=== PATIENT | female | born 1935 | race Two or more races ===

== ENCOUNTER 2017-04-08 13:14 | Inpatient (IN) | payer MEDICARE, OTHER ==
[~2017-04-08] VITALS: Ht 162.6 cm; Wt 52.6 kg
[2017-04-08] VITALS (15 sets, daily range): BP systolic 104–160; BP diastolic 41–100
[~2017-04-08 13:14] MED LIST: ALLOPURINOL100 M1 ORAL; ASPIR 8181 MG ORAL; ASPIRIN EC81 MG ORAL; BACTRIM DS TAB1 EAC1 ORAL; CEPHALEXIN500 MG ORAL; DIGOXIN250 MCG ORAL; DITROPAN10 MG ORAL; DIURIL25 MG ORAL; GELNIQUE92 GM PO; LEVAQUIN250 M1 ORAL; LISINOPRIL-HCT1 EACH ORAL; LISINOPRIL20 MG ORAL; LISINOPRIL5 MG ORAL; MAG-OXIDE400 M1 PO; MAGNESIUM OXID400 M1 ORAL; METFORMIN HCL1000 M1 ORAL; METOPROLOL SUC100 MG ORAL; METOPROLOL SUC200 MG ORAL; METOPROLOL TAR100 M1 ORAL; METRONIDAZOLE500 MG ORAL; PEPCID40 MG PO; PHENAZOPYRIDIN200 MG ORAL; TEMAZEPAM15 MG ORAL; TEMAZEPAM7.5 MG ORAL; TOPROL XL50 MG ORAL; VITAMIN D-40400 UNIT ORAL; VITAMIN D1000 UNI1 ORAL; WARFARIN SODIU2.5 MG ORAL; ZOFRAN ODT4 MG ORAL; ZOLPIDEM TARTRA10 MG ORAL
[2017-04-08] MEDS ORDERED: XARELTO10 MG ORAL (13:28)
[2017-04-08] MEDS ORDERED: Diltiazem 25mg/5ml IV ONE (13:30)
--- NOTE | 2017-04-08 13:48 | Emergency Room Report ---
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 and tachycardia Patient herself is nonverbal This does limit the history of present illness There was no reports of vomiting however the patient did have questionable diarrhea No obvious rash Patient appear to be worsening with her respirations In with the increased heart rate was brought in for further eval Patient has had previous CVA, and does not speak from that There was no reports of any obvious fall Patient symptoms ongoing for the past 3 days Allergies: Coded Allergies: No Known Allergies (Unverified , 02/14/15) Patient History Past Medical History: see triage record Pertinent Family History: none Now: No Reviewed Nursing Documentation: PMH: Agreed, PSxH: Agreed Nursing Documentation-PMH Past Medical History: No History, Except For Hx Hypertension: Yes Hx Diabetes: Yes Hx Cancer: No Hx Gastrointestinal Problems: No Hx Dialysis: No Hx Neurological Problems: Yes - stroke - right side weakness 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 Review of Systems All Other Systems: negative except mentioned in HPI Physical Exam Vital Signs Date Time Temp Pulse Resp B/P Pulse Ox O2 Delivery O2 Flow Rate FiO2 04/08/17 13:19 98.2 151 22 127/83 92 Room Air Sp02 EP Interpretation: reviewed, normal General Appearance: mild distress - Appears tachypneic and short of breath Head: normocephalic, atraumatic Eyes: bilateral eye PERRL ENT: normal pharynx, no angioedema Neck: supple, thyroid normal Respiratory: decreased breath sounds, other - Appears mildly tachypneic with shallow respirations Cardiovascular #1: tachycardia, irregularly irregular Gastrointestinal: non tender, soft, no mass Genitourinary: no CVA tenderness Musculoskeletal: other - Patient does not move extremities to command Neurologic: responsive - to physical stimuli Skin: no rash, warm/dry Lymphatic: no adenopathy Procedures Critical Care Time Critical Care Time 40 minutes for multiple re\re evaluations initial critical status Presentation concerning for cardiopulmonary arrest not including any procedural time Medical Decision Making Diagnostic Impression: Primary Impression: Rapid atrial fibrillation Additional Impression: CHF (congestive heart failure) ER Course Patient is a fairly complex patient with multiple differential to consideration including but not limited to cardiac cardiopulmonary and vascular emergencies Patient's chest x-ray imaging is concerning patient has obvious congestion Patient's heart rate did initially respond to the Cardizem At this time requiring drip Patient was also placed on BiPAP given the appearance And has been upgraded to ICU Labs Test 04/08/17 13:32 White Blood Count 6.1 K/UL (4.8-10.8) Red Blood Count 4.21 M/UL (4.20-5.40) Hemoglobin 11.0 G/DL (12.0-16.0) Hematocrit 36.1 % (37.0-47.0) Mean Corpuscular Volume 86 FL (80-99) Mean Corpuscular Hemoglobin 26.2 PG (27.0-31.0) Mean Corpuscular Hemoglobin Concent 30.5 G/DL (32.0-36.0) Red Cell Distribution Width 14.7 % (11.6-14.8) Platelet Count 266 K/UL (150-450) Mean Platelet Volume 7.9 FL (6.5-10.1) Neutrophils (%) (Auto) 79.1 % (45.0-75.0) Lymphocytes (%) (Auto) 13.9 % (20.0-45.0) Monocytes (%) (Auto) 6.1 % (1.0-10.0) Eosinophils (%) (Auto) 0.1 % (0.0-3.0) Basophils (%) (Auto) 0.8 % (0.0-2.0) Prothrombin Time 12.9 SEC (9.30-11.50) Prothromb Time International Ratio 1.3 (0.9-1.1) Activated Partial Thromboplast Time 26 SEC (23-33) Sodium Level 137 mEQ/L (135-145) Potassium Level 3.9 mEQ/L (3.4-4.9) Chloride Level 95 mEQ/L (98-107) Carbon Dioxide Level 22 mEQ/L (20-30) Anion Gap 20 (5-15) Blood Urea Nitrogen 17 mg/dL (7-23) Creatinine 0.8 mg/dL (0.5-0.9) Estimat Glomerular Filtration Rate mL/min (>60) Glucose Level 163 mg/dL (74-106) Calcium Level 9.4 mg/dL (8.6-10.2) Total Bilirubin 0.7 mg/dL (0.0-1.2) Aspartate Amino Transf (AST/SGOT) 29 U/L (5-40) Alanine Aminotransferase (ALT/SGPT) 19 U/L (3-33) Alkaline Phosphatase 65 U/L (35-104) Total Creatine Kinase 183 U/L (26-140) Troponin I < 0.30 ng/mL (<=0.30) Total Protein 7.1 g/dL (6.6-8.7) Albumin 4.2 g/dL (3.5-5.2) Globulin 2.9 g/dL Albumin/Globulin Ratio 1.4 (1.0-2.7) Lipase 57 U/L (< 60) EKG Diagnostic Results Rate: tachycardiac Rhythm: other ST Segments: other - Atrial fibrillation, irregularly irregular, straining pattern Rhythm Strip Diag. Results EP Interpretation: yes Rate: 135 Rhythm: no PVC's, no ectopy, other - a fib Chest X-Ray Diagnostic Results EP Interpretation: Yes Findings: no pneumothorax, other - Cardiomegaly pulmonary congestion bilateral effusions, Number of Views: 1 Last Vital Signs Date Time Temp Pulse Resp B/P Pulse Ox O2 Delivery O2 Flow Rate FiO2 04/08/17 13:37 157 127/83 04/08/17 13:19 98.2 22 92 Room Air Status: improved Disposition: ADMITTED INPATIENT Condition: Critical HEATHER HEATH D.O. April 08, 2017 13:48
[2017-04-08 13:52] LABS: BASOPHILS % (AUTO) 0.8 % (0.0-2.0); EOSINOPHILS % (AUTO) 0.1 % (0.0-3.0); LYMPHOCYTES % (AUTO) 13.9 % (20.0-45.0); MEAN CORPUSCULAR HEMOGLOBIN 26.2 PG (27.0-31.0); MEAN CORPUSCULAR HGB CONC 30.5 G/DL (32.0-36.0); MEAN CORPUSCULAR VOLUME 86 FL (80-99); MEAN PLATELET VOLUME 7.9 FL (6.5-10.1); MONOCYTES % (AUTO) 6.1 % (1.0-10.0); NEUTROPHILS % (AUTO) 79.1 % (45.0-75.0); PLATELET COUNT 266 K/UL (150-450); RED BLOOD COUNT 4.21 M/UL (4.20-5.40); RED CELL DISTRIBUTION WIDTH 14.7 % (11.6-14.8); WHITE BLOOD COUNT 6.1 K/UL (4.8-10.8)
[2017-04-08] MEDS ORDERED: Diltiazem CD 120mg cap ORAL ONE (14:00)
[2017-04-08 14:01] LABS: INR 1.3 (0.9-1.1); PROTHROMBIN TIME 12.9 SEC (9.30-11.50)
[2017-04-08 14:05] LABS: ALANINE AMINOTRANSFERASE 19 U/L (3-33); ALBUMIN/GLOBULIN RATIO 1.4 (1.0-2.7); ANION GAP 20 (5-15); ASPARTATE AMINO TRANSFERASE 29 U/L (5-40); CALCIUM 9.4 mg/dL (8.6-10.2); CARBON DIOXIDE 22 mEQ/L (20-30); CHLORIDE 95 mEQ/L (98-107); CREATININE 0.8 mg/dL (0.5-0.9); HEMOLYSIS 2; LIPASE 57 U/L (< 60); POTASSIUM 3.9 mEQ/L (3.4-4.9); SODIUM 137 mEQ/L (135-145); TOTAL PROTEIN 7.1 g/dL (6.6-8.7); TROPONIN I < 0.30 ng/mL (<=0.30)
[2017-04-08 14:15] LABS: CKMB 5.7 ng/mL (< 3.8)
[2017-04-08] MEDS ORDERED: Digoxin 0.5mg/2ml Inj IVP ONE (14:15)
[2017-04-08] MEDS ORDERED: Diltiazem 125mg/25ml Inj IV ONE (14:20)
[2017-04-08 14:44] LABS: APPEARANCE,URINE CLEAR; KETONES,URINE NEGATIVE (NEGATIVE); LEUKOCYTE ESTERASE ,URINE 1+ (NEGATIVE); NITRITE,URINE NEGATIVE (NEGATIVE); PH,URINE 5 (4.5-8.0); PROTEIN,URINE 1+ (NEGATIVE); UROBILINOGEN,URINE NORMAL MG/DL (0.0-1.0)
[2017-04-08 15:05] LABS: BACTERIA,URINE FEW /HPF; RBC,URINE 0-2 /HPF (0 - 2); SQUAMOUS EPITHELIAL CELL,UR FEW /LPF (NONE/OCC)
[2017-04-08] MEDS ORDERED: Miralax 17gm pkt ORAL PRN (16:15)
[2017-04-08] MEDS ORDERED: Morphine Sulfate 4mg/ml Inj IVP PRN (16:15)
[2017-04-08] MEDS ORDERED: DuoNeb 0.5-3(2.5)mg/3ml neb HHN PRN (16:15)
[2017-04-08] MEDS ORDERED: Metoprolol 5mg/5ml Inj IVP PRN (16:15)
[2017-04-08] MEDS: NovoLOG Insulin Flexpen SUBQ SCH ×2 (16:30→21:00)
[2017-04-08 16:33] LABS: ABG BASE EXCESS -5.1; ABG PCO2 29.1 mmHg (35.0-45.0)
[2017-04-08 16:34] LABS: ABG ALLEN TEST POSITIVE
[2017-04-08] MEDS ORDERED: Heparin 25,000u/D5W 500ml 500 ML IV SCH (17:30)
[2017-04-08] MEDS ORDERED: Heparin 5000 units/ml inj IV ONE (17:30)
[2017-04-08] MEDS ORDERED: Heparin 5000 units/ml inj SUBQ SCH (21:00)
--- NOTE | 2017-04-08 23:21 | Pulmonolgy Critical Care Note ---
Critical Care - Asmt/Plan Problems: (1) Atrial fibrillation with rapid ventricular response (2) CHF (congestive heart failure) (3) Hemiparesis, right (4) HTN (hypertension) (5) Diabetes mellitus Respiratory: monitor respiratory rate, adjust FIO2, CXR Cardiac: continue to monitor HR/BP, other - on heparin and cardizem drip Renal: F/U I&O Gastrointestinal: hold feedings Endocrine: monitor blood sugar, continue sliding scale insulin Hematologic: transfuse if hgb<8.5 Neurologic: PRN Ativan, keep patient comfortable Affect: PRN ativan Prophylaxis: Protonix, Heparin Time Spent (Minutes): 40 Discussed with: nurses, consultants, case briefer, family member Critical Care - Objective Last 24 Hour Vital Signs Date Time Temp Pulse Resp B/P Pulse Ox O2 Delivery O2 Flow Rate FiO2 04/08/17 19:00 70 20 132/64 99 Nasal Cannula 2.0 04/08/17 18:12 78 04/08/17 18:00 78 20 116/41 99 Nasal Cannula 2.0 04/08/17 17:31 99 Nasal Cannula 4.0 04/08/17 17:30 110 20 160/96 97 Venturi Mask 45 04/08/17 17:30 Nasal Cannula 4.0 04/08/17 17:00 110 20 156/100 97 Venturi Mask 45 04/08/17 16:53 97 179/78 04/08/17 16:30 114 22 160/72 98 Venturi Mask 45 04/08/17 16:00 138 04/08/17 15:50 98.7 132 20 158/72 98 Venturi Mask 45 04/08/17 15:30 107 20 141/89 100 Bi-pap 40 04/08/17 15:26 96 22 156/69 100 Bi-pap 40 04/08/17 15:01 104 20 133/97 100 Bi-pap 40 04/08/17 14:37 115 04/08/17 14:30 40 04/08/17 14:30 111 23 100 Facial 40 04/08/17 14:29 121 24 124/88 100 Bi-pap 40 04/08/17 14:05 107 129/88 04/08/17 13:50 117 24 Nasal Cannula 2.0 98 04/08/17 13:47 108 22 104/87 100 Nasal Cannula 04/08/17 13:37 157 127/83 5/12/17 13:19 98.2 151 22 127/83 92 Room Air Status: awake Condition: critical HEENT: atraumatic Neck: full ROM Lungs: chest wall tender Heart: HR/BP unstable, regular Abdomen: soft, non-tender Extremities: no C/C/E Accucheck: 95 Critical Care - Subjective ICU Day: 1 Interval Events: 81 year old female with hx of afib, CVA, BIBA with general weakness and tachycardia. she was diagnosed to have rapid afib and pulmonary edema and admitted to ICU. Sputum Amount: None Drips: Cardizem drip CXR: pulmonary edema Labs: Laboratory Tests Test 04/08/17 13:32 04/08/17 14:14 04/08/17 16:20 White Blood Count 6.1 K/UL (4.8-10.8) Red Blood Count 4.21 M/UL (4.20-5.40) Hemoglobin 11.0 G/DL (12.0-16.0) L Hematocrit 36.1 % (37.0-47.0) L Mean Corpuscular Volume 86 FL (80-99) Mean Corpuscular Hemoglobin 26.2 PG (27.0-31.0) L Mean Corpuscular Hemoglobin Concent 30.5 G/DL (32.0-36.0) L Red Cell Distribution Width 14.7 % (11.6-14.8) Platelet Count 266 K/UL (150-450) Mean Platelet Volume 7.9 FL (6.5-10.1) Neutrophils (%) (Auto) 79.1 % (45.0-75.0) H Lymphocytes (%) (Auto) 13.9 % (20.0-45.0) L Monocytes (%) (Auto) 6.1 % (1.0-10.0) Eosinophils (%) (Auto) 0.1 % (0.0-3.0) Basophils (%) (Auto) 0.8 % (0.0-2.0) Prothrombin Time 12.9 SEC (9.30-11.50) H Prothromb Time International Ratio 1.3 (0.9-1.1) H Activated Partial Thromboplast Time 26 SEC (23-33) Sodium Level 137 mEQ/L (135-145) Potassium Level 3.9 mEQ/L (3.4-4.9) Chloride Level 95 mEQ/L (98-107) L Carbon Dioxide Level 22 mEQ/L (20-30) Anion Gap 20 (5-15) H Blood Urea Nitrogen 17 mg/dL (7-23) Creatinine 0.8 mg/dL (0.5-0.9) Estimat Glomerular Filtration Rate mL/min (>60) Glucose Level 163 mg/dL (74-106) H Calcium Level 9.4 mg/dL (8.6-10.2) Total Bilirubin 0.7 mg/dL (0.0-1.2) Aspartate Amino Transf (AST/SGOT) 29 U/L (5-40) Alanine Aminotransferase (ALT/SGPT) 19 U/L (3-33) Alkaline Phosphatase 65 U/L (35-104) Total Creatine Kinase 183 U/L (26-140) H Creatine Kinase MB 5.7 ng/mL (< 3.8) H Creatine Kinase MB Relative Index 3.1 Troponin I < 0.30 ng/mL (<=0.30) Pro-B-Type Natriuretic Peptide 4342 pg/mL (0-450) H Total Protein 7.1 g/dL (6.6-8.7) Albumin 4.2 g/dL (3.5-5.2) Globulin 2.9 g/dL Albumin/Globulin Ratio 1.4 (1.0-2.7) Lipase 57 U/L (< 60) Digoxin Level < 0.3 ng/mL (0.5-2.0) L Urine Color Yellow Urine Appearance Clear Urine pH 5 (4.5-8.0) Urine Specific [place] 1.020 (1.005-1.035) Urine Protein 1+ (NEGATIVE) H Urine Glucose (UA) Negative (NEGATIVE) Urine Ketones Negative (NEGATIVE) Urine Occult Blood 1+ (NEGATIVE) H Urine Nitrite Negative (NEGATIVE) Urine Bilirubin Negative (NEGATIVE) Urine Urobilinogen Normal MG/DL (0.0-1.0) Urine Leukocyte Esterase 1+ (NEGATIVE) H Urine RBC 0-2 /HPF (0 - 2) Urine WBC 2-4 /HPF (0 - 2) Urine Squamous Epithelial Cells Few /LPF (NONE/OCC) Urine Bacteria Few /HPF (NONE) Arterial Blood pH 7.418 (7.350-7.450) Arterial Blood Partial Pressure CO2 29.1 mmHg (35.0-45.0) L Arterial Blood Partial Pressure O2 113.6 mmHg (75.0-100.0) H Arterial Blood HCO3 18.4 mmol/L (22.0-26.0) L Arterial Blood Oxygen Saturation 98.0 % (92.0-98.0) Arterial Blood Base Excess -5.1 Ozzie Test Positive JEANNE WHITE April 08, 2017 23:21
[2017-04-09] VITALS (19 sets, daily range): BP systolic 107–155; BP diastolic 46–92
[2017-04-09] MEDS: Heparin 25,000u/D5W 500ml 500 ML IV SCH ×3 (04:26→19:09)
[2017-04-09] MEDS: NovoLOG Insulin Flexpen SUBQ SCH ×4 (06:24→21:44)
[2017-04-09 06:41] LABS: TROPONIN I < 0.30 ng/mL (<=0.30)
[2017-04-09 07:10] LABS: ANION GAP 21 (5-15); CALCIUM 8.9 mg/dL (8.6-10.2); CARBON DIOXIDE 26 mEQ/L (20-30); CHLORIDE 96 mEQ/L (98-107); CREATININE 0.7 mg/dL (0.5-0.9); HEMOLYSIS 10; PHOSPHORUS 4.7 mg/dL (2.5-4.8); POTASSIUM 3.3 mEQ/L (3.4-4.9); SODIUM 143 mEQ/L (135-145)
[2017-04-09] MEDS ORDERED: Allopurinol 100mg Tab ORAL SCH (09:00)
[2017-04-09] MEDS ORDERED: Pantoprazole Inj IV SCH (09:00)
[2017-04-09 10:22] LABS: BASOPHILS % (AUTO) 1.2 % (0.0-2.0); EOSINOPHILS % (AUTO) 0.7 % (0.0-3.0); LYMPHOCYTES % (AUTO) 18.8 % (20.0-45.0); MEAN CORPUSCULAR HEMOGLOBIN 26.4 PG (27.0-31.0); MEAN CORPUSCULAR HGB CONC 31.4 G/DL (32.0-36.0); MEAN CORPUSCULAR VOLUME 84 FL (80-99); MEAN PLATELET VOLUME 8.2 FL (6.5-10.1); NEUTROPHILS % (AUTO) 67.3 % (45.0-75.0); PLATELET COUNT 243 K/UL (150-450); RED BLOOD COUNT 4.37 M/UL (4.20-5.40); RED CELL DISTRIBUTION WIDTH 14.9 % (11.6-14.8); WHITE BLOOD COUNT 4.6 K/UL (4.8-10.8)
--- NOTE | 2017-04-09 10:47 | Diagnostic Imaging Report ---
Indication: Dyspnea Technique: XRAY CHEST 1 V Comparison: 04/08/17 Findings: Cardiomediastinal silhouette is stable. Interstitial edema and small bilateral pleural effusions are again present. The osseous structures are stable. Impression: Stable congestive heart failure.
[2017-04-09 10:56] LABS: ALANINE AMINOTRANSFERASE 21 U/L (3-33); ALBUMIN/GLOBULIN RATIO 1.3 (1.0-2.7); ANION GAP 18 (5-15); ASPARTATE AMINO TRANSFERASE 29 U/L (5-40); CALCIUM 9.1 mg/dL (8.6-10.2); CARBON DIOXIDE 30 mEQ/L (20-30); CHLORIDE 93 mEQ/L (98-107); CREATININE 0.8 mg/dL (0.5-0.9); HEMOLYSIS 4; PHOSPHORUS 4.7 mg/dL (2.5-4.8); POTASSIUM 3.2 mEQ/L (3.4-4.9); SODIUM 141 mEQ/L (135-145)
[2017-04-09 11:17] LABS: BILIRUBIN,DIRECT 0.3 mg/dL (0.1-0.3)
[2017-04-09 11:24] LABS: DIGOXIN 3.8 ng/mL (0.5-2.0)
[2017-04-09] MEDS ORDERED: Heparin 5000 units/ml inj IV ONE (11:45)
--- NOTE | 2017-04-09 12:08 | Pulmonolgy Critical Care Note ---
Critical Care - Asmt/Plan Problems: (1) Atrial fibrillation with rapid ventricular response (2) CHF (congestive heart failure) (3) Hemiparesis, right (4) HTN (hypertension) (5) Diabetes mellitus Respiratory: monitor respiratory rate, adjust FIO2, CXR Cardiac: continue pressors Renal: F/U I&O, keep IV fluid Infectious Disease: check cultures, continue antibiotics Gastrointestinal: continue feedings/current rate, hold feedings Endocrine: check HgA1C Hematologic: monitor H/H Neurologic: PRN Ativan Affect: PRN ativan Prophylaxis: Protonix, Heparin Notes Reviewed: cardio, renal Discussed with: nurses, consultants, dependency case managermanager therapy - Objective Last 24 Hour Vital Signs Date Time Temp Pulse Resp B/P Pulse Ox O2 Delivery O2 Flow Rate FiO2 04/09/17 11:00 86 22 121/71 100 Nasal Cannula 2.0 04/09/17 10:00 87 21 116/76 100 Nasal Cannula 2.0 04/09/17 09:00 89 22 133/59 100 Nasal Cannula 2.0 04/09/17 08:58 90 04/09/17 08:00 86 04/09/17 08:00 98.5 85 27 155/73 99 Nasal Cannula 2.0 04/09/17 07:56 99 Nasal Cannula 4.0 04/09/17 07:55 Nasal Cannula 4.0 04/09/17 07:00 85 18 146/59 99 Nasal Cannula 2.0 04/09/17 06:00 63 18 115/74 100 Nasal Cannula 2.0 04/09/17 05:00 63 18 122/59 100 Nasal Cannula 2.0 04/09/17 04:00 57 04/09/17 04:00 98.6 57 18 107/46 98 Nasal Cannula 2.0 04/09/17 03:00 80 21 130/54 100 Nasal Cannula 2.0 04/09/17 02:00 75 20 135/49 100 Nasal Cannula 2.0 04/09/17 01:00 68 22 133/58 100 Nasal Cannula 2.0 04/09/17 00:00 98.7 73 20 128/49 100 Nasal Cannula 2.0 04/09/17 00:00 73 04/08/17 23:00 71 21 107/52 100 Nasal Cannula 2.0 04/08/17 22:00 65 26 133/44 100 Nasal Cannula 2.0 04/08/17 21:00 78 21 131/56 100 Nasal Cannula 2.0 04/08/17 20:00 98.4 75 21 124/72 100 Nasal Cannula 2.0 04/08/17 20:00 75 04/08/17 19:00 70 20 132/64 99 Nasal Cannula 2.0 04/08/17 18:12 78 04/08/17 18:00 78 20 116/41 99 Nasal Cannula 2.0 04/08/17 17:31 99 Nasal Cannula 4.0 04/08/17 17:30 110 20 160/96 97 Venturi Mask 45 04/08/17 17:30 Nasal Cannula 4.0 04/08/17 17:00 110 20 156/100 97 Venturi Mask 45 04/08/17 16:53 97 179/78 04/08/17 16:30 114 22 160/72 98 Venturi Mask 45 04/08/17 16:00 138 04/08/17 15:50 98.7 132 20 158/72 98 Venturi Mask 45 04/08/17 15:30 107 20 141/89 100 Bi-pap 40 04/08/17 15:26 96 22 156/69 100 Bi-pap 40 04/08/17 15:01 104 20 133/97 100 Bi-pap 40 04/08/17 14:37 115 04/08/17 14:30 40 04/08/17 14:30 111 23 100 Facial 40 04/08/17 14:29 121 24 124/88 100 Bi-pap 40 04/08/17 14:05 107 129/88 04/08/17 13:50 117 24 Nasal Cannula 2.0 98 04/08/17 13:47 108 22 104/87 100 Nasal Cannula 04/08/17 13:37 157 127/83 04/08/17 13:19 98.2 151 22 127/83 92 Room Air Status: awake Condition: critical HEENT: atraumatic Neck: full ROM Lungs: chest wall tender Heart: HR/BP unstable, regular Abdomen: non-tender Extremities: no C/C/E Accucheck: 111 Critical Care - Subjective ROS Limited/Unobtainable: No ICU Day: 2 Interval Events: off cardizem drip heart rate controlled diuresing well Sputum Amount: None Drips: heparin drip I&O: Intake and Output 04/08/17 04/09/17 19:00 07:00 Intake Total 5 ml 262.83 ml Output Total 2950 ml Balance 5 ml -2687.17 ml Intake Oral 0 ml IV Total 5 ml 262.83 ml Output Urine Total 2950 ml # Voids 4 CXR: less pulmonary edema Labs: Laboratory Tests Test 04/08/17 13:32 04/08/17 14:14 04/08/17 16:20 04/09/17 00:16 White Blood Count 6.1 K/UL (4.8-10.8) Red Blood Count 4.21 M/UL (4.20-5.40) Hemoglobin 11.0 G/DL (12.0-16.0) L Hematocrit 36.1 % (37.0-47.0) L Mean Corpuscular Volume 86 FL (80-99) Mean Corpuscular Hemoglobin 26.2 PG (27.0-31.0) L Mean Corpuscular Hemoglobin Concent 30.5 G/DL (32.0-36.0) L Red Cell Distribution Width 14.7 % (11.6-14.8) Platelet Count 266 K/UL (150-450) Mean Platelet Volume 7.9 FL (6.5-10.1) Neutrophils (%) (Auto) 79.1 % (45.0-75.0) H Lymphocytes (%) (Auto) 13.9 % (20.0-45.0) L Monocytes (%) (Auto) 6.1 % (1.0-10.0) Eosinophils (%) (Auto) 0.1 % (0.0-3.0) Basophils (%) (Auto) 0.8 % (0.0-2.0) Prothrombin Time 12.9 SEC (9.30-11.50) H Prothromb Time International Ratio 1.3 (0.9-1.1) H Activated Partial Thromboplast Time 26 SEC (23-33) 107 SEC (23-33) H Sodium Level 137 mEQ/L (135-145) Potassium Level 3.9 mEQ/L (3.4-4.9) Chloride Level 95 mEQ/L (98-107) L Carbon Dioxide Level 22 mEQ/L (20-30) Anion Gap 20 (5-15) H Blood Urea Nitrogen 17 mg/dL (7-23) Creatinine 0.8 mg/dL (0.5-0.9) Estimat Glomerular Filtration Rate mL/min (>60) Glucose Level 163 mg/dL (74-106) H Calcium Level 9.4 mg/dL (8.6-10.2) Total Bilirubin 0.7 mg/dL (0.0-1.2) Aspartate Amino Transf (AST/SGOT) 29 U/L (5-40) Alanine Aminotransferase (ALT/SGPT) 19 U/L (3-33) Alkaline Phosphatase 65 U/L (35-104) Total Creatine Kinase 183 U/L (26-140) H Creatine Kinase MB 5.7 ng/mL (< 3.8) H Creatine Kinase MB Relative Index 3.1 Troponin I < 0.30 ng/mL (<=0.30) Pro-B-Type Natriuretic Peptide 4342 pg/mL (0-450) H Total Protein 7.1 g/dL (6.6-8.7) Albumin 4.2 g/dL (3.5-5.2) Globulin 2.9 g/dL Albumin/Globulin Ratio 1.4 (1.0-2.7) Lipase 57 U/L (< 60) Digoxin Level < 0.3 ng/mL (0.5-2.0) L Urine Color Yellow Urine Appearance Clear Urine pH 5 (4.5-8.0) Urine Specific [place] 1.020 (1.005-1.035) Urine Protein 1+ (NEGATIVE) H Urine Glucose (UA) Negative (NEGATIVE) Urine Ketones Negative (NEGATIVE) Urine Occult Blood 1+ (NEGATIVE) H Urine Nitrite Negative (NEGATIVE) Urine Bilirubin Negative (NEGATIVE) Urine Urobilinogen Normal MG/DL (0.0-1.0) Urine Leukocyte Esterase 1+ (NEGATIVE) H Urine RBC 0-2 /HPF (0 - 2) Urine WBC 2-4 /HPF (0 - 2) Urine Squamous Epithelial Cells Few /LPF (NONE/OCC) Urine Bacteria Few /HPF (NONE) Arterial Blood pH 7.418 (7.350-7.450) Arterial Blood Partial Pressure CO2 29.1 mmHg (35.0-45.0) L Arterial Blood Partial Pressure O2 113.6 mmHg (75.0-100.0) H Arterial Blood HCO3 18.4 mmol/L (22.0-26.0) L Arterial Blood Oxygen Saturation 98.0 % (92.0-98.0) Arterial Blood Base Excess -5.1 Ozzie Test Positive Test 04/09/17 04:20 04/09/17 09:55 Sodium Level 143 mEQ/L (135-145) 141 mEQ/L (135-145) Potassium Level 3.3 mEQ/L (3.4-4.9) L 3.2 mEQ/L (3.4-4.9) L Chloride Level 96 mEQ/L (98-107) L 93 mEQ/L (98-107) L Carbon Dioxide Level 26 mEQ/L (20-30) 30 mEQ/L (20-30) Anion Gap 21 (5-15) H 18 (5-15) H Blood Urea Nitrogen 14 mg/dL (7-23) 12 mg/dL (7-23) Creatinine 0.7 mg/dL (0.5-0.9) 0.8 mg/dL (0.5-0.9) Estimat Glomerular Filtration Rate mL/min (>60) mL/min (>60) Glucose Level 86 mg/dL (74-106) 126 mg/dL (74-106) H Calcium Level 8.9 mg/dL (8.6-10.2) 9.1 mg/dL (8.6-10.2) Phosphorus Level 4.7 mg/dL (2.5-4.8) 4.7 mg/dL (2.5-4.8) Troponin I < 0.30 ng/mL (<=0.30) Albumin 3.6 g/dL (3.5-5.2) 4.0 g/dL (3.5-5.2) White Blood Count 4.6 K/UL (4.8-10.8) L Red Blood Count 4.37 M/UL (4.20-5.40) Hemoglobin 11.5 G/DL (12.0-16.0) L Hematocrit 36.8 % (37.0-47.0) L Mean Corpuscular Volume 84 FL (80-99) Mean Corpuscular Hemoglobin 26.4 PG (27.0-31.0) L Mean Corpuscular Hemoglobin Concent 31.4 G/DL (32.0-36.0) L Red Cell Distribution Width 14.9 % (11.6-14.8) H Platelet Count 243 K/UL (150-450) Mean Platelet Volume 8.2 FL (6.5-10.1) Neutrophils (%) (Auto) 67.3 % (45.0-75.0) Lymphocytes (%) (Auto) 18.8 % (20.0-45.0) L Monocytes (%) (Auto) 12.0 % (1.0-10.0) H Eosinophils (%) (Auto) 0.7 % (0.0-3.0) Basophils (%) (Auto) 1.2 % (0.0-2.0) Activated Partial Thromboplast Time 60 SEC (23-33) H Magnesium Level 1.1 mg/dL (1.7-2.5) L Total Bilirubin 1.1 mg/dL (0.0-1.2) Direct Bilirubin 0.3 mg/dL (0.1-0.3) Aspartate Amino Transf (AST/SGOT) 29 U/L (5-40) Alanine Aminotransferase (ALT/SGPT) 21 U/L (3-33) Alkaline Phosphatase 62 U/L (35-104) Total Protein 7.0 g/dL (6.6-8.7) Globulin 3.0 g/dL Albumin/Globulin Ratio 1.3 (1.0-2.7) Digoxin Level 3.8 ng/mL (0.5-2.0) *JEANNE MOHAN April 09, 2017 12:08
--- NOTE | 2017-04-09 17:28 | History & Physical ---
History and Physical History & Physicial Dictated for Int Med - Dr Garrido no. [id number]. CHIKI CARLTON April 09, 2017 17:28
[2017-04-09] MEDS ORDERED: Morphine Sulfate 4mg/ml Inj IVP PRN (18:00)
[2017-04-09] MEDS ORDERED: DuoNeb 0.5-3(2.5)mg/3ml neb HHN PRN (18:00)
[2017-04-09] MEDS ORDERED: Metoprolol 5mg/5ml Inj IVP PRN (18:00)
[2017-04-09] MEDS ORDERED: Miralax 17gm pkt ORAL PRN (18:00)
[2017-04-10] VITALS (7 sets, daily range): BP systolic 110–154; BP diastolic 62–90
--- NOTE | 2017-04-10 02:08 | History and Physical Report ---
DATE OF ADMISSION: 04/08/2017 CHIEF COMPLAINT: The patient is an 81-year-old female, presents with complaint of generalized weakness and tachycardia. HISTORY OF PRESENT ILLNESS: The patient presented to [facility] emergency room with her caregiver. According to the caregiver, the patient began to experience shortness of breath. The patient was found to be in atrial fibrillation with a rapid ventricular rate. The patient was admitted for atrial fibrillation with a rapid ventricular rate and generalized weakness. REVIEW OF SYSTEMS: Constitutional: The patient denies weight loss or weight gain. The patient denies fevers or chills. HEENT: The patient denies ear or throat pain. The patient denies headache. Cardiovascular: The patient complains of palpitations. The patient denies chest pain. Chest: The patient complains of shortness of breath. The patient denies wheezes. Abdomen: The patient denies nausea, vomiting, or constipation. Genitourinary: The patient denies dysuria or increased frequency of urination. Neuromuscular: The patient denies seizures. The patient does complain of generalized weakness as above. PAST MEDICAL HISTORY: Significant for: 1. Type 2 diabetes. 2. Hypertension. 3. History of gout. 4. Paroxysmal atrial fibrillation. 5. Cerebrovascular accident. 6. Right hemiparesis. PAST SURGICAL HISTORY: The patient denies. CURRENT MEDICATIONS: 1. Allopurinol 100 mg one tablet p.o. daily. 2. Aspirin 81 mg one tablet p.o. daily. 3. Vitamin D3 400 units tablet p.o. daily. 4. Digoxin 0.25 mg one tablet p.o. daily. 5. Pepcid 40 mg one tablet p.o. daily. 6. Lisinopril 20 mg one tablet p.o. daily. 7. Magnesium oxide 400 mg one tablet p.o. daily. 8. Metformin 1000 mg one tablet p.o. twice daily. 9. Metoprolol-XL 50 mg one tablet p.o. twice daily. 10. Oxybutynin 5 mg one tablet p.o. twice daily. 11. Xarelto 2 mg one tablet p.o. daily. 12. Temazepam 15 mg one tablet p.o. at bedtime. 13. Coumadin 2.5 mg one tablet p.o. daily. ALLERGIES: No known drug allergies. SOCIAL HISTORY: The patient is . The patient is . The patient lives with a caregiver. The patient denies tobacco use or alcohol use. PHYSICAL EXAMINATION: GENERAL: The patient is well-nourished, female, in no apparent distress. VITAL SIGNS: Temperature 98.4 degrees, respirations 14, pulse 89, and blood pressure 122/72. HEENT: Eyes, pupils are equal and responsive to light and accommodation. Extraocular movements are intact. NECK: Supple. No lymphadenopathy. CHEST: Lungs are clear to auscultation bilaterally without wheezes or rales. CARDIOVASCULAR: Regular rhythm and rate. S1, S2 normal without murmurs, rubs, or gallops. ABDOMEN: Soft, nontender, and nondistended. Positive bowel sounds. No evidence of hepatosplenomegaly. Currently, no rebound or guarding. EXTREMITIES: Negative for clubbing, cyanosis, or edema. RECTAL/GENITAL: Refused. NEUROLOGIC: Cranial nerves II through XII are grossly intact without focal deficits. Motor strength is bilaterally. Deep tendon reflexes are 2+ plantar. LABORATORY STUDIES: WBC 6.1, hemoglobin 11.2, hematocrit 36.1, and platelets 266,000. Sodium 143, potassium 3.3, chloride 96, CO2 26, BUN 14, creatinine 0.7, and glucose 86. ProTime 12.9, INR 1.3, and PTT 26. ASSESSMENT: This is an 81-year-old female: 1. Atrial fibrillation with rapid ventricular rate. 2. Congestive heart failure. 3. Generalized weakness. 4. Tachycardia. 5. Diabetes type 2. 6. Hypertension. 7. Cerebrovascular disease. 8. Right hemiparesis. TREATMENT: 1. Atrial fibrillation with rapid ventricular rate. A Cardiology consultation with Dr. Hitesh Gates. We will follow recommendations of Cardiology. 2. Congestive heart failure. The patient has been started empirically on intravenous Lasix. Await Cardiology consult as above. 3. Generalized weakness. 4. Diabetes type 2. The patient has been placed on a NovoLog sliding scale. 5. Hypertension. The patient is currently on metoprolol intravenously. 6. Cerebrovascular disease. 7. Right hemiparesis. Rocky Garibay M.D. DR: Nany JOB#: [id number] CC:
[2017-04-10] MEDS: NovoLOG Insulin Flexpen SUBQ SCH ×4 (05:51→20:21)
[2017-04-10 06:09] LABS: ALANINE AMINOTRANSFERASE 19 U/L (3-33); ALBUMIN/GLOBULIN RATIO 1.3 (1.0-2.7); ANION GAP 20 (5-15); ASPARTATE AMINO TRANSFERASE 26 U/L (5-40); CALCIUM 8.9 mg/dL (8.6-10.2); CARBON DIOXIDE 30 mEQ/L (20-30); CHLORIDE 90 mEQ/L (98-107); CREATININE 0.9 mg/dL (0.5-0.9); HEMOLYSIS 4; POTASSIUM 3.3 mEQ/L (3.4-4.9); SODIUM 140 mEQ/L (135-145)
[2017-04-10 06:12] LABS: BASOPHILS % (AUTO) 0.9 % (0.0-2.0); EOSINOPHILS % (AUTO) 1.3 % (0.0-3.0); MEAN CORPUSCULAR HEMOGLOBIN 26.3 PG (27.0-31.0); MEAN CORPUSCULAR HGB CONC 31.4 G/DL (32.0-36.0); MEAN CORPUSCULAR VOLUME 84 FL (80-99); MEAN PLATELET VOLUME 7.7 FL (6.5-10.1); MONOCYTES % (AUTO) 10.5 % (1.0-10.0); NEUTROPHILS % (AUTO) 67.3 % (45.0-75.0); PLATELET COUNT 259 K/UL (150-450); RED BLOOD COUNT 4.75 M/UL (4.20-5.40); RED CELL DISTRIBUTION WIDTH 15.2 % (11.6-14.8); WHITE BLOOD COUNT 5.7 K/UL (4.8-10.8)
[2017-04-10 06:34] LABS: BILIRUBIN,DIRECT 0.2 mg/dL (0.1-0.3)
[2017-04-10] MEDS: Allopurinol 100mg Tab ORAL SCH (08:57)
[2017-04-10] MEDS: Pantoprazole Inj IV SCH (08:57)
[2017-04-10] MEDS ORDERED: NS 275ml ONE (09:23)
[2017-04-10] MEDS ORDERED: Tubing IV Secondary IV ONE (09:23)
--- NOTE | 2017-04-10 13:23 | Internal Med Progress Note ---
Subjective Date of Service: April 10, 2017 Physician Name GaribayRocky august Attending Physician Glenn Garrido MD Current Medications Medications (Trade) Dose Ordered Sig/Yovana Route PRN Reason Start Time Stop Time Status Last Admin Dose Admin Acetaminophen (Tylenol) 650 mg Q4H PRN ORAL Fever 04/09/17 20:00 05/09/17 19:59 Albuterol/ Ipratropium (DuoNeb 0.5-3(2.5)mg/3ml) 3 ml EVERY 4 HOURS PRN HHN Shortness of Breath 04/09/17 18:00 04/14/17 17:59 Allopurinol (Zyloprim) 100 mg DAILY ORAL 04/10/17 09:00 05/10/17 08:59 04/10/17 08:57 Dextrose (Dextrose 50%) STAT PRN IV Hypoglycemia 04/09/17 18:00 05/09/17 17:59 Furosemide (Lasix) 40 mg EVERY 8 HOURS IV 04/09/17 22:00 05/09/17 21:59 04/10/17 13:01 Heparin Sodium/ Dextrose (Heparin) 500 ml @ 20.049 mls/ hr adjust per protocol IV 04/09/17 17:45 05/09/17 17:44 04/09/17 19:09 Insulin Aspart (NovoLOG) BEFORE MEALS AND HS SUBQ 04/09/17 21:00 05/09/17 20:59 04/10/17 12:50 Metoprolol Tartrate (Lopressor) 5 mg EVERY HOUR PRN IVP spb more than 120 04/09/17 18:00 05/09/17 17:59 04/10/17 09:26 Morphine Sulfate (Morphine Sulfate) 4 mg Q4H PRN IVP For Pain 04/09/17 18:00 04/16/17 17:59 Ondansetron HCl (Zofran) 4 mg Q6H PRN IVP Nausea & Vomiting 04/09/17 18:00 05/09/17 17:59 Pantoprazole (Protonix) 40 mg DAILY IV 04/10/17 09:00 05/10/17 08:59 04/10/17 08:57 Polyethylene Glycol (Miralax) 17 gm DAILYPRN PRN ORAL Constipation 04/09/17 18:00 05/09/17 17:59 Potassium Chloride (K-Dur) 40 meq Q4HR ORAL 5/14/17 13:00 04/10/17 17:01 04/10/17 12:55 Temazepam (Restoril) 15 mg HSPRN PRN ORAL Insomnia 04/09/17 21:00 04/16/17 20:59 04/09/17 22:03 Allergies: Coded Allergies: No Known Allergies (Unverified , 02/14/15) ROS Limited/Unobtainable: No Subjective 81 YO F admitted with gen weakness, now afib with rapid rate. Cover for Int Med -Dr Garrido. Objective Last Vital Signs Date Time Temp Pulse Resp B/P Pulse Ox O2 Delivery O2 Flow Rate FiO2 04/10/17 12:00 96.0 94 18 119/62 Nasal Cannula 2.0 96 04/10/17 04:00 100 Laboratory Tests Test 04/09/17 17:45 04/10/17 04:07 Activated Partial Thromboplast Time 85 SEC (23-33) H 78 SEC (23-33) H White Blood Count 5.7 K/UL (4.8-10.8) Red Blood Count 4.75 M/UL (4.20-5.40) Hemoglobin 12.5 G/DL (12.0-16.0) Hematocrit 39.8 % (37.0-47.0) Mean Corpuscular Volume 84 FL (80-99) Mean Corpuscular Hemoglobin 26.3 PG (27.0-31.0) L Mean Corpuscular Hemoglobin Concent 31.4 G/DL (32.0-36.0) L Red Cell Distribution Width 15.2 % (11.6-14.8) H Platelet Count 259 K/UL (150-450) Mean Platelet Volume 7.7 FL (6.5-10.1) Neutrophils (%) (Auto) 67.3 % (45.0-75.0) Lymphocytes (%) (Auto) 20.0 % (20.0-45.0) Monocytes (%) (Auto) 10.5 % (1.0-10.0) H Eosinophils (%) (Auto) 1.3 % (0.0-3.0) Basophils (%) (Auto) 0.9 % (0.0-2.0) Sodium Level 140 mEQ/L (135-145) Potassium Level 3.3 mEQ/L (3.4-4.9) L Chloride Level 90 mEQ/L (98-107) L Carbon Dioxide Level 30 mEQ/L (20-30) Anion Gap 20 (5-15) H Blood Urea Nitrogen 13 mg/dL (7-23) Creatinine 0.9 mg/dL (0.5-0.9) Estimat Glomerular Filtration Rate mL/min (>60) Glucose Level 114 mg/dL (74-106) H Calcium Level 8.9 mg/dL (8.6-10.2) Magnesium Level 1.7 mg/dL (1.7-2.5) Total Bilirubin 1.1 mg/dL (0.0-1.2) Direct Bilirubin 0.2 mg/dL (0.1-0.3) Aspartate Amino Transf (AST/SGOT) 26 U/L (5-40) Alanine Aminotransferase (ALT/SGPT) 19 U/L (3-33) Alkaline Phosphatase 64 U/L (35-104) Pro-B-Type Natriuretic Peptide 1354 pg/mL (0-450) H Total Protein 7.0 g/dL (6.6-8.7) Albumin 4.0 g/dL (3.5-5.2) Globulin 3.0 g/dL Albumin/Globulin Ratio 1.3 (1.0-2.7) Microbiology Date/Time Source Procedure Growth Status 04/08/17 14:00 Blood Blood Culture - Preliminary NO GROWTH AFTER 24 HOURS Resulted 04/08/17 13:37 Blood Blood Culture - Preliminary NO GROWTH AFTER 24 HOURS Resulted Intake and Output 04/09/17 04/10/17 19:00 07:00 Intake Total 292.23 ml 437.581 ml Output Total 2175 ml 1400 ml Balance -1882.77 ml -962.419 ml Intake Oral 120 ml IV Total 142.23 ml 437.581 ml Other 30 ml Output Urine Total 2175 ml 1400 ml Objective General: alert, cooperative, no distress, appears stated age Head: normocephalic, without obvious abnormality, atraumatic Eyes: conjunctivae/corneas clear. PERRL, EOM's intact Throat: lips, mucosa, and tongue normal. MMM Neck: supple, symmetrical, trachea midline, and no JVD Lungs: clear to auscultation bilaterally Heart: tachycardia; irregular rate and rhythm, S1, S2 normal, no murmur, click, rub or gallop Abdomen: soft, non-tender, non-distended, bowel sounds normal; no masses or organomegaly Extremities: extremities normal, atraumatic, no cyanosis or edema Pulses: 2+ and symmetric Skin: skin color, texture, turgor normal; no rashes or lesions Neurologic: right hemiparesis; 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, no focal deficits Assessment/Plan Problem List: (1) Generalized weakness (2) Tachycardia (3) Atrial fibrillation with rapid ventricular response Assessment & Plan: Paroxysmal. Follow Cardiology recs. (4) CHF (congestive heart failure) Assessment & Plan: Improving. Cont IV lasix. Follow cardiology recs. (5) HTN (hypertension) (6) Right hemiparesis (7) Cerebral vascular disease (8) Diabetes type 2, controlled Assessment & Plan: Continue novolog sliding scale. Status: progressing ROCKY GARIBAY April 10, 2017 13:23
[2017-04-10] MEDS ORDERED: Metoprolol 5mg/5ml Inj IVP PRN (13:45)
--- NOTE | 2017-04-10 15:34 | Pulmonology Progress Note ---
Assessment/Plan Problems: (1) Atrial fibrillation with rapid ventricular response (2) Right hemiparesis (3) Cerebral vascular disease (4) Diabetes mellitus Assessment/Plan heart rate better controlled bp more stable on heparin drip K supplement echo noted: EF of 55% awaiting cardio keep in teli Subjective ROS Limited/Unobtainable: No Interval Events: awake, heart rate better controlled Allergies: Coded Allergies: No Known Allergies (Unverified , 02/14/15) Objective Last 24 Hour Vital Signs Date Time Temp Pulse Resp B/P Pulse Ox O2 Delivery O2 Flow Rate FiO2 04/10/17 12:00 96.0 94 18 119/62 Nasal Cannula 2.0 96 04/10/17 11:55 91 04/10/17 09:30 137 04/10/17 09:26 121 147/69 04/10/17 09:25 121 147/69 04/10/17 09:08 158 04/10/17 08:00 98.2 53 18 154/90 Nasal Cannula 2.0 98 04/10/17 07:57 120 04/10/17 07:35 99 Nasal Cannula 2.0 28 04/10/17 07:30 Nasal Cannula 2.0 28 04/10/17 04:00 97.5 94 18 133/81 100 Nasal Cannula 2.0 04/10/17 04:00 109 04/10/17 00:00 96.3 100 16 134/67 99 Nasal Cannula 2.0 04/10/17 00:00 86 04/09/17 20:00 92 04/09/17 20:00 96.6 82 20 120/60 99 Nasal Cannula 2.0 04/09/17 19:39 Nasal Cannula 2.0 28 04/09/17 19:38 98 Nasal Cannula 2.0 28 04/09/17 17:00 87 20 142/73 99 Nasal Cannula 2.0 04/09/17 16:00 97.7 96 22 141/92 99 Nasal Cannula 2.0 04/09/17 16:00 95 Intake and Output 04/09/17 04/10/17 19:00 07:00 Intake Total 292.23 ml 437.581 ml Output Total 2175 ml 1400 ml Balance -1882.77 ml -962.419 ml Intake Oral 120 ml IV Total 142.23 ml 437.581 ml Other 30 ml Output Urine Total 2175 ml 1400 ml General Appearance: cachetic HEENT: normocephalic, atraumatic Respiratory/Chest: chest wall non-tender, crackles/rales Breasts: no masses Cardiovascular: normal peripheral pulses, irregularly irregular Abdomen: normal bowel sounds, soft, non tender Genitourinary: normal external genitalia Extremities: no cyanosis Microbiology Date/Time Source Procedure Growth Status 04/08/17 14:00 Blood Blood Culture - Preliminary NO GROWTH AFTER 24 HOURS Resulted 04/08/17 13:37 Blood Blood Culture - Preliminary NO GROWTH AFTER 24 HOURS Resulted Laboratory Tests 04/09/17 17:45: Activated Partial Thromboplast Time 85H 04/10/17 04:07: Activated Partial Thromboplast Time 78H, White Blood Count 5.7, Red Blood Count 4.75, Hemoglobin 12.5, Hematocrit 39.8, Mean Corpuscular Volume 84, Mean Corpuscular Hemoglobin 26.3L, Mean Corpuscular Hemoglobin Concent 31.4L, Red Cell Distribution Width 15.2H, Platelet Count 259, Mean Platelet Volume 7.7, Neutrophils (%) (Auto) 67.3, Lymphocytes (%) (Auto) 20.0, Monocytes (%) (Auto) 10.5H, Eosinophils (%) (Auto) 1.3, Basophils (%) (Auto) 0.9, Sodium Level 140, Potassium Level 3.3L, Chloride Level 90L, Carbon Dioxide Level 30, Anion Gap 20H , Blood Urea Nitrogen 13, Creatinine 0.9, Estimat Glomerular Filtration Rate , Glucose Level 114H, Calcium Level 8.9, Magnesium Level 1.7, Total Bilirubin 1.1 , Direct Bilirubin 0.2, Aspartate Amino Transf (AST/SGOT) 26, Alanine Aminotransferase (ALT/SGPT) 19, Alkaline Phosphatase 64, Pro-B-Type Natriuretic Peptide 1354H, Total Protein 7.0, Albumin 4.0, Globulin 3.0, Albumin/Globulin Ratio 1.3 Current Medications Medications (Trade) Dose Ordered Sig/Yovana Route PRN Reason Start Time Stop Time Status Last Admin Dose Admin Acetaminophen (Tylenol) 650 mg Q4H PRN ORAL Fever 04/09/17 20:00 05/09/17 19:59 Albuterol/ Ipratropium (DuoNeb 0.5-3(2.5)mg/3ml) 3 ml EVERY 4 HOURS PRN HHN Shortness of Breath 04/09/17 18:00 04/14/17 17:59 Allopurinol (Zyloprim) 100 mg DAILY ORAL 04/10/17 09:00 05/10/17 08:59 04/10/17 08:57 Dextrose (Dextrose 50%) STAT PRN IV Hypoglycemia 04/09/17 18:00 05/09/17 17:59 Furosemide (Lasix) 40 mg EVERY 8 HOURS IV 04/09/17 22:00 05/09/17 21:59 04/10/17 13:01 Heparin Sodium/ Dextrose (Heparin) 500 ml @ 20.049 mls/ hr adjust per protocol IV 04/09/17 17:45 05/09/17 17:44 04/09/17 19:09 Insulin Aspart (NovoLOG) BEFORE MEALS AND HS SUBQ 04/09/17 21:00 05/09/17 20:59 04/10/17 12:50 Metoprolol Tartrate (Lopressor) 5 mg Q1H PRN IVP HR MORE THAN 120 04/10/17 13:45 05/10/17 13:44 Morphine Sulfate (Morphine Sulfate) 4 mg Q4H PRN IVP For Pain 04/09/17 18:00 04/16/17 17:59 Ondansetron HCl (Zofran) 4 mg Q6H PRN IVP Nausea & Vomiting 04/09/17 18:00 05/09/17 17:59 Pantoprazole (Protonix) 40 mg DAILY IV 04/10/17 09:00 05/10/17 08:59 04/10/17 08:57 Polyethylene Glycol (Miralax) 17 gm DAILYPRN PRN ORAL Constipation 04/09/17 18:00 05/09/17 17:59 Potassium Chloride (K-Dur) 40 meq Q4HR ORAL 04/10/17 13:00 04/10/17 17:01 04/10/17 12:55 Temazepam (Restoril) 15 mg HSPRN PRN ORAL Insomnia 04/09/17 21:00 04/16/17 20:59 04/09/17 22:03 JEANNE WHITE April 10, 2017 15:34
--- NOTE | 2017-04-10 15:37 | Cardiology Progress Note ---
Subjective Subjective [id number] Objective Last 24 Hour Vital Signs Date Time Temp Pulse Resp B/P Pulse Ox O2 Delivery O2 Flow Rate FiO2 04/10/17 12:00 96.0 94 18 119/62 Nasal Cannula 2.0 96 04/10/17 11:55 91 04/10/17 09:30 137 04/10/17 09:26 121 147/69 04/10/17 09:25 121 147/69 04/10/17 09:08 158 04/10/17 08:00 98.2 53 18 154/90 Nasal Cannula 2.0 98 04/10/17 07:57 120 04/10/17 04:00 97.5 94 18 133/81 100 Nasal Cannula 2.0 04/10/17 04:00 109 04/10/17 00:00 96.3 100 16 134/67 99 Nasal Cannula 2.0 04/10/17 00:00 86 04/09/17 20:00 92 04/09/17 20:00 96.6 82 20 120/60 99 Nasal Cannula 2.0 04/09/17 19:39 Nasal Cannula 2.0 28 04/09/17 19:38 98 Nasal Cannula 2.0 28 04/09/17 17:00 87 20 142/73 99 Nasal Cannula 2.0 04/09/17 16:00 97.7 96 22 141/92 99 Nasal Cannula 2.0 04/09/17 16:00 95 Intake and Output 04/09/17 04/10/17 19:00 07:00 Intake Total 292.23 ml 437.581 ml Output Total 2175 ml 1400 ml Balance -1882.77 ml -962.419 ml Intake Oral 120 ml IV Total 142.23 ml 437.581 ml Other 30 ml Output Urine Total 2175 ml 1400 ml Laboratory Tests Test 04/09/17 17:45 04/10/17 04:07 Activated Partial Thromboplast Time 85 SEC (23-33) H 78 SEC (23-33) H White Blood Count 5.7 K/UL (4.8-10.8) Red Blood Count 4.75 M/UL (4.20-5.40) Hemoglobin 12.5 G/DL (12.0-16.0) Hematocrit 39.8 % (37.0-47.0) Mean Corpuscular Volume 84 FL (80-99) Mean Corpuscular Hemoglobin 26.3 PG (27.0-31.0) L Mean Corpuscular Hemoglobin Concent 31.4 G/DL (32.0-36.0) L Red Cell Distribution Width 15.2 % (11.6-14.8) H Platelet Count 259 K/UL (150-450) Mean Platelet Volume 7.7 FL (6.5-10.1) Neutrophils (%) (Auto) 67.3 % (45.0-75.0) Lymphocytes (%) (Auto) 20.0 % (20.0-45.0) Monocytes (%) (Auto) 10.5 % (1.0-10.0) H Eosinophils (%) (Auto) 1.3 % (0.0-3.0) Basophils (%) (Auto) 0.9 % (0.0-2.0) Sodium Level 140 mEQ/L (135-145) Potassium Level 3.3 mEQ/L (3.4-4.9) L Chloride Level 90 mEQ/L (98-107) L Carbon Dioxide Level 30 mEQ/L (20-30) Anion Gap 20 (5-15) H Blood Urea Nitrogen 13 mg/dL (7-23) Creatinine 0.9 mg/dL (0.5-0.9) Estimat Glomerular Filtration Rate mL/min (>60) Glucose Level 114 mg/dL (74-106) H Calcium Level 8.9 mg/dL (8.6-10.2) Magnesium Level 1.7 mg/dL (1.7-2.5) Total Bilirubin 1.1 mg/dL (0.0-1.2) Direct Bilirubin 0.2 mg/dL (0.1-0.3) Aspartate Amino Transf (AST/SGOT) 26 U/L (5-40) Alanine Aminotransferase (ALT/SGPT) 19 U/L (3-33) Alkaline Phosphatase 64 U/L (35-104) Pro-B-Type Natriuretic Peptide 1354 pg/mL (0-450) H Total Protein 7.0 g/dL (6.6-8.7) Albumin 4.0 g/dL (3.5-5.2) Globulin 3.0 g/dL Albumin/Globulin Ratio 1.3 (1.0-2.7) Microbiology Date/Time Source Procedure Growth Status 04/08/17 14:00 Blood Blood Culture - Preliminary NO GROWTH AFTER 24 HOURS Resulted 04/08/17 13:37 Blood Blood Culture - Preliminary NO GROWTH AFTER 24 HOURS Resulted RODRIGUEZ TONG April 10, 2017 15:37
[2017-04-10 17:02] LABS: TROPONIN I < 0.30 ng/mL (<=0.30)
--- NOTE | 2017-04-10 19:32 | Cardiology Report ---
APPROVED REPORT EXAM: Two-dimensional and M-mode echocardiogram with Doppler and color Doppler. INDICATION Left ventricular function M-Mode DIMENSIONS IVSd0.6 (0.7-1.1cm)Left Atrium (MM)4.0 (1.6-4.0cm) LVDd5.5 (3.5-5.6cm)Aortic Root2.7 (2.0-3.7cm) PWd0.9 (0.7-1.1cm)Aortic Cusp Exc.1.7 (1.5-2.0cm) LVDs3.8 (2.5-4.0cm) PWs1.0 cm Normal left ventricular chamber size, systolic function and wall motion. Left ventricular ejection fraction estimated to be 55-60%. No evidence of left ventricular hypertrophy. Large posterior pleural effusion. Mild-moderate pericardial effusion, without evidence of tamponade. Right cardiac chamber sizes are within normal limits. Mild left atrial enlargement by 2D. Focal aortic valve sclerosis with adequate cusp excursion Thickened mitral valve leaflets with normal excursion. Mild mitral annulus and aortic root calcification. Pulmonic valve is well visualized. Normal tricuspid valve structure. IVC is normal in size with physiologic collapse. A color flow and spectral Doppler study was performed and revealed: Moderate aortic regurgitation. Severe mitral regurgitation. Normal left ventricular diastolic function. Moderate tricuspid regurgitation. Tricuspid systolic velocities suggests peak right ventricular systolic pressure of 30 mmHg Pulmonic regurgitation present.
[2017-04-10] MEDS: Heparin 25,000u/D5W 500ml 500 ML IV SCH (21:19)
--- NOTE | 2017-04-10 21:29 | Consultation ---
DATE OF CONSULTATION: 04/10/2017 CARDIOLOGY CONSULTATION REASON FOR EVALUATION: Congestive heart failure and atrial fibrillation. HISTORY OF PRESENT ILLNESS: History is taken from the patient partially because the patient has aphasia due to stroke and from her daughter. The patient had severe shortness of breath and was brought to the emergency department because of that and diagnosed with congestive heart failure. This is not new for her. She was admitted here previously and she has multiple episodes of heart failure. She has atrial fibrillation for 20 years. She was treated as outpatient and inpatient. She has history of stroke with right-sided hemiplegia 20 years ago and since that time, she is minimally ambulatory only to the restroom and aphasic. PAST MEDICAL HISTORY: The other medical problems include diabetes and hypertension. REVIEW OF SYSTEMS: Positive for orthopnea. No chest pain. Positive palpitations. Negative for chest pain. Negative for syncope. Negative for cough. No fever. No hemoptysis. No sputum production. She has insomnia. Otherwise, review of system was as in history of present illness. she is aphasic and hemiplegic on the right side. PHYSICAL EXAMINATION: GENERAL: Revealed an elderly female and pleasant. She is cooperative. VITAL SIGNS: Blood pressure 120/70 and heart rate 120. Afebrile. Saturating 94% on 2 liters of oxygen. HEENT: She has facial droop on the left side. NECK: Supple. Jugular venous pressure is elevated up to 10 to 12 cm. She has brisk carotid upstroke, irregular, no bruit. LUNGS: She has scattered crackles bilaterally. BREAST: No lumps. No axillary lymphadenopathy. HEART: PMI is palpable in the anterior axial line. There is holosystolic murmur 2/6 on the apex radiating to axilla. Slight accented A2. ABDOMEN: Soft and nontender. There is good bowels present. No masses. No bruit. EXTREMITIES: There is no edema. She has weakness. The right arm has a contracture and right leg has minimal contracture at the knee level. Distal pulses palpable. NEUROLOGIC: Hemiplegia on the right side, it looks chronic. LABORATORY DATA: EKG showed atrial fibrillation with rapid ventricular rate and her heart rate was 140. She has right bundle-branch block pattern. She has laboratories reviewed. Potassium was 3.3 today, magnesium 1.7, and BNP was 1654. Troponin was normal. Her CBC was noted. Chest x-ray was noted. Echo was reviewed. IMPRESSION: 1. Acute heart failure, acute on chronic, diastolic. 2. Severe mitral regurgitation due to diastolic dysfunction. 3. Atrial fibrillation, permanent with history of embolic phenomenon. 4. Poor controlled rate. 5. Hypertensive heart disease. 6. Diabetes. PLAN: Rate control. Diuresis. Monitor her laboratories. Anticoagulation, started on intravenous heparin. I do not know if the family was confused about what she has taken at home and so, she probably is going to be transferred either to Coumadin or warfarin. Dr. Gates is going to follow her tomorrow. I have put her on metoprolol p.o. long-term treatment. She is off digoxin because of elevated level yesterday and she is on intravenous Lasix. Thank you for your consultation. Jessica Corrigan M.D. DR: MARY JANE JOB#: [id number] CC:
[2017-04-11] VITALS: BP 101/62
[2017-04-11 04:00] VITALS: BP 111/59
[2017-04-11 04:10] LABS: EOSINOPHILS % (AUTO) 1.9 % (0.0-3.0); LYMPHOCYTES % (AUTO) 31.6 % (20.0-45.0); MEAN CORPUSCULAR HEMOGLOBIN 26.6 PG (27.0-31.0); MEAN CORPUSCULAR VOLUME 83 FL (80-99); MEAN PLATELET VOLUME 8.1 FL (6.5-10.1); MONOCYTES % (AUTO) 10.3 % (1.0-10.0); NEUTROPHILS % (AUTO) 55.2 % (45.0-75.0); PLATELET COUNT 280 K/UL (150-450); RED BLOOD COUNT 4.67 M/UL (4.20-5.40); RED CELL DISTRIBUTION WIDTH 14.9 % (11.6-14.8)
[2017-04-11 04:24] LABS: ALANINE AMINOTRANSFERASE 12 U/L (3-33); ANION GAP 16 (5-15); ASPARTATE AMINO TRANSFERASE 19 U/L (5-40); CARBON DIOXIDE 28 mEQ/L (20-30); CHLORIDE 92 mEQ/L (98-107); CREATININE 0.9 mg/dL (0.5-0.9); POTASSIUM 3.1 mEQ/L (3.4-4.9); SODIUM 136 mEQ/L (135-145); TOTAL PROTEIN 6.7 g/dL (6.6-8.7)
[2017-04-11 04:25] LABS: ALBUMIN/GLOBULIN RATIO 1.1 (1.0-2.7); HEMOLYSIS 1
[2017-04-11] MEDS: NovoLOG Insulin Flexpen SUBQ SCH ×4 (06:12→21:00)
[2017-04-11 08:00] VITALS: BP 132/73
--- NOTE | 2017-04-11 08:47 | Diagnostic Imaging Report ---
Indication: Dyspnea Technique: XRAY CHEST 1 V Comparison: 04/09/17 Findings: Cardiomediastinal silhouette is stable. There is improving but persistent interstitial edema. Small bilateral pleural effusions are seen. Osseous structures are stable. Impression: Improving but persistent interstitial edema. Small bilateral pleural effusions.
--- NOTE | 2017-04-11 08:48 | Diagnostic Imaging Report ---
Indications: Chest pain and dyspnea Technique: Portable AP chest Findings: Comparison: 11/26/2016 Size of cardiac silhouette has apparently increased. Pulmonary vascular redistribution, bilateral interstitial infiltrates, right and probably left pleural effusions have developed. Linear and patchy opacities have developed in the right lung base. Aortic arch calcification, diffuse osteopenia again noted. IMPRESSION: Findings compatible with development of congestive heart failure with right and probably left pleural effusions Underlying atelectasis or focal pneumonia not excludable Increase in size of cardiac silhouette likely reflects heart failure. Superimposed pericardial effusion not excludable
[2017-04-11] MEDS: Pantoprazole Inj IV SCH (09:06)
[2017-04-11] MEDS: Allopurinol 100mg Tab ORAL SCH (09:13)
[2017-04-11] MEDS ORDERED: KCl 10% 40mEq/30ml liquid ORAL SCH (09:30)
[2017-04-11] MEDS: KCl 10% 40mEq/30ml liquid ORAL SCH ×2 (09:37→17:19)
--- NOTE | 2017-04-11 09:54 | Internal Med Progress Note ---
Subjective Date of Service: April 11, 2017 Physician Name Carlton,Chiki Attending Physician Glenn Garrido MD Current Medications Medications (Trade) Dose Ordered Sig/Yovana Route PRN Reason Start Time Stop Time Status Last Admin Dose Admin Acetaminophen (Tylenol) 650 mg Q4H PRN ORAL Fever 04/09/17 20:00 05/09/17 19:59 Allopurinol (Zyloprim) 100 mg DAILY ORAL 04/10/17 09:00 05/10/17 08:59 04/11/17 09:13 Dextrose (Dextrose 50%) STAT PRN IV Hypoglycemia 04/09/17 18:00 05/09/17 17:59 Furosemide (Lasix) 40 mg BID IV 04/11/17 21:00 05/11/17 20:59 Heparin Sodium/ Dextrose (Heparin) 500 ml @ 20.049 mls/ hr adjust per protocol IV 04/09/17 17:45 05/09/17 17:44 04/10/17 21:19 Insulin Aspart (NovoLOG) BEFORE MEALS AND HS SUBQ 04/09/17 21:00 05/09/17 20:59 04/10/17 12:50 Metoprolol Tartrate (Lopressor) 100 mg EVERY 12 HOURS ORAL 04/10/17 16:00 05/10/17 15:59 04/11/17 09:14 Morphine Sulfate (Morphine Sulfate) 4 mg Q4H PRN IVP For Pain 04/09/17 18:00 04/16/17 17:59 Ondansetron HCl (Zofran) 4 mg Q6H PRN IVP Nausea & Vomiting 04/09/17 18:00 05/09/17 17:59 Pantoprazole (Protonix) 40 mg DAILY IV 04/10/17 09:00 05/10/17 08:59 04/11/17 09:06 Polyethylene Glycol (Miralax) 17 gm DAILYPRN PRN ORAL Constipation 04/09/17 18:00 05/09/17 17:59 Potassium Chloride (KCl 10% 40mEq Oral solution) 40 meq Q8H ORAL 04/11/17 10:00 04/11/17 18:01 04/11/17 09:37 Temazepam (Restoril) 15 mg HSPRN PRN ORAL Insomnia 04/09/17 21:00 04/16/17 20:59 5/14/17 22:02 Allergies: Coded Allergies: No Known Allergies (Unverified , 02/14/15) ROS Limited/Unobtainable: No Constitutional: Reports: no symptoms HEENT: Reports: no symptoms Cardiovascular: Reports: no symptoms Respiratory: Reports: shortness of breath Gastrointestinal/Abdominal: Reports: no symptoms Genitourinary: Reports: no symptoms Neurologic/Psychiatric: Reports: no symptoms Subjective 81 YO F admitted with gen weakness, now afib with rapid rate. Cover for Int Scott -Dr Garrido. C/O shortness of breath. Objective Last Vital Signs Date Time Temp Pulse Resp B/P Pulse Ox O2 Delivery O2 Flow Rate FiO2 04/11/17 09:14 116 132/93 04/11/17 04:00 97.3 18 99 Nasal Cannula 2.0 28 Laboratory Tests Test 04/10/17 16:15 04/11/17 04:00 Troponin I < 0.30 ng/mL (<=0.30) White Blood Count 6.0 K/UL (4.8-10.8) Red Blood Count 4.67 M/UL (4.20-5.40) Hemoglobin 12.4 G/DL (12.0-16.0) Hematocrit 38.7 % (37.0-47.0) Mean Corpuscular Volume 83 FL (80-99) Mean Corpuscular Hemoglobin 26.6 PG (27.0-31.0) L Mean Corpuscular Hemoglobin Concent 32.0 G/DL (32.0-36.0) Red Cell Distribution Width 14.9 % (11.6-14.8) H Platelet Count 280 K/UL (150-450) Mean Platelet Volume 8.1 FL (6.5-10.1) Neutrophils (%) (Auto) 55.2 % (45.0-75.0) Lymphocytes (%) (Auto) 31.6 % (20.0-45.0) Monocytes (%) (Auto) 10.3 % (1.0-10.0) H Eosinophils (%) (Auto) 1.9 % (0.0-3.0) Basophils (%) (Auto) 1.0 % (0.0-2.0) Activated Partial Thromboplast Time 95 SEC (23-33) H Sodium Level 136 mEQ/L (135-145) Potassium Level 3.1 mEQ/L (3.4-4.9) L Chloride Level 92 mEQ/L (98-107) L Carbon Dioxide Level 28 mEQ/L (20-30) Anion Gap 16 (5-15) H Blood Urea Nitrogen 15 mg/dL (7-23) Creatinine 0.9 mg/dL (0.5-0.9) Estimat Glomerular Filtration Rate mL/min (>60) Glucose Level 129 mg/dL (74-106) H Calcium Level 9.0 mg/dL (8.6-10.2) Total Bilirubin 0.9 mg/dL (0.0-1.2) Aspartate Amino Transf (AST/SGOT) 19 U/L (5-40) Alanine Aminotransferase (ALT/SGPT) 12 U/L (3-33) Alkaline Phosphatase 62 U/L (35-104) Pro-B-Type Natriuretic Peptide 1501 pg/mL (0-450) H Total Protein 6.7 g/dL (6.6-8.7) Albumin 3.6 g/dL (3.5-5.2) Globulin 3.1 g/dL Albumin/Globulin Ratio 1.1 (1.0-2.7) Microbiology Date/Time Source Procedure Growth Status 04/08/17 14:00 Blood Blood Culture - Preliminary NO GROWTH AFTER 48 HOURS Resulted 04/08/17 13:37 Blood Blood Culture - Preliminary NO GROWTH AFTER 48 HOURS Resulted 04/08/17 14:20 Nasal Nares MRSA Culture - Final NO METHICILLIN RESISTANT STAPH AUREUS... Complete 04/08/17 14:20 Rectum VRE Culture - Final NO VANCOMYCIN RESISTANT ENTEROCOCCUS ... Complete Intake and Output 04/10/17 04/11/17 19:00 07:00 Intake Total 220.539 ml Output Total 500 ml 700 ml Balance -279.461 ml -700 ml IV Total 220.539 ml Output Urine Total 500 ml 700 ml Objective General: alert, cooperative, no distress, appears stated age Head: normocephalic, without obvious abnormality, atraumatic Eyes: conjunctivae/corneas clear. PERRL, EOM's intact Throat: lips, mucosa, and tongue normal. MMM Neck: supple, symmetrical, trachea midline, and no JVD Lungs: clear to auscultation bilaterally Heart: tachycardia; irregular rate and rhythm, S1, S2 normal, no murmur, click, rub or gallop Abdomen: soft, non-tender, non-distended, bowel sounds normal; no masses or organomegaly Extremities: extremities normal, atraumatic, no cyanosis or edema Pulses: 2+ and symmetric Skin: skin color, texture, turgor normal; no rashes or lesions Neurologic: right hemiparesis; 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, no focal deficits Assessment/Plan Problem List: (1) Generalized weakness (2) Tachycardia (3) Atrial fibrillation with rapid ventricular response Assessment & Plan: Paroxysmal. Follow Cardiology recs. (4) CHF (congestive heart failure) Assessment & Plan: Worsening BNP. Cont IV lasix. Follow cardiology recs. (5) HTN (hypertension) Assessment & Plan: Cont lopressor. (6) Right hemiparesis (7) Cerebral vascular disease (8) Diabetes type 2, controlled Assessment & Plan: Continue novolog sliding scale. Status: not improved CHIKI CARLTON April 11, 2017 09:54
--- NOTE | 2017-04-11 11:07 | Diagnostic Imaging Report ---
Indication: Dyspnea Comparison: 04/10/17 A single view chest radiograph was obtained. Findings: Basilar densities likely pleural effusions noted. Mild interstitial edema suspected. Heart is enlarged. Impression: No significant change
[2017-04-11 12:30] VITALS: BP 95/45
--- NOTE | 2017-04-11 15:20 | Pulmonology Progress Note ---
Assessment/Plan Problems: (1) Atrial fibrillation with rapid ventricular response (2) Right hemiparesis (3) Cerebral vascular disease (4) Diabetes mellitus Assessment/Plan heart rate better controlled bp more stable on heparin drip K supplement echo noted: EF of 55% f/u cardio recommendations d/w at the bed site keep in teli Subjective ROS Limited/Unobtainable: No Constitutional: Reports: no symptoms Respiratory: Reports: no symptoms Cardiovascular: Reports: no symptoms Gastrointestinal/Abdominal: Reports: no symptoms Genitourinary: Reports: no symptoms Allergies: Coded Allergies: No Known Allergies (Unverified , 02/14/15) Objective Last 24 Hour Vital Signs Date Time Temp Pulse Resp B/P Pulse Ox O2 Delivery O2 Flow Rate FiO2 04/11/17 12:30 98.0 65 18 95/45 99 Nasal Cannula 2.0 04/11/17 11:55 81 04/11/17 09:45 98 Nasal Cannula 2.0 28 04/11/17 09:45 Nasal Cannula 2.0 28 04/11/17 09:14 116 132/93 04/11/17 08:00 97.7 116 18 132/73 99 Nasal Cannula 2.0 04/11/17 08:00 119 04/11/17 04:12 100 04/11/17 04:00 97.3 89 18 111/59 99 Nasal Cannula 2.0 28 04/11/17 00:15 83 04/11/17 00:00 98.0 95 18 101/62 97 Nasal Cannula 2.0 28 04/10/17 20:00 98.0 79 18 110/68 97 Nasal Cannula 2.0 28 04/10/17 19:11 Nasal Cannula 2.0 28 04/10/17 19:11 97 Nasal Cannula 2.0 28 04/10/17 16:17 78 129/62 04/10/17 16:00 98.0 78 18 129/62 Nasal Cannula 2.0 96 04/10/17 15:34 123 Intake and Output 04/10/17 04/11/17 19:00 07:00 Intake Total 220.539 ml Output Total 500 ml 700 ml Balance -279.461 ml -700 ml IV Total 220.539 ml Output Urine Total 500 ml 700 ml General Appearance: WD/WN HEENT: normocephalic, atraumatic Respiratory/Chest: chest wall non-tender, lungs clear Cardiovascular: normal peripheral pulses, normal rate Skin: no rash Neurologic/Psychiatric: paper cleaner II-XII 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 Lymphatic: no neck adenopathy Laboratory Tests 04/10/17 16:15: Troponin I < 0.30 04/11/17 04:00: White Blood Count 6.0, Red Blood Count 4.67, Hemoglobin 12.4, Hematocrit 38.7, Mean Corpuscular Volume 83, Mean Corpuscular Hemoglobin 26.6L, Mean Corpuscular Hemoglobin Concent 32.0, Red Cell Distribution Width 14.9H, Platelet Count 280, Mean Platelet Volume 8.1, Neutrophils (%) (Auto) 55.2, Lymphocytes (%) (Auto) 31.6, Monocytes (%) (Auto) 10.3H, Eosinophils (%) (Auto) 1.9, Basophils (%) ( Auto) 1.0, Activated Partial Thromboplast Time 95H, Sodium Level 136, Potassium Level 3.1L, Chloride Level 92L, Carbon Dioxide Level 28, Anion Gap 16H, Blood Urea Nitrogen 15, Creatinine 0.9, Estimat Glomerular Filtration Rate , Glucose Level 129H, Calcium Level 9.0, Total Bilirubin 0.9, Aspartate Amino Transf (AST/ SGOT) 19, Alanine Aminotransferase (ALT/SGPT) 12, Alkaline Phosphatase 62, Pro-B -Type Natriuretic Peptide 1501H, Total Protein 6.7, Albumin 3.6, Globulin 3.1, Albumin/Globulin Ratio 1.1 Current Medications Medications (Trade) Dose Ordered Sig/Yovana Route PRN Reason Start Time Stop Time Status Last Admin Dose Admin Acetaminophen (Tylenol) 650 mg Q4H PRN ORAL Fever 04/09/17 20:00 05/09/17 19:59 Allopurinol (Zyloprim) 100 mg DAILY ORAL 04/10/17 09:00 05/10/17 08:59 04/11/17 09:13 Dextrose (Dextrose 50%) STAT PRN IV Hypoglycemia 04/09/17 18:00 05/09/17 17:59 Furosemide (Lasix) 40 mg BID IV 04/11/17 21:00 05/11/17 20:59 Heparin Sodium/ Dextrose (Heparin) 500 ml @ 20.049 mls/ hr adjust per protocol IV 04/09/17 17:45 05/09/17 17:44 04/10/17 21:19 Insulin Aspart (NovoLOG) BEFORE MEALS AND HS SUBQ 04/09/17 21:00 05/09/17 20:59 04/10/17 12:50 Metoprolol Tartrate (Lopressor) 100 mg EVERY 12 HOURS ORAL 04/10/17 16:00 05/10/17 15:59 04/11/17 09:14 Morphine Sulfate (Morphine Sulfate) 4 mg Q4H PRN IVP For Pain 04/09/17 18:00 04/16/17 17:59 Ondansetron HCl (Zofran) 4 mg Q6H PRN IVP Nausea & Vomiting 04/09/17 18:00 05/09/17 17:59 Pantoprazole (Protonix) 40 mg DAILY IV 04/10/17 09:00 05/10/17 08:59 04/11/17 09:06 Polyethylene Glycol (Miralax) 17 gm DAILYPRN PRN ORAL Constipation 04/09/17 18:00 05/09/17 17:59 Potassium Chloride (KCl 10% 40mEq Oral solution) 40 meq Q8H ORAL 04/11/17 10:00 04/11/17 18:01 04/11/17 09:37 Temazepam (Restoril) 15 mg HSPRN PRN ORAL Insomnia 04/09/17 21:00 04/16/17 20:59 04/10/17 22:02 JEANNE WHITE April 11, 2017 15:20
[2017-04-11 16:51] VITALS: BP 124/69
--- NOTE | 2017-04-11 18:20 | Cardiology Progress Note ---
Assessment/Plan Assessment/Plan 1. Acute heart failure, acute on chronic, diastolic. 2. Severe mitral regurgitation 3. Atrial fibrillation, permanent with history of embolic phenomenon. 4. Tricupid regurgitation / aortic regurgitation moderate 5. Hypertensive heart disease. 6. Diabetes. dirutic bid bb for hr control seem ok for bridget momentg still in chf echo noted has sig valvular dysfunction as a cause of sx hr seem controlled on large dose of bb dig intermittently Subjective ROS Limited/Unobtainable: Yes Subjective post cva poor histoaim dtr t bedside seems better for the moment Objective Last 24 Hour Vital Signs Date Time Temp Pulse Resp B/P Pulse Ox O2 Delivery O2 Flow Rate FiO2 04/11/17 16:51 97.2 92 18 124/69 99 Nasal Cannula 2.0 04/11/17 15:49 90 04/11/17 12:30 98.0 65 18 95/45 99 Nasal Cannula 2.0 04/11/17 11:55 81 04/11/17 09:45 98 Nasal Cannula 2.0 28 04/11/17 09:45 Nasal Cannula 2.0 28 04/11/17 09:14 116 132/93 04/11/17 08:00 97.7 116 18 132/73 99 Nasal Cannula 2.0 04/11/17 08:00 119 04/11/17 04:12 100 04/11/17 04:00 97.3 89 18 111/59 99 Nasal Cannula 2.0 28 04/11/17 00:15 83 04/11/17 00:00 98.0 95 18 101/62 97 Nasal Cannula 2.0 28 04/10/17 20:00 98.0 79 18 110/68 97 Nasal Cannula 2.0 28 04/10/17 19:11 Nasal Cannula 2.0 28 04/10/17 19:11 97 Nasal Cannula 2.0 28 General Appearance: no apparent distress, alert Neck: supple Cardiovascular: irregularly irregular Respiratory/Chest: decreased breath sounds Abdomen: normal bowel sounds, non tender, soft Extremities: no swelling Intake and Output 04/10/17 04/11/17 19:00 07:00 Intake Total 220.539 ml Output Total 500 ml 700 ml Balance -279.461 ml -700 ml IV Total 220.539 ml Output Urine Total 500 ml 700 ml Laboratory Tests Test 04/11/17 04:00 White Blood Count 6.0 K/UL (4.8-10.8) Red Blood Count 4.67 M/UL (4.20-5.40) Hemoglobin 12.4 G/DL (12.0-16.0) Hematocrit 38.7 % (37.0-47.0) Mean Corpuscular Volume 83 FL (80-99) Mean Corpuscular Hemoglobin 26.6 PG (27.0-31.0) L Mean Corpuscular Hemoglobin Concent 32.0 G/DL (32.0-36.0) Red Cell Distribution Width 14.9 % (11.6-14.8) H Platelet Count 280 K/UL (150-450) Mean Platelet Volume 8.1 FL (6.5-10.1) Neutrophils (%) (Auto) 55.2 % (45.0-75.0) Lymphocytes (%) (Auto) 31.6 % (20.0-45.0) Monocytes (%) (Auto) 10.3 % (1.0-10.0) H Eosinophils (%) (Auto) 1.9 % (0.0-3.0) Basophils (%) (Auto) 1.0 % (0.0-2.0) Activated Partial Thromboplast Time 95 SEC (23-33) H Sodium Level 136 mEQ/L (135-145) Potassium Level 3.1 mEQ/L (3.4-4.9) L Chloride Level 92 mEQ/L (98-107) L Carbon Dioxide Level 28 mEQ/L (20-30) Anion Gap 16 (5-15) H Blood Urea Nitrogen 15 mg/dL (7-23) Creatinine 0.9 mg/dL (0.5-0.9) Estimat Glomerular Filtration Rate mL/min (>60) Glucose Level 129 mg/dL (74-106) H Calcium Level 9.0 mg/dL (8.6-10.2) Total Bilirubin 0.9 mg/dL (0.0-1.2) Aspartate Amino Transf (AST/SGOT) 19 U/L (5-40) Alanine Aminotransferase (ALT/SGPT) 12 U/L (3-33) Alkaline Phosphatase 62 U/L (35-104) Pro-B-Type Natriuretic Peptide 1501 pg/mL (0-450) H Total Protein 6.7 g/dL (6.6-8.7) Albumin 3.6 g/dL (3.5-5.2) Globulin 3.1 g/dL Albumin/Globulin Ratio 1.1 (1.0-2.7) CORI SOLIS April 11, 2017 18:20
[2017-04-11 20:37] VITALS: BP 110/54
[2017-04-11] MEDS: Xarelto 15mg tab ORAL SCH (21:21)
--- NOTE | 2017-04-11 21:22 | Diagnostic Imaging Report ---
APPROVED REPORT CPT Code: 51429 Present Symptoms Shortness of breath Past History DVT : BILATERAL: Imaging reveals a patent deep venous system bilaterally. There is no evidence of thrombus within the femoral, popliteal or tibial segments. The greater saphenous veins are also within normal limits. Doppler indicates normal spontaneous flow within these segments.
[2017-04-11] MEDS: Heparin 25,000u/D5W 500ml 500 ML IV SCH (21:37)
[2017-04-12 00:20] VITALS: BP 112/67
[2017-04-12 04:07] VITALS: BP 136/68
[2017-04-12 04:38] LABS: BASOPHILS % (AUTO) 1.5 % (0.0-2.0); EOSINOPHILS % (AUTO) 1.6 % (0.0-3.0); LYMPHOCYTES % (AUTO) 27.2 % (20.0-45.0); MEAN CORPUSCULAR HEMOGLOBIN 26.4 PG (27.0-31.0); MEAN CORPUSCULAR HGB CONC 31.5 G/DL (32.0-36.0); MEAN CORPUSCULAR VOLUME 84 FL (80-99); MEAN PLATELET VOLUME 7.8 FL (6.5-10.1); MONOCYTES % (AUTO) 8.8 % (1.0-10.0); NEUTROPHILS % (AUTO) 60.8 % (45.0-75.0); PLATELET COUNT 242 K/UL (150-450); RED BLOOD COUNT 5.03 M/UL (4.20-5.40); RED CELL DISTRIBUTION WIDTH 15.1 % (11.6-14.8); WHITE BLOOD COUNT 5.6 K/UL (4.8-10.8)
[2017-04-12 05:03] LABS: ANION GAP 18 (5-15); CALCIUM 9.2 mg/dL (8.6-10.2); CARBON DIOXIDE 26 mEQ/L (20-30); CHLORIDE 95 mEQ/L (98-107); CREATININE 0.9 mg/dL (0.5-0.9); HEMOLYSIS 13; MAGNESIUM 1.3 mg/dL (1.7-2.5); POTASSIUM 4.5 mEQ/L (3.4-4.9); SODIUM 139 mEQ/L (135-145); TROPONIN I < 0.30 ng/mL (<=0.30)
[2017-04-12] MEDS: NovoLOG Insulin Flexpen SUBQ SCH ×4 (06:30→20:50)
[2017-04-12 08:00] VITALS: BP 118/69
[2017-04-12] MEDS: Pantoprazole Inj IV SCH (08:13)
[2017-04-12] MEDS: Allopurinol 100mg Tab ORAL SCH (08:14)
[2017-04-12 11:50] VITALS: BP_SYST 118; BP_SYST 126; BP_DIAS 57; BP_DIAS 69
--- NOTE | 2017-04-12 13:06 | Pulmonology Progress Note ---
Assessment/Plan Problems: (1) Atrial fibrillation with rapid ventricular response (2) Right hemiparesis (3) Cerebral vascular disease (4) Diabetes mellitus Assessment/Plan heart rate better controlled bp more stable K supplement echo noted: EF of 55% f/u cardio recommendations d/w at the bed site keep in teli all notes, labs, meds reviewed Subjective ROS Limited/Unobtainable: No Constitutional: Reports: no symptoms HEENT: Repors: no symptoms Respiratory: Reports: no symptoms Allergies: Coded Allergies: No Known Allergies (Unverified , 02/14/15) Objective Last 24 Hour Vital Signs Date Time Temp Pulse Resp B/P Pulse Ox O2 Delivery O2 Flow Rate FiO2 04/12/17 11:50 97.3 85 22 118/57 98 Room Air 04/12/17 08:14 104 118/69 04/12/17 08:00 97.5 104 21 118/69 97 Nasal Cannula 2.0 04/12/17 08:00 138 04/12/17 07:55 98 Nasal Cannula 2.0 28 04/12/17 07:55 Nasal Cannula 2.0 28 04/12/17 04:07 98.2 105 17 136/68 94 Nasal Cannula 2.0 04/12/17 00:20 98.6 99 19 112/67 99 Nasal Cannula 2.0 04/12/17 00:00 96 04/11/17 21:00 81 110/54 04/11/17 20:37 98.3 81 18 110/54 100 Nasal Cannula 2.0 04/11/17 20:00 91 04/11/17 19:30 Nasal Cannula 2.0 28 04/11/17 19:30 98 Nasal Cannula 2.0 28 04/11/17 16:51 97.2 92 18 124/69 99 Nasal Cannula 2.0 04/11/17 15:49 90 Intake and Output 04/11/17 04/12/17 19:00 07:00 Intake Total 1080.24 ml 280.338 ml Output Total 500 ml 900 ml Balance 580.24 ml -619.662 ml Intake Oral 840 ml IV Total 240.24 ml 280.338 ml Output Urine Total 500 ml 900 ml # Bowel Movements 1 General Appearance: cachetic HEENT: normocephalic, atraumatic Respiratory/Chest: chest wall non-tender, lungs clear Cardiovascular: normal peripheral pulses, normal rate Abdomen: normal bowel sounds, soft, non tender Genitourinary: normal external genitalia Extremities: no cyanosis Skin: no rash Laboratory Tests 04/12/17 04:00: White Blood Count 5.6, Red Blood Count 5.03, Hemoglobin 13.3, Hematocrit 42.2, Mean Corpuscular Volume 84, Mean Corpuscular Hemoglobin 26.4L, Mean Corpuscular Hemoglobin Concent 31.5L, Red Cell Distribution Width 15.1H, Platelet Count 242 , Mean Platelet Volume 7.8, Neutrophils (%) (Auto) 60.8, Lymphocytes (%) (Auto) 27.2, Monocytes (%) (Auto) 8.8, Eosinophils (%) (Auto) 1.6, Basophils (%) (Auto ) 1.5, Activated Partial Thromboplast Time 29, Sodium Level 139, Potassium Level 4.5, Chloride Level 95L, Carbon Dioxide Level 26, Anion Gap 18H, Blood Urea Nitrogen 19, Creatinine 0.9, Estimat Glomerular Filtration Rate , Glucose Level 114H, Calcium Level 9.2, Magnesium Level 1.3L, Troponin I < 0.30, Pro-B- Type Natriuretic Peptide 2608H Current Medications Medications (Trade) Dose Ordered Sig/Yovana Route PRN Reason Start Time Stop Time Status Last Admin Dose Admin Acetaminophen (Tylenol) 650 mg Q4H PRN ORAL Fever 04/09/17 20:00 05/09/17 19:59 Allopurinol (Zyloprim) 100 mg DAILY ORAL 04/10/17 09:00 05/10/17 08:59 04/12/17 08:14 Dextrose (Dextrose 50%) STAT PRN IV Hypoglycemia 04/09/17 18:00 05/09/17 17:59 Furosemide (Lasix) 40 mg BID IV 04/11/17 21:00 05/11/17 20:59 04/12/17 08:14 Insulin Aspart (NovoLOG) BEFORE MEALS AND HS SUBQ 04/09/17 21:00 05/09/17 20:59 04/12/17 10:58 Metoprolol Tartrate (Lopressor) 100 mg EVERY 12 HOURS ORAL 04/10/17 16:00 05/10/17 15:59 04/12/17 08:14 Morphine Sulfate (Morphine Sulfate) 4 mg Q4H PRN IVP For Pain 04/09/17 18:00 5/20/17 17:59 Ondansetron HCl (Zofran) 4 mg Q6H PRN IVP Nausea & Vomiting 04/09/17 18:00 05/09/17 17:59 Pantoprazole (Protonix) 40 mg DAILY IV 04/10/17 09:00 05/10/17 08:59 04/12/17 08:13 Polyethylene Glycol (Miralax) 17 gm DAILYPRN PRN ORAL Constipation 04/09/17 18:00 05/09/17 17:59 Rivaroxaban (Xarelto) 15 mg QPM ORAL 04/11/17 21:00 05/11/17 20:59 04/11/17 21:21 Temazepam (Restoril) 15 mg HSPRN PRN ORAL Insomnia 04/09/17 21:00 04/16/17 20:59 04/11/17 21:32 JEANNE WHITE April 12, 2017 13:06
[2017-04-12 15:52] VITALS: BP 110/60
--- NOTE | 2017-04-12 16:45 | Internal Med Progress Note ---
Subjective Date of Service: April 12, 2017 Physician Name Chiki Carlton Attending Physician Glenn Garrido MD Current Medications Medications (Trade) Dose Ordered Sig/Yovana Route PRN Reason Start Time Stop Time Status Last Admin Dose Admin Acetaminophen (Tylenol) 650 mg Q4H PRN ORAL Fever 04/09/17 20:00 05/09/17 19:59 Allopurinol (Zyloprim) 100 mg DAILY ORAL 04/10/17 09:00 05/10/17 08:59 04/12/17 08:14 Dextrose (Dextrose 50%) STAT PRN IV Hypoglycemia 04/09/17 18:00 05/09/17 17:59 Furosemide (Lasix) 40 mg BID IV 04/11/17 21:00 05/11/17 20:59 04/12/17 08:14 Insulin Aspart (NovoLOG) BEFORE MEALS AND HS SUBQ 04/09/17 21:00 05/09/17 20:59 04/12/17 10:58 Metoprolol Tartrate (Lopressor) 100 mg EVERY 12 HOURS ORAL 04/10/17 16:00 05/10/17 15:59 04/12/17 08:14 Morphine Sulfate (Morphine Sulfate) 4 mg Q4H PRN IVP For Pain 04/09/17 18:00 04/16/17 17:59 Ondansetron HCl (Zofran) 4 mg Q6H PRN IVP Nausea & Vomiting 04/09/17 18:00 05/09/17 17:59 Pantoprazole (Protonix) 40 mg DAILY IV 04/10/17 09:00 05/10/17 08:59 04/12/17 08:13 Polyethylene Glycol (Miralax) 17 gm DAILYPRN PRN ORAL Constipation 04/09/17 18:00 05/09/17 17:59 Rivaroxaban (Xarelto) 15 mg QPM ORAL 04/11/17 21:00 05/11/17 20:59 04/11/17 21:21 Temazepam (Restoril) 15 mg HSPRN PRN ORAL Insomnia 04/09/17 21:00 04/16/17 20:59 04/11/17 21:32 Allergies: Coded Allergies: No Known Allergies (Unverified , 02/14/15) ROS Limited/Unobtainable: No Constitutional: Reports: no symptoms HEENT: Reports: no symptoms Cardiovascular: Reports: no symptoms Respiratory: Reports: shortness of breath Gastrointestinal/Abdominal: Reports: no symptoms Genitourinary: Reports: no symptoms Neurologic/Psychiatric: Reports: no symptoms Subjective 81 YO F admitted with gen weakness, now afib with rapid rate. Cover for Int Scott -Dr Garrido. C/O shortness of breath. Objective Last Vital Signs Date Time Temp Pulse Resp B/P Pulse Ox O2 Delivery O2 Flow Rate FiO2 04/12/17 16:00 77 04/12/17 15:52 96.6 22 110/60 100 Room Air 04/12/17 08:00 2.0 04/12/17 07:55 28 Laboratory Tests Test 04/12/17 04:00 White Blood Count 5.6 K/UL (4.8-10.8) Red Blood Count 5.03 M/UL (4.20-5.40) Hemoglobin 13.3 G/DL (12.0-16.0) Hematocrit 42.2 % (37.0-47.0) Mean Corpuscular Volume 84 FL (80-99) Mean Corpuscular Hemoglobin 26.4 PG (27.0-31.0) L Mean Corpuscular Hemoglobin Concent 31.5 G/DL (32.0-36.0) L Red Cell Distribution Width 15.1 % (11.6-14.8) H Platelet Count 242 K/UL (150-450) Mean Platelet Volume 7.8 FL (6.5-10.1) Neutrophils (%) (Auto) 60.8 % (45.0-75.0) Lymphocytes (%) (Auto) 27.2 % (20.0-45.0) Monocytes (%) (Auto) 8.8 % (1.0-10.0) Eosinophils (%) (Auto) 1.6 % (0.0-3.0) Basophils (%) (Auto) 1.5 % (0.0-2.0) Activated Partial Thromboplast Time 29 SEC (23-33) Sodium Level 139 mEQ/L (135-145) Potassium Level 4.5 mEQ/L (3.4-4.9) Chloride Level 95 mEQ/L (98-107) L Carbon Dioxide Level 26 mEQ/L (20-30) Anion Gap 18 (5-15) H Blood Urea Nitrogen 19 mg/dL (7-23) Creatinine 0.9 mg/dL (0.5-0.9) Estimat Glomerular Filtration Rate mL/min (>60) Glucose Level 114 mg/dL (74-106) H Calcium Level 9.2 mg/dL (8.6-10.2) Magnesium Level 1.3 mg/dL (1.7-2.5) L Troponin I < 0.30 ng/mL (<=0.30) Pro-B-Type Natriuretic Peptide 2608 pg/mL (0-450) H Intake and Output 04/11/17 04/12/17 19:00 07:00 Intake Total 1080.24 ml 280.338 ml Output Total 500 ml 900 ml Balance 580.24 ml -619.662 ml Intake Oral 840 ml IV Total 240.24 ml 280.338 ml Output Urine Total 500 ml 900 ml # Bowel Movements 1 Objective General: alert, cooperative, no distress, appears stated age Head: normocephalic, without obvious abnormality, atraumatic Eyes: conjunctivae/corneas clear. PERRL, EOM's intact Throat: lips, mucosa, and tongue normal. MMM Neck: supple, symmetrical, trachea midline, and no JVD Lungs: clear to auscultation bilaterally Heart: tachycardia; irregular rate and rhythm, S1, S2 normal, no murmur, click, rub or gallop Abdomen: soft, non-tender, non-distended, bowel sounds normal; no masses or organomegaly Extremities: extremities normal, atraumatic, no cyanosis or edema Pulses: 2+ and symmetric Skin: skin color, texture, turgor normal; no rashes or lesions Neurologic: right hemiparesis; 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, no focal deficits Assessment/Plan Problem List: (1) Generalized weakness (2) Tachycardia (3) Atrial fibrillation with rapid ventricular response Assessment & Plan: Paroxysmal. Follow Cardiology recs. (4) CHF (congestive heart failure) Assessment & Plan: Worsening BNP. Cont IV lasix. Follow cardiology recs. (5) HTN (hypertension) Assessment & Plan: Cont lopressor. (6) Right hemiparesis (7) Cerebral vascular disease (8) Diabetes type 2, controlled Assessment & Plan: Continue novolog sliding scale. Status: progressing Assessment/Plan Discharge planning-Home health CHIKI CARLTON April 12, 2017 16:45
--- NOTE | 2017-04-12 16:52 | Cardiology Progress Note ---
Assessment/Plan Assessment/Plan 1. Acute heart failure, acute on chronic, diastolic. 2. Severe mitral regurgitation 3. Atrial fibrillation, permanent with history of embolic phenomenon. 4. Tricupid regurgitation / aortic regurgitation moderate 5. Hypertensive heart disease. 6. Diabetes. dirutic bid po bb for hr control at [facility] rapid chf is better swtich to [place] diuretic s echo noted has sig valvular dysfunction as a cause of sx dig intermittently vs addditon of dilt depednign on bp as outpt Subjective ROS Limited/Unobtainable: Yes Subjective post cva poor histoaim dtr t bedside seems better for the moment Objective Last 24 Hour Vital Signs Date Time Temp Pulse Resp B/P Pulse Ox O2 Delivery O2 Flow Rate FiO2 04/12/17 16:00 77 04/12/17 15:52 96.6 106 22 110/60 100 Room Air 04/12/17 12:00 84 04/12/17 11:50 97.3 85 22 118/57 98 Room Air 04/12/17 08:14 104 118/69 04/12/17 08:00 97.5 104 21 118/69 97 Nasal Cannula 2.0 04/12/17 08:00 138 04/12/17 07:55 98 Nasal Cannula 2.0 28 04/12/17 07:55 Nasal Cannula 2.0 28 04/12/17 04:07 98.2 105 17 136/68 94 Nasal Cannula 2.0 04/12/17 00:20 98.6 99 19 112/67 99 Nasal Cannula 2.0 04/12/17 00:00 96 04/11/17 21:00 81 110/54 04/11/17 20:37 98.3 81 18 110/54 100 Nasal Cannula 2.0 04/11/17 20:00 91 04/11/17 19:30 Nasal Cannula 2.0 28 04/11/17 19:30 98 Nasal Cannula 2.0 28 04/11/17 16:51 97.2 92 18 124/69 99 Nasal Cannula 2.0 General Appearance: alert Neck: supple Cardiovascular: irregularly irregular Respiratory/Chest: lungs clear, normal breath sounds Abdomen: normal bowel sounds, non tender, soft Extremities: no swelling Intake and Output 04/11/17 04/12/17 19:00 07:00 Intake Total 1080.24 ml 280.338 ml Output Total 500 ml 900 ml Balance 580.24 ml -619.662 ml Intake Oral 840 ml IV Total 240.24 ml 280.338 ml Output Urine Total 500 ml 900 ml # Bowel Movements 1 Laboratory Tests Test 04/12/17 04:00 White Blood Count 5.6 K/UL (4.8-10.8) Red Blood Count 5.03 M/UL (4.20-5.40) Hemoglobin 13.3 G/DL (12.0-16.0) Hematocrit 42.2 % (37.0-47.0) Mean Corpuscular Volume 84 FL (80-99) Mean Corpuscular Hemoglobin 26.4 PG (27.0-31.0) L Mean Corpuscular Hemoglobin Concent 31.5 G/DL (32.0-36.0) L Red Cell Distribution Width 15.1 % (11.6-14.8) H Platelet Count 242 K/UL (150-450) Mean Platelet Volume 7.8 FL (6.5-10.1) Neutrophils (%) (Auto) 60.8 % (45.0-75.0) Lymphocytes (%) (Auto) 27.2 % (20.0-45.0) Monocytes (%) (Auto) 8.8 % (1.0-10.0) Eosinophils (%) (Auto) 1.6 % (0.0-3.0) Basophils (%) (Auto) 1.5 % (0.0-2.0) Activated Partial Thromboplast Time 29 SEC (23-33) Sodium Level 139 mEQ/L (135-145) Potassium Level 4.5 mEQ/L (3.4-4.9) Chloride Level 95 mEQ/L (98-107) L Carbon Dioxide Level 26 mEQ/L (20-30) Anion Gap 18 (5-15) H Blood Urea Nitrogen 19 mg/dL (7-23) Creatinine 0.9 mg/dL (0.5-0.9) Estimat Glomerular Filtration Rate mL/min (>60) Glucose Level 114 mg/dL (74-106) H Calcium Level 9.2 mg/dL (8.6-10.2) Magnesium Level 1.3 mg/dL (1.7-2.5) L Troponin I < 0.30 ng/mL (<=0.30) Pro-B-Type Natriuretic Peptide 2608 pg/mL (0-450) H CORI SOLIS April 12, 2017 16:52
[2017-04-12] MEDS: Furosemide 40mg tab ORAL SCH (17:35)
[2017-04-12] MEDS: Xarelto 15mg tab ORAL SCH (17:35)
[2017-04-12 20:00] VITALS: BP 125/70
[2017-04-13] VITALS (7 sets, daily range): BP systolic 83–122; BP diastolic 48–70
[2017-04-13] MEDS: NovoLOG Insulin Flexpen SUBQ SCH ×4 (06:12→21:49)
[2017-04-13 06:28] LABS: BASOPHILS % (AUTO) 1.1 % (0.0-2.0); EOSINOPHILS % (AUTO) 2.1 % (0.0-3.0); LYMPHOCYTES % (AUTO) 24.7 % (20.0-45.0); MEAN CORPUSCULAR HEMOGLOBIN 26.2 PG (27.0-31.0); MEAN CORPUSCULAR HGB CONC 30.4 G/DL (32.0-36.0); MEAN CORPUSCULAR VOLUME 86 FL (80-99); MEAN PLATELET VOLUME 7.8 FL (6.5-10.1); MONOCYTES % (AUTO) 9.6 % (1.0-10.0); NEUTROPHILS % (AUTO) 62.5 % (45.0-75.0); PLATELET COUNT 253 K/UL (150-450); RED BLOOD COUNT 4.54 M/UL (4.20-5.40); WHITE BLOOD COUNT 6.9 K/UL (4.8-10.8)
[2017-04-13 06:45] LABS: ANION GAP 16 (5-15); CALCIUM 9.3 mg/dL (8.6-10.2); CARBON DIOXIDE 28 mEQ/L (20-30); CHLORIDE 96 mEQ/L (98-107); HEMOLYSIS 1; SODIUM 140 mEQ/L (135-145)
[2017-04-13] MEDS: Allopurinol 100mg Tab ORAL SCH (09:15)
[2017-04-13] MEDS: Pantoprazole Inj IV SCH (09:15)
[2017-04-13] MEDS: Furosemide 40mg tab ORAL SCH ×2 (09:16→17:12)
--- NOTE | 2017-04-13 12:37 | Internal Med Progress Note ---
Subjective Date of Service: April 13, 2017 Physician Name Chiki Carlton Attending Physician Glenn Garrido MD Current Medications Medications (Trade) Dose Ordered Sig/Yovana Route PRN Reason Start Time Stop Time Status Last Admin Dose Admin Acetaminophen (Tylenol) 650 mg Q4H PRN ORAL Fever 04/09/17 20:00 05/09/17 19:59 Allopurinol (Zyloprim) 100 mg DAILY ORAL 04/10/17 09:00 05/10/17 08:59 04/13/17 09:15 Dextrose (Dextrose 50%) STAT PRN IV Hypoglycemia 04/09/17 18:00 05/09/17 17:59 Furosemide (Lasix) 40 mg BID ORAL 04/12/17 18:00 05/12/17 17:59 04/13/17 09:16 Insulin Aspart (NovoLOG) BEFORE MEALS AND HS SUBQ 04/09/17 21:00 05/09/17 20:59 04/13/17 12:02 Metoprolol Tartrate (Lopressor) 100 mg EVERY 12 HOURS ORAL 04/10/17 16:00 05/10/17 15:59 04/13/17 09:16 Morphine Sulfate (Morphine Sulfate) 4 mg Q4H PRN IVP For Pain 04/09/17 18:00 04/16/17 17:59 Ondansetron HCl (Zofran) 4 mg Q6H PRN IVP Nausea & Vomiting 04/09/17 18:00 05/09/17 17:59 Pantoprazole (Protonix) 40 mg DAILY IV 04/10/17 09:00 05/10/17 08:59 04/13/17 09:15 Polyethylene Glycol (Miralax) 17 gm DAILYPRN PRN ORAL Constipation 04/09/17 18:00 05/09/17 17:59 Rivaroxaban (Xarelto) 15 mg QPM ORAL 04/11/17 21:00 05/11/17 20:59 04/12/17 17:35 Temazepam (Restoril) 15 mg HSPRN PRN ORAL Insomnia 04/09/17 21:00 04/16/17 20:59 04/12/17 22:15 Allergies: Coded Allergies: No Known Allergies (Unverified , 02/14/15) ROS Limited/Unobtainable: No Constitutional: Reports: no symptoms HEENT: Reports: no symptoms Cardiovascular: Reports: no symptoms Respiratory: Reports: cough, shortness of breath Gastrointestinal/Abdominal: Reports: no symptoms Genitourinary: Reports: no symptoms Neurologic/Psychiatric: Reports: no symptoms Subjective 81 YO F admitted with gen weakness, now afib with rapid rate. Cover for Int Scott -Dr Garrido. C/O shortness of breath. Objective Last Vital Signs Date Time Temp Pulse Resp B/P Pulse Ox O2 Delivery O2 Flow Rate FiO2 04/13/17 11:44 98.0 75 20 119/58 99 Nasal Cannula 1.0 04/13/17 07:35 28 Laboratory Tests Test 04/13/17 05:50 White Blood Count 6.9 K/UL (4.8-10.8) Red Blood Count 4.54 M/UL (4.20-5.40) Hemoglobin 11.9 G/DL (12.0-16.0) L Hematocrit 39.1 % (37.0-47.0) Mean Corpuscular Volume 86 FL (80-99) Mean Corpuscular Hemoglobin 26.2 PG (27.0-31.0) L Mean Corpuscular Hemoglobin Concent 30.4 G/DL (32.0-36.0) L Red Cell Distribution Width 15.0 % (11.6-14.8) H Platelet Count 253 K/UL (150-450) Mean Platelet Volume 7.8 FL (6.5-10.1) Neutrophils (%) (Auto) 62.5 % (45.0-75.0) Lymphocytes (%) (Auto) 24.7 % (20.0-45.0) Monocytes (%) (Auto) 9.6 % (1.0-10.0) Eosinophils (%) (Auto) 2.1 % (0.0-3.0) Basophils (%) (Auto) 1.1 % (0.0-2.0) Sodium Level 140 mEQ/L (135-145) Potassium Level 4.0 mEQ/L (3.4-4.9) Chloride Level 96 mEQ/L (98-107) L Carbon Dioxide Level 28 mEQ/L (20-30) Anion Gap 16 (5-15) H Blood Urea Nitrogen 24 mg/dL (7-23) H Creatinine 1.0 mg/dL (0.5-0.9) H Estimat Glomerular Filtration Rate mL/min (>60) Glucose Level 122 mg/dL (74-106) H Calcium Level 9.3 mg/dL (8.6-10.2) Intake and Output 04/12/17 04/13/17 19:00 07:00 Intake Total 340 ml Output Total 750 ml 600 ml Balance -410 ml -600 ml Intake Oral 340 ml Output Urine Total 750 ml 600 ml Objective General: alert, cooperative, no distress, appears stated age Head: normocephalic, without obvious abnormality, atraumatic Eyes: conjunctivae/corneas clear. PERRL, EOM's intact Throat: lips, mucosa, and tongue normal. MMM Neck: supple, symmetrical, trachea midline, and no JVD Lungs: clear to auscultation bilaterally Heart: tachycardia; irregular rate and rhythm, S1, S2 normal, no murmur, click, rub or gallop Abdomen: soft, non-tender, non-distended, bowel sounds normal; no masses or organomegaly Extremities: extremities normal, atraumatic, no cyanosis or edema Pulses: 2+ and symmetric Skin: skin color, texture, turgor normal; no rashes or lesions Neurologic: right hemiparesis; 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, no focal deficits Assessment/Plan Problem List: (1) Generalized weakness (2) Tachycardia (3) Atrial fibrillation with rapid ventricular response Assessment & Plan: Paroxysmal. Follow Cardiology recs. (4) CHF (congestive heart failure) Assessment & Plan: Worsening BNP. D/C IV lasix; change to PO. Follow cardiology recs. (5) HTN (hypertension) Assessment & Plan: Cont lopressor. (6) Right hemiparesis (7) Cerebral vascular disease (8) Diabetes type 2, controlled Assessment & Plan: Continue novolog sliding scale. Status: progressing Assessment/Plan Discharge planning possible 04/14/17: [facility] CARLTONCHIKI April 13, 2017 12:37
--- NOTE | 2017-04-13 13:16 | Pulmonology Progress Note ---
Assessment/Plan Problems: (1) Rapid atrial fibrillation (2) CHF (congestive heart failure) (3) Atrial fibrillation with rapid ventricular response (4) Right hemiparesis (5) Cerebral vascular disease (6) Diabetes mellitus (7) HTN (hypertension) Assessment/Plan heart rate better controlled bp more stable K supplement echo noted: EF of 55% f/u cardio recommendations d/w at the bed site all notes, labs, meds reviewed med/surg when ok with Cardio Subjective ROS Limited/Unobtainable: No Constitutional: Reports: no symptoms HEENT: Repors: no symptoms Respiratory: Reports: no symptoms Allergies: Coded Allergies: No Known Allergies (Unverified , 02/14/15) Objective Last 24 Hour Vital Signs Date Time Temp Pulse Resp B/P Pulse Ox O2 Delivery O2 Flow Rate FiO2 04/13/17 11:44 98.0 75 20 119/58 99 Nasal Cannula 1.0 04/13/17 09:16 94 109/63 04/13/17 07:56 98.1 94 20 109/63 98 Nasal Cannula 1.0 04/13/17 07:35 Nasal Cannula 2.0 28 04/13/17 07:35 98 Nasal Cannula 2.0 28 04/13/17 04:00 84 04/13/17 04:00 97.7 91 19 117/48 96 Nasal Cannula 2.0 04/13/17 00:20 96/52 04/13/17 00:00 98.0 93 21 83/57 96 Nasal Cannula 2.0 04/13/17 00:00 71 04/12/17 21:00 91 04/12/17 20:46 98 125/70 04/12/17 20:00 97.7 98 20 125/70 98 Room Air 04/12/17 19:30 Nasal Cannula 2.0 28 04/12/17 19:30 98 Nasal Cannula 2.0 28 04/12/17 16:00 77 04/12/17 15:52 96.6 106 22 110/60 100 Room Air Intake and Output 04/12/17 04/13/17 19:00 07:00 Intake Total 340 ml Output Total 750 ml 600 ml Balance -410 ml -600 ml Intake Oral 340 ml Output Urine Total 750 ml 600 ml General Appearance: WD/WN HEENT: normocephalic, atraumatic Respiratory/Chest: chest wall non-tender, lungs clear Breasts: no masses Cardiovascular: normal peripheral pulses, normal rate Abdomen: normal bowel sounds, soft, non tender, no organomegaly Genitourinary: normal external genitalia Extremities: no cyanosis, no clubbing Neurologic/Psychiatric: armature balancer II-XII 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 Laboratory Tests 04/13/17 05:50: White Blood Count 6.9, Red Blood Count 4.54, Hemoglobin 11.9L, Hematocrit 39.1, Mean Corpuscular Volume 86, Mean Corpuscular Hemoglobin 26.2L, Mean Corpuscular Hemoglobin Concent 30.4L, Red Cell Distribution Width 15.0H, Platelet Count 253 , Mean Platelet Volume 7.8, Neutrophils (%) (Auto) 62.5, Lymphocytes (%) (Auto) 24.7, Monocytes (%) (Auto) 9.6, Eosinophils (%) (Auto) 2.1, Basophils (%) (Auto ) 1.1, Sodium Level 140, Potassium Level 4.0, Chloride Level 96L, Carbon Dioxide Level 28, Anion Gap 16H, Blood Urea Nitrogen 24H, Creatinine 1.0H, Estimat Glomerular Filtration Rate , Glucose Level 122H, Calcium Level 9.3 Current Medications Medications (Trade) Dose Ordered Sig/Yovana Route PRN Reason Start Time Stop Time Status Last Admin Dose Admin Acetaminophen (Tylenol) 650 mg Q4H PRN ORAL Fever 04/09/17 20:00 05/09/17 19:59 Allopurinol (Zyloprim) 100 mg DAILY ORAL 04/10/17 09:00 05/10/17 08:59 04/13/17 09:15 Dextrose (Dextrose 50%) STAT PRN IV Hypoglycemia 04/09/17 18:00 05/09/17 17:59 Furosemide (Lasix) 40 mg BID ORAL 04/12/17 18:00 05/12/17 17:59 04/13/17 09:16 Insulin Aspart (NovoLOG) BEFORE MEALS AND HS SUBQ 04/09/17 21:00 05/09/17 20:59 04/13/17 12:02 Metoprolol Tartrate (Lopressor) 100 mg EVERY 12 HOURS ORAL 04/10/17 16:00 05/10/17 15:59 04/13/17 09:16 Morphine Sulfate (Morphine Sulfate) 4 mg Q4H PRN IVP For Pain 04/09/17 18:00 04/16/17 17:59 Ondansetron HCl (Zofran) 4 mg Q6H PRN IVP Nausea & Vomiting 04/09/17 18:00 05/09/17 17:59 Pantoprazole (Protonix) 40 mg DAILY IV 04/10/17 09:00 05/10/17 08:59 04/13/17 09:15 Polyethylene Glycol (Miralax) 17 gm DAILYPRN PRN ORAL Constipation 04/09/17 18:00 05/09/17 17:59 Rivaroxaban (Xarelto) 15 mg QPM ORAL 04/11/17 21:00 05/11/17 20:59 04/12/17 17:35 Temazepam (Restoril) 15 mg HSPRN PRN ORAL Insomnia 04/09/17 21:00 04/16/17 20:59 04/12/17 22:15 JEANNE WHITE April 13, 2017 13:16
--- NOTE | 2017-04-13 13:38 | Diagnostic Imaging Report ---
Indication: Cough Comparison: 04/11/17 A single view chest radiograph was obtained. Findings: Cardiomegaly is present. There maybe small bilateral effusions. Interstitial edema if present is very mild. Bones are osteopenic. Impression: No significant change. Possible mild interstitial edema. Please correlate clinically
[2017-04-13] MEDS: Xarelto 15mg tab ORAL SCH (17:12)
--- NOTE | 2017-04-13 17:42 | Cardiology Progress Note ---
Assessment/Plan Assessment/Plan 1. Acute heart failure, acute on chronic, diastolic. 2. Severe mitral regurgitation 3. Atrial fibrillation, permanent with history of embolic phenomenon. 4. Tricupid regurgitation / aortic regurgitation moderate 5. Hypertensive heart disease. 6. Diabetes. dirutic bid po bb for hr control at tiem rapid chf is better swtich to alissa diuretic s echo noted has sig valvular dysfunction as a cause of sx keep off dig tele reviewed hr is controleld for the most part no barady noted d/w dtr not sig ambulatory at home understadn need for fuw alvin few day after dc to adjust diuretic dose Subjective ROS Limited/Unobtainable: Yes Subjective post cva poor histoaim dtr t bedside seems better for the moment Objective Last 24 Hour Vital Signs Date Time Temp Pulse Resp B/P Pulse Ox O2 Delivery O2 Flow Rate FiO2 04/13/17 15:58 97.9 83 20 114/70 100 Nasal Cannula 1.0 04/13/17 12:00 83 04/13/17 11:44 98.0 75 20 119/58 99 Nasal Cannula 1.0 04/13/17 09:16 94 109/63 04/13/17 08:00 89 04/13/17 07:56 98.1 94 20 109/63 98 Nasal Cannula 1.0 04/13/17 07:35 Nasal Cannula 2.0 28 04/13/17 07:35 98 Nasal Cannula 2.0 28 04/13/17 04:00 84 04/13/17 04:00 97.7 91 19 117/48 96 Nasal Cannula 2.0 04/13/17 00:20 96/52 04/13/17 00:00 98.0 93 21 83/57 96 Nasal Cannula 2.0 04/13/17 00:00 71 04/12/17 21:00 91 04/12/17 20:46 98 125/70 04/12/17 20:00 97.7 98 20 125/70 98 Room Air 04/12/17 19:30 Nasal Cannula 2.0 28 04/12/17 19:30 98 Nasal Cannula 2.0 28 General Appearance: no apparent distress, alert Neck: supple Cardiovascular: irregularly irregular Respiratory/Chest: crackles/rales - left base Abdomen: normal bowel sounds, non tender, soft Extremities: no swelling Intake and Output 04/12/17 04/13/17 19:00 07:00 Intake Total 340 ml Output Total 750 ml 600 ml Balance -410 ml -600 ml Intake Oral 340 ml Output Urine Total 750 ml 600 ml Laboratory Tests Test 04/13/17 05:50 White Blood Count 6.9 K/UL (4.8-10.8) Red Blood Count 4.54 M/UL (4.20-5.40) Hemoglobin 11.9 G/DL (12.0-16.0) L Hematocrit 39.1 % (37.0-47.0) Mean Corpuscular Volume 86 FL (80-99) Mean Corpuscular Hemoglobin 26.2 PG (27.0-31.0) L Mean Corpuscular Hemoglobin Concent 30.4 G/DL (32.0-36.0) L Red Cell Distribution Width 15.0 % (11.6-14.8) H Platelet Count 253 K/UL (150-450) Mean Platelet Volume 7.8 FL (6.5-10.1) Neutrophils (%) (Auto) 62.5 % (45.0-75.0) Lymphocytes (%) (Auto) 24.7 % (20.0-45.0) Monocytes (%) (Auto) 9.6 % (1.0-10.0) Eosinophils (%) (Auto) 2.1 % (0.0-3.0) Basophils (%) (Auto) 1.1 % (0.0-2.0) Sodium Level 140 mEQ/L (135-145) Potassium Level 4.0 mEQ/L (3.4-4.9) Chloride Level 96 mEQ/L (98-107) L Carbon Dioxide Level 28 mEQ/L (20-30) Anion Gap 16 (5-15) H Blood Urea Nitrogen 24 mg/dL (7-23) H Creatinine 1.0 mg/dL (0.5-0.9) H Estimat Glomerular Filtration Rate mL/min (>60) Glucose Level 122 mg/dL (74-106) H Calcium Level 9.3 mg/dL (8.6-10.2) CORI SOLIS April 13, 2017 17:42
[2017-04-14 00:16] VITALS: BP 104/56
[2017-04-14 04:00] VITALS: BP 98/47
[2017-04-14 05:03] VITALS: BP 98/47
[2017-04-14] MEDS: NovoLOG Insulin Flexpen SUBQ SCH ×2 (06:31→11:58)
[2017-04-14 08:00] VITALS: BP 121/60
[2017-04-14 08:17] LABS: BASOPHILS % (AUTO) 1.2 % (0.0-2.0); EOSINOPHILS % (AUTO) 2.1 % (0.0-3.0); LYMPHOCYTES % (AUTO) 25.6 % (20.0-45.0); MEAN CORPUSCULAR HEMOGLOBIN 26.2 PG (27.0-31.0); MEAN CORPUSCULAR HGB CONC 30.6 G/DL (32.0-36.0); MEAN CORPUSCULAR VOLUME 85 FL (80-99); MEAN PLATELET VOLUME 7.6 FL (6.5-10.1); MONOCYTES % (AUTO) 9.2 % (1.0-10.0); NEUTROPHILS % (AUTO) 61.9 % (45.0-75.0); PLATELET COUNT 248 K/UL (150-450); RED BLOOD COUNT 4.48 M/UL (4.20-5.40); RED CELL DISTRIBUTION WIDTH 15.1 % (11.6-14.8); WHITE BLOOD COUNT 5.6 K/UL (4.8-10.8)
[2017-04-14 08:23] LABS: ANION GAP 17 (5-15); CALCIUM 9.6 mg/dL (8.6-10.2); CARBON DIOXIDE 28 mEQ/L (20-30); CHLORIDE 96 mEQ/L (98-107); CREATININE 0.9 mg/dL (0.5-0.9); HEMOLYSIS 5; POTASSIUM 3.7 mEQ/L (3.4-4.9); SODIUM 141 mEQ/L (135-145)
[2017-04-14] MEDS: Pantoprazole Inj IV SCH (09:52)
[2017-04-14] MEDS: Allopurinol 100mg Tab ORAL SCH (09:53)
[2017-04-14] MEDS: Furosemide 40mg tab ORAL SCH (09:53)
[2017-04-14 12:00] VITALS: BP 148/81
[2017-04-14] MEDS ORDERED: FUROSEMIDE40 MG ORAL (13:22)
--- NOTE | 2017-04-14 16:24 | Internal Med Progress Note ---
Subjective Date of Service: April 14, 2017 Physician Name Chiki Carlton Attending Physician Glenn Garrido MD Current Medications Medications (Trade) Dose Ordered Sig/Yovana Route PRN Reason Start Time Stop Time Status Last Admin Dose Admin Acetaminophen (Tylenol) 650 mg Q4H PRN ORAL Fever 04/09/17 20:00 05/09/17 19:59 Allopurinol (Zyloprim) 100 mg DAILY ORAL 04/10/17 09:00 05/10/17 08:59 04/14/17 09:53 Dextrose (Dextrose 50%) STAT PRN IV Hypoglycemia 04/09/17 18:00 05/09/17 17:59 Furosemide (Lasix) 40 mg BID ORAL 04/12/17 18:00 05/12/17 17:59 04/14/17 09:53 Insulin Aspart (NovoLOG) BEFORE MEALS AND HS SUBQ 04/09/17 21:00 05/09/17 20:59 04/14/17 11:58 Metoprolol Tartrate (Lopressor) 100 mg EVERY 12 HOURS ORAL 04/10/17 16:00 05/10/17 15:59 04/14/17 09:53 Morphine Sulfate (Morphine Sulfate) 4 mg Q4H PRN IVP For Pain 04/09/17 18:00 04/16/17 17:59 Ondansetron HCl (Zofran) 4 mg Q6H PRN IVP Nausea & Vomiting 04/09/17 18:00 05/09/17 17:59 Pantoprazole (Protonix) 40 mg DAILY IV 04/10/17 09:00 05/10/17 08:59 04/14/17 09:52 Polyethylene Glycol (Miralax) 17 gm DAILYPRN PRN ORAL Constipation 04/09/17 18:00 05/09/17 17:59 Rivaroxaban (Xarelto) 15 mg QPM ORAL 04/11/17 21:00 05/11/17 20:59 04/13/17 17:12 Temazepam (Restoril) 15 mg HSPRN PRN ORAL Insomnia 04/09/17 21:00 04/16/17 20:59 04/13/17 22:32 Allergies: Coded Allergies: No Known Allergies (Unverified , 02/14/15) ROS Limited/Unobtainable: No Constitutional: Reports: no symptoms HEENT: Reports: no symptoms Cardiovascular: Reports: no symptoms Respiratory: Reports: no symptoms Gastrointestinal/Abdominal: Reports: no symptoms Genitourinary: Reports: no symptoms Neurologic/Psychiatric: Reports: no symptoms Subjective 81 YO F admitted with gen weakness, now afib with rapid rate. Cover for Int Scott -Dr Garrido. Await discharge home with home health today. Objective Last Vital Signs Date Time Temp Pulse Resp B/P Pulse Ox O2 Delivery O2 Flow Rate FiO2 04/14/17 12:00 96.3 83 19 148/81 100 Room Air 04/14/17 05:03 2.0 04/13/17 19:59 28 Laboratory Tests Test 04/14/17 07:05 White Blood Count 5.6 K/UL (4.8-10.8) Red Blood Count 4.48 M/UL (4.20-5.40) Hemoglobin 11.7 G/DL (12.0-16.0) L Hematocrit 38.3 % (37.0-47.0) Mean Corpuscular Volume 85 FL (80-99) Mean Corpuscular Hemoglobin 26.2 PG (27.0-31.0) L Mean Corpuscular Hemoglobin Concent 30.6 G/DL (32.0-36.0) L Red Cell Distribution Width 15.1 % (11.6-14.8) H Platelet Count 248 K/UL (150-450) Mean Platelet Volume 7.6 FL (6.5-10.1) Neutrophils (%) (Auto) 61.9 % (45.0-75.0) Lymphocytes (%) (Auto) 25.6 % (20.0-45.0) Monocytes (%) (Auto) 9.2 % (1.0-10.0) Eosinophils (%) (Auto) 2.1 % (0.0-3.0) Basophils (%) (Auto) 1.2 % (0.0-2.0) Sodium Level 141 mEQ/L (135-145) Potassium Level 3.7 mEQ/L (3.4-4.9) Chloride Level 96 mEQ/L (98-107) L Carbon Dioxide Level 28 mEQ/L (20-30) Anion Gap 17 (5-15) H Blood Urea Nitrogen 24 mg/dL (7-23) H Creatinine 0.9 mg/dL (0.5-0.9) Estimat Glomerular Filtration Rate mL/min (>60) Glucose Level 114 mg/dL (74-106) H Calcium Level 9.6 mg/dL (8.6-10.2) Pro-B-Type Natriuretic Peptide 1746 pg/mL (0-450) H Intake and Output 04/13/17 04/14/17 19:00 07:00 Intake Total 360 ml Output Total 900 ml 1000 ml Balance -540 ml -1000 ml Intake Oral 360 ml Output Urine Total 900 ml 1000 ml Objective General: alert, cooperative, no distress, appears stated age Head: normocephalic, without obvious abnormality, atraumatic Eyes: conjunctivae/corneas clear. PERRL, EOM's intact Throat: lips, mucosa, and tongue normal. MMM Neck: supple, symmetrical, trachea midline, and no JVD Lungs: clear to auscultation bilaterally Heart: tachycardia; irregular rate and rhythm, S1, S2 normal, no murmur, click, rub or gallop Abdomen: soft, non-tender, non-distended, bowel sounds normal; no masses or organomegaly Extremities: extremities normal, atraumatic, no cyanosis or edema Pulses: 2+ and symmetric Skin: skin color, texture, turgor normal; no rashes or lesions Neurologic: right hemiparesis; 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, no focal deficits Assessment/Plan Problem List: (1) Generalized weakness (2) Tachycardia (3) Atrial fibrillation with rapid ventricular response Assessment & Plan: Paroxysmal. Follow Cardiology recs. (4) CHF (congestive heart failure) Assessment & Plan: Worsening BNP. D/C IV lasix; change to PO. Follow cardiology recs. (5) HTN (hypertension) Assessment & Plan: Cont lopressor. (6) Right hemiparesis (7) Cerebral vascular disease (8) Diabetes type 2, controlled Assessment & Plan: Continue novolog sliding scale. Assessment/Plan Discharge today 04/14/17 home [facility] CHIKI CARLTON April 14, 2017 16:24
--- NOTE | 2017-04-15 12:11 | Discharge Summary ---
Discharge Summary Hospital Course Date of Admission April 08, 2017 at 13:56 Date of Discharge April 14, 2017 at 16:30 Admitting Diagnosis afib rvr/CHF exacerbation HPI Ernestina Stevens is a 81 year old female who was admitted on April 08, 2017 at 13: 56 for Atrial Fibrilation,Congestive Heart Failure Hospital Course [id number] Discharge Discharge Disposition Patient was discharged to Home with Discharge Diagnoses: Lisset Quiles NP April 15, 2017 12:11
--- NOTE | 2017-04-16 05:31 | Discharge Summary 2 SIG ---
DATE OF ADMISSION: 04/08/2017 DATE OF DISCHARGE: 04/14/2017 CONSULTANTS: 1. Hitesh Gates M.D. 2. Bryan Bertrand M.D. BRIEF HOSPITAL COURSE: The patient is an 81-year-old female, who presented to [facility] with her caregiver. The patient had shortness of breath, generalized weakness, and tachycardia. On evaluation at ED, the patient was in rapid atrial fibrillation and chest x-ray showed cardiomegaly with pulmonary congestion and bilateral effusions. She was placed on BiPAP and was started on Cardizem drip and was admitted to ICU. Cardiology consult was done. The EKG showed atrial fibrillation with rapid ventricular rate of 140 and has a right bundle-branch block pattern. Magnesium was 1.7. Echocardiogram showed ejection fraction of 55% to 60%. Dr. Bertrand was consulted for pulmonary management. Venous duplex of lower extremity was negative for DVT. She was eventually taken off BiPAP and was tolerating nasal cannula. The patient's diuretic was changed to p.o. b.i.d., advised to keep off digoxin secondary to elevated blood levels upon admission. Blood sugars were monitored and was given insulin sliding scale. Heparin drip was eventually discontinued and the patient was switched to Seroquel mg daily. The patient was eventually discharged home with home health. FINAL DIAGNOSES: 1. Atrial fibrillation with rapid ventricular response. 2. Acute on chronic diastolic heart failure. 3. Severe mitral regurgitation. 4. Tricuspid regurgitation. 5. Aortic regurgitation. 6. Hypertensive heart disease. 7. Diabetes mellitus. 8. 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 Rocky Garibay M.D. I have been assigned to dictate discharge summary on this account and I was not involved in the patient's management. Lisset Quiles N.P. DR: Yury JOB#: [id number] CC:
== END 2017-04-14 16:30 | disposition home health service (06) | DRG 308 ==
LOC: ENRESERVDT → ENRESERVTM → EDBEDREQ 13:29 → EMR 13:33 → ICU 13:56 → EDBEDREQSVC 14:02 → EDBEDREQ 14:04 → EDBEDREQSVC 14:04 → EDBEDREQ 14:54 → 2E 04-09 17:18
DX: I48.0 Paroxysmal atrial fibrillation (principal); I50.33 Acute on chronic diastolic (congestive) heart failure; I69.951 Hemiplegia and hemiparesis following unspecified cerebrovascular disease affecting right dominant side; E11.9 Type 2 diabetes mellitus without complications; I08.3 Combined rheumatic disorders of mitral, aortic and tricuspid valves; I11.0 Hypertensive heart disease with heart failure; I69.920 Aphasia following unspecified cerebrovascular disease; R00.0 Tachycardia, unspecified; Z86.718 Personal history of other venous thrombosis and embolism
CPT/HCPCS: 36415; 36600; 71010; 76775; 80048; 80053; 80069; 80162; 81003; 82248; 82550; 82553; 82803; 82962; 83690; 83735; 83880; 84100; 84484; 85025; 85610; 85730; 87040; 87081; 93005; 93306; 93970; 94660; 94760; J1815; J8499

== ENCOUNTER 2017-04-29 17:19 | Inpatient (IN) | payer MEDICARE, OTHER ==
[~2017-04-29] VITALS: Ht 160 cm; Wt 61.2 kg
[~2017-04-29 17:19] MED LIST changes: +FUROSEMIDE40 MG ORAL; +XARELTO10 MG ORAL
[2017-04-29 18:01] VITALS: BP 120/72
[2017-04-29 18:11] LABS: EOSINOPHILS % (AUTO) 0.6 % (0.0-3.0); LYMPHOCYTES % (AUTO) 22.2 % (20.0-45.0); MEAN CORPUSCULAR HEMOGLOBIN 29.2 PG (27.0-31.0); MEAN CORPUSCULAR HGB CONC 34.9 G/DL (32.0-36.0); MEAN CORPUSCULAR VOLUME 84 FL (80-99); MEAN PLATELET VOLUME 8.2 FL (6.5-10.1); MONOCYTES % (AUTO) 7.2 % (1.0-10.0); PLATELET COUNT 198 K/UL (150-450); RED CELL DISTRIBUTION WIDTH 15.3 % (11.6-14.8); WHITE BLOOD COUNT 5.9 K/UL (4.8-10.8)
[2017-04-29 18:24] LABS: ALANINE AMINOTRANSFERASE 9 U/L (3-33); ALBUMIN/GLOBULIN RATIO 1.2 (1.0-2.7); ANION GAP 19 (5-15); ASPARTATE AMINO TRANSFERASE 14 U/L (5-40); CALCIUM 9.4 mg/dL (8.6-10.2); CARBON DIOXIDE 21 mEQ/L (20-30); CHLORIDE 98 mEQ/L (98-107); CREATININE 1.1 mg/dL (0.5-0.9); HEMOLYSIS 4; LIPASE 93 U/L (< 60); SODIUM 138 mEQ/L (135-145); TOTAL PROTEIN 7.4 g/dL (6.6-8.7); TROPONIN I < 0.30 ng/mL (<=0.30)
[2017-04-29 18:33] LABS: INR 1.1 (0.9-1.1); PROTHROMBIN TIME 11.2 SEC (9.30-11.50)
[2017-04-29 18:48] LABS: APPEARANCE,URINE CLEAR; KETONES,URINE NEGATIVE (NEGATIVE); LEUKOCYTE ESTERASE ,URINE 1+ (NEGATIVE); NITRITE,URINE NEGATIVE (NEGATIVE); PH,URINE 5 (4.5-8.0); PROTEIN,URINE NEGATIVE (NEGATIVE); UROBILINOGEN,URINE NORMAL MG/DL (0.0-1.0)
[2017-04-29 18:50] LABS: CKMB 1.7 ng/mL (< 3.8); DIGOXIN < 0.3 ng/mL (0.5-2.0)
[2017-04-29] MEDS ORDERED: Diltiazem 25mg/5ml IV PRN (19:15)
[2017-04-29] MEDS ORDERED: Miralax 17gm pkt ORAL PRN (19:15)
[2017-04-29] MEDS ORDERED: Metoprolol 5mg/5ml Inj IVP PRN (19:15)
[2017-04-29] MEDS ORDERED: Nitroglycerin Subl 0.4mg tab (Bottle Of 25) SL PRN (19:15)
[2017-04-29] MEDS ORDERED: Morphine Sulfate 2mg/ml Inj IVP PRN (19:15)
[2017-04-29] MEDS ORDERED: Enalaprilat 2.5mg/2ml Inj IV PRN (19:15)
[2017-04-29] MEDS ORDERED: DuoNeb 0.5-3(2.5)mg/3ml neb HHN PRN (19:15)
[2017-04-29 19:20] VITALS: BP 115/87
[2017-04-29 19:25] LABS: BACTERIA,URINE OCCASIONAL /HPF; RBC,URINE 0-2 /HPF (0 - 2); SQUAMOUS EPITHELIAL CELL,UR FEW /LPF (NONE/OCC)
[2017-04-29] MEDS ORDERED: Digoxin 0.5mg/2ml Inj IVP ONE (19:30)
[2017-04-29] MEDS ORDERED: NEPHROVITE1 TAB ORAL (20:10)
[2017-04-29 21:15] VITALS: BP 122/71
[2017-04-29 22:00] VITALS: BP 129/66
[2017-04-29] MEDS ORDERED: D5 1/2NS 1,000 ML IV SCH (22:00)
[2017-04-29] MEDS ORDERED: XARELTO20 MG ORAL (22:02)
[2017-04-29] MEDS: NovoLOG Insulin Flexpen SUBQ SCH (22:37)
--- NOTE | 2017-04-29 23:00 | Emergency Room Report ---
History of Present Illness General Chief Complaint: Abdominal Pain Source: Family Member Present Illness HPI 81-year-old female presents ED for evaluation. daughter at bedside states that patient has abdominal pain since this morning. Pain is sharp, 7/10, radiating to the back. Denies fevers or chills. Denies nausea or vomiting. She is tachycardic in triage. Daughter states that patient has history of A. fib. Was recently admitted for treatment of A. fib. PMD is Dr. Garrido. No other aggravating or leading factors. Denies any other associated symptom Allergies: Coded Allergies: No Known Allergies (Unverified , 02/14/15) Patient History Past Medical History: DM, HTN, CVA/TIA Past Surgical History: none Pertinent Family History: none Social History: Denies: alcohol use, drug use, smoking Now: No Immunizations: UTD Reviewed Nursing Documentation: PMH: Agreed, PSxH: Agreed Nursing Documentation-PMH Past Medical History: No History, Except For Hx Cardiac Problems: Yes - arrythmia, gout Hx Hypertension: Yes Hx Diabetes: Yes Hx Cancer: No Hx Gastrointestinal Problems: No Hx Dialysis: No Hx Neurological Problems: Yes - stroke - right side weakness Hx Cerebrovascular Accident: Yes - right sided weakness 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 Review of Systems All Other Systems: negative except mentioned in HPI Physical Exam Vital Signs Date Time Temp Pulse Resp B/P Pulse Ox O2 Delivery O2 Flow Rate FiO2 04/29/17 17:38 98.8 123 24 136/101 100 Room Air Sp02 EP Interpretation: reviewed, normal General Appearance: no apparent distress, alert, GCS 15, non-toxic Head: normocephalic, atraumatic Eyes: bilateral eye PERRL, bilateral eye normal inspection ENT: hearing 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, normal pharynx, no angioedema, normal voice Neck: full range of motion, supple/symm/no masses Respiratory: chest non-tender, lungs clear, normal breath sounds, speaking full sentences Cardiovascular #1: no edema, tachycardia Cardiovascular #2: 2+ carotid (R), 2+ carotid (L), 2+ radial (R), 2+ radial (L) , 2+ dorsalis pedis (R), 2+ dorsalis pedis (L) Gastrointestinal: normal bowel sounds, soft, non-distended, no guarding, no rebound, tenderness Rectal: deferred Genitourinary: normal inspection, no CVA tenderness Musculoskeletal: back normal, gait/station normal, normal range of motion, non- tender Neurologic: alert, oriented x3, responsive, motor strength/tone normal, sensory intact, speech normal Psychiatric: judgement/insight normal, memory normal, mood/affect normal, no suicidal/homicidal ideation Reflexes: 3+ bicep (R), 3+ bicep (L), 3+ tricep (R), 3+ tricep (L), 3+ knee (R) , 3+ knee (L) Skin: normal color, no rash, warm/dry, well hydrated Lymphatic: no adenopathy Medical Decision Making Diagnostic Impression: Primary Impression: Atrial fibrillation with rapid ventricular response Additional Impressions: Abdominal pain Qualified Codes: R10.84 - Generalized abdominal pain Cholelithiasis Qualified Codes: K80.80 - Other cholelithiasis without obstruction ER Course Hospital Course 81-year-old F presents ED complaining of tachycardia. Abd pain. h/o afib Differential diagnoses include: [place]/unstable angina, contusion, muscle strain, PTX, rib fracture, pneumonia, Clinical course Patient placed on stretcher. on coke burner which shows A. fib with RVR. After initial history and physical I ordered labs, EKG, chest x-ray. CT A/P labs reviewed- no leukocytosis, hemoglobin/hematocrit ok, electrolytes okay, troponins negative, digoxin level subtherapeutic EKG - afib with RVR Chest x-ray- no acute process CT A/P - cholelithasis, no acute process Given digoxin IV here. On reassessment heart rate improved with digoxin and IV fluids. Case discussed with Dr. Garrido and he agreed to accept the patient to his service for further care and support I. I feel this is a highly complex case requiring extensive working including EKG/Rhythm strip, Xray/CT/US, Blood/urine lab work, repeat exams while in ED, and administration of strong opiates/narcotics for pain control, admission to hospital or close patient follow up. Diagnosis - afib with RVR, abd pain, cholelithiasis admitted to telemetry in serious condition Labs Test 04/29/17 17:55 04/29/17 18:20 White Blood Count 5.9 K/UL (4.8-10.8) Red Blood Count 4.10 M/UL (4.20-5.40) Hemoglobin 12.0 G/DL (12.0-16.0) Hematocrit 34.3 % (37.0-47.0) Mean Corpuscular Volume 84 FL (80-99) Mean Corpuscular Hemoglobin 29.2 PG (27.0-31.0) Mean Corpuscular Hemoglobin Concent 34.9 G/DL (32.0-36.0) Red Cell Distribution Width 15.3 % (11.6-14.8) Platelet Count 198 K/UL (150-450) Mean Platelet Volume 8.2 FL (6.5-10.1) Neutrophils (%) (Auto) 69.0 % (45.0-75.0) Lymphocytes (%) (Auto) 22.2 % (20.0-45.0) Monocytes (%) (Auto) 7.2 % (1.0-10.0) Eosinophils (%) (Auto) 0.6 % (0.0-3.0) Basophils (%) (Auto) 1.0 % (0.0-2.0) Prothrombin Time 11.2 SEC (9.30-11.50) Prothromb Time International Ratio 1.1 (0.9-1.1) Activated Partial Thromboplast Time 26 SEC (23-33) Sodium Level 138 mEQ/L (135-145) Potassium Level 4.0 mEQ/L (3.4-4.9) Chloride Level 98 mEQ/L (98-107) Carbon Dioxide Level 21 mEQ/L (20-30) Anion Gap 19 (5-15) Blood Urea Nitrogen 22 mg/dL (7-23) Creatinine 1.1 mg/dL (0.5-0.9) Estimat Glomerular Filtration Rate mL/min (>60) Glucose Level 148 mg/dL (74-106) Calcium Level 9.4 mg/dL (8.6-10.2) Total Bilirubin 0.4 mg/dL (0.0-1.2) Aspartate Amino Transf (AST/SGOT) 14 U/L (5-40) Alanine Aminotransferase (ALT/SGPT) 9 U/L (3-33) Alkaline Phosphatase 59 U/L (35-104) Total Creatine Kinase 48 U/L (26-140) Creatine Kinase MB 1.7 ng/mL (< 3.8) Creatine Kinase MB Relative Index 3.5 Troponin I < 0.30 ng/mL (<=0.30) Pro-B-Type Natriuretic Peptide 2410 pg/mL (0-450) Total Protein 7.4 g/dL (6.6-8.7) Albumin 4.1 g/dL (3.5-5.2) Globulin 3.3 g/dL Albumin/Globulin Ratio 1.2 (1.0-2.7) Lipase 93 U/L (< 60) Digoxin Level < 0.3 ng/mL (0.5-2.0) Urine Color Pale yellow Urine Appearance Clear Urine pH 5 (4.5-8.0) Urine Specific [place] 1.005 (1.005-1.035) Urine Protein Negative (NEGATIVE) Urine Glucose (UA) Negative (NEGATIVE) Urine Ketones Negative (NEGATIVE) Urine Occult Blood Negative (NEGATIVE) Urine Nitrite Negative (NEGATIVE) Urine Bilirubin Negative (NEGATIVE) Urine Urobilinogen Normal MG/DL (0.0-1.0) Urine Leukocyte Esterase 1+ (NEGATIVE) Urine RBC 0-2 /HPF (0 - 2) Urine WBC 2-4 /HPF (0 - 2) Urine Squamous Epithelial Cells Few /LPF (NONE/OCC) Urine Bacteria Occasional /HPF (NONE) EKG Diagnostic Results Rate: tachycardiac Rhythm: other - afib with RVR ST Segments: no acute changes ASA given to the pt in ED: No Rhythm Strip Diag. Results EP Interpretation: yes Rhythm: NSR, no PVC's, no ectopy Chest X-Ray Diagnostic Results EP Interpretation: Yes Findings: no consolidation, no effusion, no pneumothorax, no acute cardiopulmonary disease Number of Views: 1 CT/MRI/US Diagnostic Results CT/MRI/US Diagnostic Results : Imaging Test Ordered: CT A/P Impression no acute process. cholelithiasis. no cholecystitis Last Vital Signs Date Time Temp Pulse Resp B/P Pulse Ox O2 Delivery O2 Flow Rate FiO2 04/29/17 22:34 89 129/66 04/29/17 22:00 98.1 19 99 Room Air Status: improved Disposition: ADMITTED INPATIENT Condition: Serious Referrals: Glenn Garrido MD (PCP) LIBRADO VELEZ M.D. Apr 29, 2017 23:00
[2017-04-30 04:33] VITALS: BP 96/54
[2017-04-30] MEDS: NovoLOG Insulin Flexpen SUBQ SCH ×4 (05:44→21:00)
[2017-04-30 07:26] LABS: BASOPHILS % (AUTO) 1.4 % (0.0-2.0); EOSINOPHILS % (AUTO) 0.9 % (0.0-3.0); LYMPHOCYTES % (AUTO) 34.4 % (20.0-45.0); MEAN CORPUSCULAR HEMOGLOBIN 26.6 PG (27.0-31.0); MEAN CORPUSCULAR HGB CONC 31.8 G/DL (32.0-36.0); MEAN CORPUSCULAR VOLUME 84 FL (80-99); MEAN PLATELET VOLUME 7.8 FL (6.5-10.1); MONOCYTES % (AUTO) 8.2 % (1.0-10.0); PLATELET COUNT 188 K/UL (150-450); RED CELL DISTRIBUTION WIDTH 15.5 % (11.6-14.8); WHITE BLOOD COUNT 4.7 K/UL (4.8-10.8)
[2017-04-30 07:43] VITALS: BP 126/88
[2017-04-30 07:48] LABS: TROPONIN I < 0.30 ng/mL (<=0.30)
[2017-04-30 07:53] LABS: CHOLESTEROL 94 mg/dL (< 200); CRP QUANT < 0.3 mg/dL (< 0.5); HEMOLYSIS 4; LDL CHOLESTEROL (CALC.) 34 mg/dL (60-99)
[2017-04-30 07:57] LABS: PROTHROMBIN TIME 10.7 SEC (9.30-11.50)
--- NOTE | 2017-04-30 08:54 | Diagnostic Imaging Report ---
Indication: Abdominal pain Technique: Continuous helical transaxial imaging of the abdomen and pelvis was obtained from the lung bases to the pubic symphysis during intravenous contrast administration. Coronal 2-D reformats were also obtained. Study obtained in a Siemens sensation [address] Total Dose length Product (DLP): [address] Dose Index Volume (CTDIvol): 17 mGy Comparison: 05/21/15 Findings: There is a small pericardial effusion present. The lung bases are essentially clear. There is a small hiatal hernia. Cardiomegaly is present. Multiple gallstones are noted. There is breathing motion artifact limiting evaluation. Arterial vascular calcifications are fairly extensive. There is a small right inguinal hernia containing fat. There is narrowing of intervertebral discs and accompanying endplate osteophyte formation. Hypertrophied facet joints also demonstrated.. Bones are osteopenic. The phase of enhancement is arterial and mass such solid organ evaluation evaluation is limited especially with regard to the kidneys. The appendix is normal. Impression: Small pericardial effusion Gallstones Cardiomegaly Atherosclerotic vascular disease Tiny right inguinal hernia containing fat Osteoporosis and spondylosis. Normal appendix Breathing motion artifact [facility] has communicated the preliminary results to the Emergency Department. Their findings are largely concordant with this report. The CT scanner at [facility] is accredited by the [employer] and the scans are performed using dose optimization techniques as appropriate to a performed exam including Automatic Exposure control.
[2017-04-30] MEDS: Vitamin D 1000 IU Tab ORAL SCH (08:58)
[2017-04-30] MEDS: Allopurinol 100mg Tab ORAL SCH (09:32)
[2017-04-30] MEDS: Lisinopril 20mg tab ORAL SCH (09:32)
--- NOTE | 2017-04-30 11:11 | Diagnostic Imaging Report ---
Indication: Dyspnea Comparison: 04/13/17 A single view chest radiograph was obtained. Findings: Cardiac silhouette enlargement noted. The lungs are clear. Aorta is calcified. Bones are osteopenic. Impression: Cardiomegaly. No acute disease
[2017-04-30 11:22] VITALS: BP 125/61
--- NOTE | 2017-04-30 12:42 | Consultation ---
History of Present Illness General Date patient seen: Apr 30, 2017 Time patient seen: 11:30 Chief Complaint: Abdominal Pain Referring physician: dr Garrido Reason for Consultation: inpatient manageemtn Present Illness HPI 81-year-old female presented to ED for evaluation. daughter at bedside reported that patient had abdominal pain since that morning. Pain described as sharp, 7/10, radiating to the back. admitted to nausea or vomiting, no blood in vomitus. Denied fevers or chills. She was tachycardic in triage. Daughter stated that patient had history of A. fib and was recently admitted for treatment of A. fib. cardiac tech showed A. fib with RVR. no leukocytosis, hemoglobin/hematocrit ok, electrolytes okay, troponin negative , digoxin level subtherapeutic EKG - afib with RVE Chest x-ray- no acute process CT A/P - cholelithiasis, no acute process in ED given digoxin IV, started on gentle IVF on reassessment heart rate improved with digoxin and IV fluids. patient was transferred to [facility] for further management Allergies: Coded Allergies: No Known Allergies (Unverified , 02/14/15) Medication History Scheduled Allopurinol* (Allopurinol*), 100 MG ORAL DAILY, (Reported) Aspirin* (Aspir 81*), 81 MG ORAL DAILY, (Reported) Cholecalciferol (Vitamin D3) (Vitamin D-400*), 1,000 UNITS ORAL DAILY, (Reported ) Cholecalciferol (Vitamin D3)* (Vitamin D*), 2,000 INTLU ORAL DAILY Digoxin* (Digoxin*), 0.25 MG ORAL DAILY, (Reported) Famotidine (Pepcid), 40 MG PO DAILY Furosemide* (Lasix*), 40 MG ORAL DAILY Lisinopril (Lisinopril*), 20 MG ORAL DAILY, (Reported) Magnesium Oxide (Magnesium Oxide), 400 MG ORAL DAILY, (Reported) Metformin Hcl* (Metformin Hcl*), 1,000 MG ORAL BID, (Reported) Metoprolol Succinate* (Toprol Xl*), 50 MG ORAL BID Oxybutynin (Gelnique), 5 MG PO BID, (Reported) Rivaroxaban (Xarelto), 20 MG ORAL DAILY, (Reported) Vitamin B Cmplx/Vit C/Folic AC (Nephro-Barbara Tablet), 1 TAB ORAL DAILY, (Reported ) Scheduled PRN Ondansetron Odt* (Zofran Odt*), 4 MG ORAL Q6H PRN for Nausea & Vomiting Zolpidem Tartrate* (Zolpidem Tartrate*), 10 MG ORAL BEDTIME PRN for Insomnia, ( Reported) Miscellaneous Medications Metoprolol Tartrate* (Metoprolol Tartrate*), 100 MG ORAL, (Reported) Temazepam (Temazepam*), 15 MG ORAL, (Reported) Discontinued Medications Rivaroxaban (Xarelto*), 10 MG ORAL DAILY, (Reported) Discontinued Reason: Prescription changed Warfarin Sod* (Warfarin Sod*), 2.5 MG ORAL DAILY, (Reported) Discontinued Reason: Therapy completed Patient History Healthcare decision maker Resuscitation status Full Code Advanced Directive on File Past Medical/Surgical History Past Medical/Surgical History: (1) HTN (hypertension) (2) Dehydration (3) Diabetes type 2, controlled (4) Rapid atrial fibrillation (5) Cerebral vascular disease (6) Right hemiparesis (7) Gastroenteritis (8) Gout Review of Systems Constitutional: Reports: weakness Eye: Reports: no symptoms ENT: Reports: no symptoms Respiratory: Reports: no symptoms Cardiovascular: Reports: see HPI Gastrointestinal: Reports: no symptoms Genitourinary: Reports: no symptoms Musculoskeletal: Reports: no symptoms Skin: Reports: no symptoms Psychiatric: Reports: no symptoms Neurological: Reports: other - hx of CVA Endocrine: Reports: other - hx of DM Physical Exam General Appearance: WD/WN, no apparent distress, alert - A/A/O Dutch speaking elderly female in NAD Lines, tubes and drains: peripheral HEENT: normocephalic, atraumatic, anicteric, mucous membranes moist Neck: non-tender, supple Respiratory/Chest: lungs clear, no respiratory distress, no accessory muscle use Cardiovascular/Chest: irregularly irregular - jillian controlled, A fib on tele Abdomen: normal bowel sounds, non tender, soft Extremities: non-tender, no calf tenderness, normal capillary refill Skin Exam: normal pigmentation, warm/dry Neurologic: alert, oriented x 3, responsive Last 24 Hour Vital Signs Date Time Temp Pulse Resp B/P Pulse Ox O2 Delivery O2 Flow Rate FiO2 04/30/17 11:22 96.8 93 18 125/61 98 Room Air 04/30/17 09:32 126/88 04/30/17 08:58 98 126/88 04/30/17 08:55 98 04/30/17 07:43 96.8 98 18 126/88 97 Room Air 04/30/17 06:40 88 18 Room Air 21 04/30/17 04:33 96.3 76 20 96/54 98 Room Air 04/30/17 04:26 66 04/30/17 00:00 71 04/29/17 22:34 89 129/66 04/29/17 22:00 98.1 89 19 129/66 99 Room Air 04/29/17 21:15 96 17 122/71 96 Room Air 04/29/17 19:37 105 04/29/17 19:20 98 20 115/87 99 Room Air 04/29/17 18:01 102 22 120/72 98 Room Air 04/29/17 17:38 98.8 123 24 136/101 100 Room Air Intake and Output 04/29/17 04/30/17 19:00 07:00 Intake Total 100 ml 400 ml Balance 100 ml 400 ml Intake IV Total 100 ml 400 ml # Voids 1 1 Laboratory Tests Test 04/29/17 17:55 04/29/17 18:20 04/30/17 06:18 White Blood Count 5.9 K/UL (4.8-10.8) 4.7 K/UL (4.8-10.8) L Red Blood Count 4.10 M/UL (4.20-5.40) L 4.20 M/UL (4.20-5.40) Hemoglobin 12.0 G/DL (12.0-16.0) 11.2 G/DL (12.0-16.0) L Hematocrit 34.3 % (37.0-47.0) L 35.1 % (37.0-47.0) L Mean Corpuscular Volume 84 FL (80-99) 84 FL (80-99) Mean Corpuscular Hemoglobin 29.2 PG (27.0-31.0) 26.6 PG (27.0-31.0) L Mean Corpuscular Hemoglobin Concent 34.9 G/DL (32.0-36.0) 31.8 G/DL (32.0-36.0) L Red Cell Distribution Width 15.3 % (11.6-14.8) H 15.5 % (11.6-14.8) H Platelet Count 198 K/UL (150-450) 188 K/UL (150-450) Mean Platelet Volume 8.2 FL (6.5-10.1) 7.8 FL (6.5-10.1) Neutrophils (%) (Auto) 69.0 % (45.0-75.0) 55.0 % (45.0-75.0) Lymphocytes (%) (Auto) 22.2 % (20.0-45.0) 34.4 % (20.0-45.0) Monocytes (%) (Auto) 7.2 % (1.0-10.0) 8.2 % (1.0-10.0) Eosinophils (%) (Auto) 0.6 % (0.0-3.0) 0.9 % (0.0-3.0) Basophils (%) (Auto) 1.0 % (0.0-2.0) 1.4 % (0.0-2.0) Prothrombin Time 11.2 SEC (9.30-11.50) 10.7 SEC (9.30-11.50) Prothromb Time International Ratio 1.1 (0.9-1.1) 1.0 (0.9-1.1) Activated Partial Thromboplast Time 26 SEC (23-33) 24 SEC (23-33) Sodium Level 138 mEQ/L (135-145) Potassium Level 4.0 mEQ/L (3.4-4.9) Chloride Level 98 mEQ/L (98-107) Carbon Dioxide Level 21 mEQ/L (20-30) Anion Gap 19 (5-15) H Blood Urea Nitrogen 22 mg/dL (7-23) Creatinine 1.1 mg/dL (0.5-0.9) H Estimat Glomerular Filtration Rate mL/min (>60) Glucose Level 148 mg/dL (74-106) H Calcium Level 9.4 mg/dL (8.6-10.2) Total Bilirubin 0.4 mg/dL (0.0-1.2) Aspartate Amino Transf (AST/SGOT) 14 U/L (5-40) Alanine Aminotransferase (ALT/SGPT) 9 U/L (3-33) Alkaline Phosphatase 59 U/L (35-104) Total Creatine Kinase 48 U/L (26-140) Creatine Kinase MB 1.7 ng/mL (< 3.8) Creatine Kinase MB Relative Index 3.5 Troponin I < 0.30 ng/mL (<=0.30) < 0.30 ng/mL (<=0.30) Pro-B-Type Natriuretic Peptide 2410 pg/mL (0-450) H Total Protein 7.4 g/dL (6.6-8.7) Albumin 4.1 g/dL (3.5-5.2) Globulin 3.3 g/dL Albumin/Globulin Ratio 1.2 (1.0-2.7) Lipase 93 U/L (< 60) H Digoxin Level < 0.3 ng/mL (0.5-2.0) L Urine Color Pale yellow Urine Appearance Clear Urine pH 5 (4.5-8.0) Urine Specific [place] 1.005 (1.005-1.035) Urine Protein Negative (NEGATIVE) Urine Glucose (UA) Negative (NEGATIVE) Urine Ketones Negative (NEGATIVE) Urine Occult Blood Negative (NEGATIVE) Urine Nitrite Negative (NEGATIVE) Urine Bilirubin Negative (NEGATIVE) Urine Urobilinogen Normal MG/DL (0.0-1.0) Urine Leukocyte Esterase 1+ (NEGATIVE) H Urine RBC 0-2 /HPF (0 - 2) Urine WBC 2-4 /HPF (0 - 2) Urine Squamous Epithelial Cells Few /LPF (NONE/OCC) Urine Bacteria Occasional /HPF (NONE) C-Reactive Protein, Quantitative < 0.3 mg/dL (< 0.5) Triglycerides Level 65 mg/dL (< 150) Cholesterol Level 94 mg/dL (< 200) LDL Cholesterol 34 mg/dL (60-99) L HDL Cholesterol 47 mg/dL (> 60) Cholesterol/HDL Ratio 2.0 (3.3-4.4) L Thyroid Stimulating Hormone (TSH) 2.940 uIU/mL (0.300-4.500) Height (Feet): 5 Height (Inches): 3.00 Weight (Pounds): 135 Medications Current Medications Medications (Trade) Dose Ordered Sig/Yovana Route PRN Reason Start Time Stop Time Status Last Admin Dose Admin Acetaminophen (Tylenol) 650 mg Q4H PRN ORAL FEVER 04/29/17 19:15 05/29/17 19:14 Albuterol/ Ipratropium (DuoNeb 0.5-3(2.5)mg/3ml) 3 ml EVERY 4 HOURS PRN HHN Shortness of Breath 04/29/17 19:15 05/04/17 19:14 Allopurinol (Zyloprim) 100 mg DAILY ORAL 04/30/17 09:00 05/30/17 08:59 04/30/17 09:32 Dextrose STAT PRN IV Hypoglycemia 04/29/17 19:15 05/29/17 19:14 Dextrose/Sodium Chloride (D5 0.45% NS) 1,000 ml @ 50 mls/hr Q20H IV 04/29/17 22:00 05/29/17 21:59 04/29/17 22:46 Digoxin (Lanoxin) 0.25 mg DAILY ORAL 04/30/17 09:00 05/30/17 08:59 04/30/17 08:55 Diltiazem HCl (Cardizem) 10 mg EVERY HOUR PRN IV heart rate more than 120, 04/29/17 19:15 05/29/17 19:14 Enalaprilat (Vasotec) 2.5 mg EVERY 6 HOURS PRN IV sbp more than 160 04/29/17 19:15 05/29/17 19:14 Insulin Aspart (NovoLOG) BEFORE MEALS AND HS SUBQ 04/29/17 23:00 05/29/17 22:59 Lisinopril (Prinivil) 20 mg DAILY ORAL 04/30/17 09:00 05/30/17 08:59 04/30/17 09:32 Metoprolol Succinate (Toprol XL) 50 mg Q12HR ORAL 04/29/17 22:00 05/29/17 21:59 04/30/17 08:58 Metoprolol Tartrate (Lopressor) 5 mg EVERY HOUR PRN IVP heart rate more than 140 04/29/17 19:15 05/29/17 19:14 Morphine Sulfate (Morphine Sulfate) 2 mg EVERY 4 HOURS PRN IVP severe Pain (Pain Scale 7-10) 04/29/17 19:15 05/06/17 19:14 Nitroglycerin (Ntg) 0.4 mg Q5M PRN SL Prn Chest Pain 04/29/17 19:15 05/29/17 19:14 Ondansetron HCl (Zofran) 4 mg Q6H PRN IVP Nausea & Vomiting 04/29/17 19:15 05/29/17 19:14 Pantoprazole (Protonix) 40 mg DAILY ORAL 04/30/17 09:00 05/30/17 08:59 04/30/17 08:58 Polyethylene Glycol (Miralax) 17 gm DAILYPRN PRN ORAL Constipation 04/29/17 19:15 05/29/17 19:14 Rivaroxaban (Xarelto) 15 mg QPM ORAL 04/30/17 16:30 05/30/17 16:29 Temazepam (Restoril) 15 mg HSPRN PRN ORAL Insomnia 04/29/17 19:15 05/06/17 19:14 04/29/17 22:35 Vitamin D (Vitamin D) 2,000 intlu DAILY ORAL 04/30/17 09:00 05/30/17 08:59 04/30/17 08:58 Assessment/Plan Assessment/Plan ASSESSMENT AF with RVR abdominal pain cholelithiasis possible gastroenteritis HTN DM hx of CVA severe MR moderate AR anemia PLAN OF CARE tele remains in A fib, rate controlled with Digoxin, check level on Tuesday a/coagulation with Xarelto ECHO done on 04/09 with preserved EF 55-60% and evidence of severe MR and moderate AR BS management with SS of insulin BP management with OH and optimize as needed cardio eval CXR with CM, but no acute process O2 HHN prn check lipid panel GI eval GI prophylaxis anemia workup case discussed and evaluated by supervising physician Kayli Giron NP ([place]te[place]) Apr 30, 2017 12:42
--- NOTE | 2017-04-30 13:25 | History & Physical ---
History and Physical History & Physicial Dictated for Int Med-Dr Garrido no. [id number]. CHIKI CARLTON Apr 30, 2017 13:25
[2017-04-30 15:16] VITALS: BP 104/58
[2017-04-30] MEDS ORDERED: D5 1/2NS 1000ml IV ONE (16:01)
[2017-04-30] MEDS: Xarelto 15mg tab ORAL SCH (16:20)
--- NOTE | 2017-04-30 16:48 | Cardiology Progress Note ---
Subjective Subjective [id number] dictated Objective Last 24 Hour Vital Signs Date Time Temp Pulse Resp B/P Pulse Ox O2 Delivery O2 Flow Rate FiO2 04/30/17 15:16 97.5 100 18 104/58 100 Room Air 04/30/17 11:22 96.8 93 18 125/61 98 Room Air 04/30/17 09:32 126/88 04/30/17 08:58 98 126/88 04/30/17 08:55 98 04/30/17 07:43 96.8 98 18 126/88 97 Room Air 04/30/17 06:40 88 18 Room Air 21 04/30/17 04:33 96.3 76 20 96/54 98 Room Air 04/30/17 04:26 66 04/30/17 00:00 71 04/29/17 22:34 89 129/66 04/29/17 22:00 98.1 89 19 129/66 99 Room Air 04/29/17 21:15 96 17 122/71 96 Room Air 04/29/17 19:37 105 04/29/17 19:20 98 20 115/87 99 Room Air 04/29/17 18:01 102 22 120/72 98 Room Air 04/29/17 17:38 98.8 123 24 136/101 100 Room Air Intake and Output 04/29/17 04/30/17 19:00 07:00 Intake Total 100 ml 400 ml Balance 100 ml 400 ml IV Total 100 ml 400 ml # Voids 1 1 Laboratory Tests Test 04/29/17 17:55 04/29/17 18:20 04/30/17 06:18 White Blood Count 5.9 K/UL (4.8-10.8) 4.7 K/UL (4.8-10.8) L Red Blood Count 4.10 M/UL (4.20-5.40) L 4.20 M/UL (4.20-5.40) Hemoglobin 12.0 G/DL (12.0-16.0) 11.2 G/DL (12.0-16.0) L Hematocrit 34.3 % (37.0-47.0) L 35.1 % (37.0-47.0) L Mean Corpuscular Volume 84 FL (80-99) 84 FL (80-99) Mean Corpuscular Hemoglobin 29.2 PG (27.0-31.0) 26.6 PG (27.0-31.0) L Mean Corpuscular Hemoglobin Concent 34.9 G/DL (32.0-36.0) 31.8 G/DL (32.0-36.0) L Red Cell Distribution Width 15.3 % (11.6-14.8) H 15.5 % (11.6-14.8) H Platelet Count 198 K/UL (150-450) 188 K/UL (150-450) Mean Platelet Volume 8.2 FL (6.5-10.1) 7.8 FL (6.5-10.1) Neutrophils (%) (Auto) 69.0 % (45.0-75.0) 55.0 % (45.0-75.0) Lymphocytes (%) (Auto) 22.2 % (20.0-45.0) 34.4 % (20.0-45.0) Monocytes (%) (Auto) 7.2 % (1.0-10.0) 8.2 % (1.0-10.0) Eosinophils (%) (Auto) 0.6 % (0.0-3.0) 0.9 % (0.0-3.0) Basophils (%) (Auto) 1.0 % (0.0-2.0) 1.4 % (0.0-2.0) Prothrombin Time 11.2 SEC (9.30-11.50) 10.7 SEC (9.30-11.50) Prothromb Time International Ratio 1.1 (0.9-1.1) 1.0 (0.9-1.1) Activated Partial Thromboplast Time 26 SEC (23-33) 24 SEC (23-33) Sodium Level 138 mEQ/L (135-145) Potassium Level 4.0 mEQ/L (3.4-4.9) Chloride Level 98 mEQ/L (98-107) Carbon Dioxide Level 21 mEQ/L (20-30) Anion Gap 19 (5-15) H Blood Urea Nitrogen 22 mg/dL (7-23) Creatinine 1.1 mg/dL (0.5-0.9) H Estimat Glomerular Filtration Rate mL/min (>60) Glucose Level 148 mg/dL (74-106) H Calcium Level 9.4 mg/dL (8.6-10.2) Total Bilirubin 0.4 mg/dL (0.0-1.2) Aspartate Amino Transf (AST/SGOT) 14 U/L (5-40) Alanine Aminotransferase (ALT/SGPT) 9 U/L (3-33) Alkaline Phosphatase 59 U/L (35-104) Total Creatine Kinase 48 U/L (26-140) Creatine Kinase MB 1.7 ng/mL (< 3.8) Creatine Kinase MB Relative Index 3.5 Troponin I < 0.30 ng/mL (<=0.30) < 0.30 ng/mL (<=0.30) Pro-B-Type Natriuretic Peptide 2410 pg/mL (0-450) H Total Protein 7.4 g/dL (6.6-8.7) Albumin 4.1 g/dL (3.5-5.2) Globulin 3.3 g/dL Albumin/Globulin Ratio 1.2 (1.0-2.7) Lipase 93 U/L (< 60) H Digoxin Level < 0.3 ng/mL (0.5-2.0) L Urine Color Pale yellow Urine Appearance Clear Urine pH 5 (4.5-8.0) Urine Specific [place] 1.005 (1.005-1.035) Urine Protein Negative (NEGATIVE) Urine Glucose (UA) Negative (NEGATIVE) Urine Ketones Negative (NEGATIVE) Urine Occult Blood Negative (NEGATIVE) Urine Nitrite Negative (NEGATIVE) Urine Bilirubin Negative (NEGATIVE) Urine Urobilinogen Normal MG/DL (0.0-1.0) Urine Leukocyte Esterase 1+ (NEGATIVE) H Urine RBC 0-2 /HPF (0 - 2) Urine WBC 2-4 /HPF (0 - 2) Urine Squamous Epithelial Cells Few /LPF (NONE/OCC) Urine Bacteria Occasional /HPF (NONE) C-Reactive Protein, Quantitative < 0.3 mg/dL (< 0.5) Triglycerides Level 65 mg/dL (< 150) Cholesterol Level 94 mg/dL (< 200) LDL Cholesterol 34 mg/dL (60-99) L HDL Cholesterol 47 mg/dL (> 60) Cholesterol/HDL Ratio 2.0 (3.3-4.4) L Thyroid Stimulating Hormone (TSH) 2.940 uIU/mL (0.300-4.500) RODRIGUEZ TONG Apr 30, 2017 16:48
[2017-04-30 20:00] VITALS: BP 126/58
--- NOTE | 2017-04-30 22:15 | History and Physical Report ---
DATE OF ADMISSION: 04/29/2017 CHIEF COMPLAINT: The patient is an 81-year-old female, presents with a chief complaint of abdominal pain. HISTORY OF PRESENT ILLNESS: The patient was admitted to [facility] from 04/08/2017 through 04/14/2017. The patient was found to have atrial fibrillation with rapid ventricular rate at that time. The patient was seen by Dr. Hitesh Gates at that time. Please see history and physical and discharge summary dictated during that hospitalization. According to the patient, she began to experience abdominal pain yesterday, 04/29/2017. The patient states she began to have pain in the right knee. The pain radiated all the way up to her head. The patient states the pain was 7/10 in intensity. The patient presented to [place] emergency room. The patient was found to have atrial fibrillation with ventricular rate in the 120s. The patient was admitted for atrial fibrillation with rapid ventricular rate. REVIEW OF SYSTEMS: Constitutional: The patient denies weight loss or weight gain. The patient denies fevers or chills. HEENT: The patient denies ear or throat pain. The patient denies headache. Cardiovascular: The patient denies palpitations or chest pain. Chest: The patient denies wheezes or shortness of breath. Abdominal: The patient complains of generalized abdominal pain as above. The patient denies nausea, vomiting, diarrhea, or constipation. Genitourinary: The patient denies dysuria or increased frequency of urination. Neuromuscular: The patient denies seizures or generalized weakness. PAST MEDICAL HISTORY: Significant for: 1. Type 2 diabetes. 2. Hypertension. 3. Gout. 4. Paroxysmal atrial fibrillation. 5. History of cerebrovascular accident. 6. Right hemiparesis. PAST SURGICAL HISTORY: Significant for section x1. CURRENT MEDICATIONS: 1. Allopurinol 100 mg one tablet p.o. daily. 2. Aspirin 81 mg one tablet p.o. daily. 3. Vitamin D 1000 international units p.o. daily. 4. Digoxin 0.5 mg one tablet p.o. daily. 5. Pepcid 40 mg one tablet p.o. daily. 6. Lasix 40 mg one tablet p.o. daily. 7. Lisinopril 20 mg one tablet p.o. daily. 8. Magnesium oxide 400 mg one tablet p.o. daily. 9. Metformin 1000 mg one tablet p.o. twice daily. 10. Metoprolol 50 mg one tablet p.o. twice daily. 11. Oxybutynin 5 mg one tablet p.o. twice daily. 12. Xarelto 20 mg one tablet p.o. daily. 13. Temazepam 15 mg one tablet p.o. at bedtime p.r.n. 14. Vitamin B complex one tablet p.o. daily. 15. Ambien 10 mg one tablet p.o. at bedtime. ALLERGIES: No known drug allergies. SOCIAL HISTORY: The patient is . The patient's is present at the bedside. The patient denies tobacco or alcohol use. PHYSICAL EXAMINATION: VITAL SIGNS: Temperature 96.8, respirations 18, pulse 98 to 123, and blood pressure 126/88. GENERAL: The patient is a well-developed and well-nourished female, in no apparent distress. HEENT: Eyes, pupils are equal and responsive to light and accommodation. Extraocular movements are intact. NECK: Supple without lymphadenopathy. CHEST: Lungs are clear to auscultation bilaterally without wheezes or rales. CARDIOVASCULAR: Irregular rhythm and irregular rate. S1 and S2 are normal without murmurs, rubs, or gallops. ABDOMEN: Soft, nontender, and nondistended. Positive bowel sounds. No hepatosplenomegaly. Currently, no rebound or guarding noted. EXTREMITIES: Negative for clubbing, cyanosis, or edema. RECTAL/GENITAL: Refused. NEUROLOGIC: Cranial nerves II through XII are grossly intact without focal deficits. The patient does have a right hemiparesis. Motor strength is 0/5 on the right and 3/5 on the left. LABORATORY AND DIAGNOSTIC DATA: Laboratory studies: WBC 5.9, hemoglobin 12.0, hematocrit 34.3, and platelets 198,000. Sodium 138, potassium 4.0, chloride 98, CO2 21, BUN 22, creatinine 1.1, and glucose 148. BNP elevated at 2410. Troponin less than 0.3. A CT scan of the abdomen and pelvis revealed cholelithiasis, otherwise essentially normal. A chest x-ray revealed no acute disease. ASSESSMENT: This is an 81-year-old female with: 1. Abdominal pain. 2. Atrial fibrillation with rapid ventricular rate. 3. Cholelithiasis. 4. Diabetes, type 2. 5. Hypertension. 6. Cerebrovascular disease. 7. Right hemiplegia. TREATMENT: 1. Abdominal pain, this is probably secondary to atrial fibrillation with rapid ventricular rate as above. 2. Atrial fibrillation with rapid ventricular rate. Cardiology consultation has been obtained with Dr. Hitesh Gates. Continue digoxin and Xarelto as above. An echocardiogram is pending. 3. Congestive heart failure, as above. A Cardiology consultation has been obtained with Dr. Hitesh Gates. An echocardiogram is pending. The patient will remain on Lasix as above. 4. Cholelithiasis, this is probably chronic. The patient states the abdominal pain has now resolved. A Gastroenterology consultation has been obtained with Dr. Miller Munoz. 5. Diabetes, type 2. The patient has been placed on NovoLog sliding scale. 6. Hypertension. Continue metoprolol and lisinopril as above. 7. Cerebrovascular disease/right hemiplegia. Rocky Garibay M.D. DR: DANNY JOB#: [id number] CC:
--- NOTE | 2017-04-30 22:30 | Consultation ---
DATE OF CONSULTATION: 04/30/2017 GASTROENTEROLOGY CONSULTATION CHIEF COMPLAINT: Abdominal pain. HISTORY OF PRESENT ILLNESS: This is a very pleasant female admitted to the hospital because of nausea, vomiting, and abdominal pain. The patient also has history of atrial fibrillation and other cardiac problems, which I will dictate in a second. In the ER, the patient had a CT of the abdomen and pelvis. We did not find any acute findings except for gallstone, but no acute pancreatitis, although the patient has mild elevated lipase in the ER. The patient at this time denies any abdominal pain. Denies any nausea or vomiting and wants to eat. PAST MEDICAL HISTORY: 1. History of atrial fibrillation. 2. Hypertension. 3. History of diabetes. MEDICATIONS: Please see medication reconciliation list. ALLERGIES: No known allergies. SOCIAL HISTORY: The patient is an ex-smoker. Denies any alcohol or IV drug abuse. REVIEW OF SYSTEMS: A 10-point review of system was performed and pertinent positives in the history of present illness. PHYSICAL EXAMINATION: GENERAL: This is a well-developed female, in no acute distress. VITAL SIGNS: Temperature 96.8 degrees, pulse 98, respirations 18, and blood pressure is 122/88. HEENT: Normocephalic and atraumatic. Sclerae anicteric. NECK: Supple. No lymphadenopathy. CARDIOVASCULAR: Regular rhythm. Plus S1 and S2. No murmurs. LUNGS: Decreased breath sounds bilaterally based on the supine exam. ABDOMEN: Soft and nontender. No rebound. No guarding. No peritoneal signs. EXTREMITIES: No cyanosis. No clubbing. No edema. LABORATORY DATA: White count is 4.7, hemoglobin 11.3, hematocrit 35, and platelet count is 188,000. Chem-7, sodium 138, potassium 4.0, BUN is 22, and creatinine is 1.1. Lipase was 93. ASSESSMENT: This is an 81-year-old female with nausea, vomiting, and abdominal pain, which has resolved. PLAN: Plan will be to repeat amylase and lipase for tomorrow. Repeat liver function test for tomorrow. We will do anemia workup. Consider gastrointestinal procedures if needed. Miller Munoz M.D. DR: MEI JOB#: [id number] CC:
[2017-05-01] VITALS: BP 133/71
--- NOTE | 2017-05-01 03:15 | Consultation ---
DATE OF CONSULTATION: 04/30/2017 CARDIOLOGY CONSULTATION IDENTIFYING DATA: This is an 81-year-old female. REASON FOR EVALUATION: Atrial fibrillation. HISTORY OF PRESENT ILLNESS: History of present illness taken mostly from her daughter who said that the patient after she suffered stroke 20 years ago is essentially aphasic and she said yes and no, but not understanding. She had both sensory aphasia and expressive aphasia and she is unable to give the history. Yesterday, she had right-sided abdominal pain and brought they her to the emergency room. They were worrying also because of her heart rate was fast. The patient has atrial fibrillation for over 20 years and hypertensive heart disease in the past and history of congestive heart failure. Last time she was admitted here on 04/13/2017, she had echo done, ejection fraction was 55%. At that time, the patient was treated for heart failure and now she came with abdominal pain. At the time I see her, she appears to be comfortable. Her daughter report that the abdominal pain resolved. The daughter also said that she denies any chest pain, shortness of breath and asked her how she knows what her mother feels that she said she just can't determine by her movement because the patient has expressive aphasia and she cannot say anything what she feels. MEDICATIONS: Reviewed and reconciled. REVIEW OF SYSTEMS: Her review of systems was done and there is no PND or orthopnea. No recent syncope. She walks with a cane at home a little bit, the daughter was not sure about whether she takes blood thinners. There was no recent syncopal episode. PHYSICAL EXAMINATION: GENERAL: This is an elderly female, resting in bed without significant distress. VITAL SIGNS: Blood pressure 130/70, heart rate is 90, oxygen saturation is normal, and temperature 96.8 degrees. HEENT: There is mild facial droop on the left side. NECK: Supple. Neck veins are not distended. There is brisk carotid upstrokes bilaterally without bruit. LUNGS: She has scattered crackles posteriorly. HEART: Her heart is irregular. PMI is palpable in the sixth intercostal space in anterior axial line. BREAST: No significant masses. ABDOMEN: Soft and nontender. Bowel sounds are present. There is no bruit. EXTREMITIES: Lower extremity, trace edema and mild varicose veins. NEUROLOGICAL: She has weakness on the right side, but very mild. LABORATORY AND DIAGNOSTIC DATA: EKG is pending. CT of the chest noted. Chest x-ray noted. Labs noted with a normal troponin, normal white count, hemoglobin 11.2, and there is cholesterol panel done today as well and it was noted. IMPRESSION AND RECOMMENDATION: This patient has terminal atrial fibrillation, history of stroke, may be thromboembolic. There is no evidence of new neurologic or cardiac event at the present time. The rate is reasonably good control. I am concerned that digoxin dose is slightly high considering her creatinine clearance, which is probably about between 30 and 50 mL/minute, so I am going to cut it down the dose. Continue metoprolol and she is on Xarelto, I do not know what she is taking at home and that was started by the admitting physician. Thank you very much for your referral. Jessica Corrigan M.D. DR: GRIFFIN JOB#: [id number] CC:
[2017-05-01 04:00] VITALS: BP 130/72
[2017-05-01] MEDS: NovoLOG Insulin Flexpen SUBQ SCH ×4 (06:30→21:00)
[2017-05-01 07:19] LABS: BASOPHILS % (AUTO) 1.2 % (0.0-2.0); EOSINOPHILS % (AUTO) 1.2 % (0.0-3.0); MEAN CORPUSCULAR HEMOGLOBIN 26.5 PG (27.0-31.0); MEAN CORPUSCULAR HGB CONC 31.7 G/DL (32.0-36.0); MEAN CORPUSCULAR VOLUME 84 FL (80-99); MEAN PLATELET VOLUME 8.4 FL (6.5-10.1); MONOCYTES % (AUTO) 8.5 % (1.0-10.0); NEUTROPHILS % (AUTO) 59.1 % (45.0-75.0); PLATELET COUNT 194 K/UL (150-450); RED BLOOD COUNT 4.17 M/UL (4.20-5.40); RED CELL DISTRIBUTION WIDTH 16.1 % (11.6-14.8); WHITE BLOOD COUNT 4.5 K/UL (4.8-10.8)
[2017-05-01 07:34] VITALS: BP 98/60
[2017-05-01 07:36] LABS: ALANINE AMINOTRANSFERASE 6 U/L (3-33); ALBUMIN/GLOBULIN RATIO 1.2 (1.0-2.7); AMYLASE 86 U/L (10-110); ANION GAP 12 (5-15); ASPARTATE AMINO TRANSFERASE 12 U/L (5-40); CALCIUM 8.7 mg/dL (8.6-10.2); CARBON DIOXIDE 28 mEQ/L (20-30); CHLORIDE 103 mEQ/L (98-107); LIPASE 62 U/L (< 60); POTASSIUM 3.9 mEQ/L (3.4-4.9); SODIUM 143 mEQ/L (135-145); TOTAL PROTEIN 6.2 g/dL (6.6-8.7)
[2017-05-01 07:54] LABS: HEMOLYSIS 7; IRON 40 ug/dL (37-145); TOTAL IRON BINDING CAPACITY 332 ug/dL (250-400)
[2017-05-01 07:56] LABS: TROPONIN I < 0.30 ng/mL (<=0.30)
--- NOTE | 2017-05-01 08:44 | General Progress Note ---
Assessment/Plan Problem List: (1) Iron deficiency anemia ICD Codes: D50.9 - Iron deficiency anemia, unspecified SNOMED: 83080882 (2) Diabetes type 2, controlled ICD Codes: E11.9 - Diabetes type 2, controlled SNOMED: 18059534 (3) HTN (hypertension) ICD Codes: I10 - Essential (primary) hypertension SNOMED: 93907719 (4) Cholelithiasis ICD Codes: K80.20 - Calculus of gallbladder without cholecystitis without obstruction SNOMED: 691875821 Qualifiers: Qualified Codes: K80.80 - Other cholelithiasis without obstruction Assessment/Plan iv iron monitor labs stool ob esophagogastroduodenoscopy and colonoscopy if stool ob positive otherwise as out patient Subjective ROS Limited/Unobtainable: Yes Allergies: Coded Allergies: No Known Allergies (Unverified , 02/14/15) Subjective no event Objective Last 24 Hour Vital Signs Date Time Temp Pulse Resp B/P Pulse Ox O2 Delivery O2 Flow Rate FiO2 05/01/17 07:34 98.8 91 18 98/60 100 Room Air 05/01/17 04:00 68 05/01/17 04:00 97.6 86 20 130/72 96 Room Air 21 05/01/17 03:27 117 05/01/17 00:00 97.6 94 18 133/71 96 Room Air 04/30/17 21:37 108 126/58 04/30/17 20:00 97.5 108 18 126/58 100 Room Air 21 04/30/17 19:06 81 18 Room Air 21 04/30/17 16:00 87 04/30/17 15:16 97.5 100 18 104/58 100 Room Air 04/30/17 12:00 81 04/30/17 11:22 96.8 93 18 125/61 98 Room Air 04/30/17 09:32 126/88 04/30/17 08:58 98 126/88 04/30/17 08:55 98 Intake and Output 04/30/17 05/01/17 19:00 07:00 Intake Total 480 ml Balance 480 ml Intake Oral 480 ml # Voids 6 2 # Bowel Movements 3 2 Laboratory Tests 05/01/17 06:15: White Blood Count 4.5L, Red Blood Count 4.17L, Hemoglobin 11.0L, Hematocrit 34.8L, Mean Corpuscular Volume 84, Mean Corpuscular Hemoglobin 26.5L, Mean Corpuscular Hemoglobin Concent 31.7L, Red Cell Distribution Width 16.1H, Platelet Count 194, Mean Platelet Volume 8.4, Neutrophils (%) (Auto) 59.1, Lymphocytes (%) (Auto) 30.0, Monocytes (%) (Auto) 8.5, Eosinophils (%) (Auto) 1.2, Basophils (%) (Auto) 1.2, Sodium Level 143, Potassium Level 3.9, Chloride Level 103, Carbon Dioxide Level 28, Anion Gap 12, Blood Urea Nitrogen 11, Creatinine 1.0H, Estimat Glomerular Filtration Rate , Glucose Level 86, Calcium Level 8.7, Iron Level 40, Total Iron Binding Capacity 332, Percent Iron Saturation 12L, Unsaturated Iron Binding 292, Total Bilirubin 0.4, Aspartate Amino Transf (AST/SGOT) 12, Alanine Aminotransferase (ALT/SGPT) 6, Alkaline Phosphatase 52, Troponin I < 0.30, Total Protein 6.2L, Albumin 3.4L, Globulin 2.8, Albumin/Globulin Ratio 1.2, Amylase Level 86, Lipase 62H, Carcinoembryonic Antigen 5.6H Height (Feet): 5 Height (Inches): 3.00 Weight (Pounds): 135 General Appearance: alert EENT: normal ENT inspection Neck: supple Cardiovascular: normal rate Respiratory/Chest: lungs clear Abdomen: normal bowel sounds, non tender, soft Extremities: non-tender ANG DENTON May 01, 2017 08:44
[2017-05-01] MEDS: Lisinopril 20mg tab ORAL SCH (09:00)
[2017-05-01] MEDS: Docusate 100mg cap ORAL SCH ×2 (11:14→17:24)
[2017-05-01] MEDS: Vitamin D 1000 IU Tab ORAL SCH (11:14)
[2017-05-01] MEDS: Allopurinol 100mg Tab ORAL SCH (11:15)
[2017-05-01 11:16] VITALS: BP 113/76
--- NOTE | 2017-05-01 11:23 | Pulmonology Progress Note ---
Assessment/Plan Assessment/Plan ASSESSMENT AF with RVR abdominal pain cholelithiasis gastroenteritis HTN DM hx of CVA severe MR moderate AR iron deficiency anemia PLAN OF CARE tele remains in A fib, rate controlled with Digoxin and BB , a/coagulation with Xarelto ECHO done on 04/09 with preserved EF 55-60% and evidence of severe MR and moderate AR serial troponin negative ECG with Afib, no ischemic changes, ruled out for acute PA BS management with SS of insulin BP management with OH and optimize as needed cardio eval noted and appreciated CXR with CM, but no acute process O2 HHN prn check lipid panel GI eval noted and appreciated IV iron, HH stable, at baseline stool OB not collected elevated CEA EGD and colon as outpatient and stop Xarelto 48 hrs prior to procedure lipase trending down GI prophylaxis case discussed and evaluated by supervising physician Subjective Allergies: Coded Allergies: No Known Allergies (Unverified , 02/14/15) Subjective remains in A fib rate controlled on RA pulse oximetry stable denies chest pain SOb stool OB + ; elevated CEA, GI follows Objective Last 24 Hour Vital Signs Date Time Temp Pulse Resp B/P Pulse Ox O2 Delivery O2 Flow Rate FiO2 05/01/17 11:16 97.3 103 18 113/76 97 Room Air 05/01/17 09:00 61 98/60 05/01/17 09:00 98/60 05/01/17 07:34 98.8 91 18 98/60 100 Room Air 05/01/17 04:00 68 05/01/17 04:00 97.6 86 20 130/72 96 Room Air 05/01/17 03:27 117 05/01/17 00:00 97.6 94 18 133/71 96 Room Air 04/30/17 21:37 108 126/58 04/30/17 20:00 97.5 108 18 126/58 100 Room Air 21 04/30/17 19:06 81 18 Room Air 21 04/30/17 16:00 87 04/30/17 15:16 97.5 100 18 104/58 100 Room Air 04/30/17 12:00 81 04/30/17 11:22 96.8 93 18 125/61 98 Room Air Intake and Output 04/30/17 05/01/17 19:00 07:00 Intake Total 480 ml Balance 480 ml Intake Oral 480 ml # Voids 6 2 # Bowel Movements 3 2 Objective General Appearance: WD/WN, no apparent distress, A/A/O Macedonian speaking elderly female in NAD Lines, tubes and drains: peripheral HEENT: normocephalic, atraumatic, anicteric, mucous membranes moist Neck: non-tender, supple Respiratory/Chest: lungs clear, no respiratory distress, no accessory muscle use Cardiovascular/Chest: irregularly irregular - rate controlled, A fib on tele Abdomen: normal bowel sounds, non tender, soft Extremities: non-tender, no calf tenderness, normal capillary refill Skin Exam: normal pigmentation, warm/dry Neurologic: alert, oriented x 3, responsive Microbiology Date/Time Source Procedure Growth Status 04/29/17 18:21 Nasal Nares MRSA Culture - Final NO METHICILLIN RESISTANT STAPH AUREUS... Complete 04/29/17 18:21 Rectum VRE Culture - Final NO VANCOMYCIN RESISTANT ENTEROCOCCUS ... Complete Laboratory Tests 05/01/17 06:15: White Blood Count 4.5L, Red Blood Count 4.17L, Hemoglobin 11.0L, Hematocrit 34.8L, Mean Corpuscular Volume 84, Mean Corpuscular Hemoglobin 26.5L, Mean Corpuscular Hemoglobin Concent 31.7L, Red Cell Distribution Width 16.1H, Platelet Count 194, Mean Platelet Volume 8.4, Neutrophils (%) (Auto) 59.1, Lymphocytes (%) (Auto) 30.0, Monocytes (%) (Auto) 8.5, Eosinophils (%) (Auto) 1.2, Basophils (%) (Auto) 1.2, Sodium Level 143, Potassium Level 3.9, Chloride Level 103, Carbon Dioxide Level 28, Anion Gap 12, Blood Urea Nitrogen 11, Creatinine 1.0H, Estimat Glomerular Filtration Rate , Glucose Level 86, Calcium Level 8.7, Iron Level 40, Total Iron Binding Capacity 332, Percent Iron Saturation 12L, Unsaturated Iron Binding 292, Total Bilirubin 0.4, Aspartate Amino Transf (AST/SGOT) 12, Alanine Aminotransferase (ALT/SGPT) 6, Alkaline Phosphatase 52, Troponin I < 0.30, Total Protein 6.2L, Albumin 3.4L, Globulin 2.8, Albumin/Globulin Ratio 1.2, Amylase Level 86, Lipase 62H, Carcinoembryonic Antigen 5.6H Current Medications Medications (Trade) Dose Ordered Sig/Yovana Route PRN Reason Start Time Stop Time Status Last Admin Dose Admin Acetaminophen (Tylenol) 650 mg Q4H PRN ORAL FEVER 04/29/17 19:15 05/29/17 19:14 Albuterol/ Ipratropium (DuoNeb 0.5-3(2.5)mg/3ml) 3 ml EVERY 4 HOURS PRN HHN Shortness of Breath 04/29/17 19:15 05/04/17 19:14 Allopurinol (Zyloprim) 100 mg DAILY ORAL 04/30/17 09:00 05/30/17 08:59 05/01/17 11:15 Dextrose STAT PRN IV Hypoglycemia 04/29/17 19:15 05/29/17 19:14 Diltiazem HCl (Cardizem) 10 mg EVERY HOUR PRN IV heart rate more than 120, 04/29/17 19:15 05/29/17 19:14 Docusate Sodium (Colace) 100 mg TWICE A DAY ORAL 05/01/17 09:30 05/31/17 09:29 05/01/17 11:14 Enalaprilat (Vasotec) 2.5 mg EVERY 6 HOURS PRN IV sbp more than 160 04/29/17 19:15 05/29/17 19:14 Insulin Aspart (NovoLOG) BEFORE MEALS AND HS SUBQ 04/29/17 23:00 05/29/17 22:59 04/30/17 11:30 Iron Sucrose/ Sodium Chloride (Venofer/Sodium Chloride) 60 ml @ 240 mls/hr BEDTIME IVPB 05/01/17 21:00 05/05/17 21:14 Lisinopril (Prinivil) 20 mg DAILY ORAL 04/30/17 09:00 05/30/17 08:59 04/30/17 09:32 Metoprolol Succinate (Toprol XL) 50 mg Q12HR ORAL 04/29/17 22:00 05/29/17 21:59 04/30/17 21:37 Morphine Sulfate (Morphine Sulfate) 2 mg EVERY 4 HOURS PRN IVP severe Pain (Pain Scale 7-10) 04/29/17 19:15 05/06/17 19:14 Nitroglycerin (Ntg) 0.4 mg Q5M PRN SL Prn Chest Pain 04/29/17 19:15 05/29/17 19:14 Ondansetron HCl (Zofran) 4 mg Q6H PRN IVP Nausea & Vomiting 04/29/17 19:15 05/29/17 19:14 Pantoprazole (Protonix) 40 mg DAILY ORAL 04/30/17 09:00 05/30/17 08:59 04/30/17 08:58 Polyethylene Glycol (Miralax) 17 gm BEDTIME ORAL 05/01/17 21:00 05/31/17 20:59 Polyethylene Glycol (Miralax) 17 gm DAILYPRN PRN ORAL Constipation 04/29/17 19:15 05/29/17 19:14 Rivaroxaban (Xarelto) 15 mg QPM ORAL 04/30/17 16:30 05/30/17 16:29 04/30/17 16:20 Temazepam (Restoril) 15 mg HSPRN PRN ORAL Insomnia 04/29/17 19:15 05/06/17 19:14 04/30/17 23:02 Vitamin D (Vitamin D) 2,000 intlu DAILY ORAL 04/30/17 09:00 05/30/17 08:59 05/01/17 11:14 Mack DeanKayli lopez NP May 01, 2017 11:23
--- NOTE | 2017-05-01 13:40 | Internal Med Progress Note ---
Subjective Date of Service: May 01, 2017 Physician Name Chiki Carlton Attending Physician Glenn Garrido MD Current Medications Medications (Trade) Dose Ordered Sig/Yovana Route PRN Reason Start Time Stop Time Status Last Admin Dose Admin Acetaminophen (Tylenol) 650 mg Q4H PRN ORAL FEVER 04/29/17 19:15 05/29/17 19:14 Albuterol/ Ipratropium (DuoNeb 0.5-3(2.5)mg/3ml) 3 ml EVERY 4 HOURS PRN HHN Shortness of Breath 04/29/17 19:15 05/04/17 19:14 Allopurinol (Zyloprim) 100 mg DAILY ORAL 04/30/17 09:00 05/30/17 08:59 05/01/17 11:15 Dextrose STAT PRN IV Hypoglycemia 04/29/17 19:15 05/29/17 19:14 Diltiazem HCl (Cardizem) 10 mg EVERY HOUR PRN IV heart rate more than 120, 04/29/17 19:15 05/29/17 19:14 Docusate Sodium (Colace) 100 mg TWICE A DAY ORAL 05/01/17 09:30 05/31/17 09:29 05/01/17 11:14 Enalaprilat (Vasotec) 2.5 mg EVERY 6 HOURS PRN IV sbp more than 160 04/29/17 19:15 05/29/17 19:14 Insulin Aspart (NovoLOG) BEFORE MEALS AND HS SUBQ 04/29/17 23:00 05/29/17 22:59 04/30/17 11:30 Iron Sucrose/ Sodium Chloride (Venofer/Sodium Chloride) 60 ml @ 240 mls/hr BEDTIME IVPB 05/01/17 21:00 05/05/17 21:14 Lisinopril (Prinivil) 20 mg DAILY ORAL 04/30/17 09:00 05/30/17 08:59 04/30/17 09:32 Metoprolol Succinate (Toprol XL) 50 mg Q12HR ORAL 04/29/17 22:00 05/29/17 21:59 04/30/17 21:37 Morphine Sulfate (Morphine Sulfate) 2 mg EVERY 4 HOURS PRN IVP severe Pain (Pain Scale 7-10) 04/29/17 19:15 05/06/17 19:14 Nitroglycerin (Ntg) 0.4 mg Q5M PRN SL Prn Chest Pain 04/29/17 19:15 05/29/17 19:14 Ondansetron HCl (Zofran) 4 mg Q6H PRN IVP Nausea & Vomiting 04/29/17 19:15 05/29/17 19:14 Pantoprazole (Protonix) 40 mg DAILY ORAL 04/30/17 09:00 05/30/17 08:59 04/30/17 08:58 Polyethylene Glycol (Miralax) 17 gm BEDTIME ORAL 05/01/17 21:00 05/31/17 20:59 Polyethylene Glycol (Miralax) 17 gm DAILYPRN PRN ORAL Constipation 04/29/17 19:15 05/29/17 19:14 Rivaroxaban (Xarelto) 15 mg QPM ORAL 04/30/17 16:30 05/30/17 16:29 04/30/17 16:20 Temazepam (Restoril) 15 mg HSPRN PRN ORAL Insomnia 04/29/17 19:15 05/06/17 19:14 04/30/17 23:02 Vitamin D (Vitamin D) 2,000 intlu DAILY ORAL 04/30/17 09:00 05/30/17 08:59 05/01/17 11:14 Allergies: Coded Allergies: No Known Allergies (Unverified , 02/14/15) ROS Limited/Unobtainable: No Constitutional: Reports: no symptoms HEENT: Reports: no symptoms Cardiovascular: Reports: no symptoms Respiratory: Reports: no symptoms Gastrointestinal/Abdominal: Reports: abdominal pain Genitourinary: Reports: no symptoms Neurologic/Psychiatric: Reports: no symptoms Subjective 81 YO F admitted with abdominal pain. Cover for Int Scott-Dr Garrido. Objective Last Vital Signs Date Time Temp Pulse Resp B/P Pulse Ox O2 Delivery O2 Flow Rate FiO2 05/01/17 11:16 97.3 103 18 113/76 97 Room Air 05/01/17 04:00 21 General Appearance: WD/WN, no apparent distress, alert EENT: PERRL/EOMI, normal ENT inspection Neck: non-tender, normal alignment, supple Cardiovascular: normal peripheral pulses, normal rate, no gallop/murmur, no JVD , irregularly irregular Respiratory/Chest: chest wall non-tender, lungs clear, normal breath sounds, no respiratory distress, no accessory muscle use Abdomen: no organomegaly, no mass, decreased bowel sounds, guarding, tender Extremities: other - right hemiparesis 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, other - right hemiparesis Skin: normal pigmentation, warm/dry Laboratory Tests Test 05/01/17 06:15 White Blood Count 4.5 K/UL (4.8-10.8) L Red Blood Count 4.17 M/UL (4.20-5.40) L Hemoglobin 11.0 G/DL (12.0-16.0) L Hematocrit 34.8 % (37.0-47.0) L Mean Corpuscular Volume 84 FL (80-99) Mean Corpuscular Hemoglobin 26.5 PG (27.0-31.0) L Mean Corpuscular Hemoglobin Concent 31.7 G/DL (32.0-36.0) L Red Cell Distribution Width 16.1 % (11.6-14.8) H Platelet Count 194 K/UL (150-450) Mean Platelet Volume 8.4 FL (6.5-10.1) Neutrophils (%) (Auto) 59.1 % (45.0-75.0) Lymphocytes (%) (Auto) 30.0 % (20.0-45.0) Monocytes (%) (Auto) 8.5 % (1.0-10.0) Eosinophils (%) (Auto) 1.2 % (0.0-3.0) Basophils (%) (Auto) 1.2 % (0.0-2.0) Sodium Level 143 mEQ/L (135-145) Potassium Level 3.9 mEQ/L (3.4-4.9) Chloride Level 103 mEQ/L (98-107) Carbon Dioxide Level 28 mEQ/L (20-30) Anion Gap 12 (5-15) Blood Urea Nitrogen 11 mg/dL (7-23) Creatinine 1.0 mg/dL (0.5-0.9) H Estimat Glomerular Filtration Rate mL/min (>60) Glucose Level 86 mg/dL (74-106) Calcium Level 8.7 mg/dL (8.6-10.2) Iron Level 40 ug/dL (37-145) Total Iron Binding Capacity 332 ug/dL (250-400) Percent Iron Saturation 12 % (15-50) L Unsaturated Iron Binding 292 ug/dL (112-346) Total Bilirubin 0.4 mg/dL (0.0-1.2) Aspartate Amino Transf (AST/SGOT) 12 U/L (5-40) Alanine Aminotransferase (ALT/SGPT) 6 U/L (3-33) Alkaline Phosphatase 52 U/L (35-104) Troponin I < 0.30 ng/mL (<=0.30) Total Protein 6.2 g/dL (6.6-8.7) L Albumin 3.4 g/dL (3.5-5.2) L Globulin 2.8 g/dL Albumin/Globulin Ratio 1.2 (1.0-2.7) Amylase Level 86 U/L (10-110) Lipase 62 U/L (< 60) H Carcinoembryonic Antigen 5.6 ng/mL H Microbiology Date/Time Source Procedure Growth Status 04/29/17 18:21 Nasal Nares MRSA Culture - Final NO METHICILLIN RESISTANT STAPH AUREUS... Complete 04/29/17 18:21 Rectum VRE Culture - Final NO VANCOMYCIN RESISTANT ENTEROCOCCUS ... Complete Intake and Output 04/30/17 05/01/17 19:00 07:00 Intake Total 480 ml Balance 480 ml Intake Oral 480 ml # Voids 6 2 # Bowel Movements 3 2 Assessment/Plan Problem List: (1) Atrial fibrillation with rapid ventricular response Assessment & Plan: Cont metoprolol, digoxin and xarelto. See cardiology note. (2) Abdominal pain (3) Cholelithiasis (4) Iron deficiency anemia Assessment & Plan: See GI note. Cont IV iron. (5) Diabetes mellitus Assessment & Plan: Cont novolog sliding scale. (6) Hypertension Assessment & Plan: Continue lisinopril and metoprolol. (7) Hemiparesis, right (8) Cerebral vascular disease Status: not improved CHIKI CARLTON May 01, 2017 13:40
[2017-05-01 15:17] VITALS: BP 122/69
[2017-05-01] MEDS: Xarelto 15mg tab ORAL SCH (17:24)
--- NOTE | 2017-05-01 19:40 | Cardiology Progress Note ---
Assessment/Plan Assessment/Plan stable from cardiac stndpoint Subjective Subjective the patient is aphasic and unable to give any information accoriding to the family, she feels better no dyspnea or chest pain Objective Last 24 Hour Vital Signs Date Time Temp Pulse Resp B/P Pulse Ox O2 Delivery O2 Flow Rate FiO2 05/01/17 17:00 95 05/01/17 16:45 74 18 Room Air 21 05/01/17 15:17 97.9 105 18 122/69 97 Room Air 05/01/17 12:00 99 05/01/17 11:16 97.3 103 18 113/76 97 Room Air 05/01/17 09:00 61 98/60 05/01/17 09:00 98/60 05/01/17 08:00 99 05/01/17 07:34 98.8 91 18 98/60 100 Room Air 05/01/17 04:00 68 05/01/17 04:00 97.6 86 20 130/72 96 Room Air 21 05/01/17 03:27 117 05/01/17 00:00 97.6 94 18 133/71 96 Room Air 04/30/17 21:37 108 126/58 04/30/17 20:00 97.5 108 18 126/58 100 Room Air 21 General Appearance: other - aphasic EENT: other - facial droop Neck: normal inspection Rhythm: Afib Cardiovascular: arrhythmia Respiratory/Chest: chest wall non-tender Abdomen: soft Intake and Output 04/30/17 05/01/17 19:00 07:00 Intake Total 480 ml Balance 480 ml Intake Oral 480 ml # Voids 6 2 # Bowel Movements 3 2 Laboratory Tests Test 05/01/17 06:15 White Blood Count 4.5 K/UL (4.8-10.8) L Red Blood Count 4.17 M/UL (4.20-5.40) L Hemoglobin 11.0 G/DL (12.0-16.0) L Hematocrit 34.8 % (37.0-47.0) L Mean Corpuscular Volume 84 FL (80-99) Mean Corpuscular Hemoglobin 26.5 PG (27.0-31.0) L Mean Corpuscular Hemoglobin Concent 31.7 G/DL (32.0-36.0) L Red Cell Distribution Width 16.1 % (11.6-14.8) H Platelet Count 194 K/UL (150-450) Mean Platelet Volume 8.4 FL (6.5-10.1) Neutrophils (%) (Auto) 59.1 % (45.0-75.0) Lymphocytes (%) (Auto) 30.0 % (20.0-45.0) Monocytes (%) (Auto) 8.5 % (1.0-10.0) Eosinophils (%) (Auto) 1.2 % (0.0-3.0) Basophils (%) (Auto) 1.2 % (0.0-2.0) Sodium Level 143 mEQ/L (135-145) Potassium Level 3.9 mEQ/L (3.4-4.9) Chloride Level 103 mEQ/L (98-107) Carbon Dioxide Level 28 mEQ/L (20-30) Anion Gap 12 (5-15) Blood Urea Nitrogen 11 mg/dL (7-23) Creatinine 1.0 mg/dL (0.5-0.9) H Estimat Glomerular Filtration Rate mL/min (>60) Glucose Level 86 mg/dL (74-106) Calcium Level 8.7 mg/dL (8.6-10.2) Iron Level 40 ug/dL (37-145) Total Iron Binding Capacity 332 ug/dL (250-400) Percent Iron Saturation 12 % (15-50) L Unsaturated Iron Binding 292 ug/dL (112-346) Total Bilirubin 0.4 mg/dL (0.0-1.2) Aspartate Amino Transf (AST/SGOT) 12 U/L (5-40) Alanine Aminotransferase (ALT/SGPT) 6 U/L (3-33) Alkaline Phosphatase 52 U/L (35-104) Troponin I < 0.30 ng/mL (<=0.30) Total Protein 6.2 g/dL (6.6-8.7) L Albumin 3.4 g/dL (3.5-5.2) L Globulin 2.8 g/dL Albumin/Globulin Ratio 1.2 (1.0-2.7) Amylase Level 86 U/L (10-110) Lipase 62 U/L (< 60) H Carcinoembryonic Antigen 5.6 ng/mL H Microbiology Date/Time Source Procedure Growth Status 04/29/17 18:21 Nasal Nares MRSA Culture - Final NO METHICILLIN RESISTANT STAPH AUREUS... Complete 04/29/17 18:21 Rectum VRE Culture - Final NO VANCOMYCIN RESISTANT ENTEROCOCCUS ... Complete RODRIGUEZ TONG May 01, 2017 19:40
[2017-05-01 20:00] VITALS: BP 122/71
[2017-05-01] MEDS ORDERED: Miralax 17gm pkt ORAL SCH (21:00)
[2017-05-01] MEDS ORDERED: Iron Sucrose 100 MG in NS 55 ML IVPB SCH (21:00)
[2017-05-02] VITALS: BP 111/59
[2017-05-02 04:00] VITALS: BP 116/57
[2017-05-02] MEDS: NovoLOG Insulin Flexpen SUBQ SCH ×2 (06:30→11:30)
[2017-05-02 08:04] LABS: BASOPHILS % (AUTO) 1.2 % (0.0-2.0); EOSINOPHILS % (AUTO) 1.6 % (0.0-3.0); LYMPHOCYTES % (AUTO) 28.9 % (20.0-45.0); MEAN CORPUSCULAR HEMOGLOBIN 26.8 PG (27.0-31.0); MEAN CORPUSCULAR HGB CONC 32.1 G/DL (32.0-36.0); MEAN CORPUSCULAR VOLUME 83 FL (80-99); MEAN PLATELET VOLUME 8.1 FL (6.5-10.1); MONOCYTES % (AUTO) 9.2 % (1.0-10.0); NEUTROPHILS % (AUTO) 59.1 % (45.0-75.0); PLATELET COUNT 175 K/UL (150-450); RED BLOOD COUNT 4.17 M/UL (4.20-5.40); RED CELL DISTRIBUTION WIDTH 16.2 % (11.6-14.8); WHITE BLOOD COUNT 4.3 K/UL (4.8-10.8)
[2017-05-02 08:19] LABS: ANION GAP 13 (5-15); CARBON DIOXIDE 25 mEQ/L (20-30); CHLORIDE 105 mEQ/L (98-107); CREATININE 0.8 mg/dL (0.5-0.9); HEMOLYSIS 5; POTASSIUM 3.4 mEQ/L (3.4-4.9); SODIUM 143 mEQ/L (135-145)
[2017-05-02] MEDS: Vitamin D 1000 IU Tab ORAL SCH (09:00)
[2017-05-02] MEDS: Allopurinol 100mg Tab ORAL SCH (09:00)
[2017-05-02] MEDS: Docusate 100mg cap ORAL SCH (09:00)
[2017-05-02] MEDS: Lisinopril 20mg tab ORAL SCH (09:00)
--- NOTE | 2017-05-02 10:22 | Internal Med Progress Note ---
Subjective Date of Service: May 02, 2017 Physician Name Chiki Carlton Attending Physician Glenn Garrido MD Current Medications Medications (Trade) Dose Ordered Sig/Yovana Route PRN Reason Start Time Stop Time Status Last Admin Dose Admin Acetaminophen (Tylenol) 650 mg Q4H PRN ORAL FEVER 04/29/17 19:15 05/29/17 19:14 Albuterol/ Ipratropium (DuoNeb 0.5-3(2.5)mg/3ml) 3 ml EVERY 4 HOURS PRN HHN Shortness of Breath 04/29/17 19:15 05/04/17 19:14 Allopurinol (Zyloprim) 100 mg DAILY ORAL 04/30/17 09:00 05/30/17 08:59 05/02/17 09:00 Dextrose STAT PRN IV Hypoglycemia 04/29/17 19:15 05/29/17 19:14 Diltiazem HCl (Cardizem) 10 mg EVERY HOUR PRN IV heart rate more than 120, 04/29/17 19:15 05/29/17 19:14 Docusate Sodium (Colace) 100 mg TWICE A DAY ORAL 05/01/17 09:30 05/31/17 09:29 05/02/17 09:00 Enalaprilat (Vasotec) 2.5 mg EVERY 6 HOURS PRN IV sbp more than 160 04/29/17 19:15 05/29/17 19:14 Insulin Aspart (NovoLOG) BEFORE MEALS AND HS SUBQ 04/29/17 23:00 05/29/17 22:59 04/30/17 11:30 Iron Sucrose/ Sodium Chloride (Venofer/Sodium Chloride) 60 ml @ 240 mls/hr BEDTIME IVPB 05/01/17 21:00 05/05/17 21:14 05/01/17 21:15 Lisinopril (Prinivil) 20 mg DAILY ORAL 04/30/17 09:00 05/30/17 08:59 05/02/17 09:00 Metoprolol Succinate (Toprol XL) 50 mg Q12HR ORAL 04/29/17 22:00 05/29/17 21:59 05/02/17 09:00 Morphine Sulfate (Morphine Sulfate) 2 mg EVERY 4 HOURS PRN IVP severe Pain (Pain Scale 7-10) 04/29/17 19:15 05/06/17 19:14 Nitroglycerin (Ntg) 0.4 mg Q5M PRN SL Prn Chest Pain 04/29/17 19:15 05/29/17 19:14 Ondansetron HCl (Zofran) 4 mg Q6H PRN IVP Nausea & Vomiting 04/29/17 19:15 05/29/17 19:14 Pantoprazole (Protonix) 40 mg DAILY ORAL 04/30/17 09:00 05/30/17 08:59 05/02/17 09:00 Polyethylene Glycol (Miralax) 17 gm BEDTIME ORAL 05/01/17 21:00 05/31/17 20:59 05/01/17 21:15 Polyethylene Glycol (Miralax) 17 gm DAILYPRN PRN ORAL Constipation 04/29/17 19:15 05/29/17 19:14 Rivaroxaban (Xarelto) 15 mg QPM ORAL 04/30/17 16:30 05/30/17 16:29 05/01/17 17:24 Temazepam (Restoril) 15 mg HSPRN PRN ORAL Insomnia 04/29/17 19:15 05/06/17 19:14 05/01/17 21:16 Vitamin D (Vitamin D) 2,000 intlu DAILY ORAL 04/30/17 09:00 05/30/17 08:59 05/02/17 09:00 Allergies: Coded Allergies: No Known Allergies (Unverified , 02/14/15) ROS Limited/Unobtainable: No Constitutional: Reports: no symptoms HEENT: Reports: no symptoms Cardiovascular: Reports: no symptoms Respiratory: Reports: no symptoms Gastrointestinal/Abdominal: Reports: no symptoms Genitourinary: Reports: no symptoms Subjective 81 YO F admitted with abdominal pain. Cover for Int Scott-Dr Garrido. Objective Last Vital Signs Date Time Temp Pulse Resp B/P Pulse Ox O2 Delivery O2 Flow Rate FiO2 05/02/17 09:00 74 116/57 05/02/17 08:42 16 Room Air 21 05/02/17 04:00 97.5 97 Laboratory Tests Test 05/02/17 07:40 White Blood Count 4.3 K/UL (4.8-10.8) L Red Blood Count 4.17 M/UL (4.20-5.40) L Hemoglobin 11.2 G/DL (12.0-16.0) L Hematocrit 34.8 % (37.0-47.0) L Mean Corpuscular Volume 83 FL (80-99) Mean Corpuscular Hemoglobin 26.8 PG (27.0-31.0) L Mean Corpuscular Hemoglobin Concent 32.1 G/DL (32.0-36.0) Red Cell Distribution Width 16.2 % (11.6-14.8) H Platelet Count 175 K/UL (150-450) Mean Platelet Volume 8.1 FL (6.5-10.1) Neutrophils (%) (Auto) 59.1 % (45.0-75.0) Lymphocytes (%) (Auto) 28.9 % (20.0-45.0) Monocytes (%) (Auto) 9.2 % (1.0-10.0) Eosinophils (%) (Auto) 1.6 % (0.0-3.0) Basophils (%) (Auto) 1.2 % (0.0-2.0) Sodium Level 143 mEQ/L (135-145) Potassium Level 3.4 mEQ/L (3.4-4.9) Chloride Level 105 mEQ/L (98-107) Carbon Dioxide Level 25 mEQ/L (20-30) Anion Gap 13 (5-15) Blood Urea Nitrogen 12 mg/dL (7-23) Creatinine 0.8 mg/dL (0.5-0.9) Estimat Glomerular Filtration Rate mL/min (>60) Glucose Level 95 mg/dL (74-106) Calcium Level 9.0 mg/dL (8.6-10.2) Lipase 70 U/L (< 60) H Microbiology Date/Time Source Procedure Growth Status 04/29/17 18:21 Nasal Nares MRSA Culture - Final NO METHICILLIN RESISTANT STAPH AUREUS... Complete 04/29/17 18:21 Rectum VRE Culture - Final NO VANCOMYCIN RESISTANT ENTEROCOCCUS ... Complete Intake and Output 05/01/17 05/02/17 19:00 07:00 Intake Total 720 ml Output Total 325 ml Balance 395 ml Intake Oral 720 ml Output Urine Total 325 ml # Voids 2 # Bowel Movements 2 Objective General: alert, cooperative, no distress, appears stated age Head: normocephalic, without obvious abnormality, atraumatic Eyes: conjunctivae/corneas clear. PERRL, EOM's intact Throat: lips, mucosa, and tongue normal. MMM Neck: supple, symmetrical, trachea midline, and no JVD Lungs: clear to auscultation bilaterally Heart: regular rate and rhythm, S1, S2 normal, no murmur, click, rub or gallop Abdomen: soft, non-tender, non-distended, bowel sounds normal; no masses or organomegaly Extremities: extremities normal, atraumatic, no cyanosis or edema Pulses: 2+ and symmetric Skin: skin color, texture, turgor normal; no rashes or lesions Neurologic: Right hemiparesis; exp aphasia, 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, no focal deficits Assessment/Plan Problem List: (1) Atrial fibrillation with rapid ventricular response Assessment & Plan: Cont metoprolol, digoxin and xarelto. See cardiology note. (2) Abdominal pain (3) Cholelithiasis (4) Iron deficiency anemia Assessment & Plan: See GI note. Cont IV iron. (5) Diabetes mellitus Assessment & Plan: Cont novolog sliding scale. (6) Hypertension Assessment & Plan: Continue lisinopril and metoprolol. (7) Hemiparesis, right (8) Cerebral vascular disease Status: stable Assessment/Plan Discharge home today with 24 hour caregiver vs home with [facility] CHIKI CARLTON May 02, 2017 10:21
--- NOTE | 2017-05-02 10:50 | GI Progress Note ---
Assessment/Plan Problems: (1) Elevated lipase ICD Codes: R74.8 - Abnormal levels of other serum enzymes SNOMED: 392356440 (2) Iron deficiency anemia ICD Codes: D50.9 - Iron deficiency anemia, unspecified SNOMED: 71314130 (3) Gastroenteritis ICD Codes: K52.9 - Noninfective gastroenteritis and colitis, unspecified SNOMED: 86660128 (4) Vomiting ICD Codes: R11.10 - Vomiting, unspecified SNOMED: 547554460 (5) Generalized weakness ICD Codes: R53.1 - Weakness SNOMED: 48955204 Status: stable, unchanged Status Narrative Discussed with Dr. Munoz. Assessment/Plan iron deficient >> iv iron monitor lipase stool ob uncollected ppi esophagogastroduodenoscopy and colonoscopy if stool ob positive otherwise as out patient pt on xarelto (must be stopped 48 hours prior any endoscopic procedure.) outpatient GI procedures Subjective Subjective limited The patient was seen and examined at bedside and all new and available data was reviewed in the patients chart. I agree with the above findings, impression and plan. (Patient seen earlier today. Signature stamp does not reflect patient encounter time.). -Miller Munoz MD Objective Last 24 Hour Vital Signs Date Time Temp Pulse Resp B/P Pulse Ox O2 Delivery O2 Flow Rate FiO2 05/02/17 09:00 74 116/57 05/02/17 09:00 116/57 05/02/17 08:42 75 16 Room Air 21 05/02/17 04:00 97.5 88 20 116/57 97 Room Air 05/02/17 04:00 75 05/02/17 00:00 74 05/02/17 00:00 97.2 90 18 111/59 98 Room Air 21 05/01/17 21:16 100 122/71 05/01/17 20:00 96 05/01/17 20:00 98.0 100 19 122/71 98 Room Air 05/01/17 19:00 72 18 Room Air 21 05/01/17 17:00 95 05/01/17 16:45 74 18 Room Air 21 05/01/17 15:17 97.9 105 18 122/69 97 Room Air 05/01/17 12:00 99 05/01/17 11:16 97.3 103 18 113/76 97 Room Air Intake and Output 05/01/17 05/02/17 19:00 07:00 Intake Total 720 ml Output Total 325 ml Balance 395 ml Intake Oral 720 ml Output Urine Total 325 ml # Voids 2 # Bowel Movements 2 Laboratory Tests Test 05/02/17 07:40 White Blood Count 4.3 K/UL (4.8-10.8) L Red Blood Count 4.17 M/UL (4.20-5.40) L Hemoglobin 11.2 G/DL (12.0-16.0) L Hematocrit 34.8 % (37.0-47.0) L Mean Corpuscular Volume 83 FL (80-99) Mean Corpuscular Hemoglobin 26.8 PG (27.0-31.0) L Mean Corpuscular Hemoglobin Concent 32.1 G/DL (32.0-36.0) Red Cell Distribution Width 16.2 % (11.6-14.8) H Platelet Count 175 K/UL (150-450) Mean Platelet Volume 8.1 FL (6.5-10.1) Neutrophils (%) (Auto) 59.1 % (45.0-75.0) Lymphocytes (%) (Auto) 28.9 % (20.0-45.0) Monocytes (%) (Auto) 9.2 % (1.0-10.0) Eosinophils (%) (Auto) 1.6 % (0.0-3.0) Basophils (%) (Auto) 1.2 % (0.0-2.0) Sodium Level 143 mEQ/L (135-145) Potassium Level 3.4 mEQ/L (3.4-4.9) Chloride Level 105 mEQ/L (98-107) Carbon Dioxide Level 25 mEQ/L (20-30) Anion Gap 13 (5-15) Blood Urea Nitrogen 12 mg/dL (7-23) Creatinine 0.8 mg/dL (0.5-0.9) Estimat Glomerular Filtration Rate mL/min (>60) Glucose Level 95 mg/dL (74-106) Calcium Level 9.0 mg/dL (8.6-10.2) Lipase 70 U/L (< 60) H Height (Feet): 5 Height (Inches): 3.00 Weight (Pounds): 135 General Appearance: no apparent distress, alert Cardiovascular: normal rate Respiratory/Chest: normal breath sounds, no respiratory distress Abdominal Exam: normal bowel sounds, non tender, soft Gladys Multani N.P. May 02, 2017 10:50 MILLER MUNOZ May 04, 2017 10:29
[2017-05-02] MEDS ORDERED: NS 275ml ONE (11:25)
[2017-05-02] MEDS ORDERED: Tubing IV Secondary IV ONE (11:25)
[2017-05-02 12:00] VITALS: BP 132/66
--- NOTE | 2017-05-02 12:26 | Pulmonology Progress Note ---
Assessment/Plan Problems: (1) Rapid atrial fibrillation (2) Hypertension (3) Diabetes mellitus (4) Iron deficiency anemia (5) Cerebral vascular disease Assessment/Plan improving heart rate controlled eating well titrate fio2 ok to dc home Subjective ROS Limited/Unobtainable: No Interval Events: doing better Allergies: Coded Allergies: No Known Allergies (Unverified , 02/14/15) Objective Last 24 Hour Vital Signs Date Time Temp Pulse Resp B/P Pulse Ox O2 Delivery O2 Flow Rate FiO2 05/02/17 09:00 74 116/57 05/02/17 09:00 116/57 05/02/17 08:42 75 16 Room Air 21 05/02/17 04:00 97.5 88 20 116/57 97 Room Air 05/02/17 04:00 75 05/02/17 00:00 74 05/02/17 00:00 97.2 90 18 111/59 98 Room Air 21 05/01/17 21:16 100 122/71 05/01/17 20:00 96 05/01/17 20:00 98.0 100 19 122/71 98 Room Air 05/01/17 19:00 72 18 Room Air 21 05/01/17 17:00 95 05/01/17 16:45 74 18 Room Air 21 05/01/17 15:17 97.9 105 18 122/69 97 Room Air Intake and Output 05/01/17 05/02/17 19:00 07:00 Intake Total 720 ml Output Total 325 ml Balance 395 ml Intake Oral 720 ml Output Urine Total 325 ml # Voids 2 # Bowel Movements 2 General Appearance: WD/WN HEENT: normocephalic, atraumatic Respiratory/Chest: chest wall non-tender, lungs clear Cardiovascular: normal peripheral pulses, normal rate Abdomen: normal bowel sounds, soft, non tender Genitourinary: normal external genitalia Extremities: no cyanosis Skin: no rash 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 Complete 04/29/17 18:21 Rectum VRE Culture - Final NO VANCOMYCIN RESISTANT ENTEROCOCCUS ... Complete Laboratory Tests 05/02/17 07:40: White Blood Count 4.3L, Red Blood Count 4.17L, Hemoglobin 11.2L, Hematocrit 34.8L, Mean Corpuscular Volume 83, Mean Corpuscular Hemoglobin 26.8L, Mean Corpuscular Hemoglobin Concent 32.1, Red Cell Distribution Width 16.2H, Platelet Count 175, Mean Platelet Volume 8.1, Neutrophils (%) (Auto) 59.1, Lymphocytes (%) (Auto) 28.9, Monocytes (%) (Auto) 9.2, Eosinophils (%) (Auto) 1.6, Basophils (%) (Auto) 1.2, Sodium Level 143, Potassium Level 3.4, Chloride Level 105, Carbon Dioxide Level 25, Anion Gap 13, Blood Urea Nitrogen 12, Creatinine 0.8, Estimat Glomerular Filtration Rate , Glucose Level 95, Calcium Level 9.0, Lipase 70H Current Medications Medications (Trade) Dose Ordered Sig/Yovana Route PRN Reason Start Time Stop Time Status Last Admin Dose Admin Acetaminophen (Tylenol) 650 mg Q4H PRN ORAL FEVER 04/29/17 19:15 05/29/17 19:14 Albuterol/ Ipratropium (DuoNeb 0.5-3(2.5)mg/3ml) 3 ml EVERY 4 HOURS PRN HHN Shortness of Breath 04/29/17 19:15 05/04/17 19:14 Allopurinol (Zyloprim) 100 mg DAILY ORAL 04/30/17 09:00 05/30/17 08:59 05/02/17 09:00 Dextrose STAT PRN IV Hypoglycemia 04/29/17 19:15 05/29/17 19:14 Diltiazem HCl (Cardizem) 10 mg EVERY HOUR PRN IV heart rate more than 120, 04/29/17 19:15 05/29/17 19:14 Docusate Sodium (Colace) 100 mg TWICE A DAY ORAL 05/01/17 09:30 05/31/17 09:29 05/02/17 09:00 Enalaprilat (Vasotec) 2.5 mg EVERY 6 HOURS PRN IV sbp more than 160 04/29/17 19:15 05/29/17 19:14 Insulin Aspart (NovoLOG) BEFORE MEALS AND HS SUBQ 04/29/17 23:00 05/29/17 22:59 04/30/17 11:30 Iron Sucrose/ Sodium Chloride (Venofer/Sodium Chloride) 60 ml @ 240 mls/hr BEDTIME IVPB 05/01/17 21:00 05/05/17 21:14 05/01/17 21:15 Lisinopril (Prinivil) 20 mg DAILY ORAL 04/30/17 09:00 05/30/17 08:59 05/02/17 09:00 Metoprolol Succinate (Toprol XL) 50 mg Q12HR ORAL 04/29/17 22:00 05/29/17 21:59 05/02/17 09:00 Morphine Sulfate (Morphine Sulfate) 2 mg EVERY 4 HOURS PRN IVP severe Pain (Pain Scale 7-10) 04/29/17 19:15 05/06/17 19:14 Nitroglycerin (Ntg) 0.4 mg Q5M PRN SL Prn Chest Pain 04/29/17 19:15 05/29/17 19:14 Ondansetron HCl (Zofran) 4 mg Q6H PRN IVP Nausea & Vomiting 04/29/17 19:15 05/29/17 19:14 Pantoprazole (Protonix) 40 mg ACBREAKFAST ORAL 05/03/17 06:30 05/30/17 08:59 Polyethylene Glycol (Miralax) 17 gm BEDTIME ORAL 05/01/17 21:00 05/31/17 20:59 05/01/17 21:15 Polyethylene Glycol (Miralax) 17 gm DAILYPRN PRN ORAL Constipation 04/29/17 19:15 05/29/17 19:14 Rivaroxaban (Xarelto) 15 mg QPM ORAL 04/30/17 16:30 05/30/17 16:29 05/01/17 17:24 Temazepam (Restoril) 15 mg HSPRN PRN ORAL Insomnia 04/29/17 19:15 05/06/17 19:14 05/01/17 21:16 Vitamin D (Vitamin D) 2,000 intlu DAILY ORAL 04/30/17 09:00 05/30/17 08:59 05/02/17 09:00 JEANNE WHITE May 02, 2017 12:26
--- NOTE | 2017-05-03 18:05 | Discharge Summary ---
Discharge Summary Hospital Course Date of Admission Apr 29, 2017 at 21:21 Date of Discharge May 02, 2017 at 12:25 Admitting Diagnosis afib, abd pain HPI Ernestina Stevens is a 81 year old female who was admitted on Apr 29, 2017 at 21:21 for Atrial Fibrillation; Abdominal Pain Hospital Course dc summary #[id number] Discharge Medications Continued Medications: Allopurinol* (Allopurinol*) 100 Mg Tablet 100 MG ORAL DAILY, TAB Aspirin* (Aspir 81*) 81 Mg Tablet.dr 81 MG ORAL DAILY, TAB Cholecalciferol (Vitamin D3) (Vitamin D-400*) 400 Unit Tablet 1000 UNITS ORAL DAILY, TAB Cholecalciferol (Vitamin D3)* (Vitamin D*) 1,000 Intlu Tab 2000 INTLU ORAL DAILY for 30 Days, TAB Digoxin* (Digoxin*) 250 Mcg Tablet 0.25 MG ORAL DAILY, TAB Famotidine (Pepcid) 40 Mg Tablet 40 MG PO DAILY for 14 Days, #30 TAB 0 Refills Furosemide* (Lasix*) 40 Mg Tablet 40 MG ORAL DAILY for 30 Days, TAB Lisinopril (Lisinopril*) 20 Mg Tablet 20 MG ORAL DAILY, TAB Magnesium Oxide (Magnesium Oxide) 400 Mg Tablet 400 MG ORAL DAILY, #30 TAB 0 Refills Metformin Hcl* (Metformin Hcl*) 1,000 Mg Tablet 1000 MG ORAL BID, TAB Metoprolol Succinate* (Toprol Xl*) 50 Mg Tab.er.24h 50 MG ORAL BID for 30 Days, #60 TAB Metoprolol Tartrate* (Metoprolol Tartrate*) 100 Mg Tablet 100 MG ORAL, TAB Ondansetron Odt* (Zofran Odt*) 4 Mg Tab.rapdis 4 MG ORAL Q6H PRN for Nausea & Vomiting, #12 TAB 0 Refills Oxybutynin (Gelnique) 92 Gm Gel.human resources operations manager 5 MG PO BID Rivaroxaban (Xarelto) 20 Mg Tablet 20 MG ORAL DAILY for 30 Days, MG 0 Refills Temazepam (Temazepam*) 15 Mg Capsule 15 MG ORAL, #30 CAP 0 Refills Vitamin B Cmplx/Vit C/Folic AC (Nephro-Barbara Tablet) 0.8 Mg Tablet 1 TAB ORAL DAILY, #30 TAB 0 Refills Zolpidem Tartrate* (Zolpidem Tartrate*) 10 Mg Tablet 10 MG ORAL BEDTIME PRN for Insomnia, TAB 0 Refills Discontinued Medications: Warfarin Sod* (Warfarin Sod*) 2.5 Mg Tablet 2.5 MG ORAL DAILY, TAB Discharge Condition Upon Discharge: stable Discharge Disposition Patient was discharged to Home with Home Health(06) Discharge Diagnoses: Mack (Margueritemacario)Kayli NP May 03, 2017 18:05
--- NOTE | 2017-05-04 04:15 | Discharge Summary 2 SIG ---
DATE OF ADMISSION: 04/29/2017 DATE OF DISCHARGE: 05/02/2017 REASON FOR ADMISSION: This 81-year-old female with history of atrial fibrillation, hypertension, diabetes, and cerebrovascular disease, presented to the emergency room with abdominal pain. Pain described as a sharp, 7/10 on a scale 1 to 10 radiating to the back. The patient denied nausea and vomiting. Denied fever and chills. She was tachycardic in triage. Daughter stated that the patient has a history of atrial fibrillation and was recently admitted for treatment of atrial fibrillation. Cardiac monitoring in ED showed atrial fibrillation with rapid ventricular response. No leukocytosis. Hemoglobin and hematocrit with mild anemia. Electrolytes stable. Troponin negative. Digoxin level subtherapeutic. EKG revealed atrial fibrillation with rapid ventricular response. Chest x-ray revealed no acute cardiopulmonary process. CT of the abdomen and pelvis revealed cholelithiasis, but no acute process. In the emergency department, the patient received IV digoxin and started on gentle IV fluids. On reassessment, heart rate improved with digoxin and IV fluids and the patient was transferred to telemetry for further management. ADMITTING DIAGNOSES: 1. Abdominal pain. 2. Cholelithiasis possible gastroenteritis. 3. Atrial fibrillation with rapid ventricular response. 4. Cholelithiasis. 5. Hypertension. 6. Diabetes. 7. History of cerebrovascular accident. 8. Moderate mitral regurgitation. 9. Moderate aortic regurgitation. HOSPITAL COURSE: The patient admitted to telemetry floor. The patient remained in atrial fibrillation, rate was controlled with digoxin, level was checked on Tuesday and was elevated. Cardiology consult was requested. Teacher Cclc decreased the digoxin dose, rate has good control with digoxin and beta-rancho and anticoagulation with Xarelto. Blood pressure was managed with current regimen, OH inhibitor, and beta-rancho and was stable. Chest x-ray revealed cardiomegaly with no acute process. Supplemental oxygen and pulmonary toilet provided as needed. GI evaluation requested due to the abdominal pain, nausea, and vomiting. Noted elevated CEA. Elevated lipase. Nausea, vomiting, and abdominal pain resolved. Stool OB was not collected. Anemia iron deficiency, IV iron given. The patient started on PPI. Recommended EGD and colonoscopy as outpatient due to the elevated CEA. The patient need to stop Xarelto for 48 hours prior to procedure. Repeated lipase still slightly elevated. LFT stable. GI and Cardiology cleared for discharge. Lipid panel stable. Lipase trending down from initial 93 to 70. Amylase is within normal limits. The patient was stable for discharge . DISCHARGE DIAGNOSES: 1. Abdominal pain . 2. Gastroenteritis. 3. Cholelithiasis. 4. Atrial fibrillation with rapid ventricular response, resolved. 5. Hypertension. 6. Diabetes. 7. History of cerebrovascular accident. 8. Severe mitral regurgitation. 9. Moderate aortic regurgitation. 10. Iron deficiency anemia DISCHARGE MEDICATIONS: See medication reconciliation list. DISCHARGE INSTRUCTIONS: The patient is discharged home with home health services. Follow up with the primary medical doctor. Glenn Garrido M.D. I have been assigned to dictate discharge summary on this account and I was not involved in the patient's management. Kayli [facility] NS[facility] DR: Mary JOB#: [id number] CC:
== END 2017-05-02 12:25 | disposition home health service (06) | DRG 309 ==
LOC: EMR 17:45 → EDBEDREQ 18:00 → 2E 21:21
DX: I48.0 Paroxysmal atrial fibrillation (principal); I69.351 Hemiplegia and hemiparesis following cerebral infarction affecting right dominant side; I11.0 Hypertensive heart disease with heart failure; E11.9 Type 2 diabetes mellitus without complications; D50.9 Iron deficiency anemia, unspecified; I08.0 Rheumatic disorders of both mitral and aortic valves; K80.20 Calculus of gallbladder without cholecystitis without obstruction; R10.9 Unspecified abdominal pain; M10.9 Gout, unspecified; Z79.01 Long term (current) use of anticoagulants; K52.9 Noninfective gastroenteritis and colitis, unspecified; Z87.891 Personal history of nicotine dependence
CPT/HCPCS: 36415; 71010; 74177; 80048; 80053; 80061; 80162; 81003; 82150; 82378; 82550; 82553; 82962; 83540; 83550; 83690; 83880; 84443; 84484; 85025; 85610; 85730; 86140; 87081; 93005; 94664; J1815

== ENCOUNTER 2017-12-31 14:03 | Emergency (ER) | payer MEDICARE, OTHER ==
[~2017-12-31] VITALS: Ht 154.9 cm; Wt 59.0 kg
[~2017-12-31 14:03] MED LIST changes: +NEPHROVITE1 TAB ORAL; +XARELTO20 MG ORAL
[2017-12-31 14:55] VITALS: BP 168/90
--- NOTE | 2017-12-31 14:55 | Emergency Room Report ---
History of Present Illness General Chief Complaint: Nausea, Vomiting, and Diarrhea Source: Patient, Family Member Present Illness HPI 82YOF walk-in with episodes of diarrhea yesterday - unknown number - today with vomiting after breakfast this morning Was not pointing at her stomach or c/o pain to stomach No recent Abx per son, no Abx in bag of meds is on Digoxin Was here last Fall for similar CT was unremarkable at the time Allergies: Coded Allergies: No Known Allergies (Unverified , 02/14/15) Patient History Past Medical History: DM, HTN, AFib Past Surgical History: none Pertinent Family History: none Social History: Denies: smoking, alcohol use, drug use Last Menstrual Period: Post Now: No Immunizations: UTD Reviewed Nursing Documentation: PMH: Agreed, PSxH: Agreed Nursing Documentation-PMH Hx Cardiac Problems: Yes - Cardiomegaly, Palpitations. 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 Review of Systems All Other Systems: negative except mentioned in HPI Physical Exam Vital Signs Date Time Temp Pulse Resp B/P (MAP) Pulse Ox O2 Delivery O2 Flow Rate FiO2 12/31/17 14:45 97.5 107 17 179/94 97 Room Air Sp02 EP Interpretation: reviewed, normal General Appearance: normal inspection, well appearing, no apparent distress, alert, GCS 15, non-toxic Head: normocephalic, atraumatic Eyes: bilateral eye PERRL, bilateral eye EOMI ENT: normal ENT inspection, hearing 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, normal pharynx, TMs + canals normal, uvula midline, moist mucus membranes Neck: normal inspection, full range of motion, supple, thyroid normal, no meningismus, no bony tend Respiratory: normal inspection, lungs clear, normal breath sounds, no rhonchi, no respiratory distress, no retraction, no accessory muscle use, no wheezing, speaking full sentences Cardiovascular #1: regular rate, rhythm, no edema, no JVD, normal capillary refill Gastrointestinal: normal inspection, normal bowel sounds, non tender, soft, no mass, no peritonitis, non-distended, no guarding, no hernia, no pulsatile mass Genitourinary: no CVA tenderness Musculoskeletal: normal inspection, back normal, normal range of motion, no calf tenderness, pelvis stable, Maddy's Sign negative Neurologic: normal inspection, alert, oriented x3, responsive, chest painting leader III-XII nml as tested, motor strength/tone normal, cerebellar normal, normal gait, speech normal Psychiatric: normal inspection, judgement/insight normal, mood/affect normal, no suicidal/homicidal ideation, no delusions Skin: normal inspection, normal color, no rash Lymphatic: normal inspection, no adenopathy Medical Decision Making Diagnostic Impression: Primary Impression: Nausea, vomiting, and diarrhea Additional Impression: Hypokalemia ER Course VSS, afebrile ECG is atrial fib, not RVR, no ischemia. Troponin WNL Mild hypoK likely d/t diarrhea/vomiting - repleted in ED Dig level low Patient endorses feeling much better No additional vomiting, diarrhea in ED ?viral gastroenteritis Abdomen grossly non-focal ER course: Patient has remained stable during ED stay. Disposition: Patient is to be discharged to home. Patient is instructed to follow up with their primary care doctor within 1-2 days. Strict return precautions discussed with patient such as fever, chills, worsening/severe pain, nausea, vomiting, which may indicate severe illness. Patient verbalizes understanding and agrees with plan. Please note that this Emergency Department Report was dictated using Follicumelectrocardiogram technician technology software, occasionally this can lead to erroneous entry secondary to interpretation by the dictation equipment EKG Diagnostic Results Rate: normal, other Rhythm: other - atrial fib ST Segments: no acute changes ASA given to the pt in ED: No Rhythm Strip Diag. Results EP Interpretation: yes Rate: 77 Rhythm: other - 2 PVCs Last Vital Signs Date Time Temp Pulse Resp B/P (MAP) Pulse Ox O2 Delivery O2 Flow Rate FiO2 12/31/17 14:45 97.5 107 17 179/94 97 Room Air Status: improved Disposition: HOME, SELF-CARE SALTY OGDEN M.D. Dec 31, 2017 14:55
[2017-12-31 15:23] LABS: HEMATOCRIT 39.2 % (37.0-47.0); HEMOGLOBIN 13.8 G/DL (12.0-16.0); MEAN CORPUSCULAR VOLUME 90 FL (80-99); PLATELET COUNT 232 K/UL (150-450); RED BLOOD COUNT 4.38 M/UL (4.20-5.40); RED CELL DISTRIBUTION WIDTH 11.7 % (11.6-14.8); WHITE BLOOD COUNT 5.7 K/UL (4.8-10.8)
[2017-12-31 15:38] LABS: ANION GAP 10 mmol/L (5-15); BLOOD UREA NITROGEN 11 mg/dL (7-18); CALCIUM 9.1 MG/DL (8.5-10.1); CARBON DIOXIDE 29 MMOL/L (21-32); CHLORIDE 99 MMOL/L (98-107); CREATININE 0.9 MG/DL (0.55-1.30); POTASSIUM 3.1 MMOL/L (3.5-5.1); SODIUM 138 MMOL/L (136-145)
[2017-12-31 15:52] LABS: ALANINE AMINOTRANSFERASE 20 U/L (12-78); ALBUMIN/GLOBULIN RATIO 1.1 (1.0-2.7); ALKALINE PHOSPHATASE 81 U/L (46-116); ASPARTATE AMINO TRANSFERASE 21 U/L (15-37); BILIRUBIN,TOTAL 0.7 MG/DL (0.2-1.0); CKMB 0.8 NG/ML (0.0-3.6); CREATINE KINASE 58 U/L (26-308)
[2017-12-31 16:36] LABS: APPEARANCE,URINE SLIGHTLY CLOUDY; BILIRUBIN, URINE NEGATIVE (NEGATIVE); COLOR,URINE AMBER; GLUCOSE, URINE (UA) NEGATIVE (NEGATIVE); KETONES,URINE 3+ (NEGATIVE); LEUKOCYTE ESTERASE ,URINE 1+ (NEGATIVE); NITRITE,URINE NEGATIVE (NEGATIVE); PH,URINE 6.5 (4.5-8.0); PROTEIN,URINE 2+ (NEGATIVE); UROBILINOGEN,URINE 4 MG/DL (0.0-1.0)
[2017-12-31 16:50] VITALS: BP 127/79
[2017-12-31 18:00] VITALS: BP 127/79
--- NOTE | 2018-01-01 09:47 | Diagnostic Imaging Report ---
Indication: Shortness of breath Technique: One view of the chest Comparison: 04/29/2017 Findings: Lung bases are clear. The heart is upper limits of normal in size. The aorta is tortuous and calcified. There is no significant change Impression: No acute process
--- NOTE | 2018-01-01 10:11 | Diagnostic Imaging Report ---
Indication: Reason For Exam: PAIN Technique: 3 views right foot Comparison: none Findings: There is slight irregularity of the medial aspect of the base of the first proximal phalanx, nondisplaced fracture not excludable. No other acute fractures. No dislocations. There is degenerative change of the first metacarpophalangeal joint. The remaining joint spaces are preserved. There is mild hallux valgus and metatarsus adductus Impression: Possible first proximal phalangeal fracture, age indeterminate. Correlate with clinical findings. This agrees with the findings reported in the electronic medical record by the ER physician
--- NOTE | 2018-01-02 18:29 | Cardiology Report ---
APPROVED REPORT EKG Measurement Heart [id number] Atrial fibrillation Right bundle branch block Abnormal ECG
== END 2017-12-31 18:00 | disposition home or self-care (01) ==
LOC: EMR 15:00
DX: R11.2 Nausea with vomiting, unspecified (principal); R19.7 Diarrhea, unspecified; E87.6 Hypokalemia; I10 Essential (primary) hypertension; E11.9 Type 2 diabetes mellitus without complications; I69.351 Hemiplegia and hemiparesis following cerebral infarction affecting right dominant side; I48.91 Unspecified atrial fibrillation; Z79.899 Other long term (current) drug therapy
CPT/HCPCS: 36415; 71045; 73630; 80053; 80162; 81003; 82550; 82553; 84484; 85007; 85025; 93005; 96374; 96375; 99284; J2405; J8499

== ENCOUNTER 2018-02-13 13:10 | Inpatient (IN) | payer MEDICARE, OTHER ==
[~2018-02-13] VITALS: Ht 157.5 cm; Wt 51.7 kg
[2018-02-13 13:36] VITALS: BP 115/68
[2018-02-13] MEDS ORDERED: Sodium Chloride 500ML 500 ML IV ONE (14:38)
[2018-02-13 15:18] LABS: HEMATOCRIT 37.6 % (37.0-47.0); HEMOGLOBIN 12.6 G/DL (12.0-16.0); MEAN CORPUSCULAR VOLUME 91 FL (80-99); PLATELET COUNT 196 K/UL (150-450); RED BLOOD COUNT 4.13 M/UL (4.20-5.40); RED CELL DISTRIBUTION WIDTH 12.3 % (11.6-14.8); WHITE BLOOD COUNT 6.5 K/UL (4.8-10.8)
[2018-02-13 15:30] LABS: APPEARANCE,URINE CLEAR; BILIRUBIN, URINE NEGATIVE (NEGATIVE); COLOR,URINE PALE YELLOW; GLUCOSE, URINE (UA) NEGATIVE (NEGATIVE); KETONES,URINE 3+ (NEGATIVE); LEUKOCYTE ESTERASE ,URINE NEGATIVE (NEGATIVE); NITRITE,URINE NEGATIVE (NEGATIVE); PH,URINE 7 (4.5-8.0); PROTEIN,URINE 2+ (NEGATIVE); UROBILINOGEN,URINE NORMAL MG/DL (0.0-1.0)
[2018-02-13 15:30] LABS: ANION GAP 13 mmol/L (5-15); BLOOD UREA NITROGEN 11 mg/dL (7-18); CALCIUM 8.7 MG/DL (8.5-10.1); CARBON DIOXIDE 26 MMOL/L (21-32); CHLORIDE 104 MMOL/L (98-107); CREATININE 0.7 MG/DL (0.55-1.30); POTASSIUM 4.3 MMOL/L (3.5-5.1); SODIUM 143 MMOL/L (136-145)
[2018-02-13 15:36] LABS: ALANINE AMINOTRANSFERASE 17 U/L (12-78); ALBUMIN 3.7 G/DL (3.4-5.0); ALBUMIN/GLOBULIN RATIO 1.2 (1.0-2.7); ALKALINE PHOSPHATASE 87 U/L (46-116); ASPARTATE AMINO TRANSFERASE 15 U/L (15-37); BILIRUBIN,TOTAL 0.4 MG/DL (0.2-1.0)
--- NOTE | 2018-02-13 16:49 | Diagnostic Imaging Report ---
Clinical Indication: Abdominal pain Technique: No oral contrast utilized, per emergency room physician request IV administration nonionic contrast. Venous phase spiral acquisition obtained through the abdomen and pelvis. Multiplanar reconstructions were generated. Total dose length product 439.68 mGycm. CTDIvol(s) 9.33 mGy. Dose reduction achieved using automated exposure control. Technologist reports IV infiltrated group home through the injection. Comparison: 04/29/2017 Findings: The appendix is normal. Equivocal mild prominence of the ascending colon wall and slight infiltration of the pericolonic fat appears similar to the prior exam. There are a few sigmoid diverticula. No evidence of diverticulitis. No small bowel distention. No free or loculated intraperitoneal air or fluid is evident. There is a small to moderate sliding-type hiatal hernia. The gallbladder contains gallstones. No biliary ductal dilatation. Subcentimeter low-attenuation lesion is again demonstrated in segment 3 of the liver. The pancreas, spleen, adrenals, kidneys are unremarkable. No retroperitoneal or mesenteric mass or adenopathy. No pelvic mass or adenopathy. The bladder is somewhat distended. The uterus and adnexal structures appear unremarkable except for uterine arcuate artery calcifications. There is minimal anterior wall pericardial thickening versus fluid, which appears decreased from the prior exam. The included lung bases demonstrate interstitial prominence which is similar to the previous exam, as well as dependent compressive atelectatic changes. The heart is enlarged. The bones are unremarkable. There is degenerative spondylosis. Bones are osteoporotic. There is a wedge deformity of the L1 vertebral body which was evident previously, and a superior endplate compression fracture deformity of the L5 utilized which was evident previously. Impression: Equivocal mild prominence of the ascending colon wall and slight infiltration of the pericolonic fat, probably artifact of under distention and baseline for this patient, but mild focal colitis is possible. No acute abnormality otherwise Cholelithiasis, also previously described Distended bladder Minimal anterior pericardial thickening versus fluid, decreased from the prior study Cardiomegaly L1 and L5 compression fracture deformities, unchanged from previous exam incidental findings noted, including bilateral basilar pulmonary interstitial prominence and compressive atelectasis, degenerative spondylosis, subcentimeter low-attenuation left lobe liver lesion, small to moderate sliding-type hiatal hernia The CT scanner at [facility] is accredited by the [employer] and the scans are performed using protocols designed to limit radiation exposure to as low as reasonably achievable to attain images of sufficient resolution adequate for diagnostic evaluation.
--- NOTE | 2018-02-13 17:20 | Emergency Room Report ---
History of Present Illness General Chief Complaint: Vomiting Source: Patient Present Illness HPI Patient is an 82-year-old female who presented after increased abdominal pain and vomiting. Patient had gradual onset of symptoms. She had prior history of cardiac arrhythmia as well as diabetes. Patient had been taking multiple medications. Patient had been having increased painful with urination. Patient was brought in by daughter.Primary care physician is Dr. Garrido Allergies: Coded Allergies: No Known Allergies (Unverified , 02/14/15) Patient History Past Medical History: see triage record Reviewed Nursing Documentation: PMH: Agreed, PSxH: Agreed Nursing Documentation-PMH Hx Cardiac Problems: Yes - Cardiomegaly, Palpitations. 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 Review of Systems All Other Systems: negative except mentioned in HPI Physical Exam Vital Signs Date Time Temp Pulse Resp B/P (MAP) Pulse Ox O2 Delivery O2 Flow Rate FiO2 02/13/18 13:26 97.9 122 20 142/86 99 Room Air 97.9 Sp02 EP Interpretation: reviewed, normal General Appearance: normal inspection, well appearing, no apparent distress, alert, GCS 15 Head: atraumatic ENT: normal ENT inspection, hearing 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, normal voice Neck: normal inspection, full range of motion, supple, no bony tend Respiratory: normal inspection, lungs clear, normal breath sounds, no respiratory distress, no retraction, no wheezing Cardiovascular #1: regular rate, rhythm, no edema Gastrointestinal: normal inspection, normal bowel sounds, non tender, soft, no guarding, no hernia Genitourinary: no CVA tenderness Musculoskeletal: normal inspection, back normal, normal range of motion Neurologic: normal inspection, alert, oriented x3, responsive, dust box worker III-XII nml as tested, speech normal Psychiatric: normal inspection, judgement/insight normal, mood/affect normal Skin: normal inspection, normal color, no rash Medical Decision Making Diagnostic Impression: Primary Impression: Diabetes type 2, controlled Additional Impressions: Gastroenteritis Atrial fibrillation with RVR ER Course Patient presented for abdominal pain. Differential diagnoses included ischemic bowel, appendicitis, perforated viscus, abdominal aortic aneurysm, inferior myocardial infarction, viral gastroenteritis Because of complexity of patient's case laboratory testing and imaging studies were ordered. EKG interpreted by me showed atrial fibrillation with rapid ventricular response.Patient started on IV fluids.Patient was started on IV Cardizem for A. fib with rapid ventricular response.Dr. Glenn Garrido was contacted for inpatient management Labs Test 02/13/18 14:50 02/13/18 15:15 White Blood Count 6.5 K/UL (4.8-10.8) Red Blood Count 4.13 M/UL (4.20-5.40) Hemoglobin 12.6 G/DL (12.0-16.0) Hematocrit 37.6 % (37.0-47.0) Mean Corpuscular Volume 91 FL (80-99) Mean Corpuscular Hemoglobin 30.6 PG (27.0-31.0) Mean Corpuscular Hemoglobin Concent 33.7 G/DL (32.0-36.0) Red Cell Distribution Width 12.3 % (11.6-14.8) Platelet Count 196 K/UL (150-450) Mean Platelet Volume 7.0 FL (6.5-10.1) Neutrophils (%) (Auto) % (45.0-75.0) Lymphocytes (%) (Auto) % (20.0-45.0) Monocytes (%) (Auto) % (1.0-10.0) Eosinophils (%) (Auto) % (0.0-3.0) Basophils (%) (Auto) % (0.0-2.0) Differential Total Cells Counted 100 Neutrophils % (Manual) 89 % (45-75) Lymphocytes % (Manual) 7 % (20-45) Monocytes % (Manual) 4 % (1-10) Eosinophils % (Manual) 0 % (0-3) Basophils % (Manual) 0 % (0-2) Band Neutrophils 0 % (0-8) Platelet Estimate Adequate Platelet Morphology Normal Red Blood Cell Morphology Normal Prothrombin Time 10.9 SEC (9.30-11.50) Prothromb Time International Ratio 1.0 (0.9-1.1) Activated Partial Thromboplast Time 26 SEC (23-33) Sodium Level 143 MMOL/L (136-145) Potassium Level 4.3 MMOL/L (3.5-5.1) Chloride Level 104 MMOL/L (98-107) Carbon Dioxide Level 26 MMOL/L (21-32) Anion Gap 13 mmol/L (5-15) Blood Urea Nitrogen 11 mg/dL (7-18) Creatinine 0.7 MG/DL (0.55-1.30) Estimat Glomerular Filtration Rate mL/min (>60) Glucose Level 142 MG/DL (74-106) Calcium Level 8.7 MG/DL (8.5-10.1) Total Bilirubin 0.4 MG/DL (0.2-1.0) Aspartate Amino Transf (AST/SGOT) 15 U/L (15-37) Alanine Aminotransferase (ALT/SGPT) 17 U/L (12-78) Alkaline Phosphatase 87 U/L (46-116) Troponin I 0.000 ng/mL (0.000-0.056) Total Protein 6.8 G/DL (6.4-8.2) Albumin 3.7 G/DL (3.4-5.0) Globulin 3.1 g/dL Albumin/Globulin Ratio 1.2 (1.0-2.7) Lipase 147 U/L (73-393) Urine Color Pale yellow Urine Appearance Clear Urine pH 7 (4.5-8.0) Urine Specific Burns 1.010 (1.005-1.035) Urine Protein 2+ (NEGATIVE) Urine Glucose (UA) Negative (NEGATIVE) Urine Ketones 3+ (NEGATIVE) Urine Occult Blood 1+ (NEGATIVE) Urine Nitrite Negative (NEGATIVE) Urine Bilirubin Negative (NEGATIVE) Urine Urobilinogen Normal MG/DL (0.0-1.0) Urine Leukocyte Esterase Negative (NEGATIVE) Urine RBC 2-4 /HPF (0 - 2) Urine WBC 0-2 /HPF (0 - 2) Urine Squamous Epithelial Cells Few /LPF (NONE/OCC) Urine Bacteria Few /HPF (NONE) EKG Diagnostic Results Rate: tachycardiac Rhythm: other - afib ST Segments: no acute changes Rhythm Strip Diag. Results EP Interpretation: yes Rhythm: no PVC's, no ectopy Last Vital Signs Date Time Temp Pulse Resp B/P (MAP) Pulse Ox O2 Delivery O2 Flow Rate FiO2 02/13/18 13:36 97.9 159 23 115/68 98 Room Air 97.9 Status: unchanged Disposition: ADMITTED INPATIENT Condition: Serious Referrals: Glenn Garrido MD (PCP) Nishant Awad Feb 13, 2018 17:20
[2018-02-13] MEDS ORDERED: dilTIAZem HCl 25mg/5ml Inj IVP ONE (17:30)
[2018-02-13 17:49] VITALS: BP 141/82
[2018-02-13 19:03] VITALS: BP 142/69
[2018-02-13] MEDS ORDERED: Nitroglycerin Subl 0.4mg tab SL PRN (19:30)
[2018-02-13] MEDS ORDERED: Miralax 17gm pkt ORAL PRN (19:30)
[2018-02-13] MEDS ORDERED: Mylanta II UD 30ml ORAL PRN (19:30)
[2018-02-13] MEDS ORDERED: Morphine Sulfate 2mg/ml Inj IVP PRN (19:30)
[2018-02-13 19:40] VITALS: BP 131/54
[2018-02-13 20:20] VITALS: BP 146/69
[2018-02-13] MEDS: D5 1/2NS 1,000 ML IV SCH (21:18)
[2018-02-13] MEDS: Heparin 5000 units/ml inj SUBQ SCH (21:32)
--- NOTE | 2018-02-13 22:45 | Consultation ---
History of Present Illness General Date patient seen: Feb 13, 2018 Chief Complaint: Vomiting Present Illness HPI 82-year-old female with DM, DVT, CAD, CVA, afib presented to ER after increased abdominal pain and vomiting with gradual onset of symptoms. Patient had been taking multiple medications. Patient had been having increased painful with urination as well. she had a UA in ER which was negative and clear. Allergies: Coded Allergies: No Known Allergies (Unverified , 02/14/15) Medication History Scheduled Allopurinol* (Allopurinol*), 100 MG ORAL DAILY, (Reported) Aspirin* (Aspir 81*), 81 MG ORAL DAILY, (Reported) Cholecalciferol (Vitamin D3) (Vitamin D-400*), 1,000 UNITS ORAL DAILY, (Reported ) Digoxin* (Digoxin*), 0.25 MG ORAL DAILY, (Reported) Lisinopril (Lisinopril*), 20 MG ORAL DAILY, (Reported) Magnesium Oxide (Magnesium Oxide), 400 MG ORAL DAILY, (Reported) Metformin Hcl* (Metformin Hcl*), 1,000 MG ORAL BID, (Reported) Oxybutynin (Gelnique), 5 MG PO BID, (Reported) Rivaroxaban (Xarelto), 20 MG ORAL DAILY, (Reported) Rivaroxaban (Xarelto), 2.5 MG ORAL DAILY, (Reported) Vitamin B Cmplx/Vit C/Folic AC (Nephro-Barbara Tablet), 1 TAB ORAL DAILY, (Reported ) Scheduled PRN Zolpidem Tartrate* (Zolpidem Tartrate*), 10 MG ORAL BEDTIME PRN for Insomnia, ( Reported) Miscellaneous Medications Metoprolol Tartrate* (Metoprolol Tartrate*), 100 MG ORAL, (Reported) Temazepam (Temazepam*), 15 MG ORAL, (Reported) Discontinued Medications Cholecalciferol (Vitamin D3)* (Vitamin D*), 2,000 INTLU ORAL DAILY Discontinued Reason: Therapy completed Famotidine (Pepcid), 40 MG PO DAILY Discontinued Reason: Therapy completed Furosemide* (Lasix*), 40 MG ORAL DAILY Discontinued Reason: Therapy completed Metoprolol Succinate* (Toprol Xl*), 50 MG ORAL BID Discontinued Reason: Therapy completed Ondansetron Odt* (Zofran Odt*), 4 MG ORAL Q6H PRN for Nausea & Vomiting Discontinued Reason: Therapy completed Patient History Healthcare decision maker Resuscitation status Advanced Directive on File Past Medical/Surgical History Past Medical/Surgical History: (1) Diabetes type 2, controlled (2) Atrial fibrillation with RVR (3) Hemiparesis, right (4) Hypertension (5) HTN (hypertension) (6) Gout Review of Systems Gastrointestinal: Reports: nausea, vomiting All Other Systems: negative except mentioned in HPI Physical Exam General Appearance: WD/WN Lines, tubes and drains: peripheral HEENT: normocephalic, anicteric Neck: non-tender, normal alignment Respiratory/Chest: chest wall non-tender, lungs clear Breasts: no masses Cardiovascular/Chest: regular rhythm Abdomen: hyperactive bowel sounds Genitourinary/Rectal: normal genital exam Extremities: normal range of motion Last 24 Hour Vital Signs Date Time Temp Pulse Resp B/P (MAP) Pulse Ox O2 Delivery O2 Flow Rate FiO2 02/13/18 20:37 97.9 110 19 131/54 98 Room Air 97.9 02/13/18 19:40 110 19 131/54 98 Room Air 02/13/18 19:03 97.9 101 28 142/69 98 Room Air 97.9 02/13/18 17:49 97.9 100 18 141/82 99 Room Air 97.9 02/13/18 17:26 157 140/76 02/13/18 13:36 97.9 159 23 115/68 98 Room Air 97.9 02/13/18 13:26 97.9 122 20 142/86 99 Room Air 97.9 Laboratory Tests Test 02/13/18 14:50 02/13/18 15:15 White Blood Count 6.5 K/UL (4.8-10.8) Red Blood Count 4.13 M/UL (4.20-5.40) L Hemoglobin 12.6 G/DL (12.0-16.0) Hematocrit 37.6 % (37.0-47.0) Mean Corpuscular Volume 91 FL (80-99) Mean Corpuscular Hemoglobin 30.6 PG (27.0-31.0) Mean Corpuscular Hemoglobin Concent 33.7 G/DL (32.0-36.0) Red Cell Distribution Width 12.3 % (11.6-14.8) Platelet Count 196 K/UL (150-450) Mean Platelet Volume 7.0 FL (6.5-10.1) Neutrophils (%) (Auto) % (45.0-75.0) Lymphocytes (%) (Auto) % (20.0-45.0) Monocytes (%) (Auto) % (1.0-10.0) Eosinophils (%) (Auto) % (0.0-3.0) Basophils (%) (Auto) % (0.0-2.0) Differential Total Cells Counted 100 Neutrophils % (Manual) 89 % (45-75) H Lymphocytes % (Manual) 7 % (20-45) L Monocytes % (Manual) 4 % (1-10) Eosinophils % (Manual) 0 % (0-3) Basophils % (Manual) 0 % (0-2) Band Neutrophils 0 % (0-8) Platelet Estimate Adequate Platelet Morphology Normal Red Blood Cell Morphology Normal Prothrombin Time 10.9 SEC (9.30-11.50) Prothromb Time International Ratio 1.0 (0.9-1.1) Activated Partial Thromboplast Time 26 SEC (23-33) Sodium Level 143 MMOL/L (136-145) Potassium Level 4.3 MMOL/L (3.5-5.1) Chloride Level 104 MMOL/L (98-107) Carbon Dioxide Level 26 MMOL/L (21-32) Anion Gap 13 mmol/L (5-15) Blood Urea Nitrogen 11 mg/dL (7-18) Creatinine 0.7 MG/DL (0.55-1.30) Estimat Glomerular Filtration Rate mL/min (>60) Glucose Level 142 MG/DL (74-106) H Calcium Level 8.7 MG/DL (8.5-10.1) Total Bilirubin 0.4 MG/DL (0.2-1.0) Aspartate Amino Transf (AST/SGOT) 15 U/L (15-37) Alanine Aminotransferase (ALT/SGPT) 17 U/L (12-78) Alkaline Phosphatase 87 U/L (46-116) Troponin I 0.000 ng/mL (0.000-0.056) Total Protein 6.8 G/DL (6.4-8.2) Albumin 3.7 G/DL (3.4-5.0) Globulin 3.1 g/dL Albumin/Globulin Ratio 1.2 (1.0-2.7) Lipase 147 U/L (73-393) Urine Color Pale yellow Urine Appearance Clear Urine pH 7 (4.5-8.0) Urine Specific [place] 1.010 (1.005-1.035) Urine Protein 2+ (NEGATIVE) H Urine Glucose (UA) Negative (NEGATIVE) Urine Ketones 3+ (NEGATIVE) H Urine Occult Blood 1+ (NEGATIVE) H Urine Nitrite Negative (NEGATIVE) Urine Bilirubin Negative (NEGATIVE) Urine Urobilinogen Normal MG/DL (0.0-1.0) Urine Leukocyte Esterase Negative (NEGATIVE) Urine RBC 2-4 /HPF (0 - 2) H Urine WBC 0-2 /HPF (0 - 2) Urine Squamous Epithelial Cells Few /LPF (NONE/OCC) Urine Bacteria Few /HPF (NONE) Height (Feet): 5 Height (Inches): 3.00 Weight (Pounds): 150 Medications Current Medications Medications (Trade) Dose Ordered Sig/Yovana Route PRN Reason Start Time Stop Time Status Last Admin Dose Admin Acetaminophen (Tylenol) 650 mg Q4H PRN ORAL T>100.5 02/13/18 19:30 03/15/18 19:29 Al Hydroxide/Mg Hydroxide (Mylanta II) 30 ml Q6H PRN ORAL dyspepsia 02/13/18 19:30 03/15/18 19:29 Dextrose (Dextrose 50%) STAT PRN IV Hypoglycemia 02/13/18 19:30 03/15/18 19:29 Dextrose/Sodium Chloride 1,000 ml @ 75 mls/hr [id number] IV 02/13/18 20:00 03/15/18 19:59 02/13/18 21:18 Diltiazem HCl (Cardizem) 10 mg EVERY HOUR PRN IV heart rate more than 120 BPM 02/13/18 19:30 03/15/18 19:29 Diphenhydramine HCl (Benadryl) 25 mg Q6H PRN ORAL Itching/Pruritis 02/13/18 19:30 03/15/18 19:29 Heparin Sodium (Porcine) (Heparin 5000 units/ml) 5,000 units EVERY 12 HOURS SUBQ 02/13/18 21:00 03/15/18 20:59 02/13/18 21:32 Morphine Sulfate (Morphine Sulfate) 2 mg Q4H PRN IVP Severe Pain (Pain Scale 7-10) 3/19/18 19:30 02/20/18 19:29 Nitroglycerin (Ntg) 0.4 mg Q5M X 3 DOSES PRN SL Prn Chest Pain 02/13/18 19:30 03/15/18 19:29 Ondansetron HCl (Zofran) 4 mg Q6H PRN IVP Nausea & Vomiting 02/13/18 19:30 03/15/18 19:29 Pantoprazole (Protonix) 40 mg DAILY IVP 02/14/18 09:00 03/16/18 08:59 Polyethylene Glycol (Miralax) 17 gm HSPRN PRN ORAL Constipation 02/13/18 19:30 03/15/18 19:29 Temazepam (Restoril) 15 mg HSPRN PRN ORAL Insomnia 02/13/18 21:00 02/20/18 20:59 02/13/18 21:28 Assessment/Plan Problem List: (1) Vomiting ICD Codes: R11.10 - Vomiting, unspecified SNOMED: 082682171 (2) Atrial fibrillation with RVR ICD Codes: I48.91 - Unspecified atrial fibrillation SNOMED: 698915621376908 (3) Hypertension ICD Codes: I10 - Hypertension SNOMED: 86095070 (4) Diabetes type 2, controlled ICD Codes: E11.9 - Diabetes type 2, controlled SNOMED: 99688507 (5) Gout ICD Codes: M10.9 - Gout, unspecified SNOMED: 64505757 (6) Hemiparesis, right ICD Codes: G81.91 - Hemiplegia, unspecified affecting right dominant side SNOMED: 310926905 Assessment/Plan IV fluids symptomatic treatment NPO GI evaluation cardio to see for afib monitor BP, dvt prophylaxis. Bryan Bertrand MD Feb 13, 2018 22:45
[2018-02-13] MEDS ORDERED: XARELTO15 MG ORAL (23:23)
[2018-02-14] VITALS: BP 118/59
[2018-02-14 04:00] VITALS: BP 94/61
[2018-02-14 08:06] VITALS: BP 130/68
[2018-02-14 08:23] LABS: BASOPHILS % (AUTO) 0.9 % (0.0-2.0); EOSINOPHILS % (AUTO) 2.9 % (0.0-3.0); HEMATOCRIT 33.1 % (37.0-47.0); HEMOGLOBIN 11.2 G/DL (12.0-16.0); LYMPHOCYTES % (AUTO) 25.4 % (20.0-45.0); MEAN CORPUSCULAR VOLUME 91 FL (80-99); MONOCYTES % (AUTO) 7.4 % (1.0-10.0); NEUTROPHILS % (AUTO) 63.4 % (45.0-75.0); PLATELET COUNT 177 K/UL (150-450); RED BLOOD COUNT 3.64 M/UL (4.20-5.40); RED CELL DISTRIBUTION WIDTH 12.5 % (11.6-14.8); WHITE BLOOD COUNT 4.3 K/UL (4.8-10.8)
[2018-02-14 08:54] LABS: ALANINE AMINOTRANSFERASE 14 U/L (12-78); ALBUMIN 3.1 G/DL (3.4-5.0); ALKALINE PHOSPHATASE 72 U/L (46-116); AMYLASE 70 U/L (25-115); ANION GAP 7 mmol/L (5-15); ASPARTATE AMINO TRANSFERASE 15 U/L (15-37); BILIRUBIN,TOTAL 0.5 MG/DL (0.2-1.0); BLOOD UREA NITROGEN 9 mg/dL (7-18); CALCIUM 8.5 MG/DL (8.5-10.1); CARBON DIOXIDE 29 MMOL/L (21-32); CHLORIDE 107 MMOL/L (98-107); CREATININE 0.7 MG/DL (0.55-1.30); POTASSIUM 3.2 MMOL/L (3.5-5.1); SODIUM 143 MMOL/L (136-145)
[2018-02-14] MEDS: Pantoprazole Inj IVP SCH (09:15)
[2018-02-14] MEDS: Heparin 5000 units/ml inj SUBQ SCH ×2 (09:20→21:00)
[2018-02-14] MEDS: D5 1/2NS 1,000 ML IV SCH (10:18)
[2018-02-14 12:05] VITALS: BP 146/79
--- NOTE | 2018-02-14 13:07 | Consultation ---
History of Present Illness General Date patient seen: Feb 14, 2018 Chief Complaint: Vomiting Reason for Consultation: cholelithiasis, nausea, emesis, abd pain Present Illness HPI 82-year-old female with DM, DVT, CAD, CVA, afib presented to ER with complaints of gradually increased abdominal pain, nausea and vomiting. Abdominal discomfort for a few days prior no non blood emesis. no other complaints. no fever or chills. states she is hungry now and asks for her popsicle to be opened for her. Pain vague discomfort generalized without radiation. now resolved. CT on admission demonstrated cholelithiasis. surgery called to evaluate for abdominal pain and possible cholecystitis vs biliary colic. Allergies: Coded Allergies: No Known Allergies (Unverified , 02/14/15) Medication History Scheduled Allopurinol* (Allopurinol*), 100 MG ORAL DAILY, (Reported) Aspirin* (Aspir 81*), 81 MG ORAL DAILY, (Reported) Cholecalciferol (Vitamin D3) (Vitamin D-400*), 1,000 UNITS ORAL DAILY, (Reported ) Digoxin* (Digoxin*), 0.25 MG ORAL DAILY, (Reported) Lisinopril (Lisinopril*), 20 MG ORAL DAILY, (Reported) Magnesium Oxide (Magnesium Oxide), 400 MG ORAL DAILY, (Reported) Metformin Hcl* (Metformin Hcl*), 1,000 MG ORAL BID, (Reported) Oxybutynin (Gelnique), 5 MG PO BID, (Reported) Rivaroxaban (Xarelto), 20 MG ORAL DAILY, (Reported) Rivaroxaban (Xarelto), 2.5 MG ORAL DAILY, (Reported) Vitamin B Cmplx/Vit C/Folic AC (Nephro-Barbara Tablet), 1 TAB ORAL DAILY, (Reported ) Scheduled PRN Zolpidem Tartrate* (Zolpidem Tartrate*), 10 MG ORAL BEDTIME PRN for Insomnia, ( Reported) Miscellaneous Medications Metoprolol Tartrate* (Metoprolol Tartrate*), 100 MG ORAL, (Reported) Temazepam (Temazepam*), 15 MG ORAL, (Reported) Discontinued Medications Cholecalciferol (Vitamin D3)* (Vitamin D*), 2,000 INTLU ORAL DAILY Discontinued Reason: Therapy completed Famotidine (Pepcid), 40 MG PO DAILY Discontinued Reason: Therapy completed Furosemide* (Lasix*), 40 MG ORAL DAILY Discontinued Reason: Therapy completed Metoprolol Succinate* (Toprol Xl*), 50 MG ORAL BID Discontinued Reason: Therapy completed Ondansetron Odt* (Zofran Odt*), 4 MG ORAL Q6H PRN for Nausea & Vomiting Discontinued Reason: Therapy completed Patient History History Provided By: Patient, Medical Record, PMD Healthcare decision maker Resuscitation status Full Code Advanced Directive on File No Past Medical/Surgical History Past Medical/Surgical History: (1) Symptomatic bradycardia (2) UTI (urinary tract infection) (3) Acute appendicitis (4) Flank pain (5) Hyperglycemia due to type 2 diabetes mellitus (6) Tachycardia (7) Atrial fibrillation with rapid ventricular response (8) Dehydration (9) Cerebral vascular disease (10) Right hemiparesis (11) Rapid atrial fibrillation (12) Iron deficiency anemia (13) Diabetes mellitus (14) Generalized weakness (15) Elevated lipase (16) Atrial fibrillation with RVR (17) Gastroenteritis (18) Diabetes type 2, controlled (19) Abdominal pain (20) Gout (21) Hypertension (22) HTN (hypertension) (23) Hemiparesis, right (24) Vomiting Review of Systems All Other Systems: negative except mentioned in HPI Physical Exam General Appearance: no apparent distress, alert Lines, tubes and drains: peripheral HEENT: mucous membranes moist, PERRL Neck: normal alignment Respiratory/Chest: chest wall non-tender, lungs clear, normal breath sounds, no respiratory distress, no accessory muscle use Cardiovascular/Chest: normal peripheral pulses, normal rate Abdomen: normal bowel sounds, non tender, soft, no organomegaly, no mass Extremities: normal inspection Skin Exam: warm/dry Neurologic: alert, responsive Last 24 Hour Vital Signs Date Time Temp Pulse Resp B/P (MAP) Pulse Ox O2 Delivery O2 Flow Rate FiO2 02/14/18 12:05 98.0 92 20 146/79 98 Room Air 98.0 02/14/18 08:06 98.1 108 18 130/68 95 Room Air 98.1 02/14/18 07:52 107 02/14/18 04:00 98.1 106 20 94/61 96 Room Air 98.1 02/14/18 04:00 103 02/14/18 00:00 97.5 71 18 118/59 98 Room Air 97.5 02/14/18 00:00 94 02/13/18 20:50 107 02/13/18 20:37 97.9 110 19 131/54 98 Room Air 97.9 02/13/18 20:20 97.9 93 22 146/69 99 Room Air 97.9 02/13/18 20:00 94 02/13/18 19:40 110 19 131/54 98 Room Air 02/13/18 19:03 97.9 101 28 142/69 98 Room Air 97.9 02/13/18 17:49 97.9 100 18 141/82 99 Room Air 97.9 02/13/18 17:26 157 140/76 02/13/18 13:36 97.9 159 23 115/68 98 Room Air 97.9 02/13/18 13:26 97.9 122 20 142/86 99 Room Air 97.9 Intake and Output 02/13/18 02/14/18 19:00 07:00 Intake Total 0 ml 725 ml Balance 0 ml 725 ml Intake Oral 0 ml 50 ml IV Total 675 ml Laboratory Tests Test 02/13/18 14:50 02/13/18 15:15 02/14/18 07:50 White Blood Count 6.5 K/UL (4.8-10.8) 4.3 K/UL (4.8-10.8) L Red Blood Count 4.13 M/UL (4.20-5.40) L 3.64 M/UL (4.20-5.40) L Hemoglobin 12.6 G/DL (12.0-16.0) 11.2 G/DL (12.0-16.0) L Hematocrit 37.6 % (37.0-47.0) 33.1 % (37.0-47.0) L Mean Corpuscular Volume 91 FL (80-99) 91 FL (80-99) Mean Corpuscular Hemoglobin 30.6 PG (27.0-31.0) 30.7 PG (27.0-31.0) Mean Corpuscular Hemoglobin Concent 33.7 G/DL (32.0-36.0) 33.7 G/DL (32.0-36.0) Red Cell Distribution Width 12.3 % (11.6-14.8) 12.5 % (11.6-14.8) Platelet Count 196 K/UL (150-450) 177 K/UL (150-450) Mean Platelet Volume 7.0 FL (6.5-10.1) 7.2 FL (6.5-10.1) Neutrophils (%) (Auto) % (45.0-75.0) 63.4 % (45.0-75.0) Lymphocytes (%) (Auto) % (20.0-45.0) 25.4 % (20.0-45.0) Monocytes (%) (Auto) % (1.0-10.0) 7.4 % (1.0-10.0) Eosinophils (%) (Auto) % (0.0-3.0) 2.9 % (0.0-3.0) Basophils (%) (Auto) % (0.0-2.0) 0.9 % (0.0-2.0) Differential Total Cells Counted 100 Neutrophils % (Manual) 89 % (45-75) H Lymphocytes % (Manual) 7 % (20-45) L Monocytes % (Manual) 4 % (1-10) Eosinophils % (Manual) 0 % (0-3) Basophils % (Manual) 0 % (0-2) Band Neutrophils 0 % (0-8) Platelet Estimate Adequate Platelet Morphology Normal Red Blood Cell Morphology Normal Prothrombin Time 10.9 SEC (9.30-11.50) Prothromb Time International Ratio 1.0 (0.9-1.1) Activated Partial Thromboplast Time 26 SEC (23-33) 26 SEC (23-33) Sodium Level 143 MMOL/L (136-145) 143 MMOL/L (136-145) Potassium Level 4.3 MMOL/L (3.5-5.1) 3.2 MMOL/L (3.5-5.1) L Chloride Level 104 MMOL/L (98-107) 107 MMOL/L (98-107) Carbon Dioxide Level 26 MMOL/L (21-32) 29 MMOL/L (21-32) Anion Gap 13 mmol/L (5-15) 7 mmol/L (5-15) Blood Urea Nitrogen 11 mg/dL (7-18) 9 mg/dL (7-18) Creatinine 0.7 MG/DL (0.55-1.30) 0.7 MG/DL (0.55-1.30) Estimat Glomerular Filtration Rate mL/min (>60) mL/min (>60) Glucose Level 142 MG/DL (74-106) H 107 MG/DL (74-106) H Calcium Level 8.7 MG/DL (8.5-10.1) 8.5 MG/DL (8.5-10.1) Total Bilirubin 0.4 MG/DL (0.2-1.0) 0.5 MG/DL (0.2-1.0) Aspartate Amino Transf (AST/SGOT) 15 U/L (15-37) 15 U/L (15-37) Alanine Aminotransferase (ALT/SGPT) 17 U/L (12-78) 14 U/L (12-78) Alkaline Phosphatase 87 U/L (46-116) 72 U/L (46-116) Troponin I 0.000 ng/mL (0.000-0.056) Total Protein 6.8 G/DL (6.4-8.2) 6.2 G/DL (6.4-8.2) L Albumin 3.7 G/DL (3.4-5.0) 3.1 G/DL (3.4-5.0) L Globulin 3.1 g/dL 3.1 g/dL Albumin/Globulin Ratio 1.2 (1.0-2.7) 1.0 (1.0-2.7) Lipase 147 U/L (73-393) 188 U/L (73-393) Urine Color Pale yellow Urine Appearance Clear Urine pH 7 (4.5-8.0) Urine Specific [place] 1.010 (1.005-1.035) Urine Protein 2+ (NEGATIVE) H Urine Glucose (UA) Negative (NEGATIVE) Urine Ketones 3+ (NEGATIVE) H Urine Occult Blood 1+ (NEGATIVE) H Urine Nitrite Negative (NEGATIVE) Urine Bilirubin Negative (NEGATIVE) Urine Urobilinogen Normal MG/DL (0.0-1.0) Urine Leukocyte Esterase Negative (NEGATIVE) Urine RBC 2-4 /HPF (0 - 2) H Urine WBC 0-2 /HPF (0 - 2) Urine Squamous Epithelial Cells Few /LPF (NONE/OCC) Urine Bacteria Few /HPF (NONE) Amylase Level 70 U/L (25-115) Height (Feet): 5 Height (Inches): 2.00 Weight (Pounds): 114 Medications Current Medications Medications (Trade) Dose Ordered Sig/Yovana Route PRN Reason Start Time Stop Time Status Last Admin Dose Admin Acetaminophen (Tylenol) 650 mg Q4H PRN ORAL T>100.5 02/13/18 19:30 03/15/18 19:29 Al Hydroxide/Mg Hydroxide (Mylanta II) 30 ml Q6H PRN ORAL dyspepsia 02/13/18 19:30 03/15/18 19:29 Dextrose (Dextrose 50%) STAT PRN IV Hypoglycemia 02/13/18 19:30 03/15/18 19:29 Dextrose/Sodium Chloride 1,000 ml @ 75 mls/hr [id number] IV 02/13/18 20:00 03/15/18 19:59 02/14/18 10:18 Diltiazem HCl (Cardizem) 10 mg EVERY HOUR PRN IV heart rate more than 120 BPM 02/13/18 19:30 03/15/18 19:29 Diphenhydramine HCl (Benadryl) 25 mg Q6H PRN ORAL Itching/Pruritis 02/13/18 19:30 03/15/18 19:29 Heparin Sodium (Porcine) (Heparin 5000 units/ml) 5,000 units EVERY 12 HOURS SUBQ 02/13/18 21:00 03/15/18 20:59 02/14/18 09:20 Morphine Sulfate (Morphine Sulfate) 2 mg Q4H PRN IVP Severe Pain (Pain Scale 7-10) 02/13/18 19:30 02/20/18 19:29 Nitroglycerin (Ntg) 0.4 mg Q5M X 3 DOSES PRN SL Prn Chest Pain 02/13/18 19:30 03/15/18 19:29 Ondansetron HCl (Zofran) 4 mg Q6H PRN IVP Nausea & Vomiting 02/13/18 19:30 03/15/18 19:29 Pantoprazole (Protonix) 40 mg DAILY IVP 02/14/18 09:00 03/16/18 08:59 02/14/18 09:15 Polyethylene Glycol (Miralax) 17 gm HSPRN PRN ORAL Constipation 02/13/18 19:30 03/15/18 19:29 Temazepam (Restoril) 15 mg HSPRN PRN ORAL Insomnia 02/13/18 21:00 02/20/18 20:59 02/13/18 21:28 Assessment/Plan Problem List: (1) Abdominal pain Assessment & Plan: Pain now resolved. denies n/v/f/c. n/v resolved. tolerating diet. CT reviewed and cholelithiasis noted without cholecystitis. possible episodes of biliary colic afebrile, HD stable, afib, no leukocytosis, LFT's normal. no acute surgical intervention needed. possible biliary colic which has resolved. possible GERD/reflux okay for diet PPI thank you for this consultation and allowing me to participate in Ernestina Rodney' s care. ICD Codes: R10.9 - Abdominal pain SNOMED: 18143115 Qualifiers: Qualified Codes: R10.84 - Generalized abdominal pain Status: stable DayanaJoo Feb 14, 2018 13:07
--- NOTE | 2018-02-14 13:30 | Pulmonology Progress Note ---
Assessment/Plan Problems: (1) Atrial fibrillation with RVR (2) Vomiting (3) Hypertension (4) Diabetes type 2, controlled (5) Gout (6) Hemiparesis, right Assessment/Plan heart rate not controlled cardiology f/u cardizem prn symptomatic treatment if heart rate not controlled, she needs to go to ICU dvt prophylaxis Subjective ROS Limited/Unobtainable: No Interval Events: no new complains Allergies: Coded Allergies: No Known Allergies (Unverified , 02/14/15) Objective Last 24 Hour Vital Signs Date Time Temp Pulse Resp B/P (MAP) Pulse Ox O2 Delivery O2 Flow Rate FiO2 02/14/18 12:05 98.0 92 20 146/79 98 Room Air 98.0 02/14/18 08:06 98.1 108 18 130/68 95 Room Air 98.1 02/14/18 07:52 107 02/14/18 04:00 98.1 106 20 94/61 96 Room Air 98.1 02/14/18 04:00 103 02/14/18 00:00 97.5 71 18 118/59 98 Room Air 97.5 02/14/18 00:00 94 02/13/18 20:50 107 02/13/18 20:37 97.9 110 19 131/54 98 Room Air 97.9 02/13/18 20:20 97.9 93 22 146/69 99 Room Air 97.9 02/13/18 20:00 94 02/13/18 19:40 110 19 131/54 98 Room Air 02/13/18 19:03 97.9 101 28 142/69 98 Room Air 97.9 02/13/18 17:49 97.9 100 18 141/82 99 Room Air 97.9 02/13/18 17:26 157 140/76 02/13/18 13:36 97.9 159 23 115/68 98 Room Air 97.9 Intake and Output 02/13/18 02/14/18 19:00 07:00 Intake Total 0 ml 725 ml Balance 0 ml 725 ml Intake Oral 0 ml 50 ml IV Total 675 ml Objective General Appearance: WD/WN Lines, tubes and drains: peripheral HEENT: normocephalic, atraumatic Neck: non-tender, normal alignment Respiratory/Chest: chest wall non-tender, lungs clear, normal breath sounds Breasts: no masses Cardiovascular/Chest: normal peripheral pulses, normal rate, no JVD Abdomen: normal bowel sounds, non tender Genitourinary/Rectal: normal genital exam Extremities: normal range of motion, non-tender Skin Exam: normal pigmentation, warm/dry Laboratory Tests 02/13/18 14:50: White Blood Count 6.5, Red Blood Count 4.13L, Hemoglobin 12.6, Hematocrit 37.6, Mean Corpuscular Volume 91, Mean Corpuscular Hemoglobin 30.6, Mean Corpuscular Hemoglobin Concent 33.7, Red Cell Distribution Width 12.3, Platelet Count 196, Mean Platelet Volume 7.0, Neutrophils (%) (Auto) , Lymphocytes (%) (Auto) , Monocytes (%) (Auto) , Eosinophils (%) (Auto) , Basophils (%) (Auto) , Differential Total Cells Counted 100, Neutrophils % (Manual) 89H, Lymphocytes % (Manual) 7L, Monocytes % (Manual) 4, Eosinophils % (Manual) 0, Basophils % ( Manual) 0, Band Neutrophils 0, Platelet Estimate Adequate, Platelet Morphology Normal, Red Blood Cell Morphology Normal, Prothrombin Time 10.9, Prothromb Time International Ratio 1.0, Activated Partial Thromboplast Time 26, Sodium Level 143, Potassium Level 4.3, Chloride Level 104, Carbon Dioxide Level 26, Anion Gap 13, Blood Urea Nitrogen 11, Creatinine 0.7, Estimat Glomerular Filtration Rate , Glucose Level 142H, Calcium Level 8.7, Total Bilirubin 0.4, Aspartate Amino Transf (AST/SGOT) 15, Alanine Aminotransferase (ALT/SGPT) 17, Alkaline Phosphatase 87, Troponin I 0.000, Total Protein 6.8, Albumin 3.7, Globulin 3.1, Albumin/Globulin Ratio 1.2, Lipase 147 02/13/18 15:15: Urine Color Pale yellow, Urine Appearance Clear, Urine pH 7, Urine Specific [place] 1.010, Urine Protein 2+H, Urine Glucose (UA) Negative, Urine Ketones 3+H , Urine Occult Blood 1+H, Urine Nitrite Negative, Urine Bilirubin Negative, Urine Urobilinogen Normal, Urine Leukocyte Esterase Negative, Urine RBC 2-4H, Urine WBC 0-2, Urine Squamous Epithelial Cells Few, Urine Bacteria Few 02/14/18 07:50: White Blood Count 4.3L, Red Blood Count 3.64L, Hemoglobin 11.2L, Hematocrit 33.1L, Mean Corpuscular Volume 91, Mean Corpuscular Hemoglobin 30.7, Mean Corpuscular Hemoglobin Concent 33.7, Red Cell Distribution Width 12.5, Platelet Count 177, Mean Platelet Volume 7.2, Neutrophils (%) (Auto) 63.4, Lymphocytes (% ) (Auto) 25.4, Monocytes (%) (Auto) 7.4, Eosinophils (%) (Auto) 2.9, Basophils ( %) (Auto) 0.9, Activated Partial Thromboplast Time 26, Sodium Level 143, Potassium Level 3.2L, Chloride Level 107, Carbon Dioxide Level 29, Anion Gap 7, Blood Urea Nitrogen 9, Creatinine 0.7, Estimat Glomerular Filtration Rate , Glucose Level 107H, Calcium Level 8.5, Total Bilirubin 0.5, Aspartate Amino Transf (AST/SGOT) 15, Alanine Aminotransferase (ALT/SGPT) 14, Alkaline Phosphatase 72, Total Protein 6.2L, Albumin 3.1L, Globulin 3.1, Albumin/ Globulin Ratio 1.0, Lipase 188, Amylase Level 70 Current Medications Medications (Trade) Dose Ordered Sig/Yovana Route PRN Reason Start Time Stop Time Status Last Admin Dose Admin Acetaminophen (Tylenol) 650 mg Q4H PRN ORAL T>100.5 02/13/18 19:30 03/15/18 19:29 Al Hydroxide/Mg Hydroxide (Mylanta II) 30 ml Q6H PRN ORAL dyspepsia 02/13/18 19:30 03/15/18 19:29 Dextrose (Dextrose 50%) STAT PRN IV Hypoglycemia 02/13/18 19:30 03/15/18 19:29 Dextrose/Sodium Chloride 1,000 ml @ 75 mls/hr [id number] IV 02/13/18 20:00 03/15/18 19:59 02/14/18 10:18 Diltiazem HCl (Cardizem) 10 mg EVERY HOUR PRN IV heart rate more than 120 BPM 02/13/18 19:30 03/15/18 19:29 Diphenhydramine HCl (Benadryl) 25 mg Q6H PRN ORAL Itching/Pruritis 02/13/18 19:30 03/15/18 19:29 Heparin Sodium (Porcine) (Heparin 5000 units/ml) 5,000 units EVERY 12 HOURS SUBQ 02/13/18 21:00 03/15/18 20:59 02/14/18 09:20 Morphine Sulfate (Morphine Sulfate) 2 mg Q4H PRN IVP Severe Pain (Pain Scale 7-10) 02/13/18 19:30 02/20/18 19:29 Nitroglycerin (Ntg) 0.4 mg Q5M X 3 DOSES PRN SL Prn Chest Pain 02/13/18 19:30 03/15/18 19:29 Ondansetron HCl (Zofran) 4 mg Q6H PRN IVP Nausea & Vomiting 02/13/18 19:30 03/15/18 19:29 Pantoprazole (Protonix) 40 mg DAILY IVP 02/14/18 09:00 03/16/18 08:59 02/14/18 09:15 Polyethylene Glycol (Miralax) 17 gm HSPRN PRN ORAL Constipation 02/13/18 19:30 03/15/18 19:29 Temazepam (Restoril) 15 mg HSPRN PRN ORAL Insomnia 02/13/18 21:00 02/20/18 20:59 02/13/18 21:28 Bryan Bertrand MD Feb 14, 2018 13:30
[2018-02-14] MEDS: dilTIAZem HCl 25mg/5ml Inj IV PRN ×2 (13:36→14:57)
--- NOTE | 2018-02-14 14:06 | GI Initial Consult Note ---
Multani,Gladys Omar N.PSapphire 02/14/18 1406: History of Present Illness General Date patient seen: Feb 14, 2018 Time patient seen: 13:48 Reason for Hospitalization: Vomiting Referring physician: CHASITY HERNANDEZ Reason for Consultation: cholelithiasis, nausea, emesis, abd pain Present Illness HPI Patient is an 82-year-old female who presented after increased abdominal pain and vomiting. Patient had gradual onset of symptoms. She had prior history of cardiac arrhythmia as well as diabetes. Patient had been taking multiple medications. Patient had been having increased painful with urination. Patient was brought in by daughter.Primary care physician is Dr. Hernandez GI consulted for abdominal pain, emesis. Pt seen, awake A&Ox4 NAD with no active s/sx of N/V/D. She presents today with anemia and colitis as shown on CT. She has a history of iron deficiency. This patient was seen last year at [place] for gastroenteritis and vomiting. Labs reviewed. Home Meds Reported Medications Rivaroxaban (XARELTO) 15 Mg Tablet, 2.5 MG ORAL DAILY for 30 Days, MG 0 Refills 02/13/18 Rivaroxaban (XARELTO) 20 Mg Tablet, 20 MG ORAL DAILY for 30 Days, MG 0 Refills 04/29/17 Vitamin B Cmplx/Vit C/Folic AC (Nephro-Barbara Tablet) 0.8 Mg Tablet, 1 TAB ORAL DAILY, #30 TAB 0 Refills 04/29/17 Metoprolol Tartrate* (METOPROLOL TARTRATE*) 100 Mg Tablet, 100 MG ORAL, TAB 11/26/16 Temazepam (TEMAZEPAM*) 15 Mg Capsule, 15 MG ORAL, #30 CAP 0 Refills 11/26/16 Magnesium Oxide (MAGNESIUM OXIDE) 400 Mg Tablet, 400 MG ORAL DAILY, #30 TAB 0 Refills 05/21/15 Metformin Hcl* (METFORMIN HCL*) 1,000 Mg Tablet, 1000 MG ORAL BID, TAB 05/21/15 Oxybutynin (GELNIQUE) 92 Gm Gel.household coordinator, 5 MG PO BID 05/21/15 Lisinopril (LISINOPRIL*) 20 Mg Tablet, 20 MG ORAL DAILY, TAB 02/18/15 Allopurinol* (ALLOPURINOL*) 100 Mg Tablet, 100 MG ORAL DAILY, TAB 02/14/15 Cholecalciferol (Vitamin D3) (VITAMIN D-400*) 400 Unit Tablet, 1000 UNITS ORAL DAILY, TAB 02/14/15 Digoxin* (DIGOXIN*) 250 Mcg Tablet, 0.25 MG ORAL DAILY, TAB 02/14/15 Zolpidem Tartrate* (ZOLPIDEM TARTRATE*) 10 Mg Tablet, 10 MG ORAL BEDTIME PRN for Insomnia, TAB 0 Refills 02/14/15 Aspirin* (ASPIR 81*) 81 Mg Tablet.dr, 81 MG ORAL DAILY, TAB 02/14/15 Discontinued Scripts Furosemide* (LASIX*) 40 Mg Tablet, 40 MG ORAL DAILY for 30 Days, TAB Prov:Bryan Bertrand MD 04/14/17 Ondansetron Odt* (ZOFRAN ODT*) 4 Mg Tab.rapdis, 4 MG ORAL Q6H PRN for Nausea & Vomiting, #12 TAB 0 Refills Prov:SALTY OGDEN M.D. 11/26/16 Famotidine (PEPCID) 40 Mg Tablet, 40 MG PO DAILY for 14 Days, #30 TAB 0 Refills Prov:SALTY OGDEN M.D. 11/26/16 Metoprolol Succinate* (TOPROL XL*) 50 Mg Tab.er.24h, 50 MG ORAL BID for 30 Days , #60 TAB Prov:Chasity Hernandez MD 08/10/16 Cholecalciferol (Vitamin D3)* (VITAMIN D*) 1,000 Intlu Tab, 2000 INTLU ORAL DAILY for 30 Days, TAB Prov:SANYA OVALLE N.PSapphire 02/18/15 Med list reviewed/reconciled: Yes Allergies: Coded Allergies: No Known Allergies (Unverified , 02/14/15) Patient History History Provided By: Patient, Medical Record PMH Narrative Hx Cardiac Problems: Yes - Cardiomegaly, Palpitations. 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 Social History: Denies: smoking, alcohol use, drug use, other Review of Systems All Other Systems: negative except mentioned in HPI Physical Exam Vital Signs Date Time Temp Pulse Resp B/P (MAP) Pulse Ox O2 Delivery O2 Flow Rate FiO2 02/13/18 13:26 97.9 122 20 142/86 99 Room Air 97.9 Sp02 EP Interpretation: reviewed, normal Labs Laboratory Tests Test 02/13/18 14:50 02/13/18 15:15 02/14/18 07:50 White Blood Count 6.5 K/UL (4.8-10.8) 4.3 K/UL (4.8-10.8) L Red Blood Count 4.13 M/UL (4.20-5.40) L 3.64 M/UL (4.20-5.40) L Hemoglobin 12.6 G/DL (12.0-16.0) 11.2 G/DL (12.0-16.0) L Hematocrit 37.6 % (37.0-47.0) 33.1 % (37.0-47.0) L Mean Corpuscular Volume 91 FL (80-99) 91 FL (80-99) Mean Corpuscular Hemoglobin 30.6 PG (27.0-31.0) 30.7 PG (27.0-31.0) Mean Corpuscular Hemoglobin Concent 33.7 G/DL (32.0-36.0) 33.7 G/DL (32.0-36.0) Red Cell Distribution Width 12.3 % (11.6-14.8) 12.5 % (11.6-14.8) Platelet Count 196 K/UL (150-450) 177 K/UL (150-450) Mean Platelet Volume 7.0 FL (6.5-10.1) 7.2 FL (6.5-10.1) Neutrophils (%) (Auto) % (45.0-75.0) 63.4 % (45.0-75.0) Lymphocytes (%) (Auto) % (20.0-45.0) 25.4 % (20.0-45.0) Monocytes (%) (Auto) % (1.0-10.0) 7.4 % (1.0-10.0) Eosinophils (%) (Auto) % (0.0-3.0) 2.9 % (0.0-3.0) Basophils (%) (Auto) % (0.0-2.0) 0.9 % (0.0-2.0) Differential Total Cells Counted 100 Neutrophils % (Manual) 89 % (45-75) H Lymphocytes % (Manual) 7 % (20-45) L Monocytes % (Manual) 4 % (1-10) Eosinophils % (Manual) 0 % (0-3) Basophils % (Manual) 0 % (0-2) Band Neutrophils 0 % (0-8) Platelet Estimate Adequate Platelet Morphology Normal Red Blood Cell Morphology Normal Prothrombin Time 10.9 SEC (9.30-11.50) Prothromb Time International Ratio 1.0 (0.9-1.1) Activated Partial Thromboplast Time 26 SEC (23-33) 26 SEC (23-33) Sodium Level 143 MMOL/L (136-145) 143 MMOL/L (136-145) Potassium Level 4.3 MMOL/L (3.5-5.1) 3.2 MMOL/L (3.5-5.1) L Chloride Level 104 MMOL/L (98-107) 107 MMOL/L (98-107) Carbon Dioxide Level 26 MMOL/L (21-32) 29 MMOL/L (21-32) Anion Gap 13 mmol/L (5-15) 7 mmol/L (5-15) Blood Urea Nitrogen 11 mg/dL (7-18) 9 mg/dL (7-18) Creatinine 0.7 MG/DL (0.55-1.30) 0.7 MG/DL (0.55-1.30) Estimat Glomerular Filtration Rate mL/min (>60) mL/min (>60) Glucose Level 142 MG/DL (74-106) H 107 MG/DL (74-106) H Calcium Level 8.7 MG/DL (8.5-10.1) 8.5 MG/DL (8.5-10.1) Total Bilirubin 0.4 MG/DL (0.2-1.0) 0.5 MG/DL (0.2-1.0) Aspartate Amino Transf (AST/SGOT) 15 U/L (15-37) 15 U/L (15-37) Alanine Aminotransferase (ALT/SGPT) 17 U/L (12-78) 14 U/L (12-78) Alkaline Phosphatase 87 U/L (46-116) 72 U/L (46-116) Troponin I 0.000 ng/mL (0.000-0.056) Total Protein 6.8 G/DL (6.4-8.2) 6.2 G/DL (6.4-8.2) L Albumin 3.7 G/DL (3.4-5.0) 3.1 G/DL (3.4-5.0) L Globulin 3.1 g/dL 3.1 g/dL Albumin/Globulin Ratio 1.2 (1.0-2.7) 1.0 (1.0-2.7) Lipase 147 U/L (73-393) 188 U/L (73-393) Urine Color Pale yellow Urine Appearance Clear Urine pH 7 (4.5-8.0) Urine Specific [place] 1.010 (1.005-1.035) Urine Protein 2+ (NEGATIVE) H Urine Glucose (UA) Negative (NEGATIVE) Urine Ketones 3+ (NEGATIVE) H Urine Occult Blood 1+ (NEGATIVE) H Urine Nitrite Negative (NEGATIVE) Urine Bilirubin Negative (NEGATIVE) Urine Urobilinogen Normal MG/DL (0.0-1.0) Urine Leukocyte Esterase Negative (NEGATIVE) Urine RBC 2-4 /HPF (0 - 2) H Urine WBC 0-2 /HPF (0 - 2) Urine Squamous Epithelial Cells Few /LPF (NONE/OCC) Urine Bacteria Few /HPF (NONE) Amylase Level 70 U/L (25-115) General Appearance: well appearing, no apparent distress, alert Head: normocephalic EENT: PERRL/EOMI, normal ENT inspection Neck: supple Respiratory: normal breath sounds, no respiratory distress Cardiovascular: normal rate Gastrointestinal: normal inspection, non tender, soft, normal bowel sounds, non -distended Rectal: deferred Genitourinary: no CVA tenderness Musculoskeletal: normal inspection, back normal Neurologic: normal inspection, alert, oriented x3, responsive Psychiatric: normal inspection, judgement/insight normal, memory normal Skin: normal inspection, normal color, no rash, warm/dry, palpation normal, well hydrated Lymphatic: normal inspection, no adenopathy Current Medications Current Medications Medications (Trade) Dose Ordered Sig/Yovana Route PRN Reason Start Time Stop Time Status Last Admin Dose Admin Acetaminophen (Tylenol) 650 mg Q4H PRN ORAL T>100.5 02/13/18 19:30 03/15/18 19:29 Al Hydroxide/Mg Hydroxide (Mylanta II) 30 ml Q6H PRN ORAL dyspepsia 02/13/18 19:30 03/15/18 19:29 Dextrose (Dextrose 50%) STAT PRN IV Hypoglycemia 02/13/18 19:30 03/15/18 19:29 Dextrose/Sodium Chloride 1,000 ml @ 75 mls/hr [id number] IV 02/13/18 20:00 03/15/18 19:59 02/14/18 10:18 Diltiazem HCl (Cardizem) 10 mg EVERY HOUR PRN IV heart rate more than 120 BPM 02/13/18 19:30 03/15/18 19:29 02/14/18 13:36 Diphenhydramine HCl (Benadryl) 25 mg Q6H PRN ORAL Itching/Pruritis 02/13/18 19:30 03/15/18 19:29 Heparin Sodium (Porcine) (Heparin 5000 units/ml) 5,000 units EVERY 12 HOURS SUBQ 02/13/18 21:00 03/15/18 20:59 02/14/18 09:20 Morphine Sulfate (Morphine Sulfate) 2 mg Q4H PRN IVP Severe Pain (Pain Scale 7-10) 02/13/18 19:30 02/20/18 19:29 Nitroglycerin (Ntg) 0.4 mg Q5M X 3 DOSES PRN SL Prn Chest Pain 02/13/18 19:30 03/15/18 19:29 Ondansetron HCl (Zofran) 4 mg Q6H PRN IVP Nausea & Vomiting 02/13/18 19:30 03/15/18 19:29 Pantoprazole (Protonix) 40 mg DAILY IVP 02/14/18 09:00 03/16/18 08:59 02/14/18 09:15 Polyethylene Glycol (Miralax) 17 gm HSPRN PRN ORAL Constipation 02/13/18 19:30 03/15/18 19:29 Temazepam (Restoril) 15 mg HSPRN PRN ORAL Insomnia 02/13/18 21:00 02/20/18 20:59 02/13/18 21:28 GI: Plan Problems: (1) Abdominal pain (2) Iron deficiency anemia (3) Diabetes mellitus (4) Dehydration (5) Vomiting Plan CT AP reviewed >> possible mild focal colitis EGD scheduled for tomorrow, will consider colonoscopy if necessary. - Clara Carter, NPO @ [facility]. - hold all blood thinners anemia work up OB stool r/o GI bleed monitor H&H, prn transfusions bowel regime ppi fu labs ST eval Discussed with Dr. Denton. Thank you for this patient referral, we will follow. BERTINSHAUNNAD 02/17/18 0911: History of Present Illness General Reason for Hospitalization: Vomiting Present Illness Home Meds Reported Medications Rivaroxaban (XARELTO) 15 Mg Tablet, 2.5 MG ORAL DAILY for 30 Days, MG 0 Refills 02/13/18 Rivaroxaban (XARELTO) 20 Mg Tablet, 20 MG ORAL DAILY for 30 Days, MG 0 Refills 04/29/17 Vitamin B Cmplx/Vit C/Folic AC (Nephro-Barbara Tablet) 0.8 Mg Tablet, 1 TAB ORAL DAILY, #30 TAB 0 Refills 04/29/17 Metoprolol Tartrate* (METOPROLOL TARTRATE*) 100 Mg Tablet, 100 MG ORAL, TAB 11/26/16 Temazepam (TEMAZEPAM*) 15 Mg Capsule, 15 MG ORAL, #30 CAP 0 Refills 11/26/16 Magnesium Oxide (MAGNESIUM OXIDE) 400 Mg Tablet, 400 MG ORAL DAILY, #30 TAB 0 Refills 05/21/15 Metformin Hcl* (METFORMIN HCL*) 1,000 Mg Tablet, 1000 MG ORAL BID, TAB 05/21/15 Oxybutynin (GELNIQUE) 92 Gm Gel.household coordinator, 5 MG PO BID 05/21/15 Lisinopril (LISINOPRIL*) 20 Mg Tablet, 20 MG ORAL DAILY, TAB 02/18/15 Allopurinol* (ALLOPURINOL*) 100 Mg Tablet, 100 MG ORAL DAILY, TAB 02/14/15 Cholecalciferol (Vitamin D3) (VITAMIN D-400*) 400 Unit Tablet, 1000 UNITS ORAL DAILY, TAB 02/14/15 Digoxin* (DIGOXIN*) 250 Mcg Tablet, 0.25 MG ORAL DAILY, TAB 02/14/15 Zolpidem Tartrate* (ZOLPIDEM TARTRATE*) 10 Mg Tablet, 10 MG ORAL BEDTIME PRN for Insomnia, TAB 0 Refills 02/14/15 Aspirin* (ASPIR 81*) 81 Mg Tablet., 81 MG ORAL DAILY, TAB 02/14/15 Discontinued Scripts Furosemide* (LASIX*) 40 Mg Tablet, 40 MG ORAL DAILY for 30 Days, TAB Prov:Bryan Bertrand MD 04/14/17 Ondansetron Odt* (ZOFRAN ODT*) 4 Mg Tab.rapdis, 4 MG ORAL Q6H PRN for Nausea & Vomiting, #12 TAB 0 Refills Prov:SALTY OGDEN M.D. 11/26/16 Famotidine (PEPCID) 40 Mg Tablet, 40 MG PO DAILY for 14 Days, #30 TAB 0 Refills Prov:SALTY OGDEN M.D. 11/26/16 Metoprolol Succinate* (TOPROL XL*) 50 Mg Tab.er.24h, 50 MG ORAL BID for 30 Days , #60 TAB Prov:Chasity Hernandez MD 08/10/16 Cholecalciferol (Vitamin D3)* (VITAMIN D*) 1,000 Intlu Tab, 2000 INTLU ORAL DAILY for 30 Days, TAB Prov:SANYA OVALLE N.P. 02/18/15 Allergies: Coded Allergies: No Known Allergies (Unverified , 02/14/15) GI: Plan Plan The patient was seen and examined at bedside and all new and available data was reviewed in the patients chart. I agree with the above findings, impression and plan. (Patient seen earlier today. Signature stamp does not reflect patient encounter time.). - MD Nerissa Valdez Anh Omar N.P. Feb 14, 2018 14:06 ANG DENTON Feb 17, 2018 09:11
--- NOTE | 2018-02-14 15:01 | Cardiology Progress Note ---
Assessment/Plan Assessment/Plan [id number] iv and po bb avoid dig wath on tele dc ivf at risk fo chf repeat cardiac enzymes and ekg an echo Objective Last 24 Hour Vital Signs Date Time Temp Pulse Resp B/P (MAP) Pulse Ox O2 Delivery O2 Flow Rate FiO2 02/14/18 14:57 142 146/79 02/14/18 13:36 140 146/79 02/14/18 12:05 98.0 92 20 146/79 98 Room Air 98.0 02/14/18 08:06 98.1 108 18 130/68 95 Room Air 98.1 02/14/18 07:52 107 02/14/18 04:00 98.1 106 20 94/61 96 Room Air 98.1 02/14/18 04:00 103 02/14/18 00:00 97.5 71 18 118/59 98 Room Air 97.5 02/14/18 00:00 94 02/13/18 20:50 107 02/13/18 20:37 97.9 110 19 131/54 98 Room Air 97.9 02/13/18 20:20 97.9 93 22 146/69 99 Room Air 97.9 02/13/18 20:00 94 02/13/18 19:40 110 19 131/54 98 Room Air 02/13/18 19:03 97.9 101 28 142/69 98 Room Air 97.9 02/13/18 17:49 97.9 100 18 141/82 99 Room Air 97.9 02/13/18 17:26 157 140/76 Intake and Output 02/13/18 02/14/18 19:00 07:00 Intake Total 0 ml 725 ml Balance 0 ml 725 ml Intake Oral 0 ml 50 ml IV Total 675 ml Laboratory Tests Test 02/13/18 15:15 02/14/18 07:50 Urine Color Pale yellow Urine Appearance Clear Urine pH 7 (4.5-8.0) Urine Specific [place] 1.010 (1.005-1.035) Urine Protein 2+ (NEGATIVE) H Urine Glucose (UA) Negative (NEGATIVE) Urine Ketones 3+ (NEGATIVE) H Urine Occult Blood 1+ (NEGATIVE) H Urine Nitrite Negative (NEGATIVE) Urine Bilirubin Negative (NEGATIVE) Urine Urobilinogen Normal MG/DL (0.0-1.0) Urine Leukocyte Esterase Negative (NEGATIVE) Urine RBC 2-4 /HPF (0 - 2) H Urine WBC 0-2 /HPF (0 - 2) Urine Squamous Epithelial Cells Few /LPF (NONE/OCC) Urine Bacteria Few /HPF (NONE) White Blood Count 4.3 K/UL (4.8-10.8) L Red Blood Count 3.64 M/UL (4.20-5.40) L Hemoglobin 11.2 G/DL (12.0-16.0) L Hematocrit 33.1 % (37.0-47.0) L Mean Corpuscular Volume 91 FL (80-99) Mean Corpuscular Hemoglobin 30.7 PG (27.0-31.0) Mean Corpuscular Hemoglobin Concent 33.7 G/DL (32.0-36.0) Red Cell Distribution Width 12.5 % (11.6-14.8) Platelet Count 177 K/UL (150-450) Mean Platelet Volume 7.2 FL (6.5-10.1) Neutrophils (%) (Auto) 63.4 % (45.0-75.0) Lymphocytes (%) (Auto) 25.4 % (20.0-45.0) Monocytes (%) (Auto) 7.4 % (1.0-10.0) Eosinophils (%) (Auto) 2.9 % (0.0-3.0) Basophils (%) (Auto) 0.9 % (0.0-2.0) Activated Partial Thromboplast Time 26 SEC (23-33) Sodium Level 143 MMOL/L (136-145) Potassium Level 3.2 MMOL/L (3.5-5.1) L Chloride Level 107 MMOL/L (98-107) Carbon Dioxide Level 29 MMOL/L (21-32) Anion Gap 7 mmol/L (5-15) Blood Urea Nitrogen 9 mg/dL (7-18) Creatinine 0.7 MG/DL (0.55-1.30) Estimat Glomerular Filtration Rate mL/min (>60) Glucose Level 107 MG/DL (74-106) H Calcium Level 8.5 MG/DL (8.5-10.1) Total Bilirubin 0.5 MG/DL (0.2-1.0) Aspartate Amino Transf (AST/SGOT) 15 U/L (15-37) Alanine Aminotransferase (ALT/SGPT) 14 U/L (12-78) Alkaline Phosphatase 72 U/L (46-116) Total Protein 6.2 G/DL (6.4-8.2) L Albumin 3.1 G/DL (3.4-5.0) L Globulin 3.1 g/dL Albumin/Globulin Ratio 1.0 (1.0-2.7) Amylase Level 70 U/L (25-115) Lipase 188 U/L (73-393) CORI SOLIS 20, 2018 15:01
--- NOTE | 2018-02-14 15:01 | History & Physical ---
History and Physical History & Physicial Dictated for Int Med-Dr Garrido no. [id number]. CHIKI CARLTON Feb 14, 2018 15:01
[2018-02-14] MEDS ORDERED: Metoprolol 5mg/5ml Inj IVP PRN (15:15)
--- NOTE | 2018-02-14 15:45 | Consultation ---
History of Present Illness General Date patient seen: Feb 14, 2018 Time patient seen: 15:36 Chief Complaint: Vomiting Referring physician: CHASITY HERNANDEZ Reason for Consultation: cholelithiasis, nausea, emesis, abd pain Present Illness HPI 82 y/o F with hx of DM2, DVT, CAD, CVA, Afib presents to ED on 02/13 with increased abd pain, nausea and vomiting (non bloody). Also complained of dysuria. U/a in ED was unremarkable. Denies f/c Afebrile, no leukocytosis. CT abd/p with cholelithiasis Abd pain, n/v now resolved Allergies: Coded Allergies: No Known Allergies (Unverified , 02/14/15) Medication History Scheduled Allopurinol* (Allopurinol*), 100 MG ORAL DAILY, (Reported) Aspirin* (Aspir 81*), 81 MG ORAL DAILY, (Reported) Cholecalciferol (Vitamin D3) (Vitamin D-400*), 1,000 UNITS ORAL DAILY, (Reported ) Digoxin* (Digoxin*), 0.25 MG ORAL DAILY, (Reported) Lisinopril (Lisinopril*), 20 MG ORAL DAILY, (Reported) Magnesium Oxide (Magnesium Oxide), 400 MG ORAL DAILY, (Reported) Metformin Hcl* (Metformin Hcl*), 1,000 MG ORAL BID, (Reported) Oxybutynin (Gelnique), 5 MG PO BID, (Reported) Rivaroxaban (Xarelto), 20 MG ORAL DAILY, (Reported) Rivaroxaban (Xarelto), 2.5 MG ORAL DAILY, (Reported) Vitamin B Cmplx/Vit C/Folic AC (Nephro-Barbara Tablet), 1 TAB ORAL DAILY, (Reported ) Scheduled PRN Zolpidem Tartrate* (Zolpidem Tartrate*), 10 MG ORAL BEDTIME PRN for Insomnia, ( Reported) Miscellaneous Medications Metoprolol Tartrate* (Metoprolol Tartrate*), 100 MG ORAL, (Reported) Temazepam (Temazepam*), 15 MG ORAL, (Reported) Discontinued Medications Cholecalciferol (Vitamin D3)* (Vitamin D*), 2,000 INTLU ORAL DAILY Discontinued Reason: Therapy completed Famotidine (Pepcid), 40 MG PO DAILY Discontinued Reason: Therapy completed Furosemide* (Lasix*), 40 MG ORAL DAILY Discontinued Reason: Therapy completed Metoprolol Succinate* (Toprol Xl*), 50 MG ORAL BID Discontinued Reason: Therapy completed Ondansetron Odt* (Zofran Odt*), 4 MG ORAL Q6H PRN for Nausea & Vomiting Discontinued Reason: Therapy completed Patient History Healthcare decision maker Resuscitation status Full Code Advanced Directive on File No Patient History Narrative Pmhx: as above Shx: reviewed Fhx: non contributory Review of Systems All Other Systems: negative except mentioned in HPI Physical Exam Physical Exam Narrative General Appearance: WD/WN Lines, tubes and drains: peripheral HEENT: normocephalic, atraumatic Neck: non-tender, normal alignment Respiratory/Chest: chest wall non-tender, lungs clear, normal breath sounds Breasts: no masses Cardiovascular/Chest: normal peripheral pulses, normal rate, no JVD Abdomen: normal bowel sounds, non tender Genitourinary/Rectal: normal genital exam Extremities: normal range of motion, non-tender Skin Exam: normal pigmentation, warm/dry Last 24 Hour Vital Signs Date Time Temp Pulse Resp B/P (MAP) Pulse Ox O2 Delivery O2 Flow Rate FiO2 02/14/18 14:57 142 146/79 02/14/18 13:36 140 146/79 02/14/18 12:05 98.0 92 20 146/79 98 Room Air 98.0 02/14/18 11:29 86 02/14/18 08:06 98.1 108 18 130/68 95 Room Air 98.1 02/14/18 07:52 107 02/14/18 04:00 98.1 106 20 94/61 96 Room Air 98.1 02/14/18 04:00 103 02/14/18 00:00 97.5 71 18 118/59 98 Room Air 97.5 02/14/18 00:00 94 02/13/18 20:50 107 02/13/18 20:37 97.9 110 19 131/54 98 Room Air 97.9 02/13/18 20:20 97.9 93 22 146/69 99 Room Air 97.9 02/13/18 20:00 94 02/13/18 19:40 110 19 131/54 98 Room Air 02/13/18 19:03 97.9 101 28 142/69 98 Room Air 97.9 02/13/18 17:49 97.9 100 18 141/82 99 Room Air 97.9 02/13/18 17:26 157 140/76 Intake and Output 02/13/18 02/14/18 19:00 07:00 Intake Total 0 ml 725 ml Balance 0 ml 725 ml Intake Oral 0 ml 50 ml IV Total 675 ml Laboratory Tests Test 02/14/18 07:50 White Blood Count 4.3 K/UL (4.8-10.8) L Red Blood Count 3.64 M/UL (4.20-5.40) L Hemoglobin 11.2 G/DL (12.0-16.0) L Hematocrit 33.1 % (37.0-47.0) L Mean Corpuscular Volume 91 FL (80-99) Mean Corpuscular Hemoglobin 30.7 PG (27.0-31.0) Mean Corpuscular Hemoglobin Concent 33.7 G/DL (32.0-36.0) Red Cell Distribution Width 12.5 % (11.6-14.8) Platelet Count 177 K/UL (150-450) Mean Platelet Volume 7.2 FL (6.5-10.1) Neutrophils (%) (Auto) 63.4 % (45.0-75.0) Lymphocytes (%) (Auto) 25.4 % (20.0-45.0) Monocytes (%) (Auto) 7.4 % (1.0-10.0) Eosinophils (%) (Auto) 2.9 % (0.0-3.0) Basophils (%) (Auto) 0.9 % (0.0-2.0) Activated Partial Thromboplast Time 26 SEC (23-33) Sodium Level 143 MMOL/L (136-145) Potassium Level 3.2 MMOL/L (3.5-5.1) L Chloride Level 107 MMOL/L (98-107) Carbon Dioxide Level 29 MMOL/L (21-32) Anion Gap 7 mmol/L (5-15) Blood Urea Nitrogen 9 mg/dL (7-18) Creatinine 0.7 MG/DL (0.55-1.30) Estimat Glomerular Filtration Rate mL/min (>60) Glucose Level 107 MG/DL (74-106) H Calcium Level 8.5 MG/DL (8.5-10.1) Total Bilirubin 0.5 MG/DL (0.2-1.0) Aspartate Amino Transf (AST/SGOT) 15 U/L (15-37) Alanine Aminotransferase (ALT/SGPT) 14 U/L (12-78) Alkaline Phosphatase 72 U/L (46-116) Total Protein 6.2 G/DL (6.4-8.2) L Albumin 3.1 G/DL (3.4-5.0) L Globulin 3.1 g/dL Albumin/Globulin Ratio 1.0 (1.0-2.7) Amylase Level 70 U/L (25-115) Lipase 188 U/L (73-393) Height (Feet): 5 Height (Inches): 2.00 Weight (Pounds): 114 Medications Current Medications Medications (Trade) Dose Ordered Sig/Yovana Route PRN Reason Start Time Stop Time Status Last Admin Dose Admin Acetaminophen (Tylenol) 650 mg Q4H PRN ORAL T>100.5 02/13/18 19:30 03/15/18 19:29 Al Hydroxide/Mg Hydroxide (Mylanta II) 30 ml Q6H PRN ORAL dyspepsia 02/13/18 19:30 03/15/18 19:29 Dextrose (Dextrose 50%) STAT PRN IV Hypoglycemia 02/13/18 19:30 03/15/18 19:29 Diphenhydramine HCl (Benadryl) 25 mg Q6H PRN ORAL Itching/Pruritis 02/13/18 19:30 03/15/18 19:29 Heparin Sodium (Porcine) (Heparin 5000 units/ml) 5,000 units EVERY 12 HOURS SUBQ 02/13/18 21:00 03/15/18 20:59 02/14/18 09:20 Metoprolol Tartrate (Lopressor) 5 mg QIDPRN PRN IVP hear rate greater than 130 02/14/18 15:15 03/16/18 15:14 UNV Metoprolol Tartrate (Lopressor) 75 mg EVERY 12 HOURS ORAL 02/14/18 15:15 03/16/18 15:14 UNV Morphine Sulfate (Morphine Sulfate) 2 mg Q4H PRN IVP Severe Pain (Pain Scale 7-10) 02/13/18 19:30 02/20/18 19:29 Nitroglycerin (Ntg) 0.4 mg Q5M X 3 DOSES PRN SL Prn Chest Pain 02/13/18 19:30 03/15/18 19:29 Ondansetron HCl (Zofran) 4 mg Q6H PRN IVP Nausea & Vomiting 02/13/18 19:30 03/15/18 19:29 Pantoprazole (Protonix) 40 mg DAILY IVP 02/14/18 09:00 03/16/18 08:59 02/14/18 09:15 Polyethylene Glycol (Miralax) 17 gm HSPRN PRN ORAL Constipation 02/13/18 19:30 03/15/18 19:29 Temazepam (Restoril) 15 mg HSPRN PRN ORAL Insomnia 02/13/18 21:00 02/20/18 20:59 02/13/18 21:28 Assessment/Plan Assessment/Plan Abx: None Assessment: Abd pain, n/v- ? focal colitis, ?viral gastroenteritis vs biliary colic- symptoms has now resolved -CT abd/p w/ IV contrast: Equivocal mild prominence of the ascending colon wall and slight infiltration of the pericolonic fat, probably artifact of under distention and baseline for this patient, but mild focal colitis is possible. No acute abnormality otherwise. Cholelithiasis, also previously described. Distended bladder. Minimal anterior pericardial thickening versus fluid, decreased from the prior study. Cardiomegaly L1 and L5 compression fracture deformities, unchanged from previous exam incidental findings noted, including bilateral basilar pulmonary interstitial prominence and compressive atelectasis, degenerative spondylosis, subcentimeter low-attenuation left lobe liver lesion, small to moderate sliding-type hiatal hernia Cholelithiasis Dysuria -u/a no pyuria Afebrile, no leukocytosis DM2 DVT CAD CVA Afib Plan: -Continue to monitor off abxl; ok to discharge from ID perspective. -Plan for colonoscopy per GI -Monitor CBC,/BMP, temperatures -aspiration precautions Thank you for this consultation. Will continue to follow along with you. Discussed with Viktoria Ingram M.D. Feb 14, 2018 15:45
[2018-02-14 16:00] VITALS: BP 109/68
[2018-02-14] MEDS: Metoprolol 25mg tab ORAL SCH (16:23)
--- NOTE | 2018-02-14 17:56 | Consultation ---
History of Present Illness General Date patient seen: Feb 13, 2018 Chief Complaint: Vomiting Referring physician: CHASITY HERNANDEZ Reason for Consultation: cholelithiasis, nausea, emesis, abd pain Present Illness HPI Patient is an 82-year-old female who presented after increased abdominal pain and vomiting. the pt is macedonian speaking. the pt has hx of CVA the daughter provided the hx, the pt has been withdrawn and hopeless with low energy and generalized weakness. the pt is calm and didnt endorse anxiety she was pleasant however stated that she was tired during the day Allergies: Coded Allergies: No Known Allergies (Unverified , 02/14/15) Medication History Scheduled Allopurinol* (Allopurinol*), 100 MG ORAL DAILY, (Reported) Aspirin* (Aspir 81*), 81 MG ORAL DAILY, (Reported) Cholecalciferol (Vitamin D3) (Vitamin D-400*), 1,000 UNITS ORAL DAILY, (Reported ) Digoxin* (Digoxin*), 0.25 MG ORAL DAILY, (Reported) Lisinopril (Lisinopril*), 20 MG ORAL DAILY, (Reported) Magnesium Oxide (Magnesium Oxide), 400 MG ORAL DAILY, (Reported) Metformin Hcl* (Metformin Hcl*), 1,000 MG ORAL BID, (Reported) Oxybutynin (Gelnique), 5 MG PO BID, (Reported) Rivaroxaban (Xarelto), 20 MG ORAL DAILY, (Reported) Rivaroxaban (Xarelto), 2.5 MG ORAL DAILY, (Reported) Vitamin B Cmplx/Vit C/Folic AC (Nephro-Barbara Tablet), 1 TAB ORAL DAILY, (Reported ) Scheduled PRN Zolpidem Tartrate* (Zolpidem Tartrate*), 10 MG ORAL BEDTIME PRN for Insomnia, ( Reported) Miscellaneous Medications Metoprolol Tartrate* (Metoprolol Tartrate*), 100 MG ORAL, (Reported) Temazepam (Temazepam*), 15 MG ORAL, (Reported) Discontinued Medications Cholecalciferol (Vitamin D3)* (Vitamin D*), 2,000 INTLU ORAL DAILY Discontinued Reason: Therapy completed Famotidine (Pepcid), 40 MG PO DAILY Discontinued Reason: Therapy completed Furosemide* (Lasix*), 40 MG ORAL DAILY Discontinued Reason: Therapy completed Metoprolol Succinate* (Toprol Xl*), 50 MG ORAL BID Discontinued Reason: Therapy completed Ondansetron Odt* (Zofran Odt*), 4 MG ORAL Q6H PRN for Nausea & Vomiting Discontinued Reason: Therapy completed Patient History Limited by: medical condition History Provided By: Patient, Family Member, PMD Healthcare decision maker Resuscitation status Full Code Advanced Directive on File No Past Medical/Surgical History Past Medical/Surgical History: (1) Atrial fibrillation with RVR (2) Gastroenteritis (3) Diabetes type 2, controlled (4) Gout (5) Hypertension (6) HTN (hypertension) (7) Hemiparesis, right (8) Vomiting (9) Dehydration (10) Diabetes mellitus (11) Generalized weakness (12) Flank pain (13) Tachycardia (14) Iron deficiency anemia (15) UTI (urinary tract infection) (16) Abdominal pain (17) Acute appendicitis (18) Cerebral vascular disease (19) Right hemiparesis (20) Rapid atrial fibrillation (21) Atrial fibrillation with rapid ventricular response (22) Symptomatic bradycardia (23) Elevated lipase (24) Hyperglycemia due to type 2 diabetes mellitus Review of Systems Psychiatric: Reports: see HPI, anxiety, depressed feelings, emotional problems Physical Exam General Appearance: no apparent distress, alert Neurologic: alert, responsive, depressed affect Last 24 Hour Vital Signs Date Time Temp Pulse Resp B/P (MAP) Pulse Ox O2 Delivery O2 Flow Rate FiO2 02/14/18 16:23 92 146/79 02/14/18 16:00 97.0 93 18 109/68 98 Room Air 97.0 02/14/18 14:57 142 146/79 02/14/18 13:36 140 146/79 02/14/18 12:05 98.0 92 20 146/79 98 Room Air 98.0 02/14/18 11:29 86 02/14/18 08:06 98.1 108 18 130/68 95 Room Air 98.1 02/14/18 07:52 107 02/14/18 04:00 98.1 106 20 94/61 96 Room Air 98.1 02/14/18 04:00 103 02/14/18 00:00 97.5 71 18 118/59 98 Room Air 97.5 02/14/18 00:00 94 02/13/18 20:50 107 02/13/18 20:37 97.9 110 19 131/54 98 Room Air 97.9 02/13/18 20:20 97.9 93 22 146/69 99 Room Air 97.9 02/13/18 20:00 94 02/13/18 19:40 110 19 131/54 98 Room Air 02/13/18 19:03 97.9 101 28 142/69 98 Room Air 97.9 Intake and Output 02/13/18 02/14/18 19:00 07:00 Intake Total 0 ml 725 ml Balance 0 ml 725 ml Intake Oral 0 ml 50 ml IV Total 675 ml Laboratory Tests Test 02/14/18 07:50 White Blood Count 4.3 K/UL (4.8-10.8) L Red Blood Count 3.64 M/UL (4.20-5.40) L Hemoglobin 11.2 G/DL (12.0-16.0) L Hematocrit 33.1 % (37.0-47.0) L Mean Corpuscular Volume 91 FL (80-99) Mean Corpuscular Hemoglobin 30.7 PG (27.0-31.0) Mean Corpuscular Hemoglobin Concent 33.7 G/DL (32.0-36.0) Red Cell Distribution Width 12.5 % (11.6-14.8) Platelet Count 177 K/UL (150-450) Mean Platelet Volume 7.2 FL (6.5-10.1) Neutrophils (%) (Auto) 63.4 % (45.0-75.0) Lymphocytes (%) (Auto) 25.4 % (20.0-45.0) Monocytes (%) (Auto) 7.4 % (1.0-10.0) Eosinophils (%) (Auto) 2.9 % (0.0-3.0) Basophils (%) (Auto) 0.9 % (0.0-2.0) Activated Partial Thromboplast Time 26 SEC (23-33) Sodium Level 143 MMOL/L (136-145) Potassium Level 3.2 MMOL/L (3.5-5.1) L Chloride Level 107 MMOL/L (98-107) Carbon Dioxide Level 29 MMOL/L (21-32) Anion Gap 7 mmol/L (5-15) Blood Urea Nitrogen 9 mg/dL (7-18) Creatinine 0.7 MG/DL (0.55-1.30) Estimat Glomerular Filtration Rate mL/min (>60) Glucose Level 107 MG/DL (74-106) H Calcium Level 8.5 MG/DL (8.5-10.1) Total Bilirubin 0.5 MG/DL (0.2-1.0) Aspartate Amino Transf (AST/SGOT) 15 U/L (15-37) Alanine Aminotransferase (ALT/SGPT) 14 U/L (12-78) Alkaline Phosphatase 72 U/L (46-116) Pro-B-Type Natriuretic Peptide 1825 pg/mL (0-125) H Total Protein 6.2 G/DL (6.4-8.2) L Albumin 3.1 G/DL (3.4-5.0) L Globulin 3.1 g/dL Albumin/Globulin Ratio 1.0 (1.0-2.7) Amylase Level 70 U/L (25-115) Lipase 188 U/L (73-393) Height (Feet): 5 Height (Inches): 2.00 Weight (Pounds): 114 Medications Current Medications Medications (Trade) Dose Ordered Sig/Yovana Route PRN Reason Start Time Stop Time Status Last Admin Dose Admin Acetaminophen (Tylenol) 650 mg Q4H PRN ORAL T>100.5 02/13/18 19:30 03/15/18 19:29 Al Hydroxide/Mg Hydroxide (Mylanta II) 30 ml Q6H PRN ORAL dyspepsia 02/13/18 19:30 03/15/18 19:29 Dextrose (Dextrose 50%) STAT PRN IV Hypoglycemia 02/13/18 19:30 03/15/18 19:29 Diphenhydramine HCl (Benadryl) 25 mg Q6H PRN ORAL Itching/Pruritis 02/13/18 19:30 03/15/18 19:29 Heparin Sodium (Porcine) (Heparin 5000 units/ml) 5,000 units EVERY 12 HOURS SUBQ 02/13/18 21:00 03/15/18 20:59 02/14/18 09:20 Metoprolol Tartrate (Lopressor) 5 mg QIDPRN PRN IVP hear rate greater than 130 02/14/18 15:15 03/16/18 15:14 Metoprolol Tartrate (Lopressor) 75 mg EVERY 12 HOURS ORAL 02/14/18 17:00 03/16/18 16:59 02/14/18 16:23 Morphine Sulfate (Morphine Sulfate) 2 mg Q4H PRN IVP Severe Pain (Pain Scale 7-10) 02/13/18 19:30 02/20/18 19:29 Nitroglycerin (Ntg) 0.4 mg Q5M X 3 DOSES PRN SL Prn Chest Pain 02/13/18 19:30 03/15/18 19:29 Ondansetron HCl (Zofran) 4 mg Q6H PRN IVP Nausea & Vomiting 02/13/18 19:30 03/15/18 19:29 Pantoprazole (Protonix) 40 mg DAILY IVP 02/14/18 09:00 03/16/18 08:59 02/14/18 09:15 Polyethylene Glycol (Miralax) 17 gm HSPRN PRN ORAL Constipation 02/13/18 19:30 03/15/18 19:29 Temazepam (Restoril) 15 mg HSPRN PRN ORAL Insomnia 02/13/18 21:00 02/20/18 20:59 02/13/18 21:28 Assessment/Plan Status: stable Assessment/Plan mdd cva -rec low dose ssris -provided elena/Slava Masters M.D. Feb 14, 2018 17:56
--- NOTE | 2018-02-14 18:13 | Cardiology Report ---
APPROVED REPORT EXAM: Two-dimensional and M-mode echocardiogram with Doppler and color Doppler. INDICATION Atrial Flutter M-Mode DIMENSIONS IVSd0.9 (0.7-1.1cm)Left Atrium (MM)3.8 (1.6-4.0cm) LVDd4.6 (3.5-5.6cm)Aortic Root3.0 (2.0-3.7cm) PWd1.0 (0.7-1.1cm)Aortic Cusp Exc.1.7 (1.5-2.0cm) LVDs3.4 (2.5-4.0cm) PWs1.1 cm Normal left ventricular chamber size,borderline systolic function and wall motion. Left ventricular ejection fraction estimated to be 50%. No evidence of left ventricular hypertrophy. No evidence of pericardial or pleural effusion. Mild Bi-atrail enlargement by 2D. Focal aortic valve sclerosis with adequate cusp excursion. Thickened mitral valve leaflets with normal excursion. Mild mitral annulus and aortic root calcification. Pulmonic valve not well visualized. Normal tricuspid valve structure. IVC is normal in size non-collapsible with respiration indicate increased RA pressure. A color flow and spectral Doppler study was performed and revealed: Mild aortic regurgitation. Moderate mitral regurgitation (2 JETS). Normal mitral diastolic function. Trace tricuspid regurgitation. Tricuspid systolic velocities suggests peak right ventricular systolic pressure of 32 mmHg Pulmonic regurgitation present.
[2018-02-14 20:00] VITALS: BP 120/78
--- NOTE | 2018-02-14 21:16 | History and Physical Report ---
DATE OF ADMISSION: 02/13/2018 CHIEF COMPLAINT: The patient is an 82-year-old female, presents with complaint of abdominal pain, nausea, and vomiting. HISTORY OF PRESENT ILLNESS: Began one day prior to admission. The patient began to experience abdominal pain. The patient also had nausea and vomiting. The patient also complains of increased frequency of urination. The patient presented to [place] emergency room. The patient was found to be in atrial fibrillation with ventricular rate of 161-180. The patient is admitted for abdominal pain, nausea, vomiting, and atrial fibrillation with rapid ventricular rate. PAST MEDICAL HISTORY: Significant for 1. Type 2 diabetes. 2. Hypertension. 3. Paroxysmal atrial fibrillation. 4. History of cerebrovascular accident. 5. Right hemiparesis. PAST SURGICAL HISTORY: Significant for section x1. CURRENT MEDICATIONS: 1. Allopurinol 100 mg p.o. daily. 2. Aspirin 81 mg p.o. daily. 3. Vitamin D3 400 units two tablets p.o. daily. 4. Digoxin 0.25 mg p.o. daily. 5. Lisinopril 20 mg p.o. daily. 6. Magnesium oxide 400 mg p.o. daily. 7. Metformin 1000 mg p.o. twice daily. 8. Metoprolol 100 mg p.o. daily. 9. Oxybutynin 5 mg p.o. twice daily. 10. Xarelto 20 mg p.o. daily. 11. Temazepam 15 mg p.o. at bedtime. 12. Vitamin B complex daily. 13. Ambien 10 mg p.o. at bedtime. ALLERGIES: No known drug allergies. SOCIAL HISTORY: The patient is . The patient lives at home with her . The patient denies tobacco or alcohol use. REVIEW OF SYSTEMS: CONSTITUTIONAL: The patient denies weight loss or weight gain. The patient denies fevers or chills. HEENT: The patient denies ear or throat pain. The patient denies headache. CARDIOVASCULAR: The patient denies palpitations or chest pain. CHEST: The patient denies wheeze or shortness of breath. ABDOMEN: The patient complains of lower abdominal pain. The patient complains of nausea with vomiting. The patient denies diarrhea or constipation. GENITOURINARY: The patient complains of increased frequency of urination. The patient denies dysuria. NEUROMUSCULAR: The patient denies seizures or generalized weakness. PHYSICAL EXAMINATION: GENERAL: The patient is a well-developed and well-nourished female, in no apparent distress. VITAL SIGNS: Temperature 98.1 degrees, respirations 20, pulse 160 to 180, and blood pressure 94/61. HEENT: Eyes, pupils equal and responsive to light and accommodation. Extraocular movements are intact. NECK: Supple without lymphadenopathy. CHEST: Lungs are clear to auscultation bilaterally without wheezes or rales. CARDIOVASCULAR: Irregular rhythm and irregular rate, tachycardic. S1 and S2 are normal without murmurs, rubs, or gallops. ABDOMEN: Soft, tender to palpation bilateral lower quadrants. Nondistended with positive bowel sounds. No evidence of hepatosplenomegaly. Currently, no rebound or guarding noted. EXTREMITIES: Negative for clubbing, cyanosis, or edema. RECTAL/GENITAL: Refused. NEUROLOGIC: Cranial nerves II through XII are grossly intact without focal deficits. Motor strength is 5/5 bilaterally. Deep tendon reflexes are 2+. Motor strength is 3/5 on the right and 4/5 on the left. Deep tendon reflexes are 2+ plantar. LABORATORY AND DIAGNOSTIC DATA: WBC 6.5, hemoglobin 12.6, hematocrit 37.6 and platelets 196,000. Sodium 143, potassium 4.3, chloride 104, CO2 26, BUN 11, creatinine 0.7 and glucose 142. Troponin 0.0. Protime 10.9, INR 1.0, and PTT 26. CT of the abdomen and pelvis was essentially within normal limits. ASSESSMENT: This is an 82-year-old female with 1. Nausea with vomiting. 2. Abdominal pain. 3. Atrial fibrillation with rapid ventricular rate. 4. Type 2 diabetes. 5. Hypertension. 6. Gout. 7. History of cerebrovascular accident. 8. Right hemiparesis. TREATMENT: 1. Atrial fibrillation with rapid ventricular rate. A Cardiology consultation has been obtained with Dr. Hitesh Gates. Continue digoxin as above. The patient may require Cardizem to control rate if the rate is now greater than 160. 2. Nausea with vomiting/abdominal pain, this may be secondary to atrial fibrillation above. 3. Abdominal pain. A Gastroenterology consultation will be obtained with Dr. Miller Munoz. Initial CT scan was within normal limits. 4. Diabetes type 2. The patient has been started on NovoLog sliding scale. 5. Hypertension. Continue metoprolol as above. 6. Gout. Continue allopurinol as above. 7. History of cerebrovascular accident. 8. Right hemiparesis. Rocky Garibay M.D. DR: ROME JOB#: [id number] CC:
--- NOTE | 2018-02-14 21:31 | Consultation ---
DATE OF CONSULTATION: 02/14/2018 CARDIOLOGY CONSULTATION REFERRING PHYSICIAN: Glenn Garrido M.D. REASON FOR REFERRAL: Atrial fibrillation with rapid ventricular response. HISTORY OF PRESENT ILLNESS: This is an elderly female, who is known to me from prior evaluation and hospitalization. The patient basically has a history of multiple medical problems including history of abdominal pain, cholelithiasis, gastroenteritis, atrial fibrillation with rapid ventricular response, hypertension, diabetes mellitus, CVA, and aortic and mitral regurgitation. 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 MEDICATIONS: Her medications at home are listed elsewhere. Her medications prior to her admission listed in the computer include allopurinol, aspirin 81 mg, digoxin 250 mcg daily, lisinopril 20 mg, magnesium 400 mg, metformin a 1000 mg twice daily, metoprolol 100 mg, not sure how frequent, Xarelto 20 mg daily, temazepam, multivitamin, and Ambien. Review of our records on the last hospitalization here, she has been previously on Lasix 40 mg twice daily as well as metoprolol 100 mg twice daily and Xarelto 15 mg daily as listed in the chart in 2017. ALLERGIES: No allergies. SOCIAL HISTORY: She is a smoker, but quit number of years ago. Does not drink alcoholic beverages. Lives at home with her daughter. I have attempted to contact the patient's daughter, who was not available. REVIEW OF SYSTEMS: As obtained through the emergency room and through other physicians evaluation was increased abdominal pain, nausea, and vomiting. Abdominal pain for few days. No bloody vomitus. No fevers. No chills. In fact, she improved to the point that she was hungry when she arrived in the emergency room. There is generalized apparently pain without any radiation that apparently seemed to have resolved. She did not have any chest pain or shortness of breath as I understand it and no heart pounding or palpitations on questioning. She is difficult to obtain a history from; therefore, this information is rather questionable for accuracy. PHYSICAL EXAMINATION: GENERAL: Shows to be elderly female, who is quite tachycardic on my arrival to examine her. NECK: Supple. No jugular venous distention. LUNGS: There are decreased breath sounds on the left base, otherwise clear. CARDIAC: Irregularly irregular. Tachycardic at times and better at other times during the evaluation. ABDOMEN: Soft and nontender. Positive bowel sounds. EXTREMITIES: There is no edema. NEUROLOGICAL: She has right-sided upper extremity weakness, but she is awake, alert, and responsive. LABORATORY AND DIAGNOSTIC DATA: Her white count is 4.3, hemoglobin 11.2, and platelet count of 177,000. Sodium is 143, potassium 3.2, chloride 107, bicarbonate 29, BUN of 9, creatinine 0.7, glucose of 107, and calcium is 8.5. Her albumin is 3.1. Amylase and lipase are 70 and 188 consecutively and her INR was 1.0 and PTT of 26. Her urinalysis looked fairly normal. Her EKG shows atrial fibrillation, ventricular response appears to be somewhat rapid. At times, it is up to 141. ASSESSMENT AND PLAN: 1. Permanent atrial fibrillation. 2. Tachycardia. 3. Recurrent nausea and vomiting. 4. Mitral regurgitation previously significant. 5. Aortic regurgitation previously significant. 6. History of chronic congestive heart failure. This patient is seen in cardiac consultation. The patient had a CT scan of her abdomen and pelvis. The lung bases on the CT scan showed interstitial prominence similar to previous examination compressive atelectasis. The heart was apparently at that time enlarged . RECOMMENDATIONS: Dr. Garrido and Dr. Bertrand, this patient was seen in cardiac consultation. The patient appears to have somewhat rapid ventricular response. IV fluids will be discontinued. Her beta-blockers will be resumed at 100 mg twice daily. I would refrain from administrating digoxin. In light of the fact that she has history of digoxin toxicity, I do not see that medication be part of her medication list previously. Therefore, I suspect beta-rancho should be administered possibly intravenously until oral dose is effective. Her blood pressure has been fluctuating between 94/61 to 146/79. I think beta-blockers will be probably better than the calcium channel blockers for her at this situation. An echocardiogram will be ordered and reviewed when available. Hitesh Gates M.D. DR: Aniceto JOB#: [id number] CC:
[2018-02-15] VITALS (9 sets, daily range): BP systolic 120–151; BP diastolic 62–86
--- NOTE | 2018-02-15 06:41 | Anethesia Preoperative Eval ---
Anesthesia Pre-op PMH/ROS General Date of Evaluation: Feb 15, 2018 Time of Evaluation: 06:38 Anesthesiologist: amaya ASA Score: ASA 4 Mallampati Score Class I : Soft palate, uvula, fauces, pillars visible Class II: Soft palate, uvula, fauces visible Class III: Soft palate, base of uvula visible Class IV: Only hard plate visible Mallampati Classification: Class II Surgeon: lu Surgical Procedure: egd Anesthesia History: none Social History: smoking - former smoker Family History: no anesthesia problems Allergies: Coded Allergies: No Known Allergies (Unverified , 02/14/15) Medications: see eMAR Past Medical History Cardiovascular: Reports: HTN, CAD, arrhythmia, other - chf, cardiomegaly Neurologic/Psychiatric: Reports: CVA, other - right sided weakness Endocrine: Reports: DM Hematology/Immune: Reports: DVT Musculoskeletal/Integumentary: Reports: other - gout, back pain Anesthesia Pre-op Phys. Exam Physician Exam Last Vital Signs Date Time Temp Pulse Resp B/P (MAP) Pulse Ox O2 Delivery O2 Flow Rate FiO2 02/15/18 04:00 97.3 91 18 120/66 96 Room Air 97.3 Constitutional: NAD Neurologic: CN 2-12 intact Cardiovascular: RRR Respiratory: CTA Gastrointestinal: S/NT/ND Airway Exam Mallampati Score: Class II MO: full Neck: short TMD: 2fb ROM: limited Teeth: missing Anesthesia Pre-op A/P Labs Hematology Test 02/14/18 07:50 White Blood Count 4.3 K/UL (4.8-10.8) L Red Blood Count 3.64 M/UL (4.20-5.40) L Hemoglobin 11.2 G/DL (12.0-16.0) L Hematocrit 33.1 % (37.0-47.0) L Mean Corpuscular Volume 91 FL (80-99) Mean Corpuscular Hemoglobin 30.7 PG (27.0-31.0) Mean Corpuscular Hemoglobin Concent 33.7 G/DL (32.0-36.0) Red Cell Distribution Width 12.5 % (11.6-14.8) Platelet Count 177 K/UL (150-450) Mean Platelet Volume 7.2 FL (6.5-10.1) Neutrophils (%) (Auto) 63.4 % (45.0-75.0) Lymphocytes (%) (Auto) 25.4 % (20.0-45.0) Monocytes (%) (Auto) 7.4 % (1.0-10.0) Eosinophils (%) (Auto) 2.9 % (0.0-3.0) Basophils (%) (Auto) 0.9 % (0.0-2.0) Coagulation Test 02/14/18 07:50 Activated Partial Thromboplast Time 26 SEC (23-33) Chemistry Test 02/14/18 07:50 Sodium Level 143 MMOL/L (136-145) Potassium Level 3.2 MMOL/L (3.5-5.1) L Chloride Level 107 MMOL/L (98-107) Carbon Dioxide Level 29 MMOL/L (21-32) Anion Gap 7 mmol/L (5-15) Blood Urea Nitrogen 9 mg/dL (7-18) Creatinine 0.7 MG/DL (0.55-1.30) Estimat Glomerular Filtration Rate mL/min (>60) Glucose Level 107 MG/DL (74-106) H Calcium Level 8.5 MG/DL (8.5-10.1) Total Bilirubin 0.5 MG/DL (0.2-1.0) Aspartate Amino Transf (AST/SGOT) 15 U/L (15-37) Alanine Aminotransferase (ALT/SGPT) 14 U/L (12-78) Alkaline Phosphatase 72 U/L (46-116) Pro-B-Type Natriuretic Peptide 1825 pg/mL (0-125) H Total Protein 6.2 G/DL (6.4-8.2) L Albumin 3.1 G/DL (3.4-5.0) L Globulin 3.1 g/dL Albumin/Globulin Ratio 1.0 (1.0-2.7) Amylase Level 70 U/L (25-115) Lipase 188 U/L (73-393) Risk Assessment & Plan Assessment: asa4 Plan: mac Status Change Before Surgery: No Pre-Antibiotics Drug: TERRI Brennan Feb 15, 2018 06:41
[2018-02-15] MEDS ORDERED: DiphenhydrAMINE 50mg/ml Inj IVP PRN (06:45)
[2018-02-15] MEDS ORDERED: fentaNYL 100 mcg/2 mL IV PRN (06:45)
[2018-02-15] MEDS ORDERED: Midazolam 2mg/2ml Inj IVP PRN (06:45)
[2018-02-15] MEDS ORDERED: Atropine Inj 1mg/10ml Syr IV PRN (06:45)
[2018-02-15] MEDS ORDERED: Propofol 200mg/20ml IV ONE (08:00)
[2018-02-15] MEDS ORDERED: Lidocaine 1% MPF 10mg/ml 5ml ONE (08:00)
--- NOTE | 2018-02-15 08:29 | Pre-Procedure Note/Attestation ---
Pre-Procedure Note/Attestation Complete Prior to Procedure Planned Procedure: not applicable Procedure Narrative: egd Indications for Procedure Pre-Operative Diagnosis: gib Attestation I attest that I discussed the nature of the procedure; its benefits; risks and complications; and alternatives (and the risks and benefits of such alternatives ), prior to the procedure, with the patient (or the patient's legal risk control field representative). I attest that, if there was a reasonable possibility of needing a blood transfusion, the patient (or the patient's legal risk control field representative) was given the [facility] standardized written summary, pursuant to the [place] Blood Safety Act ([place] Health and Safety Code # 1645, as amended). I attest that I re-evaluated the patient just prior to the surgery and that there has been no change in the patient's H&P, except as documented below: ANG DENTON Feb 15, 2018 08:29
--- NOTE | 2018-02-15 08:32 | General Progress Note ---
Assessment/Plan Problem List: (1) Iron deficiency anemia ICD Codes: D50.9 - Iron deficiency anemia, unspecified SNOMED: 42583543 (2) Diabetes mellitus ICD Codes: E11.9 - Type 2 diabetes mellitus without complications SNOMED: 08718279 (3) Vomiting ICD Codes: R11.10 - Vomiting, unspecified SNOMED: 618688120 Assessment/Plan plan EGD today Subjective ROS Limited/Unobtainable: No Allergies: Coded Allergies: No Known Allergies (Unverified , 02/14/15) Objective Last 24 Hour Vital Signs Date Time Temp Pulse Resp B/P (MAP) Pulse Ox O2 Delivery O2 Flow Rate FiO2 02/15/18 07:50 102 120/66 02/15/18 04:00 97.3 91 18 120/66 96 Room Air 97.3 02/15/18 04:00 102 02/15/18 00:00 89 02/15/18 00:00 97.7 88 20 128/62 97 Room Air 97.7 02/14/18 20:00 103 02/14/18 20:00 98.2 88 18 120/78 97 Room Air 98.2 02/14/18 16:23 92 146/79 02/14/18 16:20 103 02/14/18 16:00 97.0 93 18 109/68 98 Room Air 97.0 02/14/18 14:57 142 146/79 02/14/18 13:36 140 146/79 02/14/18 12:05 98.0 92 20 146/79 98 Room Air 98.0 02/14/18 11:29 86 Intake and Output 02/14/18 02/15/18 19:00 07:00 Intake Total 315 ml Output Total 400 ml 400 ml Balance -85 ml -400 ml Intake Oral 240 ml IV Total 75 ml Output Urine Total 400 ml 400 ml # Bowel Movements 2 1 Laboratory Tests 02/14/18 16:30: Stool Occult Blood [Pending] 02/15/18 07:10: White Blood Count [Pending], Red Blood Count [Pending], Hemoglobin [Pending], Hematocrit [Pending], Mean Corpuscular Volume [Pending], Mean Corpuscular Hemoglobin [Pending], Mean Corpuscular Hemoglobin Concent [Pending], Red Cell Distribution Width [Pending], Platelet Count [Pending], Mean Platelet Volume [ Pending], Neutrophils (%) (Auto) [Pending], Lymphocytes (%) (Auto) [Pending], Monocytes (%) (Auto) [Pending], Eosinophils (%) (Auto) [Pending], Basophils (%) (Auto) [Pending], Erythrocyte Sedimentation Rate [Pending], Prothrombin Time [ Pending], Prothromb Time International Ratio [Pending], Activated Partial Thromboplast Time [Pending], Sodium Level [Pending], Potassium Level [Pending], Chloride Level [Pending], Carbon Dioxide Level [Pending], Blood Urea Nitrogen [ Pending], Creatinine [Pending], Estimat Glomerular Filtration Rate [Pending], Glucose Level [Pending], Calcium Level [Pending], Phosphorus Level [Pending], Magnesium Level [Pending], Iron Level [Pending], Unsaturated Iron Binding [ Pending], Ferritin [Pending], Total Bilirubin [Pending], Aspartate Amino Transf (AST/SGOT) [Pending], Alanine Aminotransferase (ALT/SGPT) [Pending], Alkaline Phosphatase [Pending], Troponin I [Pending], Pro-B-Type Natriuretic Peptide [ Pending], Total Protein [Pending], Albumin [Pending], Globulin [Pending], Vitamin B12 Level [Pending], Folate [Pending], Thyroid Stimulating Hormone (TSH ) [Pending], Free Thyroxine [Pending], Digoxin Level [Pending] Height (Feet): 5 Height (Inches): 2.00 Weight (Pounds): 114 General Appearance: no apparent distress EENT: normal ENT inspection Neck: supple Cardiovascular: normal rate Respiratory/Chest: decreased breath sounds Abdomen: normal bowel sounds, non tender, soft Extremities: non-tender ANG DENTON Feb 15, 2018 08:32
[2018-02-15 08:40] LABS: INR 1.1 (0.9-1.1)
[2018-02-15] MEDS ORDERED: NS 500ML IV ONE (08:45)
[2018-02-15 08:55] LABS: BASOPHILS % (AUTO) 0.9 % (0.0-2.0); EOSINOPHILS % (AUTO) 2.8 % (0.0-3.0); HEMOGLOBIN 12.7 G/DL (12.0-16.0); LYMPHOCYTES % (AUTO) 25.2 % (20.0-45.0); MEAN CORPUSCULAR VOLUME 92 FL (80-99); MONOCYTES % (AUTO) 6.4 % (1.0-10.0); NEUTROPHILS % (AUTO) 64.7 % (45.0-75.0); PLATELET COUNT 211 K/UL (150-450); RED BLOOD COUNT 4.03 M/UL (4.20-5.40); RED CELL DISTRIBUTION WIDTH 12.9 % (11.6-14.8); WHITE BLOOD COUNT 5.9 K/UL (4.8-10.8)
--- NOTE | 2018-02-15 08:56 | Endoscopy Procedure Note ---
Endoscopy Procedure Note General Indication for Procedure: gib Procedures Performed: EGD Operative Findings/Diagnosis: gastritis Specimen: yes Pt Tolerated Procedure Well: Yes Estimated Blood Loss: none Anesthesia Anesthesiologist: ace Anesthesia: MAC Inserted Devices Implant(s) used?: No GI Core Measures 50 yrs or older w/o bx or poly: Not Applicable 10yrs. F/U not recommended: Not Applicable ANG DENTON Feb 15, 2018 08:56
[2018-02-15] MEDS: Heparin 5000 units/ml inj SUBQ SCH ×2 (09:00→21:49)
[2018-02-15] MEDS: Pantoprazole Inj IVP SCH (09:00)
[2018-02-15] MEDS: Metoprolol 25mg tab ORAL SCH ×2 (09:00→10:28)
[2018-02-15 09:05] LABS: % IRON SATURATION 15 % (15-50); IRON 46 ug/dL (50-175); TOTAL IRON BINDING CAPACITY 316 ug/dL (250-450)
[2018-02-15 09:09] LABS: ALANINE AMINOTRANSFERASE 39 U/L (12-78); ALBUMIN 3.4 G/DL (3.4-5.0); ALBUMIN/GLOBULIN RATIO 0.9 (1.0-2.7); ALKALINE PHOSPHATASE 87 U/L (46-116); ANION GAP 10 mmol/L (5-15); ASPARTATE AMINO TRANSFERASE 35 U/L (15-37); BILIRUBIN,TOTAL 0.5 MG/DL (0.2-1.0); BLOOD UREA NITROGEN 7 mg/dL (7-18); CARBON DIOXIDE 27 MMOL/L (21-32); CHLORIDE 105 MMOL/L (98-107); CREATININE 0.9 MG/DL (0.55-1.30); FERRITIN 29 NG/ML (8-388); PHOSPHORUS 2.9 MG/DL (2.5-4.9); POTASSIUM 3.5 MMOL/L (3.5-5.1); SODIUM 142 MMOL/L (136-145)
--- NOTE | 2018-02-15 09:14 | Immediate Post-Op Evaluation ---
Immediate Post-Op Evalulation Immediate Post-Op Evalulation Procedure: egd Date of Evaluation: Feb 15, 2018 Time of Evaluation: 09:14 IV Fluids: 100ml 0.9ns Blood Products: none Estimated Blood Loss: negligible Blood Pressure Systolic: 130 Blood Pressure Diastolic: 79 Pulse Rate: 96 Respiratory Rate: 18 O2 Sat by Pulse Oximetry: 98 Temperature (Fahrenheit): 97.7 Pain Score (1-10): 0 Nausea: No Vomiting: No Complications none Patient Status: awake, reacts, patent Hydration Status: adequate Drug: TERRI Brennan Feb 15, 2018 09:14
--- NOTE | 2018-02-15 09:19 | 48 Hour Post Anesthesia Eval ---
Post Anesthesia Evaluation Procedure: egd Date of Evaluation: Feb 15, 2018 Time of Evaluation: 09:16 Blood Pressure Systolic: 123 0: 79 Pulse Rate: 102 Respiratory Rate: 18 Temperature (Fahrenheit): 97.7 O2 Sat by Pulse Oximetry: 99 Airway: patent Nausea: No Vomiting: No Pain Intensity: 0 Hydration Status: adequate Cardiopulmonary Status: stable Mental Status/LOC: patient returned to baseline Post-Anesthesia Complications: none Follow-up care needed: N/A TERRI NGUYEN Feb 15, 2018 09:19
--- NOTE | 2018-02-15 09:46 | Procedure Note ---
DATE OF PROCEDURE: 02/15/2018 SURGEON: Miller Munoz M.D. PROCEDURE: Upper endoscopy with biopsy. ANESTHESIOLOGIST: Cari Kay M.D. INSTRUMENT: Olympus adult flexible upper endoscope. INDICATION: Anemia and GI bleed. REASON FOR PROCEDURE: The procedure, risks, benefits, and possible consequences, including hemorrhage, aspiration, perforation and infection, and alternative treatments, were explained to the patient/legal guardian by Dr. Miller Munoz and the patient/legal guardian understood and accepted these risks. DESCRIPTION OF PROCEDURE: After informed consent was obtained and the patient was adequately sedated, Olympus upper endoscope was advanced from the mouth into the second portion of the duodenum and retroflexion was performed in the stomach. The patient had evidence of diffuse atrophic gastritis. Random biopsy from antrum and body was obtained to rule out H. pylori infection. The patient also had evidence of small hiatal hernia. The rest of the exam was grossly within normal limits. At this time, the scope was retrieved and the procedure was terminated. SUMMARY OF FINDINGS: 1. Small hiatal hernia. 2. Atrophic gastritis, status post biopsy. RECOMMENDATIONS: Follow up biopsy results and treat accordingly. The patient would need colonoscopy if the stool OB comes back positive or there is any further drop in hemoglobin and hematocrit. She is difficult to prep, most probably the patient would need an NG tube placement before prep. We will discuss with the family about that. I want to thank, Dr. Glenn Garrido, for this kind referral. Miller Munoz M.D. DR: MARTIN JOB#: [id number] CC: Glenn Garrido M.D.; Fax#: [phone] [facility]
--- NOTE | 2018-02-15 10:46 | Internal Med Progress Note ---
Subjective Date of Service: Feb 15, 2018 Physician Name CarltonChiki Attending Physician Glenn Garrido MD Current Medications Medications (Trade) Dose Ordered Sig/Yovana Route PRN Reason Start Time Stop Time Status Last Admin Dose Admin Acetaminophen (Tylenol) 650 mg Q4H PRN ORAL T>100.5 02/13/18 19:30 03/15/18 19:29 Al Hydroxide/Mg Hydroxide (Mylanta II) 30 ml Q6H PRN ORAL dyspepsia 02/13/18 19:30 03/15/18 19:29 Al Hydroxide/Mg Hydroxide (Mylanta) 15 ml Q1H PRN ORAL gi upset 02/15/18 06:45 02/15/18 14:00 Atropine Sulfate (Atropine) 0.5 mg Q5M PRN IV bpm less than 45 02/15/18 06:45 02/15/18 14:00 Dextrose (Dextrose 50%) STAT PRN IV Hypoglycemia 02/13/18 19:30 03/15/18 19:29 Diphenhydramine HCl (Benadryl) 25 mg Q15M PRN IVP Itching 02/15/18 06:45 02/15/18 14:00 Diphenhydramine HCl (Benadryl) 25 mg Q6H PRN ORAL Itching/Pruritis 02/13/18 19:30 03/15/18 19:29 Fentanyl Citrate (Sublimaze 100 mcg/2 mL) 25 mcg Q10M PRN IV Moderate Pain (Pain Scale 4-6) 02/15/18 06:45 02/15/18 14:00 Heparin Sodium (Porcine) (Heparin 5000 units/ml) 5,000 units EVERY 12 HOURS SUBQ 02/13/18 21:00 03/15/18 20:59 02/14/18 09:20 Hydralazine HCl (Apresoline) 5 mg Q30M PRN IV SBP>160 OR___/DBP>90 OR___ 02/15/18 06:45 02/15/18 14:00 Metoprolol Tartrate (Lopressor) 5 mg QIDPRN PRN IVP hear rate greater than 130 02/14/18 15:15 03/16/18 15:14 Metoprolol Tartrate (Lopressor) 75 mg EVERY 12 HOURS ORAL 02/14/18 17:00 03/16/18 16:59 02/15/18 10:28 Midazolam HCl (Versed 2mg/2ml vial) 1 mg Q15M PRN IVP For Anxiety 02/15/18 06:45 02/15/18 14:00 Morphine Sulfate (Morphine Sulfate) 2 mg Q4H PRN IVP Severe Pain (Pain Scale 7-10) 02/13/18 19:30 02/20/18 19:29 02/15/18 07:50 Nitroglycerin (Ntg) 0.4 mg Q5M X 3 DOSES PRN SL Prn Chest Pain 02/13/18 19:30 03/15/18 19:29 Ondansetron HCl (Zofran) 4 mg Q1H PRN IVP Nausea & Vomiting 02/15/18 06:45 02/15/18 14:00 Ondansetron HCl (Zofran) 4 mg Q6H PRN IVP Nausea & Vomiting 02/13/18 19:30 03/15/18 19:29 Pantoprazole (Protonix) 40 mg DAILY IVP 02/14/18 09:00 03/16/18 08:59 02/14/18 09:15 Polyethylene Glycol (Miralax) 17 gm HSPRN PRN ORAL Constipation 02/13/18 19:30 03/15/18 19:29 Temazepam (Restoril) 15 mg HSPRN PRN ORAL Insomnia 02/13/18 21:00 02/20/18 20:59 02/13/18 21:28 Allergies: Coded Allergies: No Known Allergies (Unverified , 02/14/15) ROS Limited/Unobtainable: No Constitutional: Reports: no symptoms HEENT: Reports: no symptoms Cardiovascular: Reports: no symptoms Respiratory: Reports: no symptoms Gastrointestinal/Abdominal: Reports: abdominal pain, nausea, vomiting Neurologic/Psychiatric: Reports: no symptoms Subjective 82 YO F admitted with abdominal pain. Now Atrial fibrillation with rapid ventricular rate. Cover for Norberto Chavez -Dr Garrido. S/P endoscopy 02/15/18. Objective Last Vital Signs Date Time Temp Pulse Resp B/P (MAP) Pulse Ox O2 Delivery O2 Flow Rate FiO2 02/15/18 10:28 99 151/81 02/15/18 09:26 20 100 Room Air 02/15/18 09:19 207.9 02/15/18 09:12 5.0 General Appearance: alert, mild distress, thin EENT: PERRL/EOMI, normal ENT inspection Neck: non-tender, normal alignment, supple, normal inspection Cardiovascular: normal peripheral pulses, no gallop/murmur, bradycardia, irregularly irregular Respiratory/Chest: chest wall non-tender, lungs clear, normal breath sounds, no respiratory distress, no accessory muscle use Abdomen: normal bowel sounds, decreased bowel sounds, guarding, tender Extremities: normal range of motion, non-tender Skin: normal pigmentation, warm/dry Laboratory Tests Test 02/14/18 16:30 02/15/18 07:10 Stool Occult Blood Pending White Blood Count 5.9 K/UL (4.8-10.8) Red Blood Count 4.03 M/UL (4.20-5.40) L Hemoglobin 12.7 G/DL (12.0-16.0) Hematocrit 37.0 % (37.0-47.0) Mean Corpuscular Volume 92 FL (80-99) Mean Corpuscular Hemoglobin 31.5 PG (27.0-31.0) H Mean Corpuscular Hemoglobin Concent 34.3 G/DL (32.0-36.0) Red Cell Distribution Width 12.9 % (11.6-14.8) Platelet Count 211 K/UL (150-450) Mean Platelet Volume 7.1 FL (6.5-10.1) Neutrophils (%) (Auto) 64.7 % (45.0-75.0) Lymphocytes (%) (Auto) 25.2 % (20.0-45.0) Monocytes (%) (Auto) 6.4 % (1.0-10.0) Eosinophils (%) (Auto) 2.8 % (0.0-3.0) Basophils (%) (Auto) 0.9 % (0.0-2.0) Erythrocyte Sedimentation Rate 36 MM/HR (0-42) Reticulocyte Count Pending Prothrombin Time 11.0 SEC (9.30-11.50) Prothromb Time International Ratio 1.1 (0.9-1.1) Activated Partial Thromboplast Time 26 SEC (23-33) Sodium Level 142 MMOL/L (136-145) Potassium Level 3.5 MMOL/L (3.5-5.1) Chloride Level 105 MMOL/L (98-107) Carbon Dioxide Level 27 MMOL/L (21-32) Anion Gap 10 mmol/L (5-15) Blood Urea Nitrogen 7 mg/dL (7-18) Creatinine 0.9 MG/DL (0.55-1.30) Estimat Glomerular Filtration Rate mL/min (>60) Glucose Level 102 MG/DL (74-106) Calcium Level 9.0 MG/DL (8.5-10.1) Phosphorus Level 2.9 MG/DL (2.5-4.9) Magnesium Level 1.3 MG/DL (1.8-2.4) L Iron Level 46 ug/dL (50-175) L Total Iron Binding Capacity 316 ug/dL (250-450) Percent Iron Saturation 15 % (15-50) Unsaturated Iron Binding 270 ug/dL (112-346) Ferritin 29 NG/ML (8-388) Total Bilirubin 0.5 MG/DL (0.2-1.0) Aspartate Amino Transf (AST/SGOT) 35 U/L (15-37) Alanine Aminotransferase (ALT/SGPT) 39 U/L (12-78) Alkaline Phosphatase 87 U/L (46-116) Troponin I 0.006 ng/mL (0.000-0.056) Pro-B-Type Natriuretic Peptide 2239 pg/mL (0-125) H Total Protein 7.1 G/DL (6.4-8.2) Albumin 3.4 G/DL (3.4-5.0) Globulin 3.7 g/dL Albumin/Globulin Ratio 0.9 (1.0-2.7) L Vitamin B12 Level 162 PG/ML (193-986) L Folate 63.5 NG/ML (8.6-58.9) H Thyroid Stimulating Hormone (TSH) 2.058 uiU/mL (0.358-3.740) Free Thyroxine 1.21 NG/DL (0.76-1.46) Digoxin Level < 0.2 NG/ML (0.9-2.0) L Intake and Output 02/14/18 02/15/18 19:00 07:00 Intake Total 315 ml Output Total 400 ml 400 ml Balance -85 ml -400 ml Intake Oral 240 ml IV Total 75 ml Output Urine Total 400 ml 400 ml # Bowel Movements 2 1 Assessment/Plan Problem List: (1) Hiatal hernia (2) Gastritis Assessment & Plan: S/p endoscopy 02/15/18. See GI note. Continue protonix (3) Nausea & vomiting (4) Atrial fibrillation with rapid ventricular response Assessment & Plan: Now on IV lopressor prn. See cardiology note. (5) Abdominal pain (6) Diabetes type 2, controlled (7) HTN (hypertension) Assessment & Plan: continue lopressor and hydralazine (8) Gout (9) Cerebral vascular disease (10) Right hemiparesis Status: not improved CHIKI CARLTON Feb 15, 2018 10:46
--- NOTE | 2018-02-15 12:01 | General Surgery Progress Note ---
General Surgery-Progress Note Subjective Additional Comments no acute events. denies abdominal pain. no longer having nausea or emesis. still with arrhythmia Objective Last 24 Hour Vital Signs Date Time Temp Pulse Resp B/P (MAP) Pulse Ox O2 Delivery O2 Flow Rate FiO2 02/15/18 10:28 99 151/81 02/15/18 09:26 99 20 151/81 100 Room Air 02/15/18 09:19 207.9 102 18 99 02/15/18 09:14 207.9 96 18 98 02/15/18 09:12 100 20 144/76 100 Simple Mask 5.0 02/15/18 09:07 102 20 140/72 100 Simple Mask 5.0 02/15/18 09:02 97.7 116 20 124/69 100 Simple Mask 5.0 97.7 02/15/18 08:00 102 02/15/18 04:00 97.3 91 18 120/66 96 Room Air 97.3 02/15/18 04:00 102 02/15/18 00:00 89 02/15/18 00:00 97.7 88 20 128/62 97 Room Air 97.7 02/14/18 20:00 103 02/14/18 20:00 98.2 88 18 120/78 97 Room Air 98.2 02/14/18 16:23 92 146/79 02/14/18 16:20 103 02/14/18 16:00 97.0 93 18 109/68 98 Room Air 97.0 02/14/18 14:57 142 146/79 02/14/18 13:36 140 146/79 02/14/18 12:05 98.0 92 20 146/79 98 Room Air 98.0 I&O Intake and Output 02/14/18 02/15/18 19:00 07:00 Intake Total 315 ml Output Total 400 ml 400 ml Balance -85 ml -400 ml Intake Oral 240 ml IV Total 75 ml Output Urine Total 400 ml 400 ml # Bowel Movements 2 1 Cardiovascular: RSR Respiratory: clear Abdomen: soft, flat, non-tender, present bowel sounds Extremities: no tenderness, no cyanosis Laboratory Tests Test 02/14/18 16:30 02/15/18 07:10 Stool Occult Blood Pending White Blood Count 5.9 K/UL (4.8-10.8) Red Blood Count 4.03 M/UL (4.20-5.40) L Hemoglobin 12.7 G/DL (12.0-16.0) Hematocrit 37.0 % (37.0-47.0) Mean Corpuscular Volume 92 FL (80-99) Mean Corpuscular Hemoglobin 31.5 PG (27.0-31.0) H Mean Corpuscular Hemoglobin Concent 34.3 G/DL (32.0-36.0) Red Cell Distribution Width 12.9 % (11.6-14.8) Platelet Count 211 K/UL (150-450) Mean Platelet Volume 7.1 FL (6.5-10.1) Neutrophils (%) (Auto) 64.7 % (45.0-75.0) Lymphocytes (%) (Auto) 25.2 % (20.0-45.0) Monocytes (%) (Auto) 6.4 % (1.0-10.0) Eosinophils (%) (Auto) 2.8 % (0.0-3.0) Basophils (%) (Auto) 0.9 % (0.0-2.0) Erythrocyte Sedimentation Rate 36 MM/HR (0-42) Reticulocyte Count 0.8 % (0.0-2.0) Prothrombin Time 11.0 SEC (9.30-11.50) Prothromb Time International Ratio 1.1 (0.9-1.1) Activated Partial Thromboplast Time 26 SEC (23-33) Sodium Level 142 MMOL/L (136-145) Potassium Level 3.5 MMOL/L (3.5-5.1) Chloride Level 105 MMOL/L (98-107) Carbon Dioxide Level 27 MMOL/L (21-32) Anion Gap 10 mmol/L (5-15) Blood Urea Nitrogen 7 mg/dL (7-18) Creatinine 0.9 MG/DL (0.55-1.30) Estimat Glomerular Filtration Rate mL/min (>60) Glucose Level 102 MG/DL (74-106) Calcium Level 9.0 MG/DL (8.5-10.1) Phosphorus Level 2.9 MG/DL (2.5-4.9) Magnesium Level 1.3 MG/DL (1.8-2.4) L Iron Level 46 ug/dL (50-175) L Total Iron Binding Capacity 316 ug/dL (250-450) Percent Iron Saturation 15 % (15-50) Unsaturated Iron Binding 270 ug/dL (112-346) Ferritin 29 NG/ML (8-388) Total Bilirubin 0.5 MG/DL (0.2-1.0) Aspartate Amino Transf (AST/SGOT) 35 U/L (15-37) Alanine Aminotransferase (ALT/SGPT) 39 U/L (12-78) Alkaline Phosphatase 87 U/L (46-116) Troponin I 0.006 ng/mL (0.000-0.056) Pro-B-Type Natriuretic Peptide 2239 pg/mL (0-125) H Total Protein 7.1 G/DL (6.4-8.2) Albumin 3.4 G/DL (3.4-5.0) Globulin 3.7 g/dL Albumin/Globulin Ratio 0.9 (1.0-2.7) L Vitamin B12 Level 162 PG/ML (193-986) L Folate 63.5 NG/ML (8.6-58.9) H Thyroid Stimulating Hormone (TSH) 2.058 uiU/mL (0.358-3.740) Free Thyroxine 1.21 NG/DL (0.76-1.46) Digoxin Level < 0.2 NG/ML (0.9-2.0) L Plan Problems: (1) Abdominal pain Assessment & Plan: Pain now resolved. denies n/v/f/c. CT reviewed and cholelithiasis noted without cholecystitis. possible episodes of biliary colic vs reflux/gerd. afebrile, HD stable, arrhythmia, no leukocytosis, LFT's normal. no acute surgical intervention needed. can follow up with me as an outpatient upon discharge. Not ready for discharge because of GI / Cardiology work up but okay for d/c from surgical standpoint when ready thank you for this consultation and allowing me to participate in Ernestina Stevens' s care. Joo Anne Feb 15, 2018 12:01
--- NOTE | 2018-02-15 12:25 | Infectious Diseases Prog Note ---
Assessment/Plan Assessment/Plan Abx: None Assessment: Abd pain, n/v- Likely 2ry to gastritis as seen on EGD .? focal colitis, ?viral gastroenteritis vs biliary colic- symptoms has now resolved -s/p EGD 02/15: 1. Small hiatal hernia. 2. Atrophic gastritis, status post biopsy. -CT abd/p w/ IV contrast: Equivocal mild prominence of the ascending colon wall and slight infiltration of the pericolonic fat, probably artifact of under distention and baseline for this patient, but mild focal colitis is possible. No acute abnormality otherwise. Cholelithiasis, also previously described. Distended bladder. Minimal anterior pericardial thickening versus fluid, decreased from the prior study. Cardiomegaly L1 and L5 compression fracture deformities, unchanged from previous exam incidental findings noted, including bilateral basilar pulmonary interstitial prominence and compressive atelectasis, degenerative spondylosis, subcentimeter low-attenuation left lobe liver lesion, small to moderate sliding-type hiatal hernia Afib with RVR Cholelithiasis Dysuria -u/a no pyuria Afebrile, no leukocytosis DM2 DVT CAD CVA Afib Plan: -Continue to monitor off abx; ok to discharge from ID perspective when otherwise medically stable. -Monitor CBC,/BMP, temperatures -aspiration precautions Thank you for this consultation. Will continue to follow along with you. Discussed with RN Subjective Allergies: Coded Allergies: No Known Allergies (Unverified , 02/14/15) Subjective afebrile no leukocytosis s/p EGD today developed Afib with RVR Objective Vital Signs Last 24 Hour Vital Signs Date Time Temp Pulse Resp B/P (MAP) Pulse Ox O2 Delivery O2 Flow Rate FiO2 02/15/18 10:28 99 151/81 02/15/18 09:26 99 20 151/81 100 Room Air 02/15/18 09:19 207.9 102 18 99 02/15/18 09:14 207.9 96 18 98 02/15/18 09:12 100 20 144/76 100 Simple Mask 5.0 02/15/18 09:07 102 20 140/72 100 Simple Mask 5.0 02/15/18 09:02 97.7 116 20 124/69 100 Simple Mask 5.0 97.7 02/15/18 08:00 102 02/15/18 04:00 97.3 91 18 120/66 96 Room Air 97.3 02/15/18 04:00 102 02/15/18 00:00 89 02/15/18 00:00 97.7 88 20 128/62 97 Room Air 97.7 02/14/18 20:00 103 02/14/18 20:00 98.2 88 18 120/78 97 Room Air 98.2 02/14/18 16:23 92 146/79 02/14/18 16:20 103 02/14/18 16:00 97.0 93 18 109/68 98 Room Air 97.0 02/14/18 14:57 142 146/79 02/14/18 13:36 140 146/79 Height (Feet): 5 Height (Inches): 2.00 Weight (Pounds): 114 Objective General Appearance: WD/WN Lines, tubes and drains: peripheral HEENT: normocephalic, atraumatic Neck: non-tender, normal alignment Respiratory/Chest: chest wall non-tender, lungs clear, normal breath sounds Breasts: no masses Cardiovascular/Chest: normal peripheral pulses, normal rate, no JVD Abdomen: normal bowel sounds, non tender Genitourinary/Rectal: normal genital exam Extremities: normal range of motion, non-tender Skin Exam: normal pigmentation, warm/dry Laboratory Tests Test 02/14/18 16:30 02/15/18 07:10 Stool Occult Blood Negative (NEGATIVE) White Blood Count 5.9 K/UL (4.8-10.8) Red Blood Count 4.03 M/UL (4.20-5.40) L Hemoglobin 12.7 G/DL (12.0-16.0) Hematocrit 37.0 % (37.0-47.0) Mean Corpuscular Volume 92 FL (80-99) Mean Corpuscular Hemoglobin 31.5 PG (27.0-31.0) H Mean Corpuscular Hemoglobin Concent 34.3 G/DL (32.0-36.0) Red Cell Distribution Width 12.9 % (11.6-14.8) Platelet Count 211 K/UL (150-450) Mean Platelet Volume 7.1 FL (6.5-10.1) Neutrophils (%) (Auto) 64.7 % (45.0-75.0) Lymphocytes (%) (Auto) 25.2 % (20.0-45.0) Monocytes (%) (Auto) 6.4 % (1.0-10.0) Eosinophils (%) (Auto) 2.8 % (0.0-3.0) Basophils (%) (Auto) 0.9 % (0.0-2.0) Erythrocyte Sedimentation Rate 36 MM/HR (0-42) Reticulocyte Count 0.8 % (0.0-2.0) Prothrombin Time 11.0 SEC (9.30-11.50) Prothromb Time International Ratio 1.1 (0.9-1.1) Activated Partial Thromboplast Time 26 SEC (23-33) Sodium Level 142 MMOL/L (136-145) Potassium Level 3.5 MMOL/L (3.5-5.1) Chloride Level 105 MMOL/L (98-107) Carbon Dioxide Level 27 MMOL/L (21-32) Anion Gap 10 mmol/L (5-15) Blood Urea Nitrogen 7 mg/dL (7-18) Creatinine 0.9 MG/DL (0.55-1.30) Estimat Glomerular Filtration Rate mL/min (>60) Glucose Level 102 MG/DL (74-106) Calcium Level 9.0 MG/DL (8.5-10.1) Phosphorus Level 2.9 MG/DL (2.5-4.9) Magnesium Level 1.3 MG/DL (1.8-2.4) L Iron Level 46 ug/dL (50-175) L Total Iron Binding Capacity 316 ug/dL (250-450) Percent Iron Saturation 15 % (15-50) Unsaturated Iron Binding 270 ug/dL (112-346) Ferritin 29 NG/ML (8-388) Total Bilirubin 0.5 MG/DL (0.2-1.0) Aspartate Amino Transf (AST/SGOT) 35 U/L (15-37) Alanine Aminotransferase (ALT/SGPT) 39 U/L (12-78) Alkaline Phosphatase 87 U/L (46-116) Troponin I 0.006 ng/mL (0.000-0.056) Pro-B-Type Natriuretic Peptide 2239 pg/mL (0-125) H Total Protein 7.1 G/DL (6.4-8.2) Albumin 3.4 G/DL (3.4-5.0) Globulin 3.7 g/dL Albumin/Globulin Ratio 0.9 (1.0-2.7) L Vitamin B12 Level 162 PG/ML (193-986) L Folate 63.5 NG/ML (8.6-58.9) H Thyroid Stimulating Hormone (TSH) 2.058 uiU/mL (0.358-3.740) Free Thyroxine 1.21 NG/DL (0.76-1.46) Digoxin Level < 0.2 NG/ML (0.9-2.0) L Current Medications Medications (Trade) Dose Ordered Sig/Yovana Route PRN Reason Start Time Stop Time Status Last Admin Dose Admin Acetaminophen (Tylenol) 650 mg Q4H PRN ORAL T>100.5 02/13/18 19:30 03/15/18 19:29 Al Hydroxide/Mg Hydroxide (Mylanta II) 30 ml Q6H PRN ORAL dyspepsia 02/13/18 19:30 03/15/18 19:29 Al Hydroxide/Mg Hydroxide (Mylanta) 15 ml Q1H PRN ORAL gi upset 02/15/18 06:45 02/15/18 14:00 Atropine Sulfate (Atropine) 0.5 mg Q5M PRN IV bpm less than 45 02/15/18 06:45 02/15/18 14:00 Dextrose (Dextrose 50%) STAT PRN IV Hypoglycemia 02/13/18 19:30 03/15/18 19:29 Diphenhydramine HCl (Benadryl) 25 mg Q15M PRN IVP Itching 02/15/18 06:45 02/15/18 14:00 Diphenhydramine HCl (Benadryl) 25 mg Q6H PRN ORAL Itching/Pruritis 02/13/18 19:30 03/15/18 19:29 Fentanyl Citrate (Sublimaze 100 mcg/2 mL) 25 mcg Q10M PRN IV Moderate Pain (Pain Scale 4-6) 02/15/18 06:45 02/15/18 14:00 Heparin Sodium (Porcine) (Heparin 5000 units/ml) 5,000 units EVERY 12 HOURS SUBQ 02/13/18 21:00 03/15/18 20:59 02/14/18 09:20 Hydralazine HCl (Apresoline) 5 mg Q30M PRN IV SBP>160 OR___/DBP>90 OR___ 02/15/18 06:45 02/15/18 14:00 Metoprolol Tartrate (Lopressor) 5 mg QIDPRN PRN IVP hear rate greater than 130 02/14/18 15:15 03/16/18 15:14 Metoprolol Tartrate (Lopressor) 75 mg EVERY 12 HOURS ORAL 02/14/18 17:00 03/16/18 16:59 02/15/18 10:28 Midazolam HCl (Versed 2mg/2ml vial) 1 mg Q15M PRN IVP For Anxiety 02/15/18 06:45 02/15/18 14:00 Morphine Sulfate (Morphine Sulfate) 2 mg Q4H PRN IVP Severe Pain (Pain Scale 7-10) 02/13/18 19:30 02/20/18 19:29 02/15/18 07:50 Nitroglycerin (Ntg) 0.4 mg Q5M X 3 DOSES PRN SL Prn Chest Pain 02/13/18 19:30 03/15/18 19:29 Ondansetron HCl (Zofran) 4 mg Q1H PRN IVP Nausea & Vomiting 02/15/18 06:45 02/15/18 14:00 Ondansetron HCl (Zofran) 4 mg Q6H PRN IVP Nausea & Vomiting 02/13/18 19:30 03/15/18 19:29 Pantoprazole (Protonix) 40 mg DAILY IVP 02/14/18 09:00 03/16/18 08:59 02/14/18 09:15 Polyethylene Glycol (Miralax) 17 gm HSPRN PRN ORAL Constipation 02/13/18 19:30 03/15/18 19:29 Temazepam (Restoril) 15 mg HSPRN PRN ORAL Insomnia 02/13/18 21:00 02/20/18 20:59 02/13/18 21:28 Viktoria Dangelo M.D. Feb 15, 2018 12:25
--- NOTE | 2018-02-15 15:04 | Pulmonology Progress Note ---
Assessment/Plan Problems: (1) Atrial fibrillation with RVR (2) Dyspnea (3) Vomiting (4) Cerebral vascular disease (5) Hemiparesis, right (6) Gout (7) Diabetes type 2, controlled (8) Hypertension Assessment/Plan heart rate slightly better controlled cardiology f/u cardizem prn symptomatic treatment if heart rate not controlled, she needs to go to ICU dvt prophylaxis Subjective ROS Limited/Unobtainable: No Interval Events: still tachycardic, right now its 104, was as high as 170 Allergies: Coded Allergies: No Known Allergies (Unverified , 02/14/15) Objective Last 24 Hour Vital Signs Date Time Temp Pulse Resp B/P (MAP) Pulse Ox O2 Delivery O2 Flow Rate FiO2 02/15/18 12:00 98.1 107 19 121/72 96 Room Air 98.1 107 02/15/18 12:00 105 02/15/18 10:28 99 151/81 02/15/18 09:26 99 20 151/81 100 Room Air 02/15/18 09:19 207.9 102 18 99 02/15/18 09:14 207.9 96 18 98 02/15/18 09:12 100 20 144/76 100 Simple Mask 5.0 02/15/18 09:07 102 20 140/72 100 Simple Mask 5.0 02/15/18 09:02 97.7 116 20 124/69 100 Simple Mask 5.0 97.7 02/15/18 08:00 102 02/15/18 04:00 97.3 91 18 120/66 96 Room Air 97.3 02/15/18 04:00 102 02/15/18 00:00 89 02/15/18 00:00 97.7 88 20 128/62 97 Room Air 97.7 02/14/18 20:00 103 02/14/18 20:00 98.2 88 18 120/78 97 Room Air 98.2 02/14/18 16:23 92 146/79 02/14/18 16:20 103 02/14/18 16:00 97.0 93 18 109/68 98 Room Air 97.0 Intake and Output 02/14/18 02/15/18 19:00 07:00 Intake Total 315 ml Output Total 400 ml 400 ml Balance -85 ml -400 ml Intake Oral 240 ml IV Total 75 ml Output Urine Total 400 ml 400 ml # Bowel Movements 2 1 Objective General Appearance: WD/WN Lines, tubes and drains: peripheral HEENT: normocephalic, atraumatic Neck: non-tender, normal alignment Respiratory/Chest: chest wall non-tender, lungs clear, normal breath sounds Breasts: no masses Cardiovascular/Chest: normal peripheral pulses, normal rate, no JVD Abdomen: normal bowel sounds, non tender Genitourinary/Rectal: normal genital exam Extremities: normal range of motion, non-tender Skin Exam: normal pigmentation, warm/dry Laboratory Tests 02/14/18 16:30: Stool Occult Blood Negative 02/15/18 07:10: White Blood Count 5.9, Red Blood Count 4.03L, Hemoglobin 12.7, Hematocrit 37.0, Mean Corpuscular Volume 92, Mean Corpuscular Hemoglobin 31.5H, Mean Corpuscular Hemoglobin Concent 34.3, Red Cell Distribution Width 12.9, Platelet Count 211, Mean Platelet Volume 7.1, Neutrophils (%) (Auto) 64.7, Lymphocytes (%) (Auto) 25.2, Monocytes (%) (Auto) 6.4, Eosinophils (%) (Auto) 2.8, Basophils (%) (Auto ) 0.9, Erythrocyte Sedimentation Rate 36, Reticulocyte Count 0.8, Prothrombin Time 11.0, Prothromb Time International Ratio 1.1, Activated Partial Thromboplast Time 26, Sodium Level 142, Potassium Level 3.5, Chloride Level 105 , Carbon Dioxide Level 27, Anion Gap 10, Blood Urea Nitrogen 7, Creatinine 0.9, Estimat Glomerular Filtration Rate , Glucose Level 102, Calcium Level 9.0, Phosphorus Level 2.9, Magnesium Level 1.3L, Iron Level 46L, Total Iron Binding Capacity 316, Percent Iron Saturation 15, Unsaturated Iron Binding 270, Ferritin 29, Total Bilirubin 0.5, Aspartate Amino Transf (AST/SGOT) 35, Alanine Aminotransferase (ALT/SGPT) 39, Alkaline Phosphatase 87, Troponin I 0.006, Pro-B -Type Natriuretic Peptide 2239H, Total Protein 7.1, Albumin 3.4, Globulin 3.7, Albumin/Globulin Ratio 0.9L, Vitamin B12 Level 162L, Folate 63.5H, Thyroid Stimulating Hormone (TSH) 2.058, Free Thyroxine 1.21, Digoxin Level < 0.2L Current Medications Medications (Trade) Dose Ordered Sig/Yovana Route PRN Reason Start Time Stop Time Status Last Admin Dose Admin Acetaminophen (Tylenol) 650 mg Q4H PRN ORAL T>100.5 02/13/18 19:30 03/15/18 19:29 Al Hydroxide/Mg Hydroxide (Mylanta II) 30 ml Q6H PRN ORAL dyspepsia 02/13/18 19:30 03/15/18 19:29 Dextrose (Dextrose 50%) STAT PRN IV Hypoglycemia 02/13/18 19:30 03/15/18 19:29 Diphenhydramine HCl (Benadryl) 25 mg Q6H PRN ORAL Itching/Pruritis 02/13/18 19:30 03/15/18 19:29 Heparin Sodium (Porcine) (Heparin 5000 units/ml) 5,000 units EVERY 12 HOURS SUBQ 02/13/18 21:00 03/15/18 20:59 02/14/18 09:20 Metoprolol Tartrate (Lopressor) 5 mg QIDPRN PRN IVP hear rate greater than 130 02/14/18 15:15 03/16/18 15:14 Metoprolol Tartrate (Lopressor) 75 mg EVERY 12 HOURS ORAL 02/14/18 17:00 03/16/18 16:59 02/15/18 10:28 Morphine Sulfate (Morphine Sulfate) 2 mg Q4H PRN IVP Severe Pain (Pain Scale 7-10) 02/13/18 19:30 02/20/18 19:29 02/15/18 07:50 Nitroglycerin (Ntg) 0.4 mg Q5M X 3 DOSES PRN SL Prn Chest Pain 02/13/18 19:30 03/15/18 19:29 Ondansetron HCl (Zofran) 4 mg Q6H PRN IVP Nausea & Vomiting 02/13/18 19:30 03/15/18 19:29 Pantoprazole (Protonix) 40 mg DAILY IVP 02/14/18 09:00 03/16/18 08:59 02/14/18 09:15 Polyethylene Glycol (Miralax) 17 gm HSPRN PRN ORAL Constipation 02/13/18 19:30 03/15/18 19:29 Temazepam (Restoril) 15 mg HSPRN PRN ORAL Insomnia 02/13/18 21:00 02/20/18 20:59 02/13/18 21:28 Bryan Bertrand MD Feb 15, 2018 15:04
[2018-02-15] MEDS ORDERED: Metoprolol 5mg/5ml Inj IVP PRN (18:00)
--- NOTE | 2018-02-15 22:53 | General Progress Note ---
Assessment/Plan Status: stable Assessment/Plan mdd cva -rec low dose ssris -provided ro/st Subjective Date patient seen: Feb 15, 2018 Neurologic/Psychiatric: Reports: anxiety, depressed, emotional problems Allergies: Coded Allergies: No Known Allergies (Unverified , 02/14/15) Objective Last 24 Hour Vital Signs Date Time Temp Pulse Resp B/P (MAP) Pulse Ox O2 Delivery O2 Flow Rate FiO2 02/15/18 21:47 122 130/86 02/15/18 20:00 96.2 122 18 130/86 95 Room Air 96.2 02/15/18 16:00 97.7 92 20 135/77 96 Room Air 97.7 02/15/18 16:00 113 02/15/18 12:00 98.1 107 19 121/72 96 Room Air 98.1 107 02/15/18 12:00 105 02/15/18 10:28 99 151/81 02/15/18 09:26 99 20 151/81 100 Room Air 02/15/18 09:19 207.9 102 18 99 02/15/18 09:14 207.9 96 18 98 02/15/18 09:12 100 20 144/76 100 Simple Mask 5.0 02/15/18 09:07 102 20 140/72 100 Simple Mask 5.0 02/15/18 09:02 97.7 116 20 124/69 100 Simple Mask 5.0 97.7 02/15/18 08:00 102 02/15/18 04:00 97.3 91 18 120/66 96 Room Air 97.3 02/15/18 04:00 102 02/15/18 00:00 89 02/15/18 00:00 97.7 88 20 128/62 97 Room Air 97.7 Intake and Output 02/14/18 02/15/18 19:00 07:00 Intake Total 315 ml Output Total 400 ml 400 ml Balance -85 ml -400 ml Intake Oral 240 ml IV Total 75 ml Output Urine Total 400 ml 400 ml # Bowel Movements 2 1 Laboratory Tests 02/15/18 07:10: White Blood Count 5.9, Red Blood Count 4.03L, Hemoglobin 12.7, Hematocrit 37.0, Mean Corpuscular Volume 92, Mean Corpuscular Hemoglobin 31.5H, Mean Corpuscular Hemoglobin Concent 34.3, Red Cell Distribution Width 12.9, Platelet Count 211, Mean Platelet Volume 7.1, Neutrophils (%) (Auto) 64.7, Lymphocytes (%) (Auto) 25.2, Monocytes (%) (Auto) 6.4, Eosinophils (%) (Auto) 2.8, Basophils (%) (Auto ) 0.9, Erythrocyte Sedimentation Rate 36, Reticulocyte Count 0.8, Prothrombin Time 11.0, Prothromb Time International Ratio 1.1, Activated Partial Thromboplast Time 26, Sodium Level 142, Potassium Level 3.5, Chloride Level 105 , Carbon Dioxide Level 27, Anion Gap 10, Blood Urea Nitrogen 7, Creatinine 0.9, Estimat Glomerular Filtration Rate , Glucose Level 102, Calcium Level 9.0, Phosphorus Level 2.9, Magnesium Level 1.3L, Iron Level 46L, Total Iron Binding Capacity 316, Percent Iron Saturation 15, Unsaturated Iron Binding 270, Ferritin 29, Total Bilirubin 0.5, Aspartate Amino Transf (AST/SGOT) 35, Alanine Aminotransferase (ALT/SGPT) 39, Alkaline Phosphatase 87, Troponin I 0.006, Pro-B -Type Natriuretic Peptide 2239H, Total Protein 7.1, Albumin 3.4, Globulin 3.7, Albumin/Globulin Ratio 0.9L, Vitamin B12 Level 162L, Folate 63.5H, Thyroid Stimulating Hormone (TSH) 2.058, Free Thyroxine 1.21, Digoxin Level < 0.2L Height (Feet): 5 Height (Inches): 2.00 Weight (Pounds): 114 Slava Hassan M.D. Feb 15, 2018 22:53
[2018-02-16] VITALS: BP_SYST 119; BP_SYST 124; BP_DIAS 79; BP_DIAS 81
[2018-02-16 04:00] VITALS: BP 119/81
[2018-02-16 08:00] VITALS: BP 138/79
[2018-02-16] MEDS: Pantoprazole Inj IVP SCH (08:35)
[2018-02-16] MEDS: Heparin 5000 units/ml inj SUBQ SCH (08:37)
[2018-02-16 08:43] LABS: BASOPHILS % (AUTO) 0.9 % (0.0-2.0); EOSINOPHILS % (AUTO) 2.3 % (0.0-3.0); HEMATOCRIT 35.4 % (37.0-47.0); MEAN CORPUSCULAR VOLUME 92 FL (80-99); MONOCYTES % (AUTO) 7.6 % (1.0-10.0); NEUTROPHILS % (AUTO) 67.1 % (45.0-75.0); PLATELET COUNT 192 K/UL (150-450); RED BLOOD COUNT 3.85 M/UL (4.20-5.40); RED CELL DISTRIBUTION WIDTH 12.5 % (11.6-14.8); WHITE BLOOD COUNT 6.6 K/UL (4.8-10.8)
[2018-02-16 08:54] LABS: ANION GAP 10 mmol/L (5-15); BLOOD UREA NITROGEN 8 mg/dL (7-18); CALCIUM 8.6 MG/DL (8.5-10.1); CARBON DIOXIDE 26 MMOL/L (21-32); CHLORIDE 106 MMOL/L (98-107); CREATININE 0.7 MG/DL (0.55-1.30); POTASSIUM 3.7 MMOL/L (3.5-5.1); SODIUM 142 MMOL/L (136-145)
--- NOTE | 2018-02-16 10:43 | GI Progress Note ---
Assessment/Plan Problems: (1) Nausea & vomiting ICD Codes: R11.2 - Nausea with vomiting, unspecified SNOMED: 73298889 (2) Gastritis ICD Codes: K29.70 - Gastritis, unspecified, without bleeding SNOMED: 0151673 (3) Hiatal hernia ICD Codes: K44.9 - Diaphragmatic hernia without obstruction or gangrene SNOMED: 81665230 (4) Iron deficiency anemia ICD Codes: D50.9 - Iron deficiency anemia, unspecified SNOMED: 39852257 (5) Generalized weakness ICD Codes: R53.1 - Weakness SNOMED: 64531157 Status: stable Status Narrative Discussed with Dr. Munoz. Assessment/Plan OB stool negative s/p EGD SUMMARY OF FINDINGS: 1. Small hiatal hernia. 2. Atrophic gastritis, status post biopsy. RECOMMENDATIONS: Follow up biopsy results and treat accordingly. prn transfusions ppi fu labs outpatient colonoscopy Subjective Subjective limited Objective Last 24 Hour Vital Signs Date Time Temp Pulse Resp B/P (MAP) Pulse Ox O2 Delivery O2 Flow Rate FiO2 02/16/18 08:42 120 138/79 02/16/18 08:00 98.8 120 18 138/79 98 Room Air 98.8 02/16/18 08:00 97 02/16/18 04:00 88 02/16/18 04:00 97.9 98 18 119/81 98 Room Air 97.9 02/16/18 00:00 85 02/16/18 00:00 97.4 100 20 124/79 97 Room Air 97.4 02/15/18 21:47 122 130/86 02/15/18 20:00 87 02/15/18 20:00 96.2 122 18 130/86 95 Room Air 96.2 02/15/18 16:00 97.7 92 20 135/77 96 Room Air 97.7 02/15/18 16:00 113 02/15/18 12:00 98.1 107 19 121/72 96 Room Air 98.1 107 02/15/18 12:00 105 Intake and Output 02/15/18 02/16/18 19:00 07:00 Intake Total 610 ml Output Total 400 ml Balance 610 ml -400 ml Intake Oral 360 ml IV Total 250 ml Output Urine Total 400 ml # Voids 3 # Bowel Movements 1 Laboratory Tests Test 02/16/18 06:20 White Blood Count 6.6 K/UL (4.8-10.8) Red Blood Count 3.85 M/UL (4.20-5.40) L Hemoglobin 12.0 G/DL (12.0-16.0) Hematocrit 35.4 % (37.0-47.0) L Mean Corpuscular Volume 92 FL (80-99) Mean Corpuscular Hemoglobin 31.1 PG (27.0-31.0) H Mean Corpuscular Hemoglobin Concent 33.9 G/DL (32.0-36.0) Red Cell Distribution Width 12.5 % (11.6-14.8) Platelet Count 192 K/UL (150-450) Mean Platelet Volume 7.2 FL (6.5-10.1) Neutrophils (%) (Auto) 67.1 % (45.0-75.0) Lymphocytes (%) (Auto) 22.0 % (20.0-45.0) Monocytes (%) (Auto) 7.6 % (1.0-10.0) Eosinophils (%) (Auto) 2.3 % (0.0-3.0) Basophils (%) (Auto) 0.9 % (0.0-2.0) Sodium Level 142 MMOL/L (136-145) Potassium Level 3.7 MMOL/L (3.5-5.1) Chloride Level 106 MMOL/L (98-107) Carbon Dioxide Level 26 MMOL/L (21-32) Anion Gap 10 mmol/L (5-15) Blood Urea Nitrogen 8 mg/dL (7-18) Creatinine 0.7 MG/DL (0.55-1.30) Estimat Glomerular Filtration Rate mL/min (>60) Glucose Level 110 MG/DL (74-106) H Calcium Level 8.6 MG/DL (8.5-10.1) Height (Feet): 5 Height (Inches): 2.00 Weight (Pounds): 114 General Appearance: WD/WN, no apparent distress, alert Cardiovascular: normal rate Respiratory/Chest: normal breath sounds, no respiratory distress Abdominal Exam: normal bowel sounds, non tender, soft Extremities: normal range of motion, non-tender Gladys Multani N.P. Feb 16, 2018 10:43
[2018-02-16 12:00] VITALS: BP 132/61
--- NOTE | 2018-02-16 13:32 | Pulmonology Progress Note ---
Assessment/Plan Problems: (1) Atrial fibrillation with RVR (2) Dyspnea (3) Vomiting (4) Cerebral vascular disease (5) Hemiparesis, right (6) Gout (7) Diabetes type 2, controlled (8) Hypertension Assessment/Plan EGD reviewed, just gastritis. heart rate slightly better controlled cardiology f/u on beta blockers symptomatic treatment dc home when ok with cardiology dvt prophylaxis Subjective ROS Limited/Unobtainable: No Interval Events: still Afib, heart rate controlled better Allergies: Coded Allergies: No Known Allergies (Unverified , 02/14/15) Objective Last 24 Hour Vital Signs Date Time Temp Pulse Resp B/P (MAP) Pulse Ox O2 Delivery O2 Flow Rate FiO2 02/16/18 12:00 97.7 93 18 132/61 96 Room Air 97.7 02/16/18 08:42 120 138/79 02/16/18 08:00 98.8 120 18 138/79 98 Room Air 98.8 02/16/18 08:00 97 02/16/18 04:00 88 02/16/18 04:00 97.9 98 18 119/81 98 Room Air 97.9 02/16/18 00:00 85 02/16/18 00:00 97.4 100 20 124/79 97 Room Air 97.4 02/15/18 21:47 122 130/86 02/15/18 20:00 87 02/15/18 20:00 96.2 122 18 130/86 95 Room Air 96.2 02/15/18 16:00 97.7 92 20 135/77 96 Room Air 97.7 02/15/18 16:00 113 Intake and Output 02/15/18 02/16/18 19:00 07:00 Intake Total 610 ml Output Total 400 ml Balance 610 ml -400 ml Intake Oral 360 ml IV Total 250 ml Output Urine Total 400 ml # Voids 3 # Bowel Movements 1 Objective General Appearance: WD/WN Lines, tubes and drains: peripheral HEENT: normocephalic, atraumatic Neck: non-tender, normal alignment Respiratory/Chest: chest wall non-tender, lungs clear, normal breath sounds Breasts: no masses Cardiovascular/Chest: normal peripheral pulses, irregular Abdomen: normal bowel sounds, non tender Genitourinary/Rectal: normal genital exam Extremities: normal range of motion, non-tender Skin Exam: normal pigmentation, warm/dry Laboratory Tests 02/16/18 06:20: White Blood Count 6.6, Red Blood Count 3.85L, Hemoglobin 12.0, Hematocrit 35.4L , Mean Corpuscular Volume 92, Mean Corpuscular Hemoglobin 31.1H, Mean Corpuscular Hemoglobin Concent 33.9, Red Cell Distribution Width 12.5, Platelet Count 192, Mean Platelet Volume 7.2, Neutrophils (%) (Auto) 67.1, Lymphocytes (% ) (Auto) 22.0, Monocytes (%) (Auto) 7.6, Eosinophils (%) (Auto) 2.3, Basophils ( %) (Auto) 0.9, Sodium Level 142, Potassium Level 3.7, Chloride Level 106, Carbon Dioxide Level 26, Anion Gap 10, Blood Urea Nitrogen 8, Creatinine 0.7, Estimat Glomerular Filtration Rate , Glucose Level 110H, Calcium Level 8.6 Current Medications Medications (Trade) Dose Ordered Sig/Yovana Route PRN Reason Start Time Stop Time Status Last Admin Dose Admin Acetaminophen (Tylenol) 650 mg Q4H PRN ORAL T>100.5 02/13/18 19:30 03/15/18 19:29 Al Hydroxide/Mg Hydroxide (Mylanta II) 30 ml Q6H PRN ORAL dyspepsia 02/13/18 19:30 03/15/18 19:29 Dextrose (Dextrose 50%) STAT PRN IV Hypoglycemia 02/13/18 19:30 03/15/18 19:29 Diphenhydramine HCl (Benadryl) 25 mg Q6H PRN ORAL Itching/Pruritis 02/13/18 19:30 03/15/18 19:29 Heparin Sodium (Porcine) (Heparin 5000 units/ml) 5,000 units EVERY 12 HOURS SUBQ 02/13/18 21:00 03/15/18 20:59 02/16/18 08:37 Metoprolol Tartrate (Lopressor) 5 mg QIDPRN PRN IVP hear rate greater than 120 02/15/18 18:00 03/17/18 17:59 Metoprolol Tartrate (Lopressor) 100 mg EVERY 12 HOURS ORAL 02/15/18 21:00 03/17/18 20:59 02/16/18 08:42 Morphine Sulfate (Morphine Sulfate) 2 mg Q4H PRN IVP Severe Pain (Pain Scale 7-10) 02/13/18 19:30 02/20/18 19:29 02/15/18 07:50 Nitroglycerin (Ntg) 0.4 mg Q5M X 3 DOSES PRN SL Prn Chest Pain 02/13/18 19:30 03/15/18 19:29 Ondansetron HCl (Zofran) 4 mg Q6H PRN IVP Nausea & Vomiting 02/13/18 19:30 03/15/18 19:29 Pantoprazole (Protonix) 40 mg DAILY IVP 02/14/18 09:00 03/16/18 08:59 02/16/18 08:35 Polyethylene Glycol (Miralax) 17 gm HSPRN PRN ORAL Constipation 02/13/18 19:30 03/15/18 19:29 Temazepam (Restoril) 15 mg HSPRN PRN ORAL Insomnia 02/13/18 21:00 02/20/18 20:59 02/13/18 21:28 Bryan Bertrand MD Feb 16, 2018 13:32
[2018-02-16 16:00] VITALS: BP 138/76
--- NOTE | 2018-02-16 16:59 | Cardiology Progress Note ---
Assessment/Plan Assessment/Plan 1. Permanent atrial fibrillation. 2. Tachycardia. 3. Recurrent nausea and vomiting. 4. Mitral regurgitation moderate 5. History of chronic congestive heart failure. hr improved on higer bb dose echo ntoed may need more adjsuement of her bb resume xarelto Subjective ROS Limited/Unobtainable: Yes Subjective aphasic Objective Last 24 Hour Vital Signs Date Time Temp Pulse Resp B/P (MAP) Pulse Ox O2 Delivery O2 Flow Rate FiO2 02/16/18 16:00 98.1 90 18 138/76 97 Room Air 98.1 02/16/18 16:00 85 02/16/18 12:00 102 02/16/18 12:00 97.7 93 18 132/61 96 Room Air 97.7 02/16/18 08:42 120 138/79 02/16/18 08:00 98.8 120 18 138/79 98 Room Air 98.8 02/16/18 08:00 97 02/16/18 04:00 88 02/16/18 04:00 97.9 98 18 119/81 98 Room Air 97.9 02/16/18 00:00 85 02/16/18 00:00 97.4 100 20 124/79 97 Room Air 97.4 02/15/18 21:47 122 130/86 02/15/18 20:00 87 02/15/18 20:00 96.2 122 18 130/86 95 Room Air 96.2 General Appearance: no apparent distress, alert Neck: no JVD Cardiovascular: irregularly irregular Respiratory/Chest: crackles/rales - left base Abdomen: normal bowel sounds, non tender, soft Extremities: no swelling Intake and Output 02/15/18 02/16/18 19:00 07:00 Intake Total 610 ml Output Total 400 ml Balance 610 ml -400 ml Intake Oral 360 ml IV Total 250 ml Output Urine Total 400 ml # Voids 3 # Bowel Movements 1 Laboratory Tests Test 02/16/18 06:20 White Blood Count 6.6 K/UL (4.8-10.8) Red Blood Count 3.85 M/UL (4.20-5.40) L Hemoglobin 12.0 G/DL (12.0-16.0) Hematocrit 35.4 % (37.0-47.0) L Mean Corpuscular Volume 92 FL (80-99) Mean Corpuscular Hemoglobin 31.1 PG (27.0-31.0) H Mean Corpuscular Hemoglobin Concent 33.9 G/DL (32.0-36.0) Red Cell Distribution Width 12.5 % (11.6-14.8) Platelet Count 192 K/UL (150-450) Mean Platelet Volume 7.2 FL (6.5-10.1) Neutrophils (%) (Auto) 67.1 % (45.0-75.0) Lymphocytes (%) (Auto) 22.0 % (20.0-45.0) Monocytes (%) (Auto) 7.6 % (1.0-10.0) Eosinophils (%) (Auto) 2.3 % (0.0-3.0) Basophils (%) (Auto) 0.9 % (0.0-2.0) Sodium Level 142 MMOL/L (136-145) Potassium Level 3.7 MMOL/L (3.5-5.1) Chloride Level 106 MMOL/L (98-107) Carbon Dioxide Level 26 MMOL/L (21-32) Anion Gap 10 mmol/L (5-15) Blood Urea Nitrogen 8 mg/dL (7-18) Creatinine 0.7 MG/DL (0.55-1.30) Estimat Glomerular Filtration Rate mL/min (>60) Glucose Level 110 MG/DL (74-106) H Calcium Level 8.6 MG/DL (8.5-10.1) Microbiology Date/Time Source Procedure Growth Status 02/16/18 08:55 Stool Clostridium difficile Toxin Assay - Final Complete CORI SOLIS Feb 16, 2018 16:59
--- NOTE | 2018-02-16 17:08 | Internal Med Progress Note ---
Subjective Date of Service: Feb 16, 2018 Physician Name Carlton,Chiki Attending Physician Glenn Garrido MD Current Medications Medications (Trade) Dose Ordered Sig/Yovana Route PRN Reason Start Time Stop Time Status Last Admin Dose Admin Acetaminophen (Tylenol) 650 mg Q4H PRN ORAL T>100.5 02/13/18 19:30 03/15/18 19:29 Al Hydroxide/Mg Hydroxide (Mylanta II) 30 ml Q6H PRN ORAL dyspepsia 02/13/18 19:30 03/15/18 19:29 Dextrose (Dextrose 50%) STAT PRN IV Hypoglycemia 02/13/18 19:30 03/15/18 19:29 Diphenhydramine HCl (Benadryl) 25 mg Q6H PRN ORAL Itching/Pruritis 02/13/18 19:30 03/15/18 19:29 Heparin Sodium (Porcine) (Heparin 5000 units/ml) 5,000 units EVERY 12 HOURS SUBQ 02/13/18 21:00 03/15/18 20:59 02/16/18 08:37 Metoprolol Tartrate (Lopressor) 5 mg QIDPRN PRN IVP hear rate greater than 120 02/15/18 18:00 03/17/18 17:59 Metoprolol Tartrate (Lopressor) 100 mg EVERY 12 HOURS ORAL 02/15/18 21:00 03/17/18 20:59 02/16/18 08:42 Morphine Sulfate (Morphine Sulfate) 2 mg Q4H PRN IVP Severe Pain (Pain Scale 7-10) 02/13/18 19:30 02/20/18 19:29 02/15/18 07:50 Nitroglycerin (Ntg) 0.4 mg Q5M X 3 DOSES PRN SL Prn Chest Pain 02/13/18 19:30 03/15/18 19:29 Ondansetron HCl (Zofran) 4 mg Q6H PRN IVP Nausea & Vomiting 02/13/18 19:30 03/15/18 19:29 Pantoprazole (Protonix) 40 mg DAILY IVP 02/14/18 09:00 03/16/18 08:59 02/16/18 08:35 Polyethylene Glycol (Miralax) 17 gm HSPRN PRN ORAL Constipation 02/13/18 19:30 4/18/18 19:29 Rivaroxaban (Xarelto) 20 mg DAILY ORAL 02/16/18 17:15 03/18/18 17:14 UNV Temazepam (Restoril) 15 mg HSPRN PRN ORAL Insomnia 02/13/18 21:00 02/20/18 20:59 02/13/18 21:28 Allergies: Coded Allergies: No Known Allergies (Unverified , 02/14/15) ROS Limited/Unobtainable: No Constitutional: Reports: no symptoms HEENT: Reports: no symptoms Cardiovascular: Reports: no symptoms Respiratory: Reports: no symptoms Gastrointestinal/Abdominal: Reports: no symptoms Genitourinary: Reports: no symptoms Neurologic/Psychiatric: Reports: no symptoms Subjective 82 YO F admitted with abdominal pain. Now Atrial fibrillation with rapid ventricular rate. Cover for Norberto Chavez -Dr Garrido. S/P endoscopy 02/15/18. Objective Last Vital Signs Date Time Temp Pulse Resp B/P (MAP) Pulse Ox O2 Delivery O2 Flow Rate FiO2 02/16/18 16:00 98.1 90 18 138/76 97 Room Air 98.1 02/15/18 09:12 5.0 Laboratory Tests Test 02/16/18 06:20 White Blood Count 6.6 K/UL (4.8-10.8) Red Blood Count 3.85 M/UL (4.20-5.40) L Hemoglobin 12.0 G/DL (12.0-16.0) Hematocrit 35.4 % (37.0-47.0) L Mean Corpuscular Volume 92 FL (80-99) Mean Corpuscular Hemoglobin 31.1 PG (27.0-31.0) H Mean Corpuscular Hemoglobin Concent 33.9 G/DL (32.0-36.0) Red Cell Distribution Width 12.5 % (11.6-14.8) Platelet Count 192 K/UL (150-450) Mean Platelet Volume 7.2 FL (6.5-10.1) Neutrophils (%) (Auto) 67.1 % (45.0-75.0) Lymphocytes (%) (Auto) 22.0 % (20.0-45.0) Monocytes (%) (Auto) 7.6 % (1.0-10.0) Eosinophils (%) (Auto) 2.3 % (0.0-3.0) Basophils (%) (Auto) 0.9 % (0.0-2.0) Sodium Level 142 MMOL/L (136-145) Potassium Level 3.7 MMOL/L (3.5-5.1) Chloride Level 106 MMOL/L (98-107) Carbon Dioxide Level 26 MMOL/L (21-32) Anion Gap 10 mmol/L (5-15) Blood Urea Nitrogen 8 mg/dL (7-18) Creatinine 0.7 MG/DL (0.55-1.30) Estimat Glomerular Filtration Rate mL/min (>60) Glucose Level 110 MG/DL (74-106) H Calcium Level 8.6 MG/DL (8.5-10.1) Microbiology Date/Time Source Procedure Growth Status 02/16/18 08:55 Stool Clostridium difficile Toxin Assay - Final Complete Intake and Output 02/15/18 02/16/18 19:00 07:00 Intake Total 610 ml Output Total 400 ml Balance 610 ml -400 ml Intake Oral 360 ml IV Total 250 ml Output Urine Total 400 ml # Voids 3 # Bowel Movements 1 Objective General Appearance: alert, mild distress, thin EENT: PERRL/EOMI, normal ENT inspection Neck: non-tender, normal alignment, supple, normal inspection Cardiovascular: normal peripheral pulses, no gallop/murmur, bradycardia, irregularly irregular Respiratory/Chest: chest wall non-tender, lungs clear, normal breath sounds, no respiratory distress, no accessory muscle use Abdomen: normal bowel sounds, decreased bowel sounds, guarding, tender Extremities: normal range of motion, non-tender Skin: normal pigmentation, warm/dry Assessment/Plan Problem List: (1) Hiatal hernia (2) Gastritis Assessment & Plan: S/p endoscopy 02/15/18. See GI note. Continue protonix (3) Nausea & vomiting (4) Atrial fibrillation with rapid ventricular response Assessment & Plan: Now on IV lopressor prn. See cardiology note. (5) Abdominal pain (6) Diabetes type 2, controlled (7) HTN (hypertension) Assessment & Plan: continue lopressor and hydralazine (8) Gout (9) Cerebral vascular disease (10) Right hemiparesis Status: not improved CHIKI CARLTON Feb 16, 2018 17:08
[2018-02-16] MEDS ORDERED: Xarelto 15mg tab ORAL SCH (18:15)
[2018-02-16 20:00] VITALS: BP 143/66
--- NOTE | 2018-02-16 21:30 | General Progress Note ---
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 -provided ro/st Subjective Date patient seen: Feb 16, 2018 Neurologic/Psychiatric: Reports: depressed Allergies: Coded Allergies: No Known Allergies (Unverified , 02/14/15) Objective Last 24 Hour Vital Signs Date Time Temp Pulse Resp B/P (MAP) Pulse Ox O2 Delivery O2 Flow Rate FiO2 02/16/18 21:10 85 138/76 02/16/18 16:00 98.1 90 18 138/76 97 Room Air 98.1 02/16/18 16:00 85 02/16/18 12:00 102 02/16/18 12:00 97.7 93 18 132/61 96 Room Air 97.7 02/16/18 08:42 120 138/79 02/16/18 08:00 98.8 120 18 138/79 98 Room Air 98.8 02/16/18 08:00 97 02/16/18 04:00 88 02/16/18 04:00 97.9 98 18 119/81 98 Room Air 97.9 02/16/18 00:00 85 02/16/18 00:00 97.4 100 20 124/79 97 Room Air 97.4 02/15/18 21:47 122 130/86 Intake and Output 02/15/18 02/16/18 19:00 07:00 Intake Total 610 ml Output Total 400 ml Balance 610 ml -400 ml Intake Oral 360 ml IV Total 250 ml Output Urine Total 400 ml # Voids 3 # Bowel Movements 1 Laboratory Tests 02/16/18 06:20: White Blood Count 6.6, Red Blood Count 3.85L, Hemoglobin 12.0, Hematocrit 35.4L , Mean Corpuscular Volume 92, Mean Corpuscular Hemoglobin 31.1H, Mean Corpuscular Hemoglobin Concent 33.9, Red Cell Distribution Width 12.5, Platelet Count 192, Mean Platelet Volume 7.2, Neutrophils (%) (Auto) 67.1, Lymphocytes (% ) (Auto) 22.0, Monocytes (%) (Auto) 7.6, Eosinophils (%) (Auto) 2.3, Basophils ( %) (Auto) 0.9, Sodium Level 142, Potassium Level 3.7, Chloride Level 106, Carbon Dioxide Level 26, Anion Gap 10, Blood Urea Nitrogen 8, Creatinine 0.7, Estimat Glomerular Filtration Rate , Glucose Level 110H, Calcium Level 8.6 Height (Feet): 5 Height (Inches): 2.00 Weight (Pounds): 114 General Appearance: no apparent distress, alert Neurologic: oriented x 3 Slava Hassan M.D. Feb 16, 2018 21:30
[2018-02-17] VITALS (7 sets, daily range): BP systolic 132–159; BP diastolic 74–90
[2018-02-17] MEDS: Pantoprazole Inj IVP SCH (09:05)
[2018-02-17 09:46] LABS: BASOPHILS % (AUTO) 1.1 % (0.0-2.0); EOSINOPHILS % (AUTO) 2.9 % (0.0-3.0); HEMATOCRIT 35.6 % (37.0-47.0); HEMOGLOBIN 11.9 G/DL (12.0-16.0); LYMPHOCYTES % (AUTO) 18.2 % (20.0-45.0); MEAN CORPUSCULAR VOLUME 92 FL (80-99); MONOCYTES % (AUTO) 7.1 % (1.0-10.0); NEUTROPHILS % (AUTO) 70.8 % (45.0-75.0); PLATELET COUNT 193 K/UL (150-450); RED BLOOD COUNT 3.88 M/UL (4.20-5.40); RED CELL DISTRIBUTION WIDTH 12.8 % (11.6-14.8); WHITE BLOOD COUNT 5.2 K/UL (4.8-10.8)
[2018-02-17 10:10] LABS: ANION GAP 8 mmol/L (5-15); BLOOD UREA NITROGEN 10 mg/dL (7-18); CALCIUM 8.5 MG/DL (8.5-10.1); CARBON DIOXIDE 30 MMOL/L (21-32); CHLORIDE 103 MMOL/L (98-107); CREATININE 0.9 MG/DL (0.55-1.30); POTASSIUM 3.1 MMOL/L (3.5-5.1); SODIUM 141 MMOL/L (136-145)
--- NOTE | 2018-02-17 10:57 | GI Progress Note ---
Assessment/Plan Problems: (1) Nausea & vomiting ICD Codes: R11.2 - Nausea with vomiting, unspecified SNOMED: 02464764 (2) Gastritis ICD Codes: K29.70 - Gastritis, unspecified, without bleeding SNOMED: 6948073 (3) Hiatal hernia ICD Codes: K44.9 - Diaphragmatic hernia without obstruction or gangrene SNOMED: 34323380 (4) Iron deficiency anemia ICD Codes: D50.9 - Iron deficiency anemia, unspecified SNOMED: 85828891 (5) Generalized weakness ICD Codes: R53.1 - Weakness SNOMED: 50360632 Status: stable Status Narrative Discussed with Dr. Munoz. Assessment/Plan OB stool negative s/p EGD SUMMARY OF FINDINGS: 1. Small hiatal hernia. 2. Atrophic gastritis, status post biopsy. RECOMMENDATIONS: Follow up biopsy results and treat accordingly. prn transfusions ppi fu labs outpatient colonoscopy The patient was seen and examined at bedside and all new and available data was reviewed in the patients chart. I agree with the above findings, impression and plan. (Patient seen earlier today. Signature stamp does not reflect patient encounter time.). - Kendall Munoz MD Subjective Subjective limited Objective Last 24 Hour Vital Signs Date Time Temp Pulse Resp B/P (MAP) Pulse Ox O2 Delivery O2 Flow Rate FiO2 02/17/18 09:08 112 136/90 02/17/18 08:00 98.1 112 18 132/90 98 Room Air 98.1 02/17/18 08:00 104 02/17/18 04:00 98.4 90 20 142/76 96 Room Air 98.4 02/17/18 04:00 79 02/17/18 00:00 97.7 91 20 150/74 98 Room Air 97.7 02/17/18 00:00 101 02/16/18 21:10 85 138/76 02/16/18 20:00 100 02/16/18 20:00 98.4 73 20 143/66 96 Room Air 98.4 02/16/18 16:00 98.1 90 18 138/76 97 Room Air 98.1 02/16/18 16:00 85 02/16/18 12:00 102 02/16/18 12:00 97.7 93 18 132/61 96 Room Air 97.7 Intake and Output 02/16/18 02/17/18 19:00 07:00 Intake Total 360 ml Output Total 550 ml Balance -190 ml Intake Oral 360 ml Output Urine Total 550 ml # Voids 6 Laboratory Tests Test 02/17/18 07:10 White Blood Count 5.2 K/UL (4.8-10.8) Red Blood Count 3.88 M/UL (4.20-5.40) L Hemoglobin 11.9 G/DL (12.0-16.0) L Hematocrit 35.6 % (37.0-47.0) L Mean Corpuscular Volume 92 FL (80-99) Mean Corpuscular Hemoglobin 30.6 PG (27.0-31.0) Mean Corpuscular Hemoglobin Concent 33.4 G/DL (32.0-36.0) Red Cell Distribution Width 12.8 % (11.6-14.8) Platelet Count 193 K/UL (150-450) Mean Platelet Volume 7.3 FL (6.5-10.1) Neutrophils (%) (Auto) 70.8 % (45.0-75.0) Lymphocytes (%) (Auto) 18.2 % (20.0-45.0) L Monocytes (%) (Auto) 7.1 % (1.0-10.0) Eosinophils (%) (Auto) 2.9 % (0.0-3.0) Basophils (%) (Auto) 1.1 % (0.0-2.0) Sodium Level 141 MMOL/L (136-145) Potassium Level 3.1 MMOL/L (3.5-5.1) L Chloride Level 103 MMOL/L (98-107) Carbon Dioxide Level 30 MMOL/L (21-32) Anion Gap 8 mmol/L (5-15) Blood Urea Nitrogen 10 mg/dL (7-18) Creatinine 0.9 MG/DL (0.55-1.30) Estimat Glomerular Filtration Rate mL/min (>60) Glucose Level 104 MG/DL (74-106) Calcium Level 8.5 MG/DL (8.5-10.1) Height (Feet): 5 Height (Inches): 2.00 Weight (Pounds): 114 General Appearance: WD/WN, no apparent distress, alert Cardiovascular: normal rate Respiratory/Chest: normal breath sounds, no respiratory distress Abdominal Exam: normal bowel sounds, non tender, soft Extremities: normal range of motion, non-tender Gladys Multani N.P. Feb 17, 2018 10:57 ANG MUNOZ Feb 21, 2018 07:14
--- NOTE | 2018-02-17 11:23 | Pulmonology Progress Note ---
Assessment/Plan Problems: (1) Atrial fibrillation with RVR (2) Dyspnea (3) Vomiting (4) Cerebral vascular disease (5) Hemiparesis, right (6) Gout (7) Diabetes type 2, controlled (8) Hypertension Assessment/Plan EGD reviewed, just gastritis. heart rate slightly better controlled on higher dose of BB, Xarelto started cardiology f/u symptomatic treatment dc home when ok with cardiology dvt prophylaxis Subjective ROS Limited/Unobtainable: No Interval Events: better controlled afib today Allergies: Coded Allergies: No Known Allergies (Unverified , 02/14/15) Objective Last 24 Hour Vital Signs Date Time Temp Pulse Resp B/P (MAP) Pulse Ox O2 Delivery O2 Flow Rate FiO2 02/17/18 09:08 112 136/90 02/17/18 08:00 98.1 112 18 132/90 98 Room Air 98.1 02/17/18 08:00 104 02/17/18 04:00 98.4 90 20 142/76 96 Room Air 98.4 02/17/18 04:00 79 02/17/18 00:00 97.7 91 20 150/74 98 Room Air 97.7 02/17/18 00:00 101 02/16/18 21:10 85 138/76 02/16/18 20:00 100 02/16/18 20:00 98.4 73 20 143/66 96 Room Air 98.4 02/16/18 16:00 98.1 90 18 138/76 97 Room Air 98.1 02/16/18 16:00 85 02/16/18 12:00 102 02/16/18 12:00 97.7 93 18 132/61 96 Room Air 97.7 Intake and Output 02/16/18 02/17/18 19:00 07:00 Intake Total 360 ml Output Total 550 ml Balance -190 ml Intake Oral 360 ml Output Urine Total 550 ml # Voids 6 Objective General Appearance: WD/WN Lines, tubes and drains: peripheral HEENT: normocephalic, atraumatic Neck: non-tender, normal alignment Respiratory/Chest: chest wall non-tender, lungs clear, normal breath sounds Breasts: no masses Cardiovascular/Chest: normal peripheral pulses, irregular Abdomen: normal bowel sounds, non tender Genitourinary/Rectal: normal genital exam Extremities: normal range of motion, non-tender Skin Exam: normal pigmentation, warm/dry Microbiology Date/Time Source Procedure Growth Status 02/16/18 08:55 Stool Clostridium difficile Toxin Assay - Final Complete Laboratory Tests 02/17/18 07:10: White Blood Count 5.2, Red Blood Count 3.88L, Hemoglobin 11.9L, Hematocrit 35.6L , Mean Corpuscular Volume 92, Mean Corpuscular Hemoglobin 30.6, Mean Corpuscular Hemoglobin Concent 33.4, Red Cell Distribution Width 12.8, Platelet Count 193, Mean Platelet Volume 7.3, Neutrophils (%) (Auto) 70.8, Lymphocytes (% ) (Auto) 18.2L, Monocytes (%) (Auto) 7.1, Eosinophils (%) (Auto) 2.9, Basophils (%) (Auto) 1.1, Sodium Level 141, Potassium Level 3.1L, Chloride Level 103, Carbon Dioxide Level 30, Anion Gap 8, Blood Urea Nitrogen 10, Creatinine 0.9, Estimat Glomerular Filtration Rate , Glucose Level 104, Calcium Level 8.5 Current Medications Medications (Trade) Dose Ordered Sig/Yovana Route PRN Reason Start Time Stop Time Status Last Admin Dose Admin Acetaminophen (Tylenol) 650 mg Q4H PRN ORAL T>100.5 02/13/18 19:30 03/15/18 19:29 Al Hydroxide/Mg Hydroxide (Mylanta II) 30 ml Q6H PRN ORAL dyspepsia 02/13/18 19:30 03/15/18 19:29 Dextrose (Dextrose 50%) STAT PRN IV Hypoglycemia 02/13/18 19:30 03/15/18 19:29 Diphenhydramine HCl (Benadryl) 25 mg Q6H PRN ORAL Itching/Pruritis 02/13/18 19:30 03/15/18 19:29 Metoprolol Tartrate (Lopressor) 5 mg QIDPRN PRN IVP hear rate greater than 120 02/15/18 18:00 03/17/18 17:59 Metoprolol Tartrate (Lopressor) 100 mg EVERY 12 HOURS ORAL 02/15/18 21:00 03/17/18 20:59 02/17/18 09:08 Morphine Sulfate (Morphine Sulfate) 2 mg Q4H PRN IVP Severe Pain (Pain Scale 7-10) 02/13/18 19:30 02/20/18 19:29 02/15/18 07:50 Nitroglycerin (Ntg) 0.4 mg Q5M X 3 DOSES PRN SL Prn Chest Pain 02/13/18 19:30 03/15/18 19:29 Ondansetron HCl (Zofran) 4 mg Q6H PRN IVP Nausea & Vomiting 02/13/18 19:30 03/15/18 19:29 Pantoprazole (Protonix) 40 mg DAILY IVP 02/14/18 09:00 03/16/18 08:59 02/17/18 09:05 Polyethylene Glycol (Miralax) 17 gm HSPRN PRN ORAL Constipation 02/13/18 19:30 03/15/18 19:29 Rivaroxaban (Xarelto) 15 mg QPM ORAL 02/16/18 18:15 03/18/18 18:14 02/16/18 17:56 Temazepam (Restoril) 15 mg HSPRN PRN ORAL Insomnia 02/13/18 21:00 02/20/18 20:59 02/13/18 21:28 Bryan Bertrand MD Feb 17, 2018 11:23
[2018-02-17] MEDS ORDERED: XARELTO15 MG ORAL (11:32)
--- NOTE | 2018-02-17 14:42 | Infectious Diseases Prog Note ---
Assessment/Plan Assessment/Plan Abx: None Assessment: Abd pain, n/v- Likely 2ry to gastritis as seen on EGD .? focal colitis, ?viral gastroenteritis vs biliary colic- symptoms has now resolved -s/p EGD 02/15: 1. Small hiatal hernia.; path: chronic inflammation, H pylori stain neg, no malignancy or dysplasia 2. Atrophic gastritis, status post biopsy. -CT abd/p w/ IV contrast: Equivocal mild prominence of the ascending colon wall and slight infiltration of the pericolonic fat, probably artifact of under distention and baseline for this patient, but mild focal colitis is possible. No acute abnormality otherwise. Cholelithiasis, also previously described. Distended bladder. Minimal anterior pericardial thickening versus fluid, decreased from the prior study. Cardiomegaly L1 and L5 compression fracture deformities, unchanged from previous exam incidental findings noted, including bilateral basilar pulmonary interstitial prominence and compressive atelectasis, degenerative spondylosis, subcentimeter low-attenuation left lobe liver lesion, small to moderate sliding-type hiatal hernia Afib with RVR Cholelithiasis Dysuria -u/a no pyuria Afebrile, no leukocytosis DM2 DVT CAD CVA Afib Plan: -Continue to monitor off abx; ok to discharge from ID perspective when otherwise medically stable. -Monitor CBC,/BMP, temperatures -aspiration precautions Thank you for this consultation. Will continue to follow along with you. Discussed with RN Subjective Allergies: Coded Allergies: No Known Allergies (Unverified , 02/14/15) Subjective afebrile no leukocytosis off abx Objective Vital Signs Last 24 Hour Vital Signs Date Time Temp Pulse Resp B/P (MAP) Pulse Ox O2 Delivery O2 Flow Rate FiO2 02/17/18 12:00 88 02/17/18 12:00 97.7 93 18 140/88 97 Room Air 97.7 02/17/18 09:08 112 136/90 02/17/18 08:00 98.1 112 18 132/90 98 Room Air 98.1 02/17/18 08:00 104 02/17/18 04:00 98.4 90 20 142/76 96 Room Air 98.4 02/17/18 04:00 79 02/17/18 00:00 97.7 91 20 150/74 98 Room Air 97.7 02/17/18 00:00 101 02/16/18 21:10 85 138/76 02/16/18 20:00 100 02/16/18 20:00 98.4 73 20 143/66 96 Room Air 98.4 02/16/18 16:00 98.1 90 18 138/76 97 Room Air 98.1 02/16/18 16:00 85 Height (Feet): 5 Height (Inches): 2.00 Weight (Pounds): 114 Objective General Appearance: WD/WN Lines, tubes and drains: peripheral HEENT: normocephalic, atraumatic Neck: non-tender, normal alignment Respiratory/Chest: chest wall non-tender, lungs clear, normal breath sounds Breasts: no masses Cardiovascular/Chest: normal peripheral pulses, normal rate, no JVD Abdomen: normal bowel sounds, non tender Genitourinary/Rectal: normal genital exam Extremities: normal range of motion, non-tender Skin Exam: normal pigmentation, warm/dry Microbiology Date/Time Source Procedure Growth Status 02/16/18 08:55 Stool Clostridium difficile Toxin Assay - Final Complete Laboratory Tests Test 02/17/18 07:10 White Blood Count 5.2 K/UL (4.8-10.8) Red Blood Count 3.88 M/UL (4.20-5.40) L Hemoglobin 11.9 G/DL (12.0-16.0) L Hematocrit 35.6 % (37.0-47.0) L Mean Corpuscular Volume 92 FL (80-99) Mean Corpuscular Hemoglobin 30.6 PG (27.0-31.0) Mean Corpuscular Hemoglobin Concent 33.4 G/DL (32.0-36.0) Red Cell Distribution Width 12.8 % (11.6-14.8) Platelet Count 193 K/UL (150-450) Mean Platelet Volume 7.3 FL (6.5-10.1) Neutrophils (%) (Auto) 70.8 % (45.0-75.0) Lymphocytes (%) (Auto) 18.2 % (20.0-45.0) L Monocytes (%) (Auto) 7.1 % (1.0-10.0) Eosinophils (%) (Auto) 2.9 % (0.0-3.0) Basophils (%) (Auto) 1.1 % (0.0-2.0) Sodium Level 141 MMOL/L (136-145) Potassium Level 3.1 MMOL/L (3.5-5.1) L Chloride Level 103 MMOL/L (98-107) Carbon Dioxide Level 30 MMOL/L (21-32) Anion Gap 8 mmol/L (5-15) Blood Urea Nitrogen 10 mg/dL (7-18) Creatinine 0.9 MG/DL (0.55-1.30) Estimat Glomerular Filtration Rate mL/min (>60) Glucose Level 104 MG/DL (74-106) Calcium Level 8.5 MG/DL (8.5-10.1) Current Medications Medications (Trade) Dose Ordered Sig/Yovana Route PRN Reason Start Time Stop Time Status Last Admin Dose Admin Acetaminophen (Tylenol) 650 mg Q4H PRN ORAL T>100.5 02/13/18 19:30 03/15/18 19:29 Al Hydroxide/Mg Hydroxide (Mylanta II) 30 ml Q6H PRN ORAL dyspepsia 02/13/18 19:30 03/15/18 19:29 Dextrose (Dextrose 50%) STAT PRN IV Hypoglycemia 02/13/18 19:30 03/15/18 19:29 Diphenhydramine HCl (Benadryl) 25 mg Q6H PRN ORAL Itching/Pruritis 02/13/18 19:30 03/15/18 19:29 Metoprolol Tartrate (Lopressor) 5 mg QIDPRN PRN IVP hear rate greater than 120 02/15/18 18:00 03/17/18 17:59 Metoprolol Tartrate (Lopressor) 100 mg EVERY 12 HOURS ORAL 02/15/18 21:00 03/17/18 20:59 02/17/18 09:08 Morphine Sulfate (Morphine Sulfate) 2 mg Q4H PRN IVP Severe Pain (Pain Scale 7-10) 02/13/18 19:30 02/20/18 19:29 02/15/18 07:50 Nitroglycerin (Ntg) 0.4 mg Q5M X 3 DOSES PRN SL Prn Chest Pain 02/13/18 19:30 03/15/18 19:29 Ondansetron HCl (Zofran) 4 mg Q6H PRN IVP Nausea & Vomiting 02/13/18 19:30 03/15/18 19:29 Pantoprazole (Protonix) 40 mg DAILY IVP 02/14/18 09:00 03/16/18 08:59 02/17/18 09:05 Polyethylene Glycol (Miralax) 17 gm HSPRN PRN ORAL Constipation 02/13/18 19:30 03/15/18 19:29 Rivaroxaban (Xarelto) 15 mg QPM ORAL 02/16/18 18:15 03/18/18 18:14 02/16/18 17:56 Temazepam (Restoril) 15 mg HSPRN PRN ORAL Insomnia 02/13/18 21:00 02/20/18 20:59 02/13/18 21:28 Viktoria Dangelo M.D. Feb 17, 2018 14:42
--- NOTE | 2018-02-17 15:12 | General Progress Note ---
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 -provided ro/st Subjective Date patient seen: Feb 17, 2018 Neurologic/Psychiatric: Reports: anxiety, depressed, emotional problems Allergies: Coded Allergies: No Known Allergies (Unverified , 02/14/15) Objective Last 24 Hour Vital Signs Date Time Temp Pulse Resp B/P (MAP) Pulse Ox O2 Delivery O2 Flow Rate FiO2 02/17/18 12:00 88 02/17/18 12:00 97.7 93 18 140/88 97 Room Air 97.7 02/17/18 09:08 112 136/90 02/17/18 08:00 98.1 112 18 132/90 98 Room Air 98.1 02/17/18 08:00 104 02/17/18 04:00 98.4 90 20 142/76 96 Room Air 98.4 02/17/18 04:00 79 02/17/18 00:00 97.7 91 20 150/74 98 Room Air 97.7 02/17/18 00:00 101 02/16/18 21:10 85 138/76 02/16/18 20:00 100 02/16/18 20:00 98.4 73 20 143/66 96 Room Air 98.4 02/16/18 16:00 98.1 90 18 138/76 97 Room Air 98.1 02/16/18 16:00 85 Intake and Output 02/16/18 02/17/18 19:00 07:00 Intake Total 360 ml Output Total 550 ml Balance -190 ml Intake Oral 360 ml Output Urine Total 550 ml # Voids 6 Laboratory Tests 02/17/18 07:10: White Blood Count 5.2, Red Blood Count 3.88L, Hemoglobin 11.9L, Hematocrit 35.6L , Mean Corpuscular Volume 92, Mean Corpuscular Hemoglobin 30.6, Mean Corpuscular Hemoglobin Concent 33.4, Red Cell Distribution Width 12.8, Platelet Count 193, Mean Platelet Volume 7.3, Neutrophils (%) (Auto) 70.8, Lymphocytes (% ) (Auto) 18.2L, Monocytes (%) (Auto) 7.1, Eosinophils (%) (Auto) 2.9, Basophils (%) (Auto) 1.1, Sodium Level 141, Potassium Level 3.1L, Chloride Level 103, Carbon Dioxide Level 30, Anion Gap 8, Blood Urea Nitrogen 10, Creatinine 0.9, Estimat Glomerular Filtration Rate , Glucose Level 104, Calcium Level 8.5 Height (Feet): 5 Height (Inches): 2.00 Weight (Pounds): 114 General Appearance: no apparent distress, alert Neurologic: depressed affect Slava Hassan M.D. Feb 17, 2018 15:12
[2018-02-17] MEDS ORDERED: Tubing IV Secondary IV ONE (15:49)
[2018-02-17] MEDS ORDERED: NS 275ml ONE (15:49)
--- NOTE | 2018-02-20 12:12 | Discharge Summary ---
Discharge Summary Hospital Course Date of Admission Feb 13, 2018 at 16:10 Date of Discharge Feb 17, 2018 at 15:50 Admitting Diagnosis dehydration HPI Ernestina Stevens is a 82 year old female who was admitted on Feb 13, 2018 at 16: 10 for Dehydration Hospital Course dc summary #[id number] Discharge Medications New Medications: Rivaroxaban (Xarelto) 15 Mg Tablet 15 MG ORAL QPM for 30 Days, TAB Continued Medications: Allopurinol* (Allopurinol*) 100 Mg Tablet 100 MG ORAL DAILY, TAB Cholecalciferol (Vitamin D3) (Vitamin D-400*) 400 Unit Tablet 1000 UNITS ORAL DAILY, TAB Metformin Hcl* (Metformin Hcl*) 1,000 Mg Tablet 1000 MG ORAL BID, TAB Metoprolol Tartrate* (Metoprolol Tartrate*) 100 Mg Tablet 100 MG ORAL, TAB (This prescription has been renewed) Vitamin B Cmplx/Vit C/Folic AC (Nephro-Barbara Tablet) 0.8 Mg Tablet 1 TAB ORAL DAILY, #30 TAB 0 Refills (This prescription has been renewed) Discharge Condition Upon Discharge: stable Discharge Disposition Patient was discharged to Home () Discharge Instructions Discharge Instructions Special Instructions I have been assigned to complete a D/C Summary on this account. I was not involved in the patient management Kayli Giron NP ([place]te[place]) Feb 20, 2018 12:12
--- NOTE | 2018-02-21 04:46 | Discharge Summary 2 SIG ---
DATE OF ADMISSION: 02/13/2018 DATE OF DISCHARGE: 02/17/2018 REASON FOR ADMISSION: This is an 82 years old female with past medical history of CVA with right-sided weakness, atrial fibrillation, hypertension, and diabetes, presented to the emergency room with a chief complaint of abdominal pain, nausea, and vomiting. The patient reported gradual onset of the symptoms. Vital signs were stable except heart rate 122. EKG shows atrial fibrillation with rapid ventricular response. Electrolytes stable. No leukocytosis. Stable hemoglobin and hematocrit. Stable renal parameters. Troponin negative. Lipase 147. Urinalysis, no evidence of UTI. CT of the abdomen and pelvis was done and revealed cholelithiasis and possible mild focal colitis. The patient admitted with diagnoses of atrial fibrillation with rapid ventricular response and abdominal pain with nausea and vomiting. HOSPITAL COURSE: The patient admitted to the telemetry floor. Cardiology consult initially was requested along with GI and Pulmonary consults. The patient's rate controlled with beta-rancho. Dose of beta-rancho was optimized until rate was controlled. The patient was on anticoagulation with Xarelto. According to cooling machine operator, the patient has a permanent atrial fibrillation and need to continue this regimen of Xarelto and metoprolol at home. TSH was checked and was within normal limits. The patient continued to be in atrial fibrillation, but heart rate was controlled. GI consult was requested. The patient was scheduled for the EGD. EGD revealed chronic atrophic gastritis, status post biopsy and small hiatal hernia. EGD was done on 02/15/2018, but biopsy revealed chronic gastritis, no H. pylori. The patient was hydrated with IV fluids. The patient initially was dehydrated secondary to intractable nausea and vomiting. Pain management provided. Per GI, the patient was recommended outpatient colonoscopy. Hemoglobin and hematocrit closely monitored, small trend down, but remained fairly at the baseline. Stool OB x1 was negative. Anemia workup revealed anemia of chronic disease. Bowel regimen instituted. The patient was on PPI. Antiemetics provided as needed. All blood thinners prior to procedure were hold. The patient was able to tolerate diet. No nausea and no vomiting prior to discharge. Stool for C. difficile was negative. LFTs within normal limits. Surgery consult was requested due to the finding of cholelithiasis though unchanged from the previous imaging. According to surgeon, the patient has cholelithiasis, but no evidence of acute cholecystitis. The patient possibly had episodes of biliary colic versus GERD, which resolved. No need for surgical intervention at this time and surgeon cleared the patient for discharge. Echocardiogram revealed ejection fraction of 50% and no evidence of left ventricular hypertrophy, borderline systolic function and wall motion, and moderate mitral regurgitation. Per cooling machine operator, the patient has a permanent atrial fibrillation as mentioned above and has a history of congestive heart failure. Supplemental oxygen and pulmonary toilet provided as needed. Prior to discharge, pulse oximetry stable on room air. Infectious Diseases doctor seen and evaluated the patient and recommended to observe the patient off antibiotics. No evidence of infection. No leukocytosis. No fever. Psychiatrist seen and evaluated the patient, diagnosed the patient with major depressive disorder, and optimized psychiatric medication regimen. Troponin x2 were negative. The patient was stable for discharge home. FINAL DIAGNOSES: Include: 1. Atrial fibrillation with rapid ventricular response. 2. Dehydration due to the abdominal pain with intractable nausea and vomiting. 3. Cholelithiasis. 4. Possible episodes of biliary colic versus GERD. 5. Anemia. 6. Status post upper endoscopy with biopsy. 7. Small hiatal hernia. 8. Atrophic gastritis, status post biopsy. 9. Diabetes mellitus. 10. Hypertension. 11. History of cerebrovascular accident with right-sided hemiparesis. 12. Permanent atrial fibrillation. 13. Moderate mitral regurgitation. Of note, blood pressure was managed with beta-rancho and blood sugar was managed with sliding scale of insulin. DISCHARGE MEDICATIONS: See medication reconciliation list. DISCHARGE INSTRUCTIONS: The patient discharged home. Follow up with primary care provider next week. Glenn Garrido M.D. I have been assigned to dictate discharge summary on this account and I was not involved in the patient's management. Kayli davilajohn NCasey DR: Madeline JOB#: [id number] CC:
== END 2018-02-17 15:50 | disposition home or self-care (01) | DRG 445 ==
LOC: EMR 16:00 → 2E 16:10 → EDBEDREQ 19:29 → 2E 02-14 22:00
PROC: 0DB68ZX Excision of Stomach, Via Natural or Artificial Opening Endoscopic, Diagnostic (ICD-10-PCS; principal; 2018-02-15 08:52)
PROC: 0DB78ZX Excision of Stomach, Pylorus, Via Natural or Artificial Opening Endoscopic, Diagnostic (ICD-10-PCS; principal; 2018-02-15 08:52)
DX: K80.70 Calculus of gallbladder and bile duct without cholecystitis without obstruction (principal); I69.351 Hemiplegia and hemiparesis following cerebral infarction affecting right dominant side; I50.9 Heart failure, unspecified; E11.9 Type 2 diabetes mellitus without complications; E86.0 Dehydration; I10 Essential (primary) hypertension; I48.2 Chronic atrial fibrillation; D50.9 Iron deficiency anemia, unspecified; F32.9 Major depressive disorder, single episode, unspecified; M10.9 Gout, unspecified; K29.40 Chronic atrophic gastritis without bleeding; I25.10 Atherosclerotic heart disease of native coronary artery without angina pectoris; K44.9 Diaphragmatic hernia without obstruction or gangrene; R10.9 Unspecified abdominal pain; R11.2 Nausea with vomiting, unspecified; Z86.718 Personal history of other venous thrombosis and embolism; Z86.73 Personal history of transient ischemic attack (TIA), and cerebral infarction without residual deficits; Z79.01 Long term (current) use of anticoagulants; Z87.891 Personal history of nicotine dependence; I34.0 Nonrheumatic mitral (valve) insufficiency; I35.1 Nonrheumatic aortic (valve) insufficiency; K52.9 Noninfective gastroenteritis and colitis, unspecified
CPT/HCPCS: 36415; 74177; 80048; 80053; 80162; 81003; 82150; 82270; 82607; 82728; 82746; 83540; 83550; 83690; 83735; 83880; 84100; 84439; 84443; 84484; 85007; 85025; 85044; 85610; 85651; 85730; 87324; 93005; 93306; 94003; 94150; 99285; J2405; J8499

== ENCOUNTER 2018-06-24 10:34 | Emergency (ER) | payer MEDICARE, OTHER ==
[~2018-06-24] VITALS: Ht 160 cm; Wt 72.6 kg
[~2018-06-24 10:34] MED LIST changes: +XARELTO15 MG ORAL
[2018-06-24] MEDS ORDERED: ZOLPIDEM TARTRA10 MG ORAL (10:54)
[2018-06-24] MEDS ORDERED: OXYBUTYNIN CHLOR5 M1 ORAL (10:54)
[2018-06-24] MEDS ORDERED: VITAMIN D400 INTLU ORAL (10:55)
[2018-06-24] MEDS ORDERED: METOPROLOL SUCC50 MG ORAL (10:55)
[2018-06-24] MEDS ORDERED: FOLIC ACID1 MG ORAL (10:57)
[2018-06-24] MEDS ORDERED: ELIQUIS2.5 MG PO (10:57)
[2018-06-24] MEDS ORDERED: FUROSEMIDE20 M1 ORAL (10:57)
[2018-06-24] MEDS ORDERED: POTASSIUM CHLO10 ME3 ORAL (11:02)
[2018-06-24 11:05] VITALS: BP 146/112
[2018-06-24] MEDS ORDERED: Sodium Chloride 500ML 500 ML IV ONE (11:07)
[2018-06-24 11:17] LABS: HEMATOCRIT 40.5 % (37.0-47.0); MEAN CORPUSCULAR VOLUME 89 FL (80-99); PLATELET COUNT 251 K/UL (150-450); RED BLOOD COUNT 4.54 M/UL (4.20-5.40); RED CELL DISTRIBUTION WIDTH 12.7 % (11.6-14.8)
[2018-06-24 11:22] LABS: APPEARANCE,URINE CLEAR; BILIRUBIN, URINE NEGATIVE (NEGATIVE); GLUCOSE, URINE (UA) NEGATIVE (NEGATIVE); KETONES,URINE NEGATIVE (NEGATIVE); LEUKOCYTE ESTERASE ,URINE 1+ (NEGATIVE); NITRITE,URINE NEGATIVE (NEGATIVE); PH,URINE 7 (4.5-8.0); PROTEIN,URINE 2+ (NEGATIVE); UROBILINOGEN,URINE NORMAL MG/DL (0.0-1.0)
[2018-06-24 11:29] LABS: ANION GAP 10 mmol/L (5-15); BLOOD UREA NITROGEN 12 mg/dL (7-18); CALCIUM 9.4 MG/DL (8.5-10.1); CARBON DIOXIDE 30 MMOL/L (21-32); CHLORIDE 100 MMOL/L (98-107); CREATININE 0.9 MG/DL (0.55-1.30); POTASSIUM 3.4 MMOL/L (3.5-5.1); SODIUM 140 MMOL/L (136-145)
[2018-06-24 11:35] LABS: ALANINE AMINOTRANSFERASE 17 U/L (12-78); ALBUMIN 4.2 G/DL (3.4-5.0); ALKALINE PHOSPHATASE 73 U/L (46-116); ASPARTATE AMINO TRANSFERASE 17 U/L (15-37); BILIRUBIN,TOTAL 0.6 MG/DL (0.2-1.0); CKMB 0.6 NG/ML (0.0-3.6); CREATINE KINASE 52 U/L (26-308)
--- NOTE | 2018-06-24 11:52 | Diagnostic Imaging Report ---
EXAM: CT Head Without Intravenous Contrast CLINICAL HISTORY: DIZZY TECHNIQUE: Axial computed tomography images of the head/brain without intravenous contrast. CTDI is 70.38 mGy and DLP is 1347 mGy-cm One or more of the following dose reduction techniques were used: automated exposure control, adjustment of the mA and/or kV according to patient size, use of iterative reconstruction technique. COMPARISON: 05/17/15 FINDINGS: Brain: There is a redemonstrated, chronic infarct in the left MCA distribution. Associated left lateral ventriculomegaly. No definite acute large vessel territorial infarction. No intracranial hemorrhage or mass effect. Involutional and microvascular ischemic changes again noted. Bones/joints: Unremarkable. No acute fracture. Soft tissues: Unremarkable. Sinuses: Unremarkable as visualized. No acute sinusitis. Mastoid air cells: Unremarkable as visualized. No mastoid effusion. IMPRESSION: No acute intracranial process. Stable chronic changes as detailed above.
[2018-06-24 11:54] LABS: COLOR,URINE YELLOW
--- NOTE | 2018-06-24 11:59 | Diagnostic Imaging Report ---
EXAM: XR Chest, 1 View CLINICAL HISTORY: DIZZY TECHNIQUE: Frontal view of the chest. COMPARISON: . FINDINGS: Lungs: No consolidation. Pleural space: Unremarkable. No pneumothorax. Heart: Unremarkable. No cardiomegaly. Mediastinum: Aortic calcification. Bones/joints: Thoracic dextrocurvature. IMPRESSION: No radiographic evidence of acute pulmonary disease.
[2018-06-24 12:17] VITALS: BP 133/59
[2018-06-24 13:51] VITALS: BP 148/74
[2018-06-24] MEDS ORDERED: ONDANSETRON ODT4 MG BC (13:55)
[2018-06-24 14:02] VITALS: BP 148/74
--- NOTE | 2018-06-24 14:29 | Emergency Room Report ---
History of Present Illness General Chief Complaint: Vomiting Source: Patient, Family Member, Medical Record Present Illness HPI 82-year-old female presents ED complaining of dizziness and vomiting. Started last night. Daughter at bedside states that patient has history of A. fib. Patient also complaining of weakness. Denies fevers or chills. Denies chest pain or shortness of breath. Denies any headache. Denies any diarrhea. Denies sick contacts or recent travel. No other aggravating relieving factors. Denies any other associated symptoms Allergies: Coded Allergies: No Known Allergies (Unverified , 02/14/15) Patient History Past Medical History: DM, HTN, AFib, CVA/TIA Past Surgical History: none Pertinent Family History: none Social History: Denies: smoking, alcohol use, drug use Now: No Immunizations: UTD Reviewed Nursing Documentation: PMH: Agreed; PSxH: Agreed Nursing Documentation-PMH Past Medical History: No History, Except For Hx Cardiac Problems: Yes - Cardiomegaly, Palpitation Hx Hypertension: Yes Hx Diabetes: Yes Hx Cancer: No Hx Gastrointestinal Problems: No Hx Dialysis: No Hx Neurological Problems: Yes Hx Cerebrovascular Accident: Yes - Right sided weakness dt CVA 1995 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 Speech Problem: Yes - Mambling Hx Weakness: Yes Review of Systems All Other Systems: negative except mentioned in HPI Physical Exam Vital Signs Date Time Temp Pulse Resp B/P (MAP) Pulse Ox O2 Delivery O2 Flow Rate FiO2 06/24/18 10:48 97.7 89 15 151/77 97 Room Air 97.7 Sp02 EP Interpretation: reviewed, normal General Appearance: no apparent distress, alert, GCS 15, non-toxic Head: normocephalic, atraumatic Eyes: bilateral eye normal inspection, bilateral eye PERRL ENT: hearing 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, normal pharynx, no angioedema, normal voice Neck: full range of motion, supple/symm/no masses Respiratory: chest non-tender, lungs clear, normal breath sounds, speaking full sentences Cardiovascular #1: regular rate, rhythm, no edema Cardiovascular #2: 2+ carotid (R), 2+ carotid (L), 2+ radial (R), 2+ radial (L) , 2+ dorsalis pedis (R), 2+ dorsalis pedis (L) Gastrointestinal: normal bowel sounds, non tender, soft, non-distended, no guarding, no rebound Rectal: deferred Genitourinary: normal inspection, no CVA tenderness Musculoskeletal: back normal, gait/station normal, normal range of motion, non- tender Neurologic: alert, oriented x3, responsive, motor strength/tone normal, sensory intact, speech normal Psychiatric: judgement/insight normal, memory normal, mood/affect normal, no suicidal/homicidal ideation Reflexes: 3+ bicep (R), 3+ bicep (L), 3+ tricep (R), 3+ tricep (L), 3+ knee (R) , 3+ knee (L) Skin: normal color, no rash, warm/dry, well hydrated Lymphatic: no adenopathy Medical Decision Making Diagnostic Impression: Primary Impression: Vomiting Qualified Codes: R11.2 - Nausea with vomiting, unspecified ER Course Hospital Course 82-year-old female presents ED c/o dizziness, vomiting Differential diagnoses include: arrythmia, dehydration, intracranial bleed, seizure Clinical course Patient placed on stretcher. 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 After initial history and physical I ordered labs, EKG, chest Xray, IVFs, zofran CT Brain labs reviewed- no leukocytosis, Hb/Hct stable, electrolytes ok, troponins negative, UA negative CT Brain - old infarcts no acute process Chest x-ray- no acute process EKG - afib, no acute ischemic changes interpreted by me Upon reassessment patient states she feels better wishes to go home. Given negative workup, stable vitals and believe patient is safe for discharge. Close follow-up with PMD I. I feel this is a highly complex case requiring extensive working including EKG/Rhythm strip, Xray/CT/US, Blood/urine lab work, repeat exams while in ED, and administration of strong opiates/narcotics for pain control, admission to hospital or close patient follow up. Diagnosis - vomiting Stable and discharged to home with Rx Zofran. Followup with PMD. Return to ED if symptoms recur or worsen Labs Test 06/24/18 11:10 White Blood Count 8.0 K/UL (4.8-10.8) Red Blood Count 4.54 M/UL (4.20-5.40) Hemoglobin 14.0 G/DL (12.0-16.0) Hematocrit 40.5 % (37.0-47.0) Mean Corpuscular Volume 89 FL (80-99) Mean Corpuscular Hemoglobin 30.7 PG (27.0-31.0) Mean Corpuscular Hemoglobin Concent 34.4 G/DL (32.0-36.0) Red Cell Distribution Width 12.7 % (11.6-14.8) Platelet Count 251 K/UL (150-450) Mean Platelet Volume 6.4 FL (6.5-10.1) Neutrophils (%) (Auto) % (45.0-75.0) Lymphocytes (%) (Auto) % (20.0-45.0) Monocytes (%) (Auto) % (1.0-10.0) Eosinophils (%) (Auto) % (0.0-3.0) Basophils (%) (Auto) % (0.0-2.0) Differential Total Cells Counted 100 Neutrophils % (Manual) 84 % (45-75) Lymphocytes % (Manual) 12 % (20-45) Monocytes % (Manual) 3 % (1-10) Eosinophils % (Manual) 0 % (0-3) Basophils % (Manual) 0 % (0-2) Band Neutrophils 1 % (0-8) Platelet Estimate Adequate Platelet Morphology Normal Red Blood Cell Morphology Normal Urine Color Yellow Urine Appearance Clear Urine pH 7 (4.5-8.0) Urine Specific [place] 1.010 (1.005-1.035) Urine Protein 2+ (NEGATIVE) Urine Glucose (UA) Negative (NEGATIVE) Urine Ketones Negative (NEGATIVE) Urine Occult Blood 1+ (NEGATIVE) Urine Nitrite Negative (NEGATIVE) Urine Bilirubin Negative (NEGATIVE) Urine Urobilinogen Normal MG/DL (0.0-1.0) Urine Leukocyte Esterase 1+ (NEGATIVE) Urine RBC 0-2 /HPF (0 - 2) Urine WBC 2-4 /HPF (0 - 2) Urine Squamous Epithelial Cells Few /LPF (NONE/OCC) Urine Bacteria Occasional /HPF (NONE) Sodium Level 140 MMOL/L (136-145) Potassium Level 3.4 MMOL/L (3.5-5.1) Chloride Level 100 MMOL/L (98-107) Carbon Dioxide Level 30 MMOL/L (21-32) Anion Gap 10 mmol/L (5-15) Blood Urea Nitrogen 12 mg/dL (7-18) Creatinine 0.9 MG/DL (0.55-1.30) Estimat Glomerular Filtration Rate mL/min (>60) Glucose Level 157 MG/DL (74-106) Calcium Level 9.4 MG/DL (8.5-10.1) Total Bilirubin 0.6 MG/DL (0.2-1.0) Aspartate Amino Transf (AST/SGOT) 17 U/L (15-37) Alanine Aminotransferase (ALT/SGPT) 17 U/L (12-78) Alkaline Phosphatase 73 U/L (46-116) Total Creatine Kinase 52 U/L (26-308) Creatine Kinase MB 0.6 NG/ML (0.0-3.6) Creatine Kinase MB Relative Index 1.1 Troponin I 0.000 ng/mL (0.000-0.056) Total Protein 8.3 G/DL (6.4-8.2) Albumin 4.2 G/DL (3.4-5.0) Globulin 4.1 g/dL Albumin/Globulin Ratio 1.0 (1.0-2.7) EKG Diagnostic Results Rate: normal Rhythm: other - afib ST Segments: no acute changes ASA given to the pt in ED: No Rhythm Strip Diag. Results EP Interpretation: yes Rhythm: no PVC's, no ectopy Chest X-Ray Diagnostic Results Chest X-Ray Diagnostic Results : Chest X-Ray Ordered: Yes # of Views/Limited/Complete: 1 View Indication: Other - dizziness EP Interpretation: Yes Interpretation: no consolidation, no effusion, no pneumothorax, no acute cardiopulmonary disease Impression: No acute disease Electronically Signed by: Electronically signed by Jt Luciano MD CT/MRI/US Diagnostic Results CT/MRI/US Diagnostic Results : Imaging Test Ordered: CT head Impression no acute process. old infarct noted Last Vital Signs Date Time Temp Pulse Resp B/P (MAP) Pulse Ox O2 Delivery O2 Flow Rate FiO2 06/24/18 14:02 97.7 80 17 148/74 99 Room Air 97.7 Status: improved Disposition: HOME, SELF-CARE Condition: Stable Scripts Ondansetron Odt* (ZOFRAN ODT*) 4 Mg Tab.rapdis 4 MG BC EVERY 6 HOURS PRN for Nausea & Vomiting, #30 TAB 0 Refills Prov: Jt Luciano MD 06/24/18 Referrals: Glenn Garrido MD Patient Instructions: Nausea and Vomiting, Adult Jt Luciano MD Jun 24, 2018 14:29
--- NOTE | 2018-06-26 19:35 | Cardiology Report ---
APPROVED REPORT EKG Measurement Heart [id number] Atrial fibrillation with premature ventricular or aberrantly conducted complexes Right bundle branch block Abnormal ECG
== END 2018-06-24 14:04 | disposition home or self-care (01) ==
LOC: EMR 13:56
DX: R11.10 Vomiting, unspecified (principal); I10 Essential (primary) hypertension; E11.9 Type 2 diabetes mellitus without complications; I48.91 Unspecified atrial fibrillation; I69.351 Hemiplegia and hemiparesis following cerebral infarction affecting right dominant side
CPT/HCPCS: 36415; 70450; 71045; 80053; 81003; 82550; 82553; 84484; 85007; 85025; 93005; 99284

== ENCOUNTER 2018-09-04 19:02 | Inpatient (IN) | payer MEDICARE, OTHER ==
[~2018-09-04] VITALS: Ht 160 cm; Wt 50.0 kg
[~2018-09-04 19:02] MED LIST changes: +ELIQUIS2.5 MG PO; +FOLIC ACID1 MG ORAL; +FUROSEMIDE20 M1 ORAL; +METOPROLOL SUCC50 MG ORAL; +ONDANSETRON ODT4 MG BC; +OXYBUTYNIN CHLOR5 M1 ORAL; +POTASSIUM CHLO10 ME3 ORAL; +VITAMIN D400 INTLU ORAL
[2018-09-04] MEDS ORDERED: ELIQUIS2.5 MG PO (19:55)
[2018-09-04 20:03] VITALS: BP 176/69
--- NOTE | 2018-09-04 20:07 | Emergency Room Report ---
History of Present Illness General Chief Complaint: Vomiting Source: Family Member Present Illness HPI Mrs. Stevens is an 82-year-old female with history of CVA, right-sided hemiparesis, atrial fibrillation, hypertension CHF cholelithiasis and diabetes who presents with nausea vomiting hypertension. History obtained from daughter. Patient is nonverbal as a result of previous stroke. Patient had profuse nausea vomiting throughout the day. Patient has been unable to tolerate oral intake. Daughter was quite concerned that the blood pressure appeared to be increasing throughout the day. History obtained from discharge summary from inpatient admission in January 2018. Patient did have dehydration secondary to intractable nausea vomiting at the time EGD performed in January revealed atrophic gastritis and small hiatal hernia. PCP Dr. 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 Speech Problem: Yes - Mambling Hx Weakness: Yes Review of Systems Constitutional: Denies: fever, malaise Cardiovascular: Denies: chest pain All Other Systems: limited Physical Exam Vital Signs Date Time Temp Pulse Resp B/P (MAP) Pulse Ox O2 Delivery O2 Flow Rate FiO2 09/04/18 19:22 98.3 106 16 186/99 96 Room Air 98.2 Sp02 EP Interpretation: reviewed, normal General Appearance: no apparent distress, alert, GCS 15, non-toxic Head: normocephalic, atraumatic Eyes: bilateral eye normal inspection ENT: hearing 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, normal pharynx, no angioedema, normal voice Neck: full range of motion, supple, no meningismus, no bony tend, supple/symm/ no masses Respiratory: chest non-tender, lungs clear, normal breath sounds, no rhonchi, no respiratory distress, no retraction, no accessory muscle use, speaking full sentences Cardiovascular #1: regular rate, rhythm, no gallop, no murmur, no rub Gastrointestinal: normal bowel sounds, non tender, soft, non-distended, no guarding, no rebound Musculoskeletal: back normal, gait/station normal, normal range of motion, non- tender Neurologic: alert, responsive, other - nonverbal Psychiatric: other - flat affect Skin: normal color, no rash, warm/dry, well hydrated Medical Decision Making Diagnostic Impression: Primary Impression: Vomiting Additional Impressions: Dehydration Hypertensive urgency UTI (urinary tract infection) Gastritis ER Course Ms. Klein presents with vomiting and elevated bp Dx: UTI, hypertensive urgency, hx of gastritis elevated lactic without SIRS, will hold IVF bolus 30 mg/kg due to hx of CHF and no other indicator of bacteremia admitted to service of Dr. Garrido to telemetry I reviewed previous discharge summary. I updated daughter at bedside with treatment plan and lab results. EKG Diagnostic Results EKG Time: 19:33 EP Interpretation: afib rate 100 bpm nl axis RBBB no ST elevation Chest X-Ray Diagnostic Results Chest X-Ray Diagnostic Results : Chest X-Ray Ordered: Yes # of Views/Limited/Complete: 1 View Indication: Other - vomiting Interpretation: no consolidation, no effusion, no pneumothorax, no acute cardiopulmonary disease Last Vital Signs Date Time Temp Pulse Resp B/P (MAP) Pulse Ox O2 Delivery O2 Flow Rate FiO2 09/04/18 19:22 98.3 106 16 186/99 96 Room Air 98.2 Disposition: PLACE IN OBSERVATION Condition: Stable Referrals: NON PHYSICIAN (PCP) Adriane Lopez MD Sep 04, 2018 20:07
[2018-09-04 20:46] LABS: APPEARANCE,URINE CLEAR; BILIRUBIN, URINE NEGATIVE (NEGATIVE); COLOR,URINE PALE YELLOW; GLUCOSE, URINE (UA) 2+ (NEGATIVE); HEMATOCRIT 39.7 % (37.0-47.0); HEMOGLOBIN 13.6 G/DL (12.0-16.0); KETONES,URINE 3+ (NEGATIVE); LEUKOCYTE ESTERASE ,URINE NEGATIVE (NEGATIVE); MEAN CORPUSCULAR VOLUME 91 FL (80-99); NITRITE,URINE NEGATIVE (NEGATIVE); PH,URINE 8 (4.5-8.0); PLATELET COUNT 225 K/UL (150-450); PROTEIN,URINE 3+ (NEGATIVE); RED BLOOD COUNT 4.34 M/UL (4.20-5.40); RED CELL DISTRIBUTION WIDTH 11.9 % (11.6-14.8); UROBILINOGEN,URINE NORMAL MG/DL (0.0-1.0); WHITE BLOOD COUNT 6.2 K/UL (4.8-10.8)
[2018-09-04 20:51] LABS: ANION GAP 13 mmol/L (5-15); BLOOD UREA NITROGEN 12 mg/dL (7-18); CALCIUM 9.4 MG/DL (8.5-10.1); CARBON DIOXIDE 29 MMOL/L (21-32); CHLORIDE 98 MMOL/L (98-107); SODIUM 139 MMOL/L (136-145)
[2018-09-04 20:56] LABS: ALANINE AMINOTRANSFERASE 15 U/L (12-78); ALBUMIN 4.2 G/DL (3.4-5.0); ALKALINE PHOSPHATASE 77 U/L (46-116); ASPARTATE AMINO TRANSFERASE 13 U/L (15-37); BILIRUBIN,TOTAL 0.5 MG/DL (0.2-1.0)
[2018-09-04 21:54] VITALS: BP 160/61
[2018-09-04] MEDS ORDERED: cefTRIAXone 1 GM in NS 55 ML IVPB ONE (22:15)
[2018-09-04] MEDS ORDERED: Digoxin 0.125mg tab ORAL ONE (22:30)
[2018-09-04] MEDS ORDERED: Sodium Chloride 500ML 500 ML IV ONE (22:30)
[2018-09-04] MEDS ORDERED: Metoprolol 5mg/5ml Inj IVP ONE (22:45)
[2018-09-05] VITALS: BP 156/93
[2018-09-05] MEDS ORDERED: Zolpidem 5mg tab ORAL PRN ×2 (02:00→20:00)
[2018-09-05 04:00] VITALS: BP 135/66
[2018-09-05 06:09] LABS: BASOPHILS % (AUTO) 0.8 % (0.0-2.0); HEMATOCRIT 35.9 % (37.0-47.0); HEMOGLOBIN 12.7 G/DL (12.0-16.0); LYMPHOCYTES % (AUTO) 20.5 % (20.0-45.0); MEAN CORPUSCULAR VOLUME 90 FL (80-99); MONOCYTES % (AUTO) 9.7 % (1.0-10.0); NEUTROPHILS % (AUTO) 68.1 % (45.0-75.0); PLATELET COUNT 221 K/UL (150-450); RED BLOOD COUNT 4.01 M/UL (4.20-5.40); RED CELL DISTRIBUTION WIDTH 11.9 % (11.6-14.8); WHITE BLOOD COUNT 6.3 K/UL (4.8-10.8)
[2018-09-05 06:39] LABS: ALANINE AMINOTRANSFERASE 9 U/L (12-78); ALBUMIN 3.6 G/DL (3.4-5.0); ALKALINE PHOSPHATASE 64 U/L (46-116); ANION GAP 9 mmol/L (5-15); ASPARTATE AMINO TRANSFERASE 12 U/L (15-37); BILIRUBIN,TOTAL 0.4 MG/DL (0.2-1.0); BLOOD UREA NITROGEN 11 mg/dL (7-18); CALCIUM 9.1 MG/DL (8.5-10.1); CARBON DIOXIDE 30 MMOL/L (21-32); CHLORIDE 102 MMOL/L (98-107); CREATININE 0.8 MG/DL (0.55-1.30); POTASSIUM 3.5 MMOL/L (3.5-5.1); SODIUM 141 MMOL/L (136-145)
[2018-09-05 08:00] VITALS: BP 138/70
[2018-09-05] MEDS ORDERED: Eliquis 2.5mg tablet ORAL SCH (09:00)
[2018-09-05] MEDS ORDERED: Nephrovite tab (Rena-Vite) ORAL SCH (09:00)
[2018-09-05] MEDS ORDERED: metFORMIN 500mg tab ORAL SCH (09:00)
[2018-09-05] MEDS ORDERED: Vitamin D 400 INTLU TAB ORAL SCH (09:00)
[2018-09-05] MEDS ORDERED: Metoprolol Succinate XL 50mg tab ORAL SCH (09:00)
[2018-09-05] MEDS: Vitamin D 1000 IU Tab ORAL SCH (09:00)
[2018-09-05] MEDS: Magnesium Oxide 400mg tab ORAL SCH (09:25)
[2018-09-05] MEDS: Allopurinol 100mg Tab ORAL SCH (09:26)
[2018-09-05] MEDS: Aspirin EC 81mg tab ORAL SCH (09:26)
[2018-09-05] MEDS: Oxybutynin 5mg tab ORAL SCH (09:27)
[2018-09-05] MEDS: Lisinopril 20mg tab ORAL SCH (09:27)
[2018-09-05] MEDS: Digoxin 0.125mg tab ORAL SCH (09:28)
--- NOTE | 2018-09-05 10:36 | Diagnostic Imaging Report ---
Indication: Dyspnea Comparison: 06/24/2018 A single view chest radiograph was obtained. Findings: No definite infiltrate or pulmonary vascular congestion identified. The heart is enlarged. The aorta is mildly enlarged consistent with atherosclerotic vascular disease. The bones are osteopenic. Impression: No acute disease
--- NOTE | 2018-09-05 11:54 | Consultation ---
History of Present Illness General Date patient seen: Sep 05, 2018 Chief Complaint: Vomiting Present Illness HPI 82-year-old female with history of CVA, right-sided hemiparesis, atrial fibrillation, hypertension CHF cholelithiasis and diabetes who presented to ER with CC of nausea, vomiting hypertension. Patient had profuse nausea vomiting throughout the day. Patient has been unable to tolerate oral intake. Daughter was quite concerned that the blood pressure appeared to be increasing throughout the day. Her SBP was > 180 and she is admitted to telemetry for further management. Allergies: Coded Allergies: No Known Allergies (Unverified , 09/04/18) Medication History Scheduled Allopurinol* (Allopurinol*), 100 MG ORAL DAILY, (Reported) Apixaban (Eliquis), 2.5 MG PO BID, (Reported) Apixaban (Eliquis), 2.5 MG PO BID, (Reported) Aspirin* (Aspir 81*), 81 MG ORAL DAILY, (Reported) Cholecalciferol (Vitamin D3) (Vitamin D-400*), 1,000 UNITS ORAL DAILY, (Reported ) Digoxin* (Digoxin*), 0.125 MG ORAL DAILY, (Reported) Folic Acid* (Folic Acid*), 1 MG ORAL DAILY, (Reported) Furosemide* (Lasix*), 20 MG ORAL DAILY, (Reported) Lisinopril (Lisinopril*), 20 MG ORAL DAILY, (Reported) Magnesium Oxide (Magnesium Oxide), 400 MG ORAL DAILY, (Reported) Metformin Hcl* (Metformin Hcl*), 1,000 MG ORAL BID, (Reported) Metoprolol Succinate* (Metoprolol Succinate*), 50 MG ORAL DAILY, (Reported) Oxybutynin (Gelnique), 5 MG PO BID, (Reported) Oxybutynin Chloride (Oxybutynin Chloride), 5 MG ORAL DAILY, (Reported) Potassium Chloride (Potassium Chloride), 20 MEQ ORAL DAILY, (Reported) Rivaroxaban (Xarelto), 20 MG ORAL DAILY, (Reported) Rivaroxaban (Xarelto), 2.5 MG ORAL DAILY, (Reported) Rivaroxaban (Xarelto), 15 MG ORAL QPM Vitamin B Cmplx/Vit C/Folic AC (Nephro-Barbara Tablet), 1 TAB ORAL DAILY, (Reported ) Vitamin D (Vitamin D3), 5,000 INTLU ORAL DAILY, (Reported) Scheduled PRN Ondansetron Odt* (Zofran Odt*), 4 MG BC EVERY 6 HOURS PRN for Nausea & Vomiting Zolpidem Tartrate* (Zolpidem Tartrate*), 10 MG ORAL BEDTIME PRN for Insomnia, ( Reported) Zolpidem Tartrate* (Zolpidem Tartrate*), 10 MG ORAL BEDTIME PRN for Insomnia, ( Reported) Miscellaneous Medications Metoprolol Tartrate* (Metoprolol Tartrate*), 100 MG ORAL, (Reported) Temazepam (Temazepam*), 15 MG ORAL, (Reported) Patient History Healthcare decision maker roselyn Resuscitation status Full Code Advanced Directive on File Past Medical/Surgical History Past Medical/Surgical History: (1) Gout (2) Hypertension (3) Diabetes mellitus (4) Cerebral vascular disease (5) Right hemiparesis (6) Hiatal hernia Review of Systems All Other Systems: negative except mentioned in HPI Physical Exam General Appearance: cachetic Lines, tubes and drains: peripheral HEENT: normocephalic, atraumatic Neck: non-tender, normal alignment Respiratory/Chest: chest wall non-tender, lungs clear, normal breath sounds Breasts: no masses Cardiovascular/Chest: normal peripheral pulses, normal rate Abdomen: normal bowel sounds, non tender Genitourinary/Rectal: normal genital exam, heme negative stool Extremities: normal range of motion, non-tender 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 Last 24 Hour Vital Signs Date Time Temp Pulse Resp B/P (MAP) Pulse Ox O2 Delivery O2 Flow Rate FiO2 09/05/18 09:28 85 09/05/18 09:27 85 138/70 09/05/18 09:27 138/70 09/05/18 08:10 Room Air 09/05/18 08:00 97.9 85 18 138/70 (92) 96 97.9 09/05/18 04:00 98.2 73 19 135/66 (89) 97 98.2 09/05/18 04:00 88 09/05/18 00:00 97.9 91 19 156/93 (114) 97 97.9 09/05/18 00:00 98 09/04/18 23:40 Room Air 09/04/18 23:05 97.9 110 16 143/61 99 Room Air 99 09/04/18 22:37 151 146/65 09/04/18 22:28 120 09/04/18 22:05 160/61 09/04/18 21:54 98.0 96 16 160/61 99 Room Air 98.0 09/04/18 20:03 98.2 93 16 176/69 99 Room Air 98.2 09/04/18 19:22 98.3 106 16 186/99 96 Room Air 98.2 Intake and Output 09/04/18 09/05/18 19:00 07:00 Intake Total 1555 ml Output Total 300 ml Balance 1255 ml Intake IV Total 1555 ml Output Urine Total 300 ml # Voids 1 # Bowel Movements 2 Laboratory Tests Test 09/04/18 19:50 09/04/18 21:25 09/05/18 05:45 White Blood Count 6.2 K/UL (4.8-10.8) 6.3 K/UL (4.8-10.8) Red Blood Count 4.34 M/UL (4.20-5.40) 4.01 M/UL (4.20-5.40) L Hemoglobin 13.6 G/DL (12.0-16.0) 12.7 G/DL (12.0-16.0) Hematocrit 39.7 % (37.0-47.0) 35.9 % (37.0-47.0) L Mean Corpuscular Volume 91 FL (80-99) 90 FL (80-99) Mean Corpuscular Hemoglobin 31.5 PG (27.0-31.0) H 31.6 PG (27.0-31.0) H Mean Corpuscular Hemoglobin Concent 34.4 G/DL (32.0-36.0) 35.3 G/DL (32.0-36.0) Red Cell Distribution Width 11.9 % (11.6-14.8) 11.9 % (11.6-14.8) Platelet Count 225 K/UL (150-450) 221 K/UL (150-450) Mean Platelet Volume 6.8 FL (6.5-10.1) 6.8 FL (6.5-10.1) Neutrophils (%) (Auto) % (45.0-75.0) 68.1 % (45.0-75.0) Lymphocytes (%) (Auto) % (20.0-45.0) 20.5 % (20.0-45.0) Monocytes (%) (Auto) % (1.0-10.0) 9.7 % (1.0-10.0) Eosinophils (%) (Auto) % (0.0-3.0) 1.0 % (0.0-3.0) Basophils (%) (Auto) % (0.0-2.0) 0.8 % (0.0-2.0) Differential Total Cells Counted 100 Neutrophils % (Manual) 87 % (45-75) H Lymphocytes % (Manual) 10 % (20-45) L Monocytes % (Manual) 3 % (1-10) Eosinophils % (Manual) 0 % (0-3) Basophils % (Manual) 0 % (0-2) Band Neutrophils 0 % (0-8) Platelet Estimate Adequate Platelet Morphology Normal Red Blood Cell Morphology Normal Urine Color Pale yellow Urine Appearance Clear Urine pH 8 (4.5-8.0) Urine Specific [place] 1.015 (1.005-1.035) Urine Protein 3+ (NEGATIVE) H Urine Glucose (UA) 2+ (NEGATIVE) H Urine Ketones 3+ (NEGATIVE) H Urine Blood 2+ (NEGATIVE) H Urine Nitrite Negative (NEGATIVE) Urine Bilirubin Negative (NEGATIVE) Urine Urobilinogen Normal MG/DL (0.0-1.0) Urine Leukocyte Esterase Negative (NEGATIVE) Urine RBC 2-4 /HPF (0 - 2) H Urine WBC 5-10 /HPF (0 - 2) H Urine Squamous Epithelial Cells Few /LPF (NONE/OCC) Urine Bacteria Moderate /HPF (NONE) H Sodium Level 139 MMOL/L (136-145) 141 MMOL/L (136-145) Potassium Level 4.0 MMOL/L (3.5-5.1) 3.5 MMOL/L (3.5-5.1) Chloride Level 98 MMOL/L (98-107) 102 MMOL/L (98-107) Carbon Dioxide Level 29 MMOL/L (21-32) 30 MMOL/L (21-32) Anion Gap 13 mmol/L (5-15) 9 mmol/L (5-15) Blood Urea Nitrogen 12 mg/dL (7-18) 11 mg/dL (7-18) Creatinine 1.0 MG/DL (0.55-1.30) 0.8 MG/DL (0.55-1.30) Estimat Glomerular Filtration Rate mL/min (>60) mL/min (>60) Glucose Level 175 MG/DL (74-106) H 99 MG/DL (74-106) Lactic Acid Level 4.70 mmol/L (0.4-2.0) H 3.10 mmol/L (0.66-2.22) H Calcium Level 9.4 MG/DL (8.5-10.1) 9.1 MG/DL (8.5-10.1) Total Bilirubin 0.5 MG/DL (0.2-1.0) 0.4 MG/DL (0.2-1.0) Aspartate Amino Transf (AST/SGOT) 13 U/L (15-37) L 12 U/L (15-37) L Alanine Aminotransferase (ALT/SGPT) 15 U/L (12-78) 9 U/L (12-78) L Alkaline Phosphatase 77 U/L (46-116) 64 U/L (46-116) Troponin I 0.008 ng/mL (0.000-0.056) Total Protein 8.2 G/DL (6.4-8.2) 7.2 G/DL (6.4-8.2) Albumin 4.2 G/DL (3.4-5.0) 3.6 G/DL (3.4-5.0) Globulin 4.0 g/dL 3.6 g/dL Albumin/Globulin Ratio 1.0 (1.0-2.7) 1.0 (1.0-2.7) Phosphorus Level 3.0 MG/DL (2.5-4.9) Magnesium Level 1.4 MG/DL (1.8-2.4) L Microbiology Date/Time Source Procedure Growth Status 09/04/18 19:50 Urine,Clean Catch Urine Culture - Preliminary Resulted Height (Feet): 5 Height (Inches): 3.00 Weight (Pounds): 125 Medications Current Medications Medications (Trade) Dose Ordered Sig/Yovana Route PRN Reason Start Time Stop Time Status Last Admin Dose Admin Allopurinol (Zyloprim) 100 mg DAILY ORAL 09/05/18 09:00 10/05/18 08:59 09/05/18 09:26 Apixaban (Eliquis) 2.5 mg BID ORAL 09/05/18 09:00 10/05/18 08:59 UNV Aspirin (Ecotrin) 81 mg DAILY ORAL 09/05/18 09:00 10/05/18 08:59 09/05/18 09:26 Digoxin (Lanoxin) 0.125 mg DAILY ORAL 09/05/18 09:00 10/05/18 08:59 09/05/18 09:28 Folic Acid (Folate) 1 mg DAILY ORAL 09/05/18 09:00 10/05/18 08:59 09/05/18 09:27 Furosemide (Lasix) 20 mg DAILY ORAL 09/05/18 09:00 10/05/18 08:59 09/05/18 09:26 Lisinopril (Prinivil) 20 mg DAILY ORAL 09/05/18 09:00 10/05/18 08:59 09/05/18 09:27 Magnesium Oxide (Mag-Ox 400mg) 400 mg DAILY ORAL 09/05/18 09:00 10/05/18 08:59 09/05/18 09:25 Metformin HCl (Glucophage) 1,000 mg BID ORAL 09/05/18 09:00 10/05/18 08:59 09/05/18 09:28 Metoprolol Succinate (Toprol XL) 50 mg DAILY ORAL 09/05/18 09:00 10/05/18 08:59 09/05/18 09:27 Ondansetron HCl (Zofran) 4 mg Q4H PRN IVP Nausea & Vomiting 09/05/18 02:00 10/05/18 01:59 Oxybutynin Chloride (Ditropan) 5 mg DAILY ORAL 09/05/18 09:00 10/05/18 08:59 09/05/18 09:27 Potassium Chloride (K-Dur) 20 meq DAILY ORAL 09/05/18 09:00 10/05/18 08:59 09/05/18 09:26 Rivaroxaban (Xarelto) 15 mg QPM ORAL 09/05/18 16:30 10/05/18 16:29 UNV Sodium Chloride 1,000 ml @ 75 mls/hr [id number] IV 09/05/18 02:00 11/8/18 01:59 09/05/18 02:00 Temazepam (Restoril) 15 mg QHS PRN ORAL sleep 09/05/18 02:00 09/12/18 01:59 Vitamin B Complex/ Vit C/Folic Acid (Nephrovite) 1 tab DAILY ORAL 09/05/18 09:00 10/05/18 08:59 09/05/18 09:26 Vitamin D (Vitamin D) 1 intlu DAILY ORAL 09/05/18 09:00 10/05/18 08:59 UNV Vitamin D (Vitamin D) 5,000 intlu DAILY ORAL 09/05/18 09:00 10/05/18 08:59 UNV Zolpidem Tartrate (Ambien) 10 mg BEDTIME PRN ORAL Insomnia 09/05/18 02:00 09/12/18 01:59 UNV Assessment/Plan Problem List: (1) Hypertensive urgency ICD Codes: I16.0 - Hypertensive urgency SNOMED: 717055273 (2) Atrial fibrillation with rapid ventricular response ICD Codes: I48.91 - Unspecified atrial fibrillation SNOMED: 941693167, 099220571745277 (3) Nausea & vomiting ICD Codes: R11.2 - Nausea with vomiting, unspecified SNOMED: 89041855 (4) Right hemiparesis ICD Codes: G81.90 - Right hemiparesis SNOMED: 617667581 (5) Diabetes mellitus ICD Codes: E11.9 - Type 2 diabetes mellitus without complications SNOMED: 40144206 Assessment/Plan NPO Iv fluids telemetry monitoring symptomatic treatment sliding scale GI evaluation Bryan Bertrand MD Sep 05, 2018 11:54
[2018-09-05 12:00] VITALS: BP 135/57
--- NOTE | 2018-09-05 12:28 | Consultation ---
History of Present Illness General Date patient seen: Sep 05, 2018 Chief Complaint: Vomiting Present Illness HPI 83 yo male female with hx of CVA and anxiety and cognitive impairment. the pt is not able to participate in eval and due to encephalopathy and cognitive impairment. the pt has waxing and waning of consciousness. the pt has episodes of agitation and cognitive impairment. Allergies: Coded Allergies: No Known Allergies (Unverified , 09/04/18) Medication History Scheduled Allopurinol* (Allopurinol*), 100 MG ORAL DAILY, (Reported) Apixaban (Eliquis), 2.5 MG PO BID, (Reported) Apixaban (Eliquis), 2.5 MG PO BID, (Reported) Aspirin* (Aspir 81*), 81 MG ORAL DAILY, (Reported) Cholecalciferol (Vitamin D3) (Vitamin D-400*), 1,000 UNITS ORAL DAILY, (Reported ) Digoxin* (Digoxin*), 0.125 MG ORAL DAILY, (Reported) Folic Acid* (Folic Acid*), 1 MG ORAL DAILY, (Reported) Furosemide* (Lasix*), 20 MG ORAL DAILY, (Reported) Lisinopril (Lisinopril*), 20 MG ORAL DAILY, (Reported) Magnesium Oxide (Magnesium Oxide), 400 MG ORAL DAILY, (Reported) Metformin Hcl* (Metformin Hcl*), 1,000 MG ORAL BID, (Reported) Metoprolol Succinate* (Metoprolol Succinate*), 50 MG ORAL DAILY, (Reported) Oxybutynin (Gelnique), 5 MG PO BID, (Reported) Oxybutynin Chloride (Oxybutynin Chloride), 5 MG ORAL DAILY, (Reported) Potassium Chloride (Potassium Chloride), 20 MEQ ORAL DAILY, (Reported) Rivaroxaban (Xarelto), 20 MG ORAL DAILY, (Reported) Rivaroxaban (Xarelto), 2.5 MG ORAL DAILY, (Reported) Rivaroxaban (Xarelto), 15 MG ORAL QPM Vitamin B Cmplx/Vit C/Folic AC (Nephro-Barbara Tablet), 1 TAB ORAL DAILY, (Reported ) Vitamin D (Vitamin D3), 5,000 INTLU ORAL DAILY, (Reported) Scheduled PRN Ondansetron Odt* (Zofran Odt*), 4 MG BC EVERY 6 HOURS PRN for Nausea & Vomiting Zolpidem Tartrate* (Zolpidem Tartrate*), 10 MG ORAL BEDTIME PRN for Insomnia, ( Reported) Zolpidem Tartrate* (Zolpidem Tartrate*), 10 MG ORAL BEDTIME PRN for Insomnia, ( Reported) Miscellaneous Medications Metoprolol Tartrate* (Metoprolol Tartrate*), 100 MG ORAL, (Reported) Temazepam (Temazepam*), 15 MG ORAL, (Reported) Patient History Limited by: medical condition History Provided By: Patient, Medical Record Healthcare decision maker roselyn Resuscitation status Full Code Advanced Directive on File Past Medical/Surgical History Past Medical/Surgical History: (1) Gastroenteritis (2) Gout (3) Hypertension (4) Diabetes mellitus (5) Iron deficiency anemia (6) Abdominal pain (7) Acute appendicitis (8) Cerebral vascular disease (9) Right hemiparesis (10) Atrial fibrillation with rapid ventricular response (11) Symptomatic bradycardia (12) Hyperglycemia due to type 2 diabetes mellitus (13) Hiatal hernia (14) Nausea & vomiting (15) Dehydration (16) UTI (urinary tract infection) (17) Hypertensive urgency Review of Systems Psychiatric: Reports: prior hx, anxiety, depressed feelings Physical Exam General Appearance: no apparent distress, alert, confused, agitated Last 24 Hour Vital Signs Date Time Temp Pulse Resp B/P (MAP) Pulse Ox O2 Delivery O2 Flow Rate FiO2 09/05/18 09:28 85 09/05/18 09:27 85 138/70 09/05/18 09:27 138/70 09/05/18 08:10 Room Air 09/05/18 08:00 97.9 85 18 138/70 (92) 96 97.9 09/05/18 04:00 98.2 73 19 135/66 (89) 97 98.2 09/05/18 04:00 88 09/05/18 00:00 97.9 91 19 156/93 (114) 97 97.9 09/05/18 00:00 98 09/04/18 23:40 Room Air 09/04/18 23:05 97.9 110 16 143/61 99 Room Air 99 09/04/18 22:37 151 146/65 09/04/18 22:28 120 09/04/18 22:05 160/61 09/04/18 21:54 98.0 96 16 160/61 99 Room Air 98.0 10/8/18 20:03 98.2 93 16 176/69 99 Room Air 98.2 09/04/18 19:22 98.3 106 16 186/99 96 Room Air 98.2 Intake and Output 09/04/18 09/05/18 19:00 07:00 Intake Total 1555 ml Output Total 300 ml Balance 1255 ml Intake IV Total 1555 ml Output Urine Total 300 ml # Voids 1 # Bowel Movements 2 Laboratory Tests Test 09/04/18 19:50 09/04/18 21:25 09/05/18 05:45 White Blood Count 6.2 K/UL (4.8-10.8) 6.3 K/UL (4.8-10.8) Red Blood Count 4.34 M/UL (4.20-5.40) 4.01 M/UL (4.20-5.40) L Hemoglobin 13.6 G/DL (12.0-16.0) 12.7 G/DL (12.0-16.0) Hematocrit 39.7 % (37.0-47.0) 35.9 % (37.0-47.0) L Mean Corpuscular Volume 91 FL (80-99) 90 FL (80-99) Mean Corpuscular Hemoglobin 31.5 PG (27.0-31.0) H 31.6 PG (27.0-31.0) H Mean Corpuscular Hemoglobin Concent 34.4 G/DL (32.0-36.0) 35.3 G/DL (32.0-36.0) Red Cell Distribution Width 11.9 % (11.6-14.8) 11.9 % (11.6-14.8) Platelet Count 225 K/UL (150-450) 221 K/UL (150-450) Mean Platelet Volume 6.8 FL (6.5-10.1) 6.8 FL (6.5-10.1) Neutrophils (%) (Auto) % (45.0-75.0) 68.1 % (45.0-75.0) Lymphocytes (%) (Auto) % (20.0-45.0) 20.5 % (20.0-45.0) Monocytes (%) (Auto) % (1.0-10.0) 9.7 % (1.0-10.0) Eosinophils (%) (Auto) % (0.0-3.0) 1.0 % (0.0-3.0) Basophils (%) (Auto) % (0.0-2.0) 0.8 % (0.0-2.0) Differential Total Cells Counted 100 Neutrophils % (Manual) 87 % (45-75) H Lymphocytes % (Manual) 10 % (20-45) L Monocytes % (Manual) 3 % (1-10) Eosinophils % (Manual) 0 % (0-3) Basophils % (Manual) 0 % (0-2) Band Neutrophils 0 % (0-8) Platelet Estimate Adequate Platelet Morphology Normal Red Blood Cell Morphology Normal Urine Color Pale yellow Urine Appearance Clear Urine pH 8 (4.5-8.0) Urine Specific [place] 1.015 (1.005-1.035) Urine Protein 3+ (NEGATIVE) H Urine Glucose (UA) 2+ (NEGATIVE) H Urine Ketones 3+ (NEGATIVE) H Urine Blood 2+ (NEGATIVE) H Urine Nitrite Negative (NEGATIVE) Urine Bilirubin Negative (NEGATIVE) Urine Urobilinogen Normal MG/DL (0.0-1.0) Urine Leukocyte Esterase Negative (NEGATIVE) Urine RBC 2-4 /HPF (0 - 2) H Urine WBC 5-10 /HPF (0 - 2) H Urine Squamous Epithelial Cells Few /LPF (NONE/OCC) Urine Bacteria Moderate /HPF (NONE) H Sodium Level 139 MMOL/L (136-145) 141 MMOL/L (136-145) Potassium Level 4.0 MMOL/L (3.5-5.1) 3.5 MMOL/L (3.5-5.1) Chloride Level 98 MMOL/L (98-107) 102 MMOL/L (98-107) Carbon Dioxide Level 29 MMOL/L (21-32) 30 MMOL/L (21-32) Anion Gap 13 mmol/L (5-15) 9 mmol/L (5-15) Blood Urea Nitrogen 12 mg/dL (7-18) 11 mg/dL (7-18) Creatinine 1.0 MG/DL (0.55-1.30) 0.8 MG/DL (0.55-1.30) Estimat Glomerular Filtration Rate mL/min (>60) mL/min (>60) Glucose Level 175 MG/DL (74-106) H 99 MG/DL (74-106) Lactic Acid Level 4.70 mmol/L (0.4-2.0) H 3.10 mmol/L (0.66-2.22) H Calcium Level 9.4 MG/DL (8.5-10.1) 9.1 MG/DL (8.5-10.1) Total Bilirubin 0.5 MG/DL (0.2-1.0) 0.4 MG/DL (0.2-1.0) Aspartate Amino Transf (AST/SGOT) 13 U/L (15-37) L 12 U/L (15-37) L Alanine Aminotransferase (ALT/SGPT) 15 U/L (12-78) 9 U/L (12-78) L Alkaline Phosphatase 77 U/L (46-116) 64 U/L (46-116) Troponin I 0.008 ng/mL (0.000-0.056) Total Protein 8.2 G/DL (6.4-8.2) 7.2 G/DL (6.4-8.2) Albumin 4.2 G/DL (3.4-5.0) 3.6 G/DL (3.4-5.0) Globulin 4.0 g/dL 3.6 g/dL Albumin/Globulin Ratio 1.0 (1.0-2.7) 1.0 (1.0-2.7) Phosphorus Level 3.0 MG/DL (2.5-4.9) Magnesium Level 1.4 MG/DL (1.8-2.4) L Microbiology Date/Time Source Procedure Growth Status 09/04/18 19:50 Urine,Clean Catch Urine Culture - Preliminary Resulted Height (Feet): 5 Height (Inches): 3.00 Weight (Pounds): 125 Medications Current Medications Medications (Trade) Dose Ordered Sig/Yovana Route PRN Reason Start Time Stop Time Status Last Admin Dose Admin Allopurinol (Zyloprim) 100 mg DAILY ORAL 09/05/18 09:00 10/05/18 08:59 09/05/18 09:26 Apixaban (Eliquis) 2.5 mg BID ORAL 09/05/18 09:00 10/05/18 08:59 UNV Aspirin (Ecotrin) 81 mg DAILY ORAL 09/05/18 09:00 10/05/18 08:59 09/05/18 09:26 Digoxin (Lanoxin) 0.125 mg DAILY ORAL 09/05/18 09:00 10/05/18 08:59 09/05/18 09:28 Folic Acid (Folate) 1 mg DAILY ORAL 09/05/18 09:00 10/05/18 08:59 09/05/18 09:27 Furosemide (Lasix) 20 mg DAILY ORAL 09/05/18 09:00 10/05/18 08:59 09/05/18 09:26 Lisinopril (Prinivil) 20 mg DAILY ORAL 09/05/18 09:00 10/05/18 08:59 09/05/18 09:27 Magnesium Oxide (Mag-Ox 400mg) 400 mg DAILY ORAL 09/05/18 09:00 10/05/18 08:59 09/05/18 09:25 Metoprolol Succinate (Toprol XL) 50 mg DAILY ORAL 09/05/18 09:00 10/05/18 08:59 09/05/18 09:27 Ondansetron HCl (Zofran) 4 mg Q4H PRN IVP Nausea & Vomiting 09/05/18 02:00 10/05/18 01:59 Oxybutynin Chloride (Ditropan) 5 mg DAILY ORAL 09/05/18 09:00 10/05/18 08:59 09/05/18 09:27 Potassium Chloride (K-Dur) 20 meq DAILY ORAL 09/05/18 09:00 10/05/18 08:59 09/05/18 09:26 Rivaroxaban (Xarelto) 15 mg QPM ORAL 09/05/18 16:30 10/05/18 16:29 UNV Sodium Chloride 1,000 ml @ 75 mls/hr [id number] IV 09/05/18 02:00 10/05/18 01:59 09/05/18 02:00 Temazepam (Restoril) 15 mg QHS PRN ORAL sleep 09/05/18 02:00 09/12/18 01:59 Vitamin D (Vitamin D) 1 intlu DAILY ORAL 09/05/18 09:00 10/05/18 08:59 UNV Vitamin D (Vitamin D) 5,000 intlu DAILY ORAL 09/05/18 09:00 10/05/18 08:59 UNV Zolpidem Tartrate (Ambien) 10 mg BEDTIME PRN ORAL Insomnia 09/05/18 02:00 09/12/18 01:59 UNV Assessment/Plan Status: stable, progressing Assessment/Plan encephalopathy due to metabolic d/o anxiety d/o -ativan prn -provided elena/Slava Masters MD Sep 05, 2018 12:28
--- NOTE | 2018-09-05 13:05 | Consultation ---
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 Of note, patient seen here in January 2018 with abd pain,nausea and vomiting. Underwent EGD and showed atrophic gastritis and small hiatal hernia. CT abd/p at the time showed probable area of focal colitis. Also had Afib with RVR at that time. Allergies: Coded Allergies: No Known Allergies (Unverified , 09/04/18) Medication History Scheduled Allopurinol* (Allopurinol*), 100 MG ORAL DAILY, (Reported) Apixaban (Eliquis), 2.5 MG PO BID, (Reported) Apixaban (Eliquis), 2.5 MG PO BID, (Reported) Aspirin* (Aspir 81*), 81 MG ORAL DAILY, (Reported) Cholecalciferol (Vitamin D3) (Vitamin D-400*), 1,000 UNITS ORAL DAILY, (Reported ) Digoxin* (Digoxin*), 0.125 MG ORAL DAILY, (Reported) Folic Acid* (Folic Acid*), 1 MG ORAL DAILY, (Reported) Furosemide* (Lasix*), 20 MG ORAL DAILY, (Reported) Lisinopril (Lisinopril*), 20 MG ORAL DAILY, (Reported) Magnesium Oxide (Magnesium Oxide), 400 MG ORAL DAILY, (Reported) Metformin Hcl* (Metformin Hcl*), 1,000 MG ORAL BID, (Reported) Metoprolol Succinate* (Metoprolol Succinate*), 50 MG ORAL DAILY, (Reported) Oxybutynin (Gelnique), 5 MG PO BID, (Reported) Oxybutynin Chloride (Oxybutynin Chloride), 5 MG ORAL DAILY, (Reported) Potassium Chloride (Potassium Chloride), 20 MEQ ORAL DAILY, (Reported) Rivaroxaban (Xarelto), 20 MG ORAL DAILY, (Reported) Rivaroxaban (Xarelto), 2.5 MG ORAL DAILY, (Reported) Rivaroxaban (Xarelto), 15 MG ORAL QPM Vitamin B Cmplx/Vit C/Folic AC (Nephro-Barbara Tablet), 1 TAB ORAL DAILY, (Reported ) Vitamin D (Vitamin D3), 5,000 INTLU ORAL DAILY, (Reported) Scheduled PRN Ondansetron Odt* (Zofran Odt*), 4 MG BC EVERY 6 HOURS PRN for Nausea & Vomiting Zolpidem Tartrate* (Zolpidem Tartrate*), 10 MG ORAL BEDTIME PRN for Insomnia, ( Reported) Zolpidem Tartrate* (Zolpidem Tartrate*), 10 MG ORAL BEDTIME PRN for Insomnia, ( Reported) Miscellaneous Medications Metoprolol Tartrate* (Metoprolol Tartrate*), 100 MG ORAL, (Reported) Temazepam (Temazepam*), 15 MG ORAL, (Reported) Patient History Healthcare decision maker roselyn Resuscitation status Full Code Advanced Directive on File Patient History Narrative Pmhx: as above Shx: Denies: smoking, alcohol use, drug use Fhx: non contributory Physical Exam Physical Exam Narrative General Appearance: cachetic Lines, tubes and drains: peripheral HEENT: normocephalic, atraumatic Neck: non-tender, normal alignment Respiratory/Chest: chest wall non-tender, lungs clear, normal breath sounds Breasts: no masses Cardiovascular/Chest: normal peripheral pulses, normal rate Abdomen: normal bowel sounds, non tender Genitourinary/Rectal: normal genital exam, heme negative stool Extremities: normal range of motion, non-tender 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: rv technician II-XII 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 Last 24 Hour Vital Signs Date Time Temp Pulse Resp B/P (MAP) Pulse Ox O2 Delivery O2 Flow Rate FiO2 09/05/18 12:00 97.9 90 20 135/57 (83) 97.9 09/05/18 11:38 77 09/05/18 09:28 85 09/05/18 09:27 85 138/70 09/05/18 09:27 138/70 09/05/18 08:10 Room Air 09/05/18 08:00 97.9 85 18 138/70 (92) 96 97.9 09/05/18 07:35 90 09/05/18 04:00 98.2 73 19 135/66 (89) 97 98.2 09/05/18 04:00 88 09/05/18 00:00 97.9 91 19 156/93 (114) 97 97.9 09/05/18 00:00 98 09/04/18 23:40 Room Air 09/04/18 23:05 97.9 110 16 143/61 99 Room Air 99 09/04/18 22:37 151 146/65 09/04/18 22:28 120 09/04/18 22:05 160/61 09/04/18 21:54 98.0 96 16 160/61 99 Room Air 98.0 09/04/18 20:03 98.2 93 16 176/69 99 Room Air 98.2 09/04/18 19:22 98.3 106 16 186/99 96 Room Air 98.2 Intake and Output 09/04/18 09/05/18 19:00 07:00 Intake Total 1555 ml Output Total 300 ml Balance 1255 ml Intake IV Total 1555 ml Output Urine Total 300 ml # Voids 1 # Bowel Movements 2 Laboratory Tests Test 09/04/18 19:50 09/04/18 21:25 09/05/18 05:45 White Blood Count 6.2 K/UL (4.8-10.8) 6.3 K/UL (4.8-10.8) Red Blood Count 4.34 M/UL (4.20-5.40) 4.01 M/UL (4.20-5.40) L Hemoglobin 13.6 G/DL (12.0-16.0) 12.7 G/DL (12.0-16.0) Hematocrit 39.7 % (37.0-47.0) 35.9 % (37.0-47.0) L Mean Corpuscular Volume 91 FL (80-99) 90 FL (80-99) Mean Corpuscular Hemoglobin 31.5 PG (27.0-31.0) H 31.6 PG (27.0-31.0) H Mean Corpuscular Hemoglobin Concent 34.4 G/DL (32.0-36.0) 35.3 G/DL (32.0-36.0) Red Cell Distribution Width 11.9 % (11.6-14.8) 11.9 % (11.6-14.8) Platelet Count 225 K/UL (150-450) 221 K/UL (150-450) Mean Platelet Volume 6.8 FL (6.5-10.1) 6.8 FL (6.5-10.1) Neutrophils (%) (Auto) % (45.0-75.0) 68.1 % (45.0-75.0) Lymphocytes (%) (Auto) % (20.0-45.0) 20.5 % (20.0-45.0) Monocytes (%) (Auto) % (1.0-10.0) 9.7 % (1.0-10.0) Eosinophils (%) (Auto) % (0.0-3.0) 1.0 % (0.0-3.0) Basophils (%) (Auto) % (0.0-2.0) 0.8 % (0.0-2.0) Differential Total Cells Counted 100 Neutrophils % (Manual) 87 % (45-75) H Lymphocytes % (Manual) 10 % (20-45) L Monocytes % (Manual) 3 % (1-10) Eosinophils % (Manual) 0 % (0-3) Basophils % (Manual) 0 % (0-2) Band Neutrophils 0 % (0-8) Platelet Estimate Adequate Platelet Morphology Normal Red Blood Cell Morphology Normal Urine Color Pale yellow Urine Appearance Clear Urine pH 8 (4.5-8.0) Urine Specific [place] 1.015 (1.005-1.035) Urine Protein 3+ (NEGATIVE) H Urine Glucose (UA) 2+ (NEGATIVE) H Urine Ketones 3+ (NEGATIVE) H Urine Blood 2+ (NEGATIVE) H Urine Nitrite Negative (NEGATIVE) Urine Bilirubin Negative (NEGATIVE) Urine Urobilinogen Normal MG/DL (0.0-1.0) Urine Leukocyte Esterase Negative (NEGATIVE) Urine RBC 2-4 /HPF (0 - 2) H Urine WBC 5-10 /HPF (0 - 2) H Urine Squamous Epithelial Cells Few /LPF (NONE/OCC) Urine Bacteria Moderate /HPF (NONE) H Sodium Level 139 MMOL/L (136-145) 141 MMOL/L (136-145) Potassium Level 4.0 MMOL/L (3.5-5.1) 3.5 MMOL/L (3.5-5.1) Chloride Level 98 MMOL/L (98-107) 102 MMOL/L (98-107) Carbon Dioxide Level 29 MMOL/L (21-32) 30 MMOL/L (21-32) Anion Gap 13 mmol/L (5-15) 9 mmol/L (5-15) Blood Urea Nitrogen 12 mg/dL (7-18) 11 mg/dL (7-18) Creatinine 1.0 MG/DL (0.55-1.30) 0.8 MG/DL (0.55-1.30) Estimat Glomerular Filtration Rate mL/min (>60) mL/min (>60) Glucose Level 175 MG/DL (74-106) H 99 MG/DL (74-106) Lactic Acid Level 4.70 mmol/L (0.4-2.0) H 3.10 mmol/L (0.66-2.22) H Calcium Level 9.4 MG/DL (8.5-10.1) 9.1 MG/DL (8.5-10.1) Total Bilirubin 0.5 MG/DL (0.2-1.0) 0.4 MG/DL (0.2-1.0) Aspartate Amino Transf (AST/SGOT) 13 U/L (15-37) L 12 U/L (15-37) L Alanine Aminotransferase (ALT/SGPT) 15 U/L (12-78) 9 U/L (12-78) L Alkaline Phosphatase 77 U/L (46-116) 64 U/L (46-116) Troponin I 0.008 ng/mL (0.000-0.056) Total Protein 8.2 G/DL (6.4-8.2) 7.2 G/DL (6.4-8.2) Albumin 4.2 G/DL (3.4-5.0) 3.6 G/DL (3.4-5.0) Globulin 4.0 g/dL 3.6 g/dL Albumin/Globulin Ratio 1.0 (1.0-2.7) 1.0 (1.0-2.7) Phosphorus Level 3.0 MG/DL (2.5-4.9) Magnesium Level 1.4 MG/DL (1.8-2.4) L Microbiology Date/Time Source Procedure Growth Status 09/04/18 19:50 Urine,Clean Catch Urine Culture - Preliminary Resulted Height (Feet): 5 Height (Inches): 3.00 Weight (Pounds): 125 Medications Current Medications Medications (Trade) Dose Ordered Sig/Yovana Route PRN Reason Start Time Stop Time Status Last Admin Dose Admin Allopurinol (Zyloprim) 100 mg DAILY ORAL 09/05/18 09:00 10/05/18 08:59 09/05/18 09:26 Apixaban (Eliquis) 2.5 mg BID ORAL 09/05/18 09:00 10/05/18 08:59 UNV Aspirin (Ecotrin) 81 mg DAILY ORAL 09/05/18 09:00 10/05/18 08:59 09/05/18 09:26 Digoxin (Lanoxin) 0.125 mg DAILY ORAL 09/05/18 09:00 10/05/18 08:59 09/05/18 09:28 Folic Acid (Folate) 1 mg DAILY ORAL 09/05/18 09:00 10/05/18 08:59 09/05/18 09:27 Furosemide (Lasix) 20 mg DAILY ORAL 09/05/18 09:00 10/05/18 08:59 09/05/18 09:26 Lisinopril (Prinivil) 20 mg DAILY ORAL 09/05/18 09:00 10/05/18 08:59 09/05/18 09:27 Magnesium Oxide (Mag-Ox 400mg) 400 mg DAILY ORAL 09/05/18 09:00 10/05/18 08:59 09/05/18 09:25 Metoprolol Succinate (Toprol XL) 50 mg DAILY ORAL 09/05/18 09:00 10/05/18 08:59 09/05/18 09:27 Ondansetron HCl (Zofran) 4 mg Q4H PRN IVP Nausea & Vomiting 09/05/18 02:00 10/05/18 01:59 Oxybutynin Chloride (Ditropan) 5 mg DAILY ORAL 09/05/18 09:00 10/05/18 08:59 09/05/18 09:27 Potassium Chloride (K-Dur) 20 meq DAILY ORAL 09/05/18 09:00 10/05/18 08:59 09/05/18 09:26 Rivaroxaban (Xarelto) 15 mg QPM ORAL 09/05/18 16:30 10/05/18 16:29 UNV Sodium Chloride 1,000 ml @ 75 mls/hr [id number] IV 09/05/18 02:00 10/05/18 01:59 09/05/18 02:00 Temazepam (Restoril) 15 mg QHS PRN ORAL sleep 09/05/18 02:00 09/12/18 01:59 Vitamin D (Vitamin D) 1 intlu DAILY ORAL 09/05/18 09:00 10/05/18 08:59 UNV Vitamin D (Vitamin D) 5,000 intlu DAILY ORAL 09/05/18 09:00 10/05/18 08:59 UNV Zolpidem Tartrate (Ambien) 10 mg BEDTIME PRN ORAL Insomnia 09/05/18 02:00 09/12/18 01:59 UNV Assessment/Plan Assessment/Plan Abx: Ceftriaxone x1 09/04 Assessment: Nausea/vomiting -CXR: no acute disease -hx also in 01/2018- s/p EGD: atrophic gastritis and small hiatal hernia -path: chronic inactive gastitis, no H. pylori detected Hypertensive urgency Afebrile No leukocytosis Mild pyuria -u/a wbc 5-10, nit neg, leuk neg; ucx p Afib Cholelithiasis DM2 DVT CAD CVA 1995 w/ R hemiparesis and non verbal status Plan: -Continue to monitor off abx unless febrile, leukocytosis and/or HD unstable -f/u cx -Monitor CBC/CMP, temperatures -GI eval -aspiration precautions Thank you for this consultation. Will continue to follow along with you. Discussed with Viktoria Elkins M.D. Sep 05, 2018 13:05
--- NOTE | 2018-09-05 15:08 | GI Initial Consult Note ---
History of Present Illness General Date patient seen: Sep 05, 2018 Time patient seen: 15:03 Reason for Hospitalization: Vomiting Referring physician: CHASITY HERNANDEZ Reason for Consultation: VOMITING Present Illness HPI Mrs. Stevens is an 82-year-old female with history of CVA, right-sided hemiparesis, atrial fibrillation, hypertension CHF cholelithiasis and diabetes who presents with nausea vomiting hypertension. History obtained from daughter. Patient is nonverbal as a result of previous stroke. Patient had profuse nausea vomiting throughout the day. Patient has been unable to tolerate oral intake. Daughter was quite concerned that the blood pressure appeared to be increasing throughout the day. History obtained from discharge summary from inpatient admission in January 2018. Patient did have dehydration secondary to intractable nausea vomiting at the time EGD performed in January revealed atrophic gastritis and small hiatal hernia. GI consulted for vomiting. Pt seen, awake alert and oriented NAD with no active s/x of N/V/D. Per report, patient had no vomiting since transfer to the floor. Patient has history of EGD back in January noted with gastritis and small hiatal hernia. On admission, in hypertension crisis. Labs reviewed; no anemia. no leukocytosis. Home Meds Active Scripts Ondansetron Odt* (ZOFRAN ODT*) 4 Mg Tab.rapdis, 4 MG BC EVERY 6 HOURS PRN for Nausea & Vomiting, #30 TAB 0 Refills Prov:Jt Luciano MD 06/24/18 Rivaroxaban (XARELTO) 15 Mg Tablet, 15 MG ORAL QPM for 30 Days, TAB Prov:Bryan Bertrand MD 02/17/18 Reported Medications Apixaban (ELIQUIS) 2.5 Mg Tablet, 2.5 MG PO BID, TAB 09/04/18 Potassium Chloride (POTASSIUM CHLORIDE) 10 Meq Tablet.er, 20 MEQ ORAL DAILY, # 30 TAB 0 Refills 06/24/18 Apixaban (ELIQUIS) 2.5 Mg Tablet, 2.5 MG PO BID, TAB 06/24/18 Folic Acid* (FOLIC ACID*) 1 Mg Tablet, 1 MG ORAL DAILY, TAB 06/24/18 Furosemide* (LASIX*) 20 Mg Tablet, 20 MG ORAL DAILY, TAB 06/24/18 Metoprolol Succinate* (METOPROLOL SUCCINATE*) 50 Mg Tab.er.24h, 50 MG ORAL DAILY , TAB 06/24/18 Vitamin D (Vitamin D3) 400 Unit Tablet, 5000 INTLU ORAL DAILY, TAB 06/24/18 Zolpidem Tartrate* (ZOLPIDEM TARTRATE*) 10 Mg Tablet, 10 MG ORAL BEDTIME PRN for Insomnia, TAB 0 Refills 06/24/18 Oxybutynin Chloride (OXYBUTYNIN CHLORIDE) 5 Mg Tablet, 5 MG ORAL DAILY, #30 TAB 0 Refills 06/24/18 Rivaroxaban (XARELTO) 15 Mg Tablet, 2.5 MG ORAL DAILY for 30 Days, MG 0 Refills 02/13/18 Rivaroxaban (XARELTO) 20 Mg Tablet, 20 MG ORAL DAILY for 30 Days, MG 0 Refills 04/29/17 Vitamin B Cmplx/Vit C/Folic AC (Nephro-Barbara Tablet) 0.8 Mg Tablet, 1 TAB ORAL DAILY, #30 TAB 0 Refills 04/29/17 Metoprolol Tartrate* (METOPROLOL TARTRATE*) 100 Mg Tablet, 100 MG ORAL, TAB 11/26/16 Temazepam (TEMAZEPAM*) 15 Mg Capsule, 15 MG ORAL, #30 CAP 0 Refills 11/26/16 Magnesium Oxide (MAGNESIUM OXIDE) 400 Mg Tablet, 400 MG ORAL DAILY, #30 TAB 0 Refills 05/21/15 Metformin Hcl* (METFORMIN HCL*) 1,000 Mg Tablet, 1000 MG ORAL BID, TAB 05/21/15 Oxybutynin (GELNIQUE) 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, 5 MG PO BID 05/21/15 Lisinopril (LISINOPRIL*) 20 Mg Tablet, 20 MG ORAL DAILY, TAB 02/18/15 Allopurinol* (ALLOPURINOL*) 100 Mg Tablet, 100 MG ORAL DAILY, TAB 02/14/15 Cholecalciferol (Vitamin D3) (VITAMIN D-400*) 400 Unit Tablet, 1000 UNITS ORAL DAILY, TAB 02/14/15 Digoxin* (DIGOXIN*) 250 Mcg Tablet, 0.125 MG ORAL DAILY, TAB 02/14/15 Zolpidem Tartrate* (ZOLPIDEM TARTRATE*) 10 Mg Tablet, 10 MG ORAL BEDTIME PRN for Insomnia, TAB 0 Refills 02/14/15 Aspirin* (ASPIR 81*) 81 Mg Tablet.dr, 81 MG ORAL DAILY, TAB 02/14/15 Med list reviewed/reconciled: Yes Allergies: Coded Allergies: No Known Allergies (Unverified , 09/04/18) Patient History History Provided By: Patient, Medical Record [facility] Narrative Past Medical History: see triage record, old chart reviewed Past Surgical History: other Social History: Denies: smoking, alcohol use, drug use Nursing Documentation-[facility] Past Medical History: No History, Except For Hx Cardiac Problems: Yes - Cardiomegaly, Palpitation Hx Hypertension: Yes Hx Diabetes: Yes Hx Cancer: No Hx Gastrointestinal Problems: No Hx Dialysis: No Hx Neurological Problems: Yes Hx Cerebrovascular Accident: Yes - Right sided weakness dt CVA 1995 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 Speech Problem: Yes - Mambling Hx Weakness: Yes Review of Systems All Other Systems: negative except mentioned in HPI Physical Exam Vital Signs Date Time Temp Pulse Resp B/P (MAP) Pulse Ox O2 Delivery O2 Flow Rate FiO2 09/04/18 19:22 98.3 106 16 186/99 96 Room Air 98.2 09/04/18 23:05 99 Sp02 EP Interpretation: reviewed, normal Labs Laboratory Tests Test 09/04/18 19:50 09/04/18 21:25 09/05/18 05:45 White Blood Count 6.2 K/UL (4.8-10.8) 6.3 K/UL (4.8-10.8) Red Blood Count 4.34 M/UL (4.20-5.40) 4.01 M/UL (4.20-5.40) L Hemoglobin 13.6 G/DL (12.0-16.0) 12.7 G/DL (12.0-16.0) Hematocrit 39.7 % (37.0-47.0) 35.9 % (37.0-47.0) L Mean Corpuscular Volume 91 FL (80-99) 90 FL (80-99) Mean Corpuscular Hemoglobin 31.5 PG (27.0-31.0) H 31.6 PG (27.0-31.0) H Mean Corpuscular Hemoglobin Concent 34.4 G/DL (32.0-36.0) 35.3 G/DL (32.0-36.0) Red Cell Distribution Width 11.9 % (11.6-14.8) 11.9 % (11.6-14.8) Platelet Count 225 K/UL (150-450) 221 K/UL (150-450) Mean Platelet Volume 6.8 FL (6.5-10.1) 6.8 FL (6.5-10.1) Neutrophils (%) (Auto) % (45.0-75.0) 68.1 % (45.0-75.0) Lymphocytes (%) (Auto) % (20.0-45.0) 20.5 % (20.0-45.0) Monocytes (%) (Auto) % (1.0-10.0) 9.7 % (1.0-10.0) Eosinophils (%) (Auto) % (0.0-3.0) 1.0 % (0.0-3.0) Basophils (%) (Auto) % (0.0-2.0) 0.8 % (0.0-2.0) Differential Total Cells Counted 100 Neutrophils % (Manual) 87 % (45-75) H Lymphocytes % (Manual) 10 % (20-45) L Monocytes % (Manual) 3 % (1-10) Eosinophils % (Manual) 0 % (0-3) Basophils % (Manual) 0 % (0-2) Band Neutrophils 0 % (0-8) Platelet Estimate Adequate Platelet Morphology Normal Red Blood Cell Morphology Normal Urine Color Pale yellow Urine Appearance Clear Urine pH 8 (4.5-8.0) Urine Specific [place] 1.015 (1.005-1.035) Urine Protein 3+ (NEGATIVE) H Urine Glucose (UA) 2+ (NEGATIVE) H Urine Ketones 3+ (NEGATIVE) H Urine Blood 2+ (NEGATIVE) H Urine Nitrite Negative (NEGATIVE) Urine Bilirubin Negative (NEGATIVE) Urine Urobilinogen Normal MG/DL (0.0-1.0) Urine Leukocyte Esterase Negative (NEGATIVE) Urine RBC 2-4 /HPF (0 - 2) H Urine WBC 5-10 /HPF (0 - 2) H Urine Squamous Epithelial Cells Few /LPF (NONE/OCC) Urine Bacteria Moderate /HPF (NONE) H Sodium Level 139 MMOL/L (136-145) 141 MMOL/L (136-145) Potassium Level 4.0 MMOL/L (3.5-5.1) 3.5 MMOL/L (3.5-5.1) Chloride Level 98 MMOL/L (98-107) 102 MMOL/L (98-107) Carbon Dioxide Level 29 MMOL/L (21-32) 30 MMOL/L (21-32) Anion Gap 13 mmol/L (5-15) 9 mmol/L (5-15) Blood Urea Nitrogen 12 mg/dL (7-18) 11 mg/dL (7-18) Creatinine 1.0 MG/DL (0.55-1.30) 0.8 MG/DL (0.55-1.30) Estimat Glomerular Filtration Rate mL/min (>60) mL/min (>60) Glucose Level 175 MG/DL (74-106) H 99 MG/DL (74-106) Lactic Acid Level 4.70 mmol/L (0.4-2.0) H 3.10 mmol/L (0.66-2.22) H Calcium Level 9.4 MG/DL (8.5-10.1) 9.1 MG/DL (8.5-10.1) Total Bilirubin 0.5 MG/DL (0.2-1.0) 0.4 MG/DL (0.2-1.0) Aspartate Amino Transf (AST/SGOT) 13 U/L (15-37) L 12 U/L (15-37) L Alanine Aminotransferase (ALT/SGPT) 15 U/L (12-78) 9 U/L (12-78) L Alkaline Phosphatase 77 U/L (46-116) 64 U/L (46-116) Troponin I 0.008 ng/mL (0.000-0.056) Total Protein 8.2 G/DL (6.4-8.2) 7.2 G/DL (6.4-8.2) Albumin 4.2 G/DL (3.4-5.0) 3.6 G/DL (3.4-5.0) Globulin 4.0 g/dL 3.6 g/dL Albumin/Globulin Ratio 1.0 (1.0-2.7) 1.0 (1.0-2.7) Phosphorus Level 3.0 MG/DL (2.5-4.9) Magnesium Level 1.4 MG/DL (1.8-2.4) L General Appearance: well appearing, no apparent distress, alert Head: normocephalic EENT: PERRL/EOMI, normal ENT inspection Neck: supple Respiratory: normal breath sounds, no respiratory distress Cardiovascular: normal rate Gastrointestinal: normal inspection, non tender, soft, normal bowel sounds, non -distended Rectal: deferred Genitourinary: no CVA tenderness Musculoskeletal: normal inspection, back normal Neurologic: normal inspection, alert, oriented x3, responsive Psychiatric: normal inspection, judgement/insight normal, memory normal Skin: normal inspection, normal color, no rash, warm/dry, palpation normal, well hydrated Lymphatic: normal inspection, no adenopathy Current Medications Current Medications Medications (Trade) Dose Ordered Sig/Yovana Route PRN Reason Start Time Stop Time Status Last Admin Dose Admin Allopurinol (Zyloprim) 100 mg DAILY ORAL 09/05/18 09:00 10/05/18 08:59 09/05/18 09:26 Apixaban (Eliquis) 2.5 mg BID ORAL 09/05/18 09:00 10/05/18 08:59 UNV Aspirin (Ecotrin) 81 mg DAILY ORAL 09/05/18 09:00 10/05/18 08:59 09/05/18 09:26 Digoxin (Lanoxin) 0.125 mg DAILY ORAL 09/05/18 09:00 10/05/18 08:59 09/05/18 09:28 Folic Acid (Folate) 1 mg DAILY ORAL 09/05/18 09:00 10/05/18 08:59 09/05/18 09:27 Furosemide (Lasix) 20 mg DAILY ORAL 09/05/18 09:00 10/05/18 08:59 09/05/18 09:26 Lisinopril (Prinivil) 20 mg DAILY ORAL 09/05/18 09:00 10/05/18 08:59 09/05/18 09:27 Magnesium Oxide (Mag-Ox 400mg) 400 mg DAILY ORAL 09/05/18 09:00 10/05/18 08:59 09/05/18 09:25 Metoprolol Succinate (Toprol XL) 50 mg DAILY ORAL 09/05/18 09:00 10/05/18 08:59 09/05/18 09:27 Ondansetron HCl (Zofran) 4 mg Q4H PRN IVP Nausea & Vomiting 09/05/18 02:00 10/05/18 01:59 Oxybutynin Chloride (Ditropan) 5 mg DAILY ORAL 09/05/18 09:00 10/05/18 08:59 09/05/18 09:27 Potassium Chloride (K-Dur) 20 meq DAILY ORAL 09/05/18 09:00 10/05/18 08:59 09/05/18 09:26 Rivaroxaban (Xarelto) 15 mg QPM ORAL 09/05/18 16:30 10/05/18 16:29 UNV Sodium Chloride 1,000 ml @ 75 mls/hr [id number] IV 09/05/18 02:00 10/05/18 01:59 09/05/18 02:00 Temazepam (Restoril) 15 mg QHS PRN ORAL sleep 09/05/18 02:00 09/12/18 01:59 Vitamin D (Vitamin D) 1 intlu DAILY ORAL 09/05/18 09:00 10/05/18 08:59 UNV Vitamin D (Vitamin D) 5,000 intlu DAILY ORAL 09/05/18 09:00 10/05/18 08:59 UNV Zolpidem Tartrate (Ambien) 10 mg BEDTIME PRN ORAL Insomnia 09/05/18 02:00 09/12/18 01:59 UNV GI: Plan Problems: (1) Hypertensive urgency (2) Dehydration (3) Nausea & vomiting (4) Hyperglycemia due to type 2 diabetes mellitus (5) Symptomatic bradycardia (6) Right hemiparesis (7) Iron deficiency anemia (8) Diabetes mellitus (9) Abdominal pain (10) Gastroenteritis Plan vomiting 2/2 to hypertensive urgency vs gastroparesis >> resolved at this time symptomatic treatment BP management DM management zofran prn, reglan for persistent vomiting electrolyte correction IV/PO hydration fu labs Discussed with Dr. Munoz. Thank you for this patient referral, we will follow. The patient was seen and examined at bedside and all new and available data was reviewed in the patients chart. I agree with the above findings, impression and plan. (Patient seen earlier today. Signature stamp does not reflect patient encounter time.). - MD Nerissa Nolasco,[facility] [employer] Sep 05, 2018 15:08
[2018-09-05 16:00] VITALS: BP 143/58
[2018-09-05] MEDS ORDERED: Xarelto 15mg tab ORAL SCH (16:30)
--- NOTE | 2018-09-05 18:51 | History & Physical ---
History and Physical History & Physicial Dictated for Int Med-Dr Garrido no.[id number]. Rocky Garibay MD Sep 05, 2018 18:51
[2018-09-05 20:00] VITALS: BP 129/69
--- NOTE | 2018-09-05 20:02 | Cardiology Progress Note ---
Assessment/Plan Assessment/Plan [id number] eliquis iv abx monitor than you Objective Last 24 Hour Vital Signs Date Time Temp Pulse Resp B/P (MAP) Pulse Ox O2 Delivery O2 Flow Rate FiO2 09/05/18 16:00 97.8 70 19 143/58 (86) 96 97.8 09/05/18 15:48 76 09/05/18 12:00 97.9 90 20 135/57 (83) 97.9 09/05/18 11:38 77 09/05/18 09:28 85 09/05/18 09:27 85 138/70 09/05/18 09:27 138/70 09/05/18 08:10 Room Air 09/05/18 08:00 97.9 85 18 138/70 (92) 96 97.9 09/05/18 07:35 90 09/05/18 04:00 98.2 73 19 135/66 (89) 97 98.2 09/05/18 04:00 88 09/05/18 00:00 97.9 91 19 156/93 (114) 97 97.9 09/05/18 00:00 98 09/04/18 23:40 Room Air 09/04/18 23:05 97.9 110 16 143/61 99 Room Air 99 09/04/18 22:37 151 146/65 09/04/18 22:28 120 09/04/18 22:05 160/61 09/04/18 21:54 98.0 96 16 160/61 99 Room Air 98.0 09/04/18 20:03 98.2 93 16 176/69 99 Room Air 98.2 Intake and Output 09/04/18 09/05/18 19:00 07:00 Intake Total 1555 ml Output Total 300 ml Balance 1255 ml IV Total 1555 ml Output Urine Total 300 ml # Voids 1 # Bowel Movements 2 Laboratory Tests Test 09/04/18 21:25 09/05/18 05:45 Lactic Acid Level 3.10 mmol/L (0.66-2.22) H White Blood Count 6.3 K/UL (4.8-10.8) Red Blood Count 4.01 M/UL (4.20-5.40) L Hemoglobin 12.7 G/DL (12.0-16.0) Hematocrit 35.9 % (37.0-47.0) L Mean Corpuscular Volume 90 FL (80-99) Mean Corpuscular Hemoglobin 31.6 PG (27.0-31.0) H Mean Corpuscular Hemoglobin Concent 35.3 G/DL (32.0-36.0) Red Cell Distribution Width 11.9 % (11.6-14.8) Platelet Count 221 K/UL (150-450) Mean Platelet Volume 6.8 FL (6.5-10.1) Neutrophils (%) (Auto) 68.1 % (45.0-75.0) Lymphocytes (%) (Auto) 20.5 % (20.0-45.0) Monocytes (%) (Auto) 9.7 % (1.0-10.0) Eosinophils (%) (Auto) 1.0 % (0.0-3.0) Basophils (%) (Auto) 0.8 % (0.0-2.0) Sodium Level 141 MMOL/L (136-145) Potassium Level 3.5 MMOL/L (3.5-5.1) Chloride Level 102 MMOL/L (98-107) Carbon Dioxide Level 30 MMOL/L (21-32) Anion Gap 9 mmol/L (5-15) Blood Urea Nitrogen 11 mg/dL (7-18) Creatinine 0.8 MG/DL (0.55-1.30) Estimat Glomerular Filtration Rate mL/min (>60) Glucose Level 99 MG/DL (74-106) Calcium Level 9.1 MG/DL (8.5-10.1) Phosphorus Level 3.0 MG/DL (2.5-4.9) Magnesium Level 1.4 MG/DL (1.8-2.4) L Total Bilirubin 0.4 MG/DL (0.2-1.0) Aspartate Amino Transf (AST/SGOT) 12 U/L (15-37) L Alanine Aminotransferase (ALT/SGPT) 9 U/L (12-78) L Alkaline Phosphatase 64 U/L (46-116) Total Protein 7.2 G/DL (6.4-8.2) Albumin 3.6 G/DL (3.4-5.0) Globulin 3.6 g/dL Albumin/Globulin Ratio 1.0 (1.0-2.7) Microbiology Date/Time Source Procedure Growth Status 09/04/18 19:50 Urine,Clean Catch Urine Culture - Preliminary Resulted Hitesh Gates MD Sep 05, 2018 20:02
--- NOTE | 2018-09-05 23:15 | History and Physical Report ---
DATE OF ADMISSION: 09/04/2018 CHIEF COMPLAINT: The patient is an 83-year-old female, who presents with chief complaint of nausea and vomiting. HISTORY OF PRESENT ILLNESS: This began one day prior to admission. The patient began to experience nausea and vomiting. This became intractable. The patient presented to [facility]. The patient was admitted to [facility] in January 2018. An endoscopy showed atrophic gastritis. The patient presented to [facility]. The patient was admitted for intractable nausea and vomiting. REVIEW OF SYSTEMS: Unable to assess secondary to the patient's mental status. PAST MEDICAL HISTORY: Significant for: 1. Type 2 diabetes. 2. Hypertension. 3. Paroxysmal atrial fibrillation. 4. History of cerebrovascular accident. 5. Right hemiparesis. 6. History of atrophic gastritis as above. PAST SURGICAL HISTORY: Significant for section x1. CURRENT MEDICATIONS: 1. Allopurinol 100 mg p.o. daily. 2. Eliquis 2.5 mg p.o. twice daily. 3. Aspirin 81 mg p.o. daily. 4. Vitamin D 1000 units p.o. daily. 5. Digoxin 0.125 mg p.o. daily. 6. Folic acid 1 mg p.o. daily. 7. Lasix 20 mg p.o. daily. 8. Lisinopril 20 mg p.o. daily. 9. Magnesium oxide 400 mg p.o. daily. 10. Metformin 1000 mg p.o. twice daily. 11. Metoprolol 100 mg p.o. daily. 12. Oxybutynin 5 mg p.o. daily. 13. Potassium chloride 20 mEq p.o. daily. 14. Ambien 10 mg p.o. nightly p.r.n. ALLERGIES: No known drug allergies. SOCIAL HISTORY: The patient is . The patient lives at home with her . The patient denies tobacco or alcohol use. PHYSICAL EXAMINATION: VITAL SIGNS: Temperature 97.9, respirations 16, pulse 110, and blood pressure 143/61. GENERAL: The patient is a well-developed and well-nourished female, in no apparent distress. HEENT: Eyes, pupils are equal and responsive to light and accommodation. Extraocular movements are intact. NECK: Supple without lymphadenopathy. CHEST: Lungs are clear to auscultation bilaterally without wheezes or rales. CARDIOVASCULAR: Regular rate. S1, S2 are normal without murmurs, rubs, or gallops. ABDOMEN: Soft, diffusely tender with positive bowel sounds. No evidence of hepatosplenomegaly. Currently, no rebound or guarding noted. EXTREMITIES: Negative for clubbing, cyanosis, or edema. RECTAL/GENITAL: Refused. NEUROLOGICAL: The patient does have a right hemiparesis. The patient is aphasic. LABORATORY STUDIES: WBC 6.2, hemoglobin 13.6, hematocrit 39.7, and platelets 250,000. Sodium 139, potassium 4.0, chloride 98, CO2 29, BUN 12, and creatinine 1.0. Glucose 175. ASSESSMENT: This is an 83-year-old female: 1. Intractable nausea and vomiting. 2. History of gastritis. 3. Hypertension. 4. Diabetes type 2. 5. Paroxysmal atrial fibrillation. 6. Cerebrovascular disease. 7. Right hemiparesis. TREATMENT: 1. Intractable nausea and vomiting. The patient has been started empirically on intravenous Zofran. The patient is currently receiving intravenous fluids. A Gastroenterology consultation has been obtained with Dr. Miller Munoz. We will follow recommendations of Gastroenterology. 2. Hypertension. Continue lisinopril as above. 3. Diabetes type 2. The patient has been started on NovoLog sliding scale. 4. Paroxysmal atrial fibrillation. The patient is currently on metoprolol. Continue Eliquis as above. 5. Cerebrovascular disease. 6. Right hemiparesis. Rocky Garibay M.D. DR: CYNTHIA JOB#: [id number] CC:
[2018-09-06] VITALS: BP 128/58
[2018-09-06 04:00] VITALS: BP 125/64
--- NOTE | 2018-09-06 04:00 | Consultation ---
DATE OF CONSULTATION: 09/05/2018 CONSULTING PHYSICIAN: Hitesh Gates M.D. REFERRING PHYSICIAN: Bryan Bertrand M.D. REASON FOR REFERRAL: Tachycardia and atrial fibrillation. HISTORY OF PRESENT ILLNESS: This is an elderly female, who is known to me from prior evaluation back in January 2018. The patient presented to the hospital because of repeated episodes of nausea, vomiting, and not being able to keep any food down and was admitted to the hospital because of possible dehydration, nausea, and vomiting. This consultation was requested by Dr. Bertrand for help management of episodes of tachycardia she sustained so far. According to daughter, the patient was not able to voice any complaints. She noticed her mother to rub her belly a couple of days ago, but has started vomiting after breakfast yesterday morning and these persisted until 7 o'clock in the evening when she presented to the hospital. There is no diarrhea. There are no fevers or chills. No black or bloody stools or bloody vomiting or coffee-ground emesis. There have been no reports of any chest pain. The patient ambulates with the help of a cane, but very limited degree and seemed to be short of breath with that degree of ambulation. There is no syncope. There is no change in her mental status. No discomfort that she has voiced on any particular order. PAST MEDICAL HISTORY: Positive for history of abdominal pain; cholelithiasis; gastroenteritis; atrial fibrillation with rapid ventricular response; hypertension; diabetes mellitus; CVA; and aortic and mitral regurgitations, her mitral was felt to be severe and aortic regurgitation was felt to moderate. She has a history of digoxin toxicity. She has systemic hypertension; CVA with questionable history of cardiac arrest years ago, unknown details; history of bradycardia; history of gout; toxic metabolic encephalopathy; nausea; vomiting; and urinary tract infection. ALLERGIES: She is not allergic to any medications. MEDICATIONS: Her medications at home are reported as including Eliquis 2.5 mg twice a day, aspirin 81 mg daily, and vitamin D3 1000 units daily. She was taking digoxin 0.125 mg, folic acid, Lasix 20 mg daily, lisinopril 20 mg daily, magnesium oxide 400 mg daily, metformin 1000 mg twice daily, and metoprolol 50 mg daily. She is also reported taking 100 mg of confirmed with the patient's daughter. She also takes oxybutynin, potassium, and temazepam, not clear to me that this was really up-to-date. SOCIAL HISTORY: She used to smoke, but she quit number of years ago. Does not drink alcoholic beverages. She lives at home with her daughter, who is at the bedside at the present time. REVIEW OF SYSTEMS: GASTROINTESTINAL: As mentioned in history of present illness with recurrent nausea and vomiting. No diarrhea. No bloody stools. GENITOURINARY: There has not been any reports of discomfort on urination. PULMONARY: She has not had any coughing or wheezing. CONSTITUTIONAL: She has no reports of fevers, chills, or night sweats. NEUROLOGIC: She has had no change in her mental status. PHYSICAL EXAMINATION: GENERAL: Shows to be elderly female, in no respiratory distress. NECK: Supple. No jugular venous distention. LUNGS: Clear to auscultation and percussion. CARDIAC: S1 is normal. S2 is normal. Irregularly irregular. Not tachycardic. No heaves, thrills, or gallops noted. ABDOMEN: Soft and nontender. No hepatosplenomegaly. EXTREMITIES: There is no edema. NEUROLOGICAL: She is awake, alert, and responsive. She seems to be weak on the right side, but moves all four of her extremities. LABORATORY DATA: White count 6.3 with a hemoglobin of 12.7 and platelet count of 221,000. Sodium is 141, potassium 3.5, chloride 102, bicarbonate 30, BUN of 11, creatinine 0.8, glucose of 99, calcium is 9.1, magnesium 1.4, and phosphorus of 3.0. Total bilirubin of 7.2 and albumin of 3.6. Urinalysis shows 5 to 10 WBCs, 3+ glucose, 2+ ketones, and 2+ occult blood. She had urine cultures drawn that have sent us no growth so far. Her chest x-ray performed yesterday in the emergency room simply showed no acute distress. Her telemetry data shows atrial fibrillation. She has had episodes of rapid ventricular response on ambulation or sitting on a commode earlier today. Her electrocardiogram, however, shows atrial fibrillation and right bundle-branch block conduction defect with heart rate of 90. ASSESSMENT AND PLAN: 1. Recurrent bouts of nausea and vomiting with a history of . 2. ____ atrial fibrillation. 3. History of valvular heart disease. 4. History of prior CVA. 5. Possible urinary tract infection. This patient was seen in cardiac consultation. The patient's heart rate is significantly tachycardic at the time that she moved around. She probably should be back on her dose of probably beta-blockers. We will confirm the doses with the patient's daughter to review the previous dose. I am not sure if she needs to be on digoxin. The digoxin level should be checked, but I would prefer beta-blockers than digoxin, especially in light of fact that she has had episodes of tachycardia previously. She will have a set of cardiac enzymes repeated. Her first set was 0.008 at the time of her previous admission. Those were in the morning. She has had an echocardiogram previously back in January 2018 that showed ejection fraction of 50% with normal systolic function, thickened mitral and aortic valve, moderate mitral regurgitation, and only mild degree of aortic regurgitation. This was interpreted by myself. The patient's anticoagulation was confirmed with the Eliquis with the patient's daughter. Those will be continued and further recommendations with heart rate control will be provided as needed. Hitesh Gates M.D. DR: JAYLA JOB#: [id number] CC:
[2018-09-06 06:00] LABS: HEMATOCRIT 33.5 % (37.0-47.0); HEMOGLOBIN 11.3 G/DL (12.0-16.0); LYMPHOCYTES % (AUTO) 29.2 % (20.0-45.0); MEAN CORPUSCULAR VOLUME 90 FL (80-99); NEUTROPHILS % (AUTO) 58.9 % (45.0-75.0); PLATELET COUNT 186 K/UL (150-450); RED BLOOD COUNT 3.72 M/UL (4.20-5.40); RED CELL DISTRIBUTION WIDTH 12.1 % (11.6-14.8); WHITE BLOOD COUNT 4.6 K/UL (4.8-10.8)
[2018-09-06 06:34] LABS: ALANINE AMINOTRANSFERASE 14 U/L (12-78); ALKALINE PHOSPHATASE 58 U/L (46-116); AMYLASE 69 U/L (25-115); ANION GAP 7 mmol/L (5-15); ASPARTATE AMINO TRANSFERASE 16 U/L (15-37); BILIRUBIN,TOTAL 0.5 MG/DL (0.2-1.0); BLOOD UREA NITROGEN 12 mg/dL (7-18); CALCIUM 8.4 MG/DL (8.5-10.1); CARBON DIOXIDE 28 MMOL/L (21-32); CHLORIDE 109 MMOL/L (98-107); CREATININE 0.9 MG/DL (0.55-1.30); PHOSPHORUS 2.6 MG/DL (2.5-4.9); POTASSIUM 3.3 MMOL/L (3.5-5.1); SODIUM 144 MMOL/L (136-145)
[2018-09-06 08:00] VITALS: BP 135/81
[2018-09-06] MEDS: Oxybutynin 5mg tab ORAL SCH (08:41)
[2018-09-06] MEDS: Aspirin EC 81mg tab ORAL SCH (08:42)
[2018-09-06] MEDS: Vitamin D 1000 IU Tab ORAL SCH (08:42)
[2018-09-06] MEDS: Allopurinol 100mg Tab ORAL SCH (08:42)
[2018-09-06] MEDS: Magnesium Oxide 400mg tab ORAL SCH (08:43)
[2018-09-06] MEDS: Digoxin 0.125mg tab ORAL SCH (08:43)
[2018-09-06] MEDS: Metoprolol Succinate XL 25mg tab ORAL SCH (08:44)
[2018-09-06] MEDS: Lisinopril 20mg tab ORAL SCH (08:44)
--- NOTE | 2018-09-06 11:09 | GI Progress Note ---
Assessment/Plan Problems: (1) Hypertensive urgency ICD Codes: I16.0 - Hypertensive urgency SNOMED: 499879419 (2) Dehydration ICD Codes: E86.0 - Dehydration SNOMED: 16483018 (3) Nausea & vomiting ICD Codes: R11.2 - Nausea with vomiting, unspecified SNOMED: 38270343 (4) Hyperglycemia due to type 2 diabetes mellitus ICD Codes: E11.65 - Type 2 diabetes mellitus with hyperglycemia SNOMED: 569504280603662 (5) Right hemiparesis ICD Codes: G81.90 - Right hemiparesis SNOMED: 452289467 (6) Abdominal pain ICD Codes: R10.9 - Abdominal pain SNOMED: 62551986 (7) Iron deficiency anemia ICD Codes: D50.9 - Iron deficiency anemia, unspecified SNOMED: 22945803 (8) Diabetes mellitus ICD Codes: E11.9 - Type 2 diabetes mellitus without complications SNOMED: 70039412 (9) Hypertension ICD Codes: I10 - Hypertension SNOMED: 04818233 Status: stable Status Narrative Discussed with Dr. Munoz. Assessment/Plan emesis 2/2 to hypertensive urgency vs gastroparesis >> resolved symptomatic treatment zofran prn, reglan for persistent vomiting BP management DM management electrolyte correction IV/PO hydration fu labs The patient was seen and examined at bedside and all new and available data was reviewed in the patients chart. I agree with the above findings, impression and plan. (Patient seen earlier today. Signature stamp does not reflect patient encounter time.). - Miller Munoz MD Subjective Gastrointestinal/Abdominal: Reports: no symptoms Objective Last 24 Hour Vital Signs Date Time Temp Pulse Resp B/P (MAP) Pulse Ox O2 Delivery O2 Flow Rate FiO2 09/06/18 08:44 94 135/81 09/06/18 08:44 135/81 09/06/18 08:43 94 09/06/18 08:00 98.0 94 18 135/81 (99) 97 98.0 09/06/18 08:00 Room Air 09/06/18 04:00 97.0 67 20 125/64 (84) 96 97.0 09/06/18 04:00 71 09/06/18 00:00 97.7 69 20 128/58 (81) 98 97.7 09/05/18 21:00 Room Air 09/05/18 21:00 Room Air 09/05/18 20:00 99 09/05/18 20:00 97.0 87 20 129/69 (89) 96 97.0 09/05/18 16:00 97.8 70 19 143/58 (86) 96 97.8 09/05/18 15:48 76 09/05/18 12:00 97.9 90 20 135/57 (83) 97.9 09/05/18 11:38 77 Intake and Output 09/05/18 09/06/18 19:00 07:00 Intake Total 240 ml Balance 240 ml Intake Oral 240 ml # Voids 5 2 Laboratory Tests Test 09/05/18 20:25 09/06/18 05:35 Digoxin Level 0.8 NG/ML (0.9-2.0) L White Blood Count 4.6 K/UL (4.8-10.8) L Red Blood Count 3.72 M/UL (4.20-5.40) L Hemoglobin 11.3 G/DL (12.0-16.0) L Hematocrit 33.5 % (37.0-47.0) L Mean Corpuscular Volume 90 FL (80-99) Mean Corpuscular Hemoglobin 30.4 PG (27.0-31.0) Mean Corpuscular Hemoglobin Concent 33.7 G/DL (32.0-36.0) Red Cell Distribution Width 12.1 % (11.6-14.8) Platelet Count 186 K/UL (150-450) Mean Platelet Volume 6.5 FL (6.5-10.1) Neutrophils (%) (Auto) 58.9 % (45.0-75.0) Lymphocytes (%) (Auto) 29.2 % (20.0-45.0) Monocytes (%) (Auto) 9.0 % (1.0-10.0) Eosinophils (%) (Auto) 2.0 % (0.0-3.0) Basophils (%) (Auto) 1.0 % (0.0-2.0) Erythrocyte Sedimentation Rate 27 MM/HR (0-30) Sodium Level 144 MMOL/L (136-145) Potassium Level 3.3 MMOL/L (3.5-5.1) L Chloride Level 109 MMOL/L (98-107) H Carbon Dioxide Level 28 MMOL/L (21-32) Anion Gap 7 mmol/L (5-15) Blood Urea Nitrogen 12 mg/dL (7-18) Creatinine 0.9 MG/DL (0.55-1.30) Estimat Glomerular Filtration Rate mL/min (>60) Glucose Level 97 MG/DL (74-106) Calcium Level 8.4 MG/DL (8.5-10.1) L Phosphorus Level 2.6 MG/DL (2.5-4.9) Magnesium Level 1.3 MG/DL (1.8-2.4) L Total Bilirubin 0.5 MG/DL (0.2-1.0) Aspartate Amino Transf (AST/SGOT) 16 U/L (15-37) Alanine Aminotransferase (ALT/SGPT) 14 U/L (12-78) Alkaline Phosphatase 58 U/L (46-116) C-Reactive Protein, Quantitative < 0.4 mg/dL (0.00-0.90) Total Protein 6.1 G/DL (6.4-8.2) L Albumin 3.0 G/DL (3.4-5.0) L Globulin 3.1 g/dL Albumin/Globulin Ratio 1.0 (1.0-2.7) Amylase Level 69 U/L (25-115) Lipase 264 U/L (73-393) Height (Feet): 5 Height (Inches): 3.00 Weight (Pounds): 110 General Appearance: WD/WN, no apparent distress, alert Cardiovascular: normal rate Respiratory/Chest: normal breath sounds, no respiratory distress Abdominal Exam: normal bowel sounds, non tender, soft Extremities: non-tender Martin Multani LATIN DANCER Sep 06, 2018 11:09
--- NOTE | 2018-09-06 11:38 | Pulmonology Progress Note ---
Assessment/Plan Problems: (1) Hypertensive urgency (2) Atrial fibrillation with rapid ventricular response (3) Nausea & vomiting (4) Right hemiparesis (5) Diabetes mellitus Assessment/Plan BP is better eating better nausea controlled sliding scale afib with episodes of bradycardia f/u cardio recommendations. Subjective ROS Limited/Unobtainable: No Constitutional: Reports: no symptoms HEENT: Repors: no symptoms Cardiovascular: Reports: no symptoms Allergies: Coded Allergies: No Known Allergies (Unverified , 09/04/18) Objective Last 24 Hour Vital Signs Date Time Temp Pulse Resp B/P (MAP) Pulse Ox O2 Delivery O2 Flow Rate FiO2 09/06/18 08:44 94 135/81 09/06/18 08:44 135/81 09/06/18 08:43 94 09/06/18 08:00 98.0 94 18 135/81 (99) 97 98.0 09/06/18 08:00 Room Air 09/06/18 07:54 75 09/06/18 04:00 97.0 67 20 125/64 (84) 96 97.0 09/06/18 04:00 71 09/06/18 00:00 97.7 69 20 128/58 (81) 98 97.7 09/05/18 21:00 Room Air 09/05/18 21:00 Room Air 09/05/18 20:00 99 09/05/18 20:00 97.0 87 20 129/69 (89) 96 97.0 09/05/18 16:00 97.8 70 19 143/58 (86) 96 97.8 09/05/18 15:48 76 09/05/18 12:00 97.9 90 20 135/57 (83) 97.9 09/05/18 11:38 77 Intake and Output 09/05/18 09/06/18 19:00 07:00 Intake Total 240 ml Balance 240 ml Intake Oral 240 ml # Voids 5 2 General Appearance: WD/WN HEENT: normocephalic, atraumatic Respiratory/Chest: chest wall non-tender, lungs clear Breasts: no masses Cardiovascular: normal peripheral pulses, normal rate Abdomen: normal bowel sounds, soft, non tender Genitourinary: normal external genitalia Neurologic/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: 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 Lymphatic: no neck adenopathy Microbiology Date/Time Source Procedure Growth Status 09/04/18 20:28 Blood Blood Culture - Preliminary NO GROWTH AFTER 24 HOURS Resulted 09/04/18 19:50 Blood Blood Culture - Preliminary NO GROWTH AFTER 24 HOURS Resulted 09/04/18 19:50 Urine,Clean Catch Urine Culture - Preliminary Mixed Urogenital Contaminants Resulted Laboratory Tests 09/05/18 20:25: Digoxin Level 0.8L 09/06/18 05:35: White Blood Count 4.6L, Red Blood Count 3.72L, Hemoglobin 11.3L, Hematocrit 33.5L, Mean Corpuscular Volume 90, Mean Corpuscular Hemoglobin 30.4, Mean Corpuscular Hemoglobin Concent 33.7, Red Cell Distribution Width 12.1, Platelet Count 186, Mean Platelet Volume 6.5, Neutrophils (%) (Auto) 58.9, Lymphocytes (% ) (Auto) 29.2, Monocytes (%) (Auto) 9.0, Eosinophils (%) (Auto) 2.0, Basophils ( %) (Auto) 1.0, Erythrocyte Sedimentation Rate 27, Sodium Level 144, Potassium Level 3.3L, Chloride Level 109H, Carbon Dioxide Level 28, Anion Gap 7, Blood Urea Nitrogen 12, Creatinine 0.9, Estimat Glomerular Filtration Rate , Glucose Level 97, Calcium Level 8.4L, Phosphorus Level 2.6, Magnesium Level 1.3L, Total Bilirubin 0.5, Aspartate Amino Transf (AST/SGOT) 16, Alanine Aminotransferase ( ALT/SGPT) 14, Alkaline Phosphatase 58, C-Reactive Protein, Quantitative < 0.4, Total Protein 6.1L, Albumin 3.0L, Globulin 3.1, Albumin/Globulin Ratio 1.0, Amylase Level 69, Lipase 264 Current Medications Medications (Trade) Dose Ordered Sig/Yovana Route PRN Reason Start Time Stop Time Status Last Admin Dose Admin Allopurinol (Zyloprim) 100 mg DAILY ORAL 09/05/18 09:00 10/05/18 08:59 09/06/18 08:42 Aspirin (Ecotrin) 81 mg DAILY ORAL 09/05/18 09:00 10/05/18 08:59 09/06/18 08:42 Digoxin (Lanoxin) 0.125 mg DAILY ORAL 09/05/18 09:00 10/05/18 08:59 09/06/18 08:43 Folic Acid (Folate) 1 mg DAILY ORAL 09/05/18 09:00 10/05/18 08:59 09/06/18 08:43 Lisinopril (Prinivil) 20 mg DAILY ORAL 09/05/18 09:00 10/05/18 08:59 09/06/18 08:44 Magnesium Oxide (Mag-Ox 400mg) 400 mg DAILY ORAL 09/05/18 09:00 10/05/18 08:59 09/06/18 08:43 Magnesium Sulfate 100 ml @ 100 mls/hr Q1H IVPB 09/06/18 10:00 09/06/18 11:59 09/06/18 11:27 Metoprolol Succinate (Toprol XL) 75 mg DAILY ORAL 09/06/18 09:00 10/06/18 08:59 09/06/18 08:44 Ondansetron HCl (Zofran) 4 mg Q4H PRN IVP Nausea & Vomiting 09/05/18 02:00 10/05/18 01:59 Oxybutynin Chloride (Ditropan) 5 mg DAILY ORAL 09/05/18 09:00 10/05/18 08:59 09/06/18 08:41 Pantoprazole (Protonix) 40 mg DAILY ORAL 09/06/18 09:00 10/06/18 08:59 09/06/18 08:43 Potassium Chloride (K-Dur) 20 meq DAILY ORAL 09/05/18 09:00 10/05/18 08:59 09/06/18 08:43 Sodium Chloride 1,000 ml @ 75 mls/hr [id number] IV 09/05/18 02:00 10/05/18 01:59 09/06/18 02:58 Temazepam (Restoril) 15 mg QHS PRN ORAL sleep 09/05/18 02:00 09/12/18 01:59 Vitamin D (Vitamin D) 5,000 intlu DAILY ORAL 09/05/18 09:00 10/05/18 08:59 09/06/18 08:42 Zolpidem Tartrate (Ambien) 5 mg BEDTIME PRN ORAL Insomnia 09/05/18 20:00 09/12/18 19:59 Bryan Bertrand MD Sep 06, 2018 11:38
[2018-09-06 12:00] VITALS: BP 121/73
--- NOTE | 2018-09-06 12:22 | Internal Med Progress Note ---
Subjective Date of Service: Sep 06, 2018 Physician Name Rocky Garibay Attending Physician Glenn Garrido MD Current Medications Medications (Trade) Dose Ordered Sig/Yovana Route PRN Reason Start Time Stop Time Status Last Admin Dose Admin Allopurinol (Zyloprim) 100 mg DAILY ORAL 09/05/18 09:00 10/05/18 08:59 09/06/18 08:42 Aspirin (Ecotrin) 81 mg DAILY ORAL 09/05/18 09:00 10/05/18 08:59 09/06/18 08:42 Digoxin (Lanoxin) 0.125 mg DAILY ORAL 09/05/18 09:00 10/05/18 08:59 09/06/18 08:43 Folic Acid (Folate) 1 mg DAILY ORAL 09/05/18 09:00 10/05/18 08:59 09/06/18 08:43 Lisinopril (Prinivil) 20 mg DAILY ORAL 09/05/18 09:00 10/05/18 08:59 09/06/18 08:44 Magnesium Oxide (Mag-Ox 400mg) 400 mg DAILY ORAL 09/05/18 09:00 10/05/18 08:59 09/06/18 08:43 Metoprolol Succinate (Toprol XL) 75 mg DAILY ORAL 09/06/18 09:00 10/06/18 08:59 09/06/18 08:44 Ondansetron HCl (Zofran) 4 mg Q4H PRN IVP Nausea & Vomiting 09/05/18 02:00 10/05/18 01:59 Oxybutynin Chloride (Ditropan) 5 mg DAILY ORAL 09/05/18 09:00 10/05/18 08:59 09/06/18 08:41 Pantoprazole (Protonix) 40 mg DAILY ORAL 09/06/18 09:00 10/06/18 08:59 09/06/18 08:43 Potassium Chloride (K-Dur) 20 meq DAILY ORAL 09/05/18 09:00 10/05/18 08:59 09/06/18 08:43 Sodium Chloride 1,000 ml @ 75 mls/hr [id number] IV 09/05/18 02:00 10/05/18 01:59 09/06/18 02:58 Temazepam (Restoril) 15 mg QHS PRN ORAL sleep 09/05/18 02:00 09/12/18 01:59 Vitamin D (Vitamin D) 5,000 intlu DAILY ORAL 09/05/18 09:00 10/05/18 08:59 09/06/18 08:42 Zolpidem Tartrate (Ambien) 5 mg BEDTIME PRN ORAL Insomnia 09/05/18 20:00 09/12/18 19:59 Allergies: Coded Allergies: No Known Allergies (Unverified , 09/04/18) ROS Limited/Unobtainable: Yes Subjective 83 YO F admitted with intractable nausea and vomiting. Cover for Int Med-Dr Garrido Objective Last Vital Signs Date Time Temp Pulse Resp B/P (MAP) Pulse Ox O2 Delivery O2 Flow Rate FiO2 09/06/18 12:00 98.1 88 20 121/73 (89) 98 98.1 09/06/18 08:00 Room Air 09/04/18 23:05 99 Laboratory Tests Test 09/05/18 20:25 09/06/18 05:35 Digoxin Level 0.8 NG/ML (0.9-2.0) L White Blood Count 4.6 K/UL (4.8-10.8) L Red Blood Count 3.72 M/UL (4.20-5.40) L Hemoglobin 11.3 G/DL (12.0-16.0) L Hematocrit 33.5 % (37.0-47.0) L Mean Corpuscular Volume 90 FL (80-99) Mean Corpuscular Hemoglobin 30.4 PG (27.0-31.0) Mean Corpuscular Hemoglobin Concent 33.7 G/DL (32.0-36.0) Red Cell Distribution Width 12.1 % (11.6-14.8) Platelet Count 186 K/UL (150-450) Mean Platelet Volume 6.5 FL (6.5-10.1) Neutrophils (%) (Auto) 58.9 % (45.0-75.0) Lymphocytes (%) (Auto) 29.2 % (20.0-45.0) Monocytes (%) (Auto) 9.0 % (1.0-10.0) Eosinophils (%) (Auto) 2.0 % (0.0-3.0) Basophils (%) (Auto) 1.0 % (0.0-2.0) Erythrocyte Sedimentation Rate 27 MM/HR (0-30) Sodium Level 144 MMOL/L (136-145) Potassium Level 3.3 MMOL/L (3.5-5.1) L Chloride Level 109 MMOL/L (98-107) H Carbon Dioxide Level 28 MMOL/L (21-32) Anion Gap 7 mmol/L (5-15) Blood Urea Nitrogen 12 mg/dL (7-18) Creatinine 0.9 MG/DL (0.55-1.30) Estimat Glomerular Filtration Rate mL/min (>60) Glucose Level 97 MG/DL (74-106) Calcium Level 8.4 MG/DL (8.5-10.1) L Phosphorus Level 2.6 MG/DL (2.5-4.9) Magnesium Level 1.3 MG/DL (1.8-2.4) L Total Bilirubin 0.5 MG/DL (0.2-1.0) Aspartate Amino Transf (AST/SGOT) 16 U/L (15-37) Alanine Aminotransferase (ALT/SGPT) 14 U/L (12-78) Alkaline Phosphatase 58 U/L (46-116) C-Reactive Protein, Quantitative < 0.4 mg/dL (0.00-0.90) Total Protein 6.1 G/DL (6.4-8.2) L Albumin 3.0 G/DL (3.4-5.0) L Globulin 3.1 g/dL Albumin/Globulin Ratio 1.0 (1.0-2.7) Amylase Level 69 U/L (25-115) Lipase 264 U/L (73-393) Microbiology Date/Time Source Procedure Growth Status 09/04/18 20:28 Blood Blood Culture - Preliminary NO GROWTH AFTER 24 HOURS Resulted 09/04/18 19:50 Blood Blood Culture - Preliminary NO GROWTH AFTER 24 HOURS Resulted 09/04/18 19:50 Urine,Clean Catch Urine Culture - Preliminary Mixed Urogenital Contaminants Resulted Intake and Output 09/05/18 09/06/18 19:00 07:00 Intake Total 240 ml Balance 240 ml Intake Oral 240 ml # Voids 5 2 Objective PHYSICAL EXAMINATION: GENERAL: The patient is a well-developed and well-nourished female, in no apparent distress. HEENT: Eyes, pupils are equal and responsive to light and accommodation. Extraocular movements are intact. NECK: Supple without lymphadenopathy. CHEST: Lungs are clear to auscultation bilaterally without wheezes or rales. CARDIOVASCULAR: Regular rate. S1, S2 are normal without murmurs, rubs, or gallops. ABDOMEN: Soft, diffusely tender with positive bowel sounds. No evidence of hepatosplenomegaly. Currently, no rebound or guarding noted. EXTREMITIES: Negative for clubbing, cyanosis, or edema. RECTAL/GENITAL: Refused. NEUROLOGICAL: The patient does have a right hemiparesis. Assessment/Plan Problem List: (1) Hypertensive urgency Assessment & Plan: Resolving on lisinopril (2) Nausea & vomiting Assessment & Plan: Resolved on zofran (3) Diabetes mellitus (4) Hypertension (5) Atrial fibrillation with rapid ventricular response Assessment & Plan: Continue digoxin per cardiology (6) Right hemiparesis (7) Cerebral vascular disease Status: not improved Rocky Garibay MD Sep 06, 2018 12:22
--- NOTE | 2018-09-06 15:26 | Cardiology Report ---
APPROVED REPORT EKG Measurement Heart [id number] Atrial fibrillation Right bundle branch block Abnormal ECG
[2018-09-06 16:00] VITALS: BP 102/84
--- NOTE | 2018-09-06 17:05 | Infectious Diseases Prog Note ---
Assessment/Plan Assessment/Plan Abx: Ceftriaxone x1 09/04 Assessment: Nausea/vomiting -CXR: no acute disease -hx also in 01/2018- s/p EGD: atrophic gastritis and small hiatal hernia -path: chronic inactive gastitis, no H. 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 Will continue to follow along with you. Discussed with RN. Subjective Allergies: Coded Allergies: No Known Allergies (Unverified , 09/04/18) Subjective afebrile no leukocytosis Objective Vital Signs Last 24 Hour Vital Signs Date Time Temp Pulse Resp B/P (MAP) Pulse Ox O2 Delivery O2 Flow Rate FiO2 09/06/18 16:00 97.3 99 20 102/84 (90) 96 97.3 09/06/18 12:00 98.1 88 20 121/73 (89) 98 98.1 09/06/18 11:34 60 09/06/18 08:44 94 135/81 09/06/18 08:44 135/81 09/06/18 08:43 94 09/06/18 08:00 98.0 94 18 135/81 (99) 97 98.0 09/06/18 08:00 Room Air 09/06/18 07:54 75 09/06/18 04:00 97.0 67 20 125/64 (84) 96 97.0 09/06/18 04:00 71 09/06/18 00:00 97.7 69 20 128/58 (81) 98 97.7 09/05/18 21:00 Room Air 09/05/18 21:00 Room Air 09/05/18 20:00 99 09/05/18 20:00 97.0 87 20 129/69 (89) 96 97.0 Height (Feet): 5 Height (Inches): 3.00 Weight (Pounds): 110 Objective General Appearance: cachetic Lines, tubes and drains: peripheral HEENT: normocephalic, atraumatic Neck: non-tender, normal alignment Respiratory/Chest: chest wall non-tender, lungs clear, normal breath sounds Breasts: no masses Cardiovascular/Chest: normal peripheral pulses, normal rate Abdomen: normal bowel sounds, non tender Genitourinary/Rectal: normal genital exam, heme negative stool Extremities: normal range of motion, non-tender Neurologic: rolling chair pusher II-XII 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 Microbiology Date/Time Source Procedure Growth Status 09/04/18 20:28 Blood Blood Culture - Preliminary NO GROWTH AFTER 24 HOURS Resulted 09/04/18 19:50 Blood Blood Culture - Preliminary NO GROWTH AFTER 24 HOURS Resulted 09/04/18 19:50 Urine,Clean Catch Urine Culture - Preliminary Mixed Urogenital Contaminants Resulted Laboratory Tests Test 09/05/18 20:25 09/06/18 05:35 Digoxin Level 0.8 NG/ML (0.9-2.0) L White Blood Count 4.6 K/UL (4.8-10.8) L Red Blood Count 3.72 M/UL (4.20-5.40) L Hemoglobin 11.3 G/DL (12.0-16.0) L Hematocrit 33.5 % (37.0-47.0) L Mean Corpuscular Volume 90 FL (80-99) Mean Corpuscular Hemoglobin 30.4 PG (27.0-31.0) Mean Corpuscular Hemoglobin Concent 33.7 G/DL (32.0-36.0) Red Cell Distribution Width 12.1 % (11.6-14.8) Platelet Count 186 K/UL (150-450) Mean Platelet Volume 6.5 FL (6.5-10.1) Neutrophils (%) (Auto) 58.9 % (45.0-75.0) Lymphocytes (%) (Auto) 29.2 % (20.0-45.0) Monocytes (%) (Auto) 9.0 % (1.0-10.0) Eosinophils (%) (Auto) 2.0 % (0.0-3.0) Basophils (%) (Auto) 1.0 % (0.0-2.0) Erythrocyte Sedimentation Rate 27 MM/HR (0-30) Sodium Level 144 MMOL/L (136-145) Potassium Level 3.3 MMOL/L (3.5-5.1) L Chloride Level 109 MMOL/L (98-107) H Carbon Dioxide Level 28 MMOL/L (21-32) Anion Gap 7 mmol/L (5-15) Blood Urea Nitrogen 12 mg/dL (7-18) Creatinine 0.9 MG/DL (0.55-1.30) Estimat Glomerular Filtration Rate mL/min (>60) Glucose Level 97 MG/DL (74-106) Calcium Level 8.4 MG/DL (8.5-10.1) L Phosphorus Level 2.6 MG/DL (2.5-4.9) Magnesium Level 1.3 MG/DL (1.8-2.4) L Total Bilirubin 0.5 MG/DL (0.2-1.0) Aspartate Amino Transf (AST/SGOT) 16 U/L (15-37) Alanine Aminotransferase (ALT/SGPT) 14 U/L (12-78) Alkaline Phosphatase 58 U/L (46-116) C-Reactive Protein, Quantitative < 0.4 mg/dL (0.00-0.90) Total Protein 6.1 G/DL (6.4-8.2) L Albumin 3.0 G/DL (3.4-5.0) L Globulin 3.1 g/dL Albumin/Globulin Ratio 1.0 (1.0-2.7) Amylase Level 69 U/L (25-115) Lipase 264 U/L (73-393) Current Medications Medications (Trade) Dose Ordered Sig/Yovana Route PRN Reason Start Time Stop Time Status Last Admin Dose Admin Allopurinol (Zyloprim) 100 mg DAILY ORAL 09/05/18 09:00 10/05/18 08:59 09/06/18 08:42 Aspirin (Ecotrin) 81 mg DAILY ORAL 09/05/18 09:00 10/05/18 08:59 09/06/18 08:42 Digoxin (Lanoxin) 0.125 mg DAILY ORAL 09/05/18 09:00 10/05/18 08:59 09/06/18 08:43 Folic Acid (Folate) 1 mg DAILY ORAL 09/05/18 09:00 10/05/18 08:59 09/06/18 08:43 Lisinopril (Prinivil) 20 mg DAILY ORAL 09/05/18 09:00 10/05/18 08:59 09/06/18 08:44 Magnesium Oxide (Mag-Ox 400mg) 400 mg DAILY ORAL 09/05/18 09:00 10/05/18 08:59 09/06/18 08:43 Metoprolol Succinate (Toprol XL) 75 mg DAILY ORAL 09/06/18 09:00 10/06/18 08:59 09/06/18 08:44 Ondansetron HCl (Zofran) 4 mg Q4H PRN IVP Nausea & Vomiting 09/05/18 02:00 10/05/18 01:59 Oxybutynin Chloride (Ditropan) 5 mg DAILY ORAL 09/05/18 09:00 10/05/18 08:59 09/06/18 08:41 Pantoprazole (Protonix) 40 mg DAILY ORAL 09/06/18 09:00 10/06/18 08:59 09/06/18 08:43 Potassium Chloride (K-Dur) 20 meq DAILY ORAL 09/05/18 09:00 10/05/18 08:59 09/06/18 08:43 Sodium Chloride 1,000 ml @ 75 mls/hr [id number] IV 09/05/18 02:00 10/05/18 01:59 09/06/18 02:58 Temazepam (Restoril) 15 mg QHS PRN ORAL sleep 09/05/18 02:00 09/12/18 01:59 Vitamin D (Vitamin D) 5,000 intlu DAILY ORAL 09/05/18 09:00 10/05/18 08:59 09/06/18 08:42 Zolpidem Tartrate (Ambien) 5 mg BEDTIME PRN ORAL Insomnia 09/05/18 20:00 09/12/18 19:59 Viktoria Dangelo M.D. Sep 06, 2018 17:05
--- NOTE | 2018-09-06 19:56 | Cardiology Progress Note ---
Assessment/Plan Assessment/Plan 1. Recurrent bouts of nausea and vomiting with a history of same 2. Atrial fibrillation. 3. History of valvular heart disease. 4. History of prior CVA. 5. Possible urinary tract infection. seems to be dogin better telel shows afib no further tachy need to keep on tele for anotehr day to see if hr remains adequate ebho noted d/w dtr at bedside mg and k supplement already given ambulate Subjective Cardiovascular: Denies: chest pain Respiratory: Denies: shortness of breath Gastrointestinal/Abdominal: Denies: abdominal pain Genitourinary: Denies: burning Objective Last 24 Hour Vital Signs Date Time Temp Pulse Resp B/P (MAP) Pulse Ox O2 Delivery O2 Flow Rate FiO2 09/06/18 16:00 97.3 99 20 102/84 (90) 96 97.3 09/06/18 15:27 63 09/06/18 12:00 98.1 88 20 121/73 (89) 98 98.1 09/06/18 11:34 60 09/06/18 08:44 94 135/81 09/06/18 08:44 135/81 09/06/18 08:43 94 09/06/18 08:00 98.0 94 18 135/81 (99) 97 98.0 09/06/18 08:00 Room Air 09/06/18 07:54 75 09/06/18 04:00 97.0 67 20 125/64 (84) 96 97.0 09/06/18 04:00 71 09/06/18 00:00 97.7 69 20 128/58 (81) 98 97.7 09/05/18 21:00 Room Air 09/05/18 21:00 Room Air 09/05/18 20:00 99 09/05/18 20:00 97.0 87 20 129/69 (89) 96 97.0 General Appearance: no apparent distress, alert Neck: supple Cardiovascular: irregularly irregular Respiratory/Chest: lungs clear Abdomen: normal bowel sounds, non tender, soft Extremities: no swelling Intake and Output 09/05/18 09/06/18 19:00 07:00 Intake Total 240 ml Balance 240 ml Intake Oral 240 ml # Voids 5 2 Laboratory Tests Test 09/05/18 20:25 09/06/18 05:35 Digoxin Level 0.8 NG/ML (0.9-2.0) L White Blood Count 4.6 K/UL (4.8-10.8) L Red Blood Count 3.72 M/UL (4.20-5.40) L Hemoglobin 11.3 G/DL (12.0-16.0) L Hematocrit 33.5 % (37.0-47.0) L Mean Corpuscular Volume 90 FL (80-99) Mean Corpuscular Hemoglobin 30.4 PG (27.0-31.0) Mean Corpuscular Hemoglobin Concent 33.7 G/DL (32.0-36.0) Red Cell Distribution Width 12.1 % (11.6-14.8) Platelet Count 186 K/UL (150-450) Mean Platelet Volume 6.5 FL (6.5-10.1) Neutrophils (%) (Auto) 58.9 % (45.0-75.0) Lymphocytes (%) (Auto) 29.2 % (20.0-45.0) Monocytes (%) (Auto) 9.0 % (1.0-10.0) Eosinophils (%) (Auto) 2.0 % (0.0-3.0) Basophils (%) (Auto) 1.0 % (0.0-2.0) Erythrocyte Sedimentation Rate 27 MM/HR (0-30) Sodium Level 144 MMOL/L (136-145) Potassium Level 3.3 MMOL/L (3.5-5.1) L Chloride Level 109 MMOL/L (98-107) H Carbon Dioxide Level 28 MMOL/L (21-32) Anion Gap 7 mmol/L (5-15) Blood Urea Nitrogen 12 mg/dL (7-18) Creatinine 0.9 MG/DL (0.55-1.30) Estimat Glomerular Filtration Rate mL/min (>60) Glucose Level 97 MG/DL (74-106) Calcium Level 8.4 MG/DL (8.5-10.1) L Phosphorus Level 2.6 MG/DL (2.5-4.9) Magnesium Level 1.3 MG/DL (1.8-2.4) L Total Bilirubin 0.5 MG/DL (0.2-1.0) Aspartate Amino Transf (AST/SGOT) 16 U/L (15-37) Alanine Aminotransferase (ALT/SGPT) 14 U/L (12-78) Alkaline Phosphatase 58 U/L (46-116) C-Reactive Protein, Quantitative < 0.4 mg/dL (0.00-0.90) Total Protein 6.1 G/DL (6.4-8.2) L Albumin 3.0 G/DL (3.4-5.0) L Globulin 3.1 g/dL Albumin/Globulin Ratio 1.0 (1.0-2.7) Amylase Level 69 U/L (25-115) Lipase 264 U/L (73-393) Microbiology Date/Time Source Procedure Growth Status 09/04/18 20:28 Blood Blood Culture - Preliminary NO GROWTH AFTER 24 HOURS Resulted 09/04/18 19:50 Blood Blood Culture - Preliminary NO GROWTH AFTER 24 HOURS Resulted 09/04/18 19:50 Urine,Clean Catch Urine Culture - Preliminary Mixed Urogenital Contaminants Resulted Hitesh Gates MD Sep 06, 2018 19:56
[2018-09-06 20:00] VITALS: BP 144/71
--- NOTE | 2018-09-06 23:02 | General Progress Note ---
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 anxiety d/o -ativan prn -provided ro/st Subjective Date patient seen: Sep 06, 2018 Neurologic/Psychiatric: Reports: anxiety, depressed, emotional problems Allergies: Coded Allergies: No Known Allergies (Unverified , 09/04/18) Objective Last 24 Hour Vital Signs Date Time Temp Pulse Resp B/P (MAP) Pulse Ox O2 Delivery O2 Flow Rate FiO2 09/06/18 20:00 98.1 62 16 144/71 (95) 95 98.1 09/06/18 20:00 85 09/06/18 16:00 97.3 99 20 102/84 (90) 96 97.3 09/06/18 15:27 63 09/06/18 12:00 98.1 88 20 121/73 (89) 98 98.1 09/06/18 11:34 60 09/06/18 08:44 94 135/81 09/06/18 08:44 135/81 09/06/18 08:43 94 09/06/18 08:00 98.0 94 18 135/81 (99) 97 98.0 09/06/18 08:00 Room Air 09/06/18 07:54 75 09/06/18 04:00 97.0 67 20 125/64 (84) 96 97.0 09/06/18 04:00 71 09/06/18 00:00 97.7 69 20 128/58 (81) 98 97.7 Intake and Output 09/05/18 09/06/18 19:00 07:00 Intake Total 240 ml Balance 240 ml Intake Oral 240 ml # Voids 5 2 Laboratory Tests 09/06/18 05:35: White Blood Count 4.6L, Red Blood Count 3.72L, Hemoglobin 11.3L, Hematocrit 33.5L, Mean Corpuscular Volume 90, Mean Corpuscular Hemoglobin 30.4, Mean Corpuscular Hemoglobin Concent 33.7, Red Cell Distribution Width 12.1, Platelet Count 186, Mean Platelet Volume 6.5, Neutrophils (%) (Auto) 58.9, Lymphocytes (% ) (Auto) 29.2, Monocytes (%) (Auto) 9.0, Eosinophils (%) (Auto) 2.0, Basophils ( %) (Auto) 1.0, Erythrocyte Sedimentation Rate 27, Sodium Level 144, Potassium Level 3.3L, Chloride Level 109H, Carbon Dioxide Level 28, Anion Gap 7, Blood Urea Nitrogen 12, Creatinine 0.9, Estimat Glomerular Filtration Rate , Glucose Level 97, Calcium Level 8.4L, Phosphorus Level 2.6, Magnesium Level 1.3L, Total Bilirubin 0.5, Aspartate Amino Transf (AST/SGOT) 16, Alanine Aminotransferase ( ALT/SGPT) 14, Alkaline Phosphatase 58, C-Reactive Protein, Quantitative < 0.4, Total Protein 6.1L, Albumin 3.0L, Globulin 3.1, Albumin/Globulin Ratio 1.0, Amylase Level 69, Lipase 264 Height (Feet): 5 Height (Inches): 3.00 Weight (Pounds): 110 General Appearance: no apparent distress, alert, confused Slava Hassan MD Sep 06, 2018 23:02
[2018-09-07] VITALS: BP 123/63
[2018-09-07 04:00] VITALS: BP 135/62
[2018-09-07 07:29] LABS: BASOPHILS % (AUTO) 1.3 % (0.0-2.0); EOSINOPHILS % (AUTO) 3.3 % (0.0-3.0); HEMATOCRIT 35.7 % (37.0-47.0); LYMPHOCYTES % (AUTO) 32.3 % (20.0-45.0); MEAN CORPUSCULAR VOLUME 90 FL (80-99); MONOCYTES % (AUTO) 8.3 % (1.0-10.0); NEUTROPHILS % (AUTO) 54.9 % (45.0-75.0); PLATELET COUNT 175 K/UL (150-450); RED BLOOD COUNT 3.95 M/UL (4.20-5.40); RED CELL DISTRIBUTION WIDTH 12.1 % (11.6-14.8); WHITE BLOOD COUNT 4.5 K/UL (4.8-10.8)
[2018-09-07 08:26] VITALS: BP 146/60
[2018-09-07] MEDS: Magnesium Oxide 400mg tab ORAL SCH (08:27)
[2018-09-07] MEDS: Aspirin EC 81mg tab ORAL SCH (08:28)
[2018-09-07] MEDS: Vitamin D 1000 IU Tab ORAL SCH (08:28)
[2018-09-07] MEDS: Metoprolol Succinate XL 25mg tab ORAL SCH (08:29)
[2018-09-07] MEDS: Allopurinol 100mg Tab ORAL SCH (08:30)
[2018-09-07] MEDS: Oxybutynin 5mg tab ORAL SCH (08:30)
[2018-09-07] MEDS: Digoxin 0.125mg tab ORAL SCH (08:30)
[2018-09-07] MEDS: Lisinopril 20mg tab ORAL SCH (08:31)
[2018-09-07 08:35] LABS: ANION GAP 8 mmol/L (5-15); BLOOD UREA NITROGEN 11 mg/dL (7-18); CALCIUM 8.9 MG/DL (8.5-10.1); CARBON DIOXIDE 26 MMOL/L (21-32); CHLORIDE 108 MMOL/L (98-107); CREATININE 0.7 MG/DL (0.55-1.30); POTASSIUM 3.6 MMOL/L (3.5-5.1); SODIUM 142 MMOL/L (136-145)
--- NOTE | 2018-09-07 10:28 | GI Progress Note ---
Assessment/Plan Problems: (1) Hypertensive urgency ICD Codes: I16.0 - Hypertensive urgency SNOMED: 577702320 (2) Dehydration ICD Codes: E86.0 - Dehydration SNOMED: 85394487 (3) Nausea & vomiting ICD Codes: R11.2 - Nausea with vomiting, unspecified SNOMED: 81329971 (4) Hyperglycemia due to type 2 diabetes mellitus ICD Codes: E11.65 - Type 2 diabetes mellitus with hyperglycemia SNOMED: 241401641435373 (5) Right hemiparesis ICD Codes: G81.90 - Right hemiparesis SNOMED: 864933389 (6) Abdominal pain ICD Codes: R10.9 - Abdominal pain SNOMED: 85410499 (7) Iron deficiency anemia ICD Codes: D50.9 - Iron deficiency anemia, unspecified SNOMED: 81091376 (8) Diabetes mellitus ICD Codes: E11.9 - Type 2 diabetes mellitus without complications SNOMED: 48243506 (9) Hypertension ICD Codes: I10 - Hypertension SNOMED: 90002001 Status: stable, unchanged Status Narrative Discussed with Dr. Munoz. Assessment/Plan emesis 2/2 hypertensive urgency vs gastroparesis >> resolved symptomatic treatment zofran prn, reglan for persistent vomiting BP management DM management electrolyte correction IV/PO hydration fu labs The patient was seen and examined at bedside and all new and available data was reviewed in the patients chart. I agree with the above findings, impression and plan. (Patient seen earlier today. Signature stamp does not reflect patient encounter time.). - Miller Munoz MD Subjective Gastrointestinal/Abdominal: Reports: no symptoms Objective Last 24 Hour Vital Signs Date Time Temp Pulse Resp B/P (MAP) Pulse Ox O2 Delivery O2 Flow Rate FiO2 09/07/18 09:00 Room Air 09/07/18 08:31 146/60 09/07/18 08:30 97 09/07/18 08:29 97 146/60 09/07/18 08:26 97.5 97 18 146/60 (88) 98 97.5 09/07/18 04:00 59 09/07/18 04:00 97.9 80 18 135/62 (86) 98 97.9 09/07/18 00:00 53 09/07/18 00:00 97.2 85 18 123/63 (83) 98 97.2 09/06/18 21:00 Room Air 09/06/18 20:00 98.1 62 16 144/71 (95) 95 98.1 09/06/18 20:00 85 09/06/18 16:00 97.3 99 20 102/84 (90) 96 97.3 09/06/18 15:27 63 09/06/18 12:00 98.1 88 20 121/73 (89) 98 98.1 09/06/18 11:34 60 Intake and Output 09/06/18 09/07/18 19:00 07:00 Intake Total 360 ml 100 ml Output Total 550 ml 350 ml Balance -190 ml -250 ml Intake Oral 360 ml 100 ml Output Urine Total 550 ml 350 ml # Voids 1 2 # Bowel Movements 1 Laboratory Tests Test 09/07/18 06:40 White Blood Count 4.5 K/UL (4.8-10.8) L Red Blood Count 3.95 M/UL (4.20-5.40) L Hemoglobin 12.0 G/DL (12.0-16.0) Hematocrit 35.7 % (37.0-47.0) L Mean Corpuscular Volume 90 FL (80-99) Mean Corpuscular Hemoglobin 30.4 PG (27.0-31.0) Mean Corpuscular Hemoglobin Concent 33.7 G/DL (32.0-36.0) Red Cell Distribution Width 12.1 % (11.6-14.8) Platelet Count 175 K/UL (150-450) Mean Platelet Volume 7.1 FL (6.5-10.1) Neutrophils (%) (Auto) 54.9 % (45.0-75.0) Lymphocytes (%) (Auto) 32.3 % (20.0-45.0) Monocytes (%) (Auto) 8.3 % (1.0-10.0) Eosinophils (%) (Auto) 3.3 % (0.0-3.0) H Basophils (%) (Auto) 1.3 % (0.0-2.0) Sodium Level 142 MMOL/L (136-145) Potassium Level 3.6 MMOL/L (3.5-5.1) Chloride Level 108 MMOL/L (98-107) H Carbon Dioxide Level 26 MMOL/L (21-32) Anion Gap 8 mmol/L (5-15) Blood Urea Nitrogen 11 mg/dL (7-18) Creatinine 0.7 MG/DL (0.55-1.30) Estimat Glomerular Filtration Rate mL/min (>60) Glucose Level 97 MG/DL (74-106) Calcium Level 8.9 MG/DL (8.5-10.1) Magnesium Level 1.7 MG/DL (1.8-2.4) L Height (Feet): 5 Height (Inches): 3.00 Weight (Pounds): 110 General Appearance: WD/WN, no apparent distress, alert Cardiovascular: normal rate Respiratory/Chest: normal breath sounds, no respiratory distress Abdominal Exam: normal bowel sounds, non tender, soft Extremities: normal range of motion, non-tender Martin Multani NP Sep 07, 2018 10:28
[2018-09-07 12:00] VITALS: BP 139/66
--- NOTE | 2018-09-07 12:15 | Diagnostic Imaging Report ---
Indication: Abdominal pain Comparison: None Single view of the abdomen obtained Findings: Bowel gas pattern is nonspecific. No mass, ectopic calcifications, or abnormal gas collections are identified. The bones are osteopenic and there are degenerative changes of the hips and spine.. Impression: No acute findings
--- NOTE | 2018-09-07 12:25 | Infectious Diseases Prog Note ---
Assessment/Plan Assessment/Plan Abx: Ceftriaxone x1 09/04 Assessment: Nausea/vomiting -CXR: no acute disease -hx also in 01/2018- s/p EGD: atrophic gastritis and small hiatal hernia -path: chronic inactive gastitis, no H. 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 Will continue to follow along with you. Discussed with RN. Subjective Allergies: Coded Allergies: No Known Allergies (Unverified , 09/04/18) Subjective afebrile no leukocytosis Bcx NTD off abx Objective Vital Signs Last 24 Hour Vital Signs Date Time Temp Pulse Resp B/P (MAP) Pulse Ox O2 Delivery O2 Flow Rate FiO2 09/07/18 09:00 Room Air 09/07/18 08:31 146/60 09/07/18 08:30 97 09/07/18 08:29 97 146/60 09/07/18 08:26 97.5 97 18 146/60 (88) 98 97.5 09/07/18 04:00 59 09/07/18 04:00 97.9 80 18 135/62 (86) 98 97.9 09/07/18 00:00 53 09/07/18 00:00 97.2 85 18 123/63 (83) 98 97.2 09/06/18 21:00 Room Air 09/06/18 20:00 98.1 62 16 144/71 (95) 95 98.1 09/06/18 20:00 85 09/06/18 16:00 97.3 99 20 102/84 (90) 96 97.3 09/06/18 15:27 63 Height (Feet): 5 Height (Inches): 3.00 Weight (Pounds): 110 Objective General Appearance: cachetic Lines, tubes and drains: peripheral HEENT: normocephalic, atraumatic Neck: non-tender, normal alignment Respiratory/Chest: chest wall non-tender, lungs clear, normal breath sounds Breasts: no masses Cardiovascular/Chest: normal peripheral pulses, normal rate Abdomen: normal bowel sounds, non tender Genitourinary/Rectal: normal genital exam, heme negative stool Extremities: normal range of motion, non-tender Neurologic: fisher eel II-XII 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 Microbiology Date/Time Source Procedure Growth Status 09/04/18 20:28 Blood Blood Culture - Preliminary NO GROWTH AFTER 48 HOURS Resulted 09/04/18 19:50 Blood Blood Culture - Preliminary NO GROWTH AFTER 48 HOURS Resulted 09/04/18 19:50 Urine,Clean Catch Urine Culture - Final Mixed Urogenital Contaminants Complete Laboratory Tests Test 09/07/18 06:40 White Blood Count 4.5 K/UL (4.8-10.8) L Red Blood Count 3.95 M/UL (4.20-5.40) L Hemoglobin 12.0 G/DL (12.0-16.0) Hematocrit 35.7 % (37.0-47.0) L Mean Corpuscular Volume 90 FL (80-99) Mean Corpuscular Hemoglobin 30.4 PG (27.0-31.0) Mean Corpuscular Hemoglobin Concent 33.7 G/DL (32.0-36.0) Red Cell Distribution Width 12.1 % (11.6-14.8) Platelet Count 175 K/UL (150-450) Mean Platelet Volume 7.1 FL (6.5-10.1) Neutrophils (%) (Auto) 54.9 % (45.0-75.0) Lymphocytes (%) (Auto) 32.3 % (20.0-45.0) Monocytes (%) (Auto) 8.3 % (1.0-10.0) Eosinophils (%) (Auto) 3.3 % (0.0-3.0) H Basophils (%) (Auto) 1.3 % (0.0-2.0) Sodium Level 142 MMOL/L (136-145) Potassium Level 3.6 MMOL/L (3.5-5.1) Chloride Level 108 MMOL/L (98-107) H Carbon Dioxide Level 26 MMOL/L (21-32) Anion Gap 8 mmol/L (5-15) Blood Urea Nitrogen 11 mg/dL (7-18) Creatinine 0.7 MG/DL (0.55-1.30) Estimat Glomerular Filtration Rate mL/min (>60) Glucose Level 97 MG/DL (74-106) Calcium Level 8.9 MG/DL (8.5-10.1) Magnesium Level 1.7 MG/DL (1.8-2.4) L Current Medications Medications (Trade) Dose Ordered Sig/Yovana Route PRN Reason Start Time Stop Time Status Last Admin Dose Admin Allopurinol (Zyloprim) 100 mg DAILY ORAL 09/05/18 09:00 10/05/18 08:59 09/07/18 08:30 Aspirin (Ecotrin) 81 mg DAILY ORAL 09/05/18 09:00 10/05/18 08:59 09/07/18 08:28 Digoxin (Lanoxin) 0.125 mg DAILY ORAL 09/05/18 09:00 10/05/18 08:59 09/07/18 08:30 Folic Acid (Folate) 1 mg DAILY ORAL 09/05/18 09:00 10/05/18 08:59 09/07/18 08:30 Lisinopril (Prinivil) 20 mg DAILY ORAL 09/05/18 09:00 10/05/18 08:59 09/07/18 08:31 Magnesium Oxide (Mag-Ox 400mg) 400 mg DAILY ORAL 09/05/18 09:00 10/05/18 08:59 09/07/18 08:27 Magnesium Sulfate 100 ml @ 100 mls/hr Q1H IVPB 09/07/18 10:30 09/07/18 12:29 09/07/18 11:49 Metoprolol Succinate (Toprol XL) 75 mg DAILY ORAL 09/06/18 09:00 10/06/18 08:59 09/07/18 08:29 Ondansetron HCl (Zofran) 4 mg Q4H PRN IVP Nausea & Vomiting 09/05/18 02:00 10/05/18 01:59 Oxybutynin Chloride (Ditropan) 5 mg DAILY ORAL 09/05/18 09:00 10/05/18 08:59 09/07/18 08:30 Pantoprazole (Protonix) 40 mg DAILY ORAL 09/06/18 09:00 10/06/18 08:59 09/07/18 08:28 Potassium Chloride (K-Dur) 20 meq DAILY ORAL 09/05/18 09:00 10/05/18 08:59 09/07/18 08:30 Sodium Chloride 1,000 ml @ 75 mls/hr [id number] IV 09/05/18 02:00 10/05/18 01:59 09/07/18 06:21 Temazepam (Restoril) 15 mg QHS PRN ORAL sleep 09/05/18 02:00 09/12/18 01:59 Vitamin D (Vitamin D) 5,000 intlu DAILY ORAL 09/05/18 09:00 10/05/18 08:59 09/07/18 08:28 Zolpidem Tartrate (Ambien) 5 mg BEDTIME PRN ORAL Insomnia 09/05/18 20:00 09/12/18 19:59 Viktoria Dangelo M.D. Sep 07, 2018 12:25
[2018-09-07 15:25] VITALS: BP 147/66
--- NOTE | 2018-09-07 16:42 | Internal Med Progress Note ---
Subjective Date of Service: Sep 07, 2018 Physician Name Rcoky Garibay Attending Physician Glenn Garriod MD Current Medications Medications (Trade) Dose Ordered Sig/Yovana Route PRN Reason Start Time Stop Time Status Last Admin Dose Admin Allopurinol (Zyloprim) 100 mg DAILY ORAL 09/05/18 09:00 10/05/18 08:59 09/07/18 08:30 Aspirin (Ecotrin) 81 mg DAILY ORAL 09/05/18 09:00 10/05/18 08:59 09/07/18 08:28 Digoxin (Lanoxin) 0.125 mg DAILY ORAL 09/05/18 09:00 10/05/18 08:59 09/07/18 08:30 Folic Acid (Folate) 1 mg DAILY ORAL 09/05/18 09:00 10/05/18 08:59 09/07/18 08:30 Lisinopril (Prinivil) 20 mg DAILY ORAL 09/05/18 09:00 10/05/18 08:59 09/07/18 08:31 Magnesium Oxide (Mag-Ox 400mg) 400 mg DAILY ORAL 09/05/18 09:00 10/05/18 08:59 09/07/18 08:27 Metoprolol Succinate (Toprol XL) 75 mg DAILY ORAL 09/06/18 09:00 10/06/18 08:59 09/07/18 08:29 Ondansetron HCl (Zofran) 4 mg Q4H PRN IVP Nausea & Vomiting 09/05/18 02:00 10/05/18 01:59 Oxybutynin Chloride (Ditropan) 5 mg DAILY ORAL 09/05/18 09:00 10/05/18 08:59 09/07/18 08:30 Pantoprazole (Protonix) 40 mg DAILY ORAL 09/06/18 09:00 10/06/18 08:59 09/07/18 08:28 Potassium Chloride (K-Dur) 20 meq DAILY ORAL 09/05/18 09:00 10/05/18 08:59 09/07/18 08:30 Sodium Chloride 1,000 ml @ 75 mls/hr [id number] IV 09/05/18 02:00 10/05/18 01:59 09/07/18 06:21 Temazepam (Restoril) 15 mg QHS PRN ORAL sleep 09/05/18 02:00 09/12/18 01:59 Vitamin D (Vitamin D) 5,000 intlu DAILY ORAL 09/05/18 09:00 10/05/18 08:59 09/07/18 08:28 Zolpidem Tartrate (Ambien) 5 mg BEDTIME PRN ORAL Insomnia 09/05/18 20:00 09/12/18 19:59 Allergies: Coded Allergies: No Known Allergies (Unverified , 09/04/18) ROS Limited/Unobtainable: No Constitutional: Reports: no symptoms HEENT: Reports: no symptoms Cardiovascular: Reports: no symptoms Respiratory: Reports: no symptoms Gastrointestinal/Abdominal: Reports: nausea, vomiting Genitourinary: Reports: no symptoms Neurologic/Psychiatric: Reports: no symptoms Subjective 83 YO F admitted with intractable nausea and vomiting. Cover for Int Med-Dr Garrido Objective Last Vital Signs Date Time Temp Pulse Resp B/P (MAP) Pulse Ox O2 Delivery O2 Flow Rate FiO2 09/07/18 15:25 98.3 83 18 147/66 (93) 98 98.3 09/07/18 09:00 Room Air 09/04/18 23:05 99 Laboratory Tests Test 09/07/18 06:40 White Blood Count 4.5 K/UL (4.8-10.8) L Red Blood Count 3.95 M/UL (4.20-5.40) L Hemoglobin 12.0 G/DL (12.0-16.0) Hematocrit 35.7 % (37.0-47.0) L Mean Corpuscular Volume 90 FL (80-99) Mean Corpuscular Hemoglobin 30.4 PG (27.0-31.0) Mean Corpuscular Hemoglobin Concent 33.7 G/DL (32.0-36.0) Red Cell Distribution Width 12.1 % (11.6-14.8) Platelet Count 175 K/UL (150-450) Mean Platelet Volume 7.1 FL (6.5-10.1) Neutrophils (%) (Auto) 54.9 % (45.0-75.0) Lymphocytes (%) (Auto) 32.3 % (20.0-45.0) Monocytes (%) (Auto) 8.3 % (1.0-10.0) Eosinophils (%) (Auto) 3.3 % (0.0-3.0) H Basophils (%) (Auto) 1.3 % (0.0-2.0) Sodium Level 142 MMOL/L (136-145) Potassium Level 3.6 MMOL/L (3.5-5.1) Chloride Level 108 MMOL/L (98-107) H Carbon Dioxide Level 26 MMOL/L (21-32) Anion Gap 8 mmol/L (5-15) Blood Urea Nitrogen 11 mg/dL (7-18) Creatinine 0.7 MG/DL (0.55-1.30) Estimat Glomerular Filtration Rate mL/min (>60) Glucose Level 97 MG/DL (74-106) Calcium Level 8.9 MG/DL (8.5-10.1) Magnesium Level 1.7 MG/DL (1.8-2.4) L Microbiology Date/Time Source Procedure Growth Status 09/04/18 20:28 Blood Blood Culture - Preliminary NO GROWTH AFTER 48 HOURS Resulted 09/04/18 19:50 Blood Blood Culture - Preliminary NO GROWTH AFTER 48 HOURS Resulted 09/04/18 19:50 Urine,Clean Catch Urine Culture - Final Mixed Urogenital Contaminants Complete Intake and Output 09/06/18 09/07/18 19:00 07:00 Intake Total 360 ml 100 ml Output Total 550 ml 350 ml Balance -190 ml -250 ml Intake Oral 360 ml 100 ml Output Urine Total 550 ml 350 ml # Voids 1 2 # Bowel Movements 1 Objective PHYSICAL EXAMINATION: GENERAL: The patient is a well-developed and well-nourished female, in no apparent distress. HEENT: Eyes, pupils are equal and responsive to light and accommodation. Extraocular movements are intact. NECK: Supple without lymphadenopathy. CHEST: Lungs are clear to auscultation bilaterally without wheezes or rales. CARDIOVASCULAR: Regular rate. S1, S2 are normal without murmurs, rubs, or gallops. ABDOMEN: Soft, diffusely tender with positive bowel sounds. No evidence of hepatosplenomegaly. Currently, no rebound or guarding noted. EXTREMITIES: Negative for clubbing, cyanosis, or edema. RECTAL/GENITAL: Refused. NEUROLOGICAL: The patient does have a right hemiparesis. Assessment/Plan Problem List: (1) Hypertensive urgency Assessment & Plan: Resolving on lisinopril (2) Nausea & vomiting Assessment & Plan: Resolved on zofran (3) Diabetes mellitus (4) Hypertension (5) Atrial fibrillation with rapid ventricular response Assessment & Plan: Continue digoxin per cardiology (6) Right hemiparesis (7) Cerebral vascular disease Status: stable Assessment/Plan Discharge home today Rocky Garibay MD Sep 07, 2018 16:42
--- NOTE | 2018-09-07 17:06 | Cardiology Progress Note ---
Assessment/Plan Assessment/Plan 1. Recurrent bouts of nausea and vomiting with a history of same 2. Atrial fibrillation. 3. History of valvular heart disease. 4. History of prior CVA. 5. Possible urinary tract infection. seems to be dogin ok telel shows afib no further tachy ok to dc tele need to keep on tele for anotehr day to see if hr remains adequate ebho noted d/w dtr at bedside mg and k supplement already given ambulate Subjective Cardiovascular: Denies: chest pain, lightheadedness Respiratory: Denies: shortness of breath Gastrointestinal/Abdominal: Denies: abdominal pain, nausea Subjective no family at bedside Objective Last 24 Hour Vital Signs Date Time Temp Pulse Resp B/P (MAP) Pulse Ox O2 Delivery O2 Flow Rate FiO2 09/07/18 15:25 98.3 83 18 147/66 (93) 98 98.3 09/07/18 12:00 98.4 80 18 139/66 (90) 98 98.4 09/07/18 09:00 Room Air 09/07/18 08:31 146/60 09/07/18 08:30 97 09/07/18 08:29 97 146/60 09/07/18 08:26 97.5 97 18 146/60 (88) 98 97.5 09/07/18 08:00 80 09/07/18 04:00 59 09/07/18 04:00 97.9 80 18 135/62 (86) 98 97.9 09/07/18 00:00 53 09/07/18 00:00 97.2 85 18 123/63 (83) 98 97.2 09/06/18 21:00 Room Air 09/06/18 20:00 98.1 62 16 144/71 (95) 95 98.1 09/06/18 20:00 85 General Appearance: no apparent distress, alert Neck: supple Cardiovascular: normal rate, irregularly irregular Respiratory/Chest: lungs clear Abdomen: normal bowel sounds, non tender, soft Extremities: no swelling Intake and Output 09/06/18 09/07/18 19:00 07:00 Intake Total 360 ml 100 ml Output Total 550 ml 350 ml Balance -190 ml -250 ml Intake Oral 360 ml 100 ml Output Urine Total 550 ml 350 ml # Voids 1 2 # Bowel Movements 1 Laboratory Tests Test 09/07/18 06:40 White Blood Count 4.5 K/UL (4.8-10.8) L Red Blood Count 3.95 M/UL (4.20-5.40) L Hemoglobin 12.0 G/DL (12.0-16.0) Hematocrit 35.7 % (37.0-47.0) L Mean Corpuscular Volume 90 FL (80-99) Mean Corpuscular Hemoglobin 30.4 PG (27.0-31.0) Mean Corpuscular Hemoglobin Concent 33.7 G/DL (32.0-36.0) Red Cell Distribution Width 12.1 % (11.6-14.8) Platelet Count 175 K/UL (150-450) Mean Platelet Volume 7.1 FL (6.5-10.1) Neutrophils (%) (Auto) 54.9 % (45.0-75.0) Lymphocytes (%) (Auto) 32.3 % (20.0-45.0) Monocytes (%) (Auto) 8.3 % (1.0-10.0) Eosinophils (%) (Auto) 3.3 % (0.0-3.0) H Basophils (%) (Auto) 1.3 % (0.0-2.0) Sodium Level 142 MMOL/L (136-145) Potassium Level 3.6 MMOL/L (3.5-5.1) Chloride Level 108 MMOL/L (98-107) H Carbon Dioxide Level 26 MMOL/L (21-32) Anion Gap 8 mmol/L (5-15) Blood Urea Nitrogen 11 mg/dL (7-18) Creatinine 0.7 MG/DL (0.55-1.30) Estimat Glomerular Filtration Rate mL/min (>60) Glucose Level 97 MG/DL (74-106) Calcium Level 8.9 MG/DL (8.5-10.1) Magnesium Level 1.7 MG/DL (1.8-2.4) L Microbiology Date/Time Source Procedure Growth Status 09/04/18 20:28 Blood Blood Culture - Preliminary NO GROWTH AFTER 48 HOURS Resulted 09/04/18 19:50 Blood Blood Culture - Preliminary NO GROWTH AFTER 48 HOURS Resulted 09/04/18 19:50 Urine,Clean Catch Urine Culture - Final Mixed Urogenital Contaminants Complete Hitehs Gates MD Sep 07, 2018 17:06
--- NOTE | 2018-09-08 12:20 | Discharge Summary ---
Discharge Summary Discharge Summary _ DATE OF ADMISSION: 09/04/2018 DATE OF DISCHARGE: 09/07/2018 CONSULTANTS: Dr. Hitesh Hassan BRIEF HOSPITAL COURSE: Patient's an 83-year-old female, who presented with chief complaint of nausea and vomiting. History of present illness started the day prior to admission. The patient began to experience nausea and vomiting. Symptoms became intractable. She was unable to tolerate oral intake. She was admitted to [place] in January 2018 and an endoscopy showed atrophic gastritis. She has medical history significant for diabetes type 2, hypertension, paroxysmal atrial fibrillation, history of CVA, with right hemiparesis, history of atrophic gastritis. On evaluation at ED, blood pressure was 186/99, heart rate was 106. She was afebrile and was saturating well on room air. Blood work showed no leukocytosis however, had elevated lactic acid 4.7. Hemoglobin and hematocrit was stable. Electrolytes were normal. Lipase was normal. Chest x-ray with no acute disease. Patient has anxiety and cognitive impairment. She had waxing and waning of consciousness and with episodes of agitation and cognitive impairment. She was seen by psychiatrist. She was diagnosed with encephalopathy due to metabolic disorder. She was placed on Ativan prn. ID was consulted. Patient had, urine culture with mixed urogenital contaminants. She was monitored off of antibiotic treatment. Blood culture did not isolate any growth. Patient initially had tachycardia. Cloth Doffer evaluation was done. Patient has a history of atrial fibrillation, troponin was negative. She had an echocardiogram done on January 2018 that showed ejection fraction 50% with normal systolic function, thickened mitral and aortic valve, moderate mitral regurgitation and only mild degree of aortic regurgitation. She was advised to continue with Eliquis. She was eventually restarted on metoprolol succinate 75 mg daily. Digoxin level 0.8. She was continued on Digoxin 0.125 mg daily. She was given lisinopril to help with blood pressure control. She was seen by GI. She was given symptomatic treatment. She was given IV and by mouth hydration. Vomiting eventually resolved. Abdominal x-ray showed no acute findings. she was then cleared for discharge home. FINAL DIAGNOSES: Hypertensive urgency Nausea and vomiting Encephalopathy due to metabolic disorder Anxiety disorder Diabetes mellitus Atrial fibrillation with RVR History of valvular heart disease Prior CVA with right-sided hemiparesis Possible UTI with mild pyuria Coronary artery disease Cholelithiasis DISPOSITION: Patient was discharged home. DISCHARGE MEDICATIONS: Refer to Discharge Medication List. DISCHARGE INSTRUCTIONS: Follow up within a week. I have been assigned to dictate discharge summary on this account, and I was not involved in the patient's management. Lisset Quiles NP Sep 08, 2018 12:20
== END 2018-09-07 18:27 | disposition home or self-care (01) | DRG 304 ==
LOC: EMR 19:30 → 2E 20:35 → EDBEDREQ 22:12
DX: I16.0 Hypertensive urgency (principal); G93.41 Metabolic encephalopathy; I69.951 Hemiplegia and hemiparesis following unspecified cerebrovascular disease affecting right dominant side; N39.0 Urinary tract infection, site not specified; K31.84 Gastroparesis; M10.9 Gout, unspecified; F41.9 Anxiety disorder, unspecified; I25.10 Atherosclerotic heart disease of native coronary artery without angina pectoris; E11.65 Type 2 diabetes mellitus with hyperglycemia; R00.1 Bradycardia, unspecified; K52.9 Noninfective gastroenteritis and colitis, unspecified; D50.9 Iron deficiency anemia, unspecified; K29.40 Chronic atrophic gastritis without bleeding; I48.0 Paroxysmal atrial fibrillation; E86.0 Dehydration; K80.20 Calculus of gallbladder without cholecystitis without obstruction; E11.43 Type 2 diabetes mellitus with diabetic autonomic (poly)neuropathy; Z87.891 Personal history of nicotine dependence
CPT/HCPCS: 36415; 71045; 74018; 80048; 80053; 80162; 81003; 82150; 82962; 83605; 83690; 83735; 84100; 84484; 85007; 85025; 85651; 86140; 87040; 87086; 93005; 96374; 99285; J8499

== ENCOUNTER 2018-11-20 22:49 | Emergency (ER) | payer MEDICARE, OTHER ==
[~2018-11-20] VITALS: Ht 167.6 cm; Wt 54.4 kg
[2018-11-20 23:10] VITALS: BP 161/75
[2018-11-20 23:32] LABS: APPEARANCE,URINE CLEAR; BILIRUBIN, URINE NEGATIVE (NEGATIVE); COLOR,URINE PALE YELLOW; GLUCOSE, URINE (UA) NEGATIVE (NEGATIVE); KETONES,URINE 1+ (NEGATIVE); LEUKOCYTE ESTERASE ,URINE NEGATIVE (NEGATIVE); NITRITE,URINE NEGATIVE (NEGATIVE); PH,URINE 8 (4.5-8.0); UROBILINOGEN,URINE NORMAL MG/DL (0.0-1.0)
[2018-11-20] MEDS: Sodium Chloride 500ML 550 ML IV SCH (23:32)
[2018-11-20 23:36] LABS: PROTEIN,URINE NEGATIVE (NEGATIVE)
[2018-11-20 23:42] LABS: BASOPHILS % (AUTO) 0.5 % (0.0-2.0); EOSINOPHILS % (AUTO) 0.3 % (0.0-3.0); HEMATOCRIT 37.3 % (37.0-47.0); HEMOGLOBIN 12.8 G/DL (12.0-16.0); LYMPHOCYTES % (AUTO) 13.7 % (20.0-45.0); MEAN CORPUSCULAR VOLUME 90 FL (80-99); MONOCYTES % (AUTO) 4.3 % (1.0-10.0); NEUTROPHILS % (AUTO) 81.1 % (45.0-75.0); PLATELET COUNT 277 K/UL (150-450); RED BLOOD COUNT 4.15 M/UL (4.20-5.40); RED CELL DISTRIBUTION WIDTH 12.7 % (11.6-14.8); WHITE BLOOD COUNT 7.2 K/UL (4.8-10.8)
[2018-11-20 23:51] LABS: ANION GAP 11 mmol/L (5-15); BLOOD UREA NITROGEN 9 mg/dL (7-18); CALCIUM 9.2 MG/DL (8.5-10.1); CARBON DIOXIDE 29 MMOL/L (21-32); CHLORIDE 93 MMOL/L (98-107); CREATININE 0.8 MG/DL (0.55-1.30); POTASSIUM 3.7 MMOL/L (3.5-5.1); SODIUM 133 MMOL/L (136-145)
[2018-11-20 23:54] LABS: INR 1.1 (0.9-1.1)
[2018-11-20 23:57] VITALS: BP 146/55
[2018-11-20 23:58] LABS: ALANINE AMINOTRANSFERASE 14 U/L (12-78); ALBUMIN/GLOBULIN RATIO 0.8 (1.0-2.7); ALKALINE PHOSPHATASE 74 U/L (46-116); ASPARTATE AMINO TRANSFERASE 14 U/L (15-37); BILIRUBIN,TOTAL 0.4 MG/DL (0.2-1.0)
--- NOTE | 2018-11-21 02:04 | Diagnostic Imaging Report ---
EXAM: XR Chest, 1 View CLINICAL HISTORY: ABD PAIN TECHNIQUE: Frontal view of the chest. COMPARISON: 09/04/2018 FINDINGS: Lungs: Unremarkable. No consolidation. Pleural space: Unremarkable. No pneumothorax. Heart: Unremarkable. No cardiomegaly. Mediastinum: Unremarkable. Bones/joints: Degenerative changes of the osseous structures. IMPRESSION: No acute findings.
[2018-11-21 03:05] VITALS: BP 142/58
[2018-11-21] MEDS: Sodium Chloride 500ML 550 ML IV SCH (03:38)
--- NOTE | 2018-11-21 04:26 | Emergency Room Report ---
History of Present Illness General Chief Complaint: Hypertension Source: Patient, Family Member Present Illness HPI Patient presents with NV for 2 days. Denies pain or dyspnea. No fevers or chills. In the past she has presented with this and had sepsis or occult infections. There is no medication for nausea at home. Patent unable to give reliable history post stroke. Denies chest pain, abdominal pain. Moving bowels with some constipation. Daughter concerned about HTN as BP at home > 200. Unable to keep down meds this am.n Denies headache. H/O CVA with R weakness H/O A fib with rapid vent response in past. On Eliquis. Also on dig - level low normal August. H/O anxiety and agrees she is anxious. No SI. Admitted 09/04- this year. D/C dx: Hypertensive urgency Nausea and vomiting Encephalopathy due to metabolic disorder Anxiety disorder Diabetes mellitus Atrial fibrillation with RVR History of valvular heart disease Prior CVA with right-sided hemiparesis Possible UTI with mild pyuria Coronary artery disease Cholelithiasis Allergies: Coded Allergies: No Known Allergies (Unverified , 09/04/18) Patient History Limited by: medical condition Past Medical History: see triage record, old chart reviewed Social History: Denies: smoking, alcohol use, drug use Social History Narrative with daughter Last Menstrual Period: UNK Now: No Reviewed Nursing Documentation: PMH: Agreed; PSxH: Agreed Nursing Documentation-PMH Hx Cardiac Problems: Yes - Cardiomegaly, Palpitation Hx Hypertension: Yes Hx Diabetes: Yes Hx Cancer: No Hx Gastrointestinal Problems: No Hx Dialysis: No Hx Neurological Problems: Yes Hx Cerebrovascular Accident: Yes - Right sided weakness dt CVA 1995 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 Speech Problem: Yes - Mambling Hx Weakness: Yes Review of Systems All Other Systems: limited Physical Exam Vital Signs Date Time Temp Pulse Resp B/P (MAP) Pulse Ox O2 Delivery O2 Flow Rate FiO2 11/20/18 22:53 97.9 87 15 161/75 100 Room Air Sp02 EP Interpretation: reviewed, normal General Appearance: no apparent distress, alert, Chronically Ill Head: normocephalic Eyes: bilateral eye normal inspection, bilateral eye PERRL ENT: moist mucus membranes Neck: supple Respiratory: lungs clear, normal breath sounds Cardiovascular #1: regular rate, rhythm Cardiovascular #2: 2+ radial (R) Gastrointestinal: normal bowel sounds, non tender, soft, no mass, non-distended , no guarding, no rebound, scaphoid Musculoskeletal: no calf tenderness, Maddy's Sign negative, other - extensor contractures of feet R>L Neurologic: alert, DTRs symmetric, sensory intact, motor weakness - R sided, oriented - X1 Psychiatric: depressed affect, anxious Skin: normal inspection, warm/dry Medical Decision Making Diagnostic Impression: Primary Impression: Nausea & vomiting Qualified Codes: R11.2 - Nausea with vomiting, unspecified Additional Impressions: Hypertension Qualified Codes: I10 - Essential (primary) hypertension Anxiety Right hemiparesis ER Course Patient with nausea and vomiting. DDx; SBO, gastritis, electrolyte abnormalities, occult infection, AMI amongst others. Evaluation with EKG, CXR, labs. Treatment with IV hydration and zofran. Observed on manager cardiac. EKG with frequent ectopy. CXR with chronic changes, no free air. Labs with normal WBC, H/H. CMP remarkable for . Negative troponin. Ectopy improved with treatment. Christopher PO without difficulty. Anxiety better. Patient improved and daughter comfortable with outpatient observation. Patient stable for outpatient observation and treatment. Laboratory Tests Test 11/20/18 23:10 11/20/18 23:20 Urine Color Pale yellow Urine Appearance Clear Urine pH 8 (4.5-8.0) Urine Specific [place] 1.015 (1.005-1.035) Urine Protein Negative (NEGATIVE) Urine Glucose (UA) Negative (NEGATIVE) Urine Ketones 1+ (NEGATIVE) H Urine Blood Negative (NEGATIVE) Urine Nitrite Negative (NEGATIVE) Urine Bilirubin Negative (NEGATIVE) Urine Urobilinogen Normal MG/DL (0.0-1.0) Urine Leukocyte Esterase Negative (NEGATIVE) White Blood Count 7.2 K/UL (4.8-10.8) Red Blood Count 4.15 M/UL (4.20-5.40) L Hemoglobin 12.8 G/DL (12.0-16.0) Hematocrit 37.3 % (37.0-47.0) Mean Corpuscular Volume 90 FL (80-99) Mean Corpuscular Hemoglobin 30.9 PG (27.0-31.0) Mean Corpuscular Hemoglobin Concent 34.4 G/DL (32.0-36.0) Red Cell Distribution Width 12.7 % (11.6-14.8) Platelet Count 277 K/UL (150-450) Mean Platelet Volume 6.7 FL (6.5-10.1) Neutrophils (%) (Auto) 81.1 % (45.0-75.0) H Lymphocytes (%) (Auto) 13.7 % (20.0-45.0) L Monocytes (%) (Auto) 4.3 % (1.0-10.0) Eosinophils (%) (Auto) 0.3 % (0.0-3.0) Basophils (%) (Auto) 0.5 % (0.0-2.0) Prothrombin Time 11.4 SEC (9.30-11.50) Prothrombin Time INR 1.1 (0.9-1.1) PTT 30 SEC (23-33) Sodium Level 133 MMOL/L (136-145) L Potassium Level 3.7 MMOL/L (3.5-5.1) Chloride Level 93 MMOL/L (98-107) L Carbon Dioxide Level 29 MMOL/L (21-32) Anion Gap 11 mmol/L (5-15) Blood Urea Nitrogen 9 mg/dL (7-18) Creatinine 0.8 MG/DL (0.55-1.30) Estimate Glomerular Filtration Rate mL/min (>60) Glucose Level 169 MG/DL (74-106) H Calcium Level 9.2 MG/DL (8.5-10.1) Total Bilirubin 0.4 MG/DL (0.2-1.0) Aspartate Amino Transferase (AST) 14 U/L (15-37) L Alanine Aminotransferase (ALT) 14 U/L (12-78) Alkaline Phosphatase 74 U/L (46-116) Troponin I 0.000 ng/mL (0.000-0.056) Total Protein 8.8 G/DL (6.4-8.2) H Albumin 4.0 G/DL (3.4-5.0) Globulin 4.8 g/dL Albumin/Globulin Ratio 0.8 (1.0-2.7) L Lipase 230 U/L (73-393) EKG Diagnostic Results Rate: normal Rhythm: NSR ST Segments: no acute changes - pvc's, couplet, NSSTTW changes, RBBB Rhythm Strip Diag. Results EP Interpretation: yes Rhythm: NSR, other - PVCs, rate 94 Chest X-Ray Diagnostic Results Chest X-Ray Diagnostic Results : Chest X-Ray Ordered: Yes # of Views/Limited/Complete: 1 View Indication: Other EP Interpretation: Yes Interpretation: no consolidation, no effusion, no pneumothorax, other - DJD Impression: No acute disease Electronically Signed by: Electronically signed by Aleksey Cid MD Last Vital Signs Date Time Temp Pulse Resp B/P (MAP) Pulse Ox O2 Delivery O2 Flow Rate FiO2 11/21/18 04:40 97.2 86 16 138/64 99 Room Air Status: improved Disposition: HOME, SELF-CARE Condition: Improved Scripts Ondansetron Odt* (ZOFRAN ODT*) 4 Mg Tab.rapdis 4 MG BC EVERY 8 HOURS, #6 TAB 0 Refills Prov: Aleksey Cid MD 11/21/18 Referrals: Glenn Garrido MD (PCP) Aleksey Cid MD Nov 21, 2018 04:26
[2018-11-21] MEDS ORDERED: ONDANSETRON ODT4 MG BC (04:27)
[2018-11-21 04:40] VITALS: BP 138/64
== END 2018-11-21 04:40 | disposition home or self-care (01) ==
LOC: EMR 23:01
DX: R11.2 Nausea with vomiting, unspecified (principal); I10 Essential (primary) hypertension; F41.9 Anxiety disorder, unspecified; G81.91 Hemiplegia, unspecified affecting right dominant side; E11.9 Type 2 diabetes mellitus without complications; I25.10 Atherosclerotic heart disease of native coronary artery without angina pectoris; I11.9 Hypertensive heart disease without heart failure; I45.10 Unspecified right bundle-branch block
CPT/HCPCS: 36415; 71045; 80053; 81003; 83690; 84484; 85025; 85610; 85730; 93005; 96361; 96374; 99284; J2405; J7040

== ENCOUNTER 2019-03-07 17:45 | Inpatient (IN) | payer MEDICARE, OTHER ==
[~2019-03-07] VITALS: Ht 157.5 cm; Wt 46.3 kg
[2019-03-07 18:08] VITALS: BP 145/102
--- NOTE | 2019-03-07 18:13 | Emergency Room Report ---
History of Present Illness General Chief Complaint: Abdominal Pain Source: Family Member Present Illness HPI Patient is an 83-year-old female brought in by family member after increased generalized weakness. 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 She was noted to have increased discomfort to her left lower abdomen. Patient had frequent urinary tract infections in the past. Patient was noted to be nonverbal since her CVA. Patient is noted to be able to ambulate with a walker. She reportedly had been vomiting multiple times and had prior history of gallbladder disease. 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 Speech Problem: Yes - Mambling Hx Weakness: Yes Review of Systems All Other Systems: negative except mentioned in HPI Physical Exam Vital Signs Date Time Temp Pulse Resp B/P (MAP) Pulse Ox O2 Delivery O2 Flow Rate FiO2 03/07/19 17:55 97.9 99 15 141/68 96 Room Air Sp02 EP Interpretation: reviewed, normal General Appearance: normal inspection, alert, non-toxic, Chronically Ill Head: atraumatic ENT: normal ENT inspection, hearing 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, normal voice Neck: normal inspection, full range of motion, supple, no bony tend Respiratory: normal inspection, lungs clear, normal breath sounds, no respiratory distress, no retraction, no wheezing Cardiovascular #1: regular rate, rhythm, no edema Gastrointestinal: normal inspection, normal bowel sounds, non tender, soft, no guarding, no hernia Genitourinary: no CVA tenderness Musculoskeletal: normal inspection, back normal, normal range of motion Neurologic: alert, responsive, motor weakness, other - aphasic, limited ROM Psychiatric: normal inspection, judgement/insight normal, mood/affect normal Skin: normal inspection, normal color, no rash Medical Decision Making Diagnostic Impression: Primary Impression: Abdominal pain Additional Impression: Lactic acidosis ER Course Patient presented for abdominal pain. Differential diagnoses included ischemic bowel, appendicitis, perforated viscus, abdominal aortic aneurysm, inferior myocardial infarction, viral gastroenteritis among others. Because of complexity of patient's case laboratory testing and imaging studies were ordered. Patient noted to have a normal white blood count and was noted to have a normal mental status. Patient's lactic acid level was noted to be somewhat elevated. Patient was noted to be on anticoagulation for atrial fibrillation. She shows no evidence of significant abdominal tenderness at this time. Dr. Glenn Garrido was contacted for inpatient management Labs Test 03/07/19 18:20 03/07/19 18:35 White Blood Count 6.4 K/UL (4.8-10.8) Red Blood Count 4.35 M/UL (4.20-5.40) Hemoglobin 12.9 G/DL (12.0-16.0) Hematocrit 38.2 % (37.0-47.0) Mean Corpuscular Volume 88 FL (80-99) Mean Corpuscular Hemoglobin 29.6 PG (27.0-31.0) Mean Corpuscular Hemoglobin Concent 33.7 G/DL (32.0-36.0) Red Cell Distribution Width 12.5 % (11.6-14.8) Platelet Count 218 K/UL (150-450) Mean Platelet Volume 6.7 FL (6.5-10.1) Neutrophils (%) (Auto) 63.9 % (45.0-75.0) Lymphocytes (%) (Auto) 28.9 % (20.0-45.0) Monocytes (%) (Auto) 5.4 % (1.0-10.0) Eosinophils (%) (Auto) 1.3 % (0.0-3.0) Basophils (%) (Auto) 0.6 % (0.0-2.0) Sodium Level 136 MMOL/L (136-145) Potassium Level 3.8 MMOL/L (3.5-5.1) Chloride Level 93 MMOL/L (98-107) Carbon Dioxide Level 29 MMOL/L (21-32) Anion Gap 14 mmol/L (5-15) Blood Urea Nitrogen 11 mg/dL (7-18) Creatinine 1.0 MG/DL (0.55-1.30) Estimat Glomerular Filtration Rate mL/min (>60) Glucose Level 108 MG/DL (74-106) Lactic Acid Level 5.00 mmol/L (0.4-2.0) Calcium Level 9.2 MG/DL (8.5-10.1) Phosphorus Level 3.1 MG/DL (2.5-4.9) Magnesium Level 1.1 MG/DL (1.8-2.4) Total Bilirubin 0.5 MG/DL (0.2-1.0) Aspartate Amino Transf (AST/SGOT) 17 U/L (15-37) Alanine Aminotransferase (ALT/SGPT) 18 U/L (12-78) Alkaline Phosphatase 75 U/L (46-116) Total Creatine Kinase 89 U/L (26-308) Creatine Kinase MB 1.0 NG/ML (0.0-3.6) Creatine Kinase MB Relative Index 1.1 Troponin I 0.009 ng/mL (0.000-0.056) Total Protein 7.9 G/DL (6.4-8.2) Albumin 4.1 G/DL (3.4-5.0) Globulin 3.8 g/dL Albumin/Globulin Ratio 1.1 (1.0-2.7) Urine Color Pale yellow Urine Appearance Clear Urine pH 7 (4.5-8.0) Urine Specific [place] 1.005 (1.005-1.035) Urine Protein Negative (NEGATIVE) Urine Glucose (UA) Negative (NEGATIVE) Urine Ketones Negative (NEGATIVE) Urine Blood Negative (NEGATIVE) Urine Nitrite Negative (NEGATIVE) Urine Bilirubin Negative (NEGATIVE) Urine Urobilinogen Normal MG/DL (0.0-1.0) Urine Leukocyte Esterase Negative (NEGATIVE) EKG Diagnostic Results Rate: normal Rhythm: NSR ST Segments: no acute changes Last Vital Signs Date Time Temp Pulse Resp B/P (MAP) Pulse Ox O2 Delivery O2 Flow Rate FiO2 03/07/19 17:55 97.9 99 15 141/68 96 Room Air Status: unchanged Disposition: ADMITTED INPATIENT Condition: Serious Nishant Awad MD Mar 07, 2019 18:13
--- NOTE | 2019-03-07 18:14 | NUR ---
ED Nurse Note: Pt present at ER with daughter due to Lt abdominal pain 07/07 which started yesterday. pt is non-verbal which caused from stroke 21 years ago but follows commands. pt calm and cooperative. per daughter, pt walk to bathroom and flushes by herself. skin clean and intact but pale. no abdominal distension or mass noted at this time. pt is non-verbal, however, pt is able to point where is hurting.
--- NOTE | 2019-03-07 18:16 | NUR ---
ED Nurse Note: Pt has Right side of body weakness due to stroke from 21 years ago and skin clean and intact. no pressure ulcer noted.
[2019-03-07 18:41] LABS: BASOPHILS % (AUTO) 0.6 % (0.0-2.0); EOSINOPHILS % (AUTO) 1.3 % (0.0-3.0); HEMATOCRIT 38.2 % (37.0-47.0); HEMOGLOBIN 12.9 G/DL (12.0-16.0); LYMPHOCYTES % (AUTO) 28.9 % (20.0-45.0); MEAN CORPUSCULAR VOLUME 88 FL (80-99); MONOCYTES % (AUTO) 5.4 % (1.0-10.0); NEUTROPHILS % (AUTO) 63.9 % (45.0-75.0); PLATELET COUNT 218 K/UL (150-450); RED BLOOD COUNT 4.35 M/UL (4.20-5.40); RED CELL DISTRIBUTION WIDTH 12.5 % (11.6-14.8); WHITE BLOOD COUNT 6.4 K/UL (4.8-10.8)
[2019-03-07 18:48] LABS: ANION GAP 14 mmol/L (5-15); BLOOD UREA NITROGEN 11 mg/dL (7-18); CALCIUM 9.2 MG/DL (8.5-10.1); CARBON DIOXIDE 29 MMOL/L (21-32); CHLORIDE 93 MMOL/L (98-107); POTASSIUM 3.8 MMOL/L (3.5-5.1); SODIUM 136 MMOL/L (136-145)
[2019-03-07 18:49] LABS: APPEARANCE,URINE CLEAR; BILIRUBIN, URINE NEGATIVE (NEGATIVE); COLOR,URINE PALE YELLOW; GLUCOSE, URINE (UA) NEGATIVE (NEGATIVE); KETONES,URINE NEGATIVE (NEGATIVE); LEUKOCYTE ESTERASE ,URINE NEGATIVE (NEGATIVE); NITRITE,URINE NEGATIVE (NEGATIVE); PH,URINE 7 (4.5-8.0); PROTEIN,URINE NEGATIVE (NEGATIVE); UROBILINOGEN,URINE NORMAL MG/DL (0.0-1.0)
[2019-03-07 19:03] LABS: ALANINE AMINOTRANSFERASE 18 U/L (12-78); ALBUMIN 4.1 G/DL (3.4-5.0); ALBUMIN/GLOBULIN RATIO 1.1 (1.0-2.7); ALKALINE PHOSPHATASE 75 U/L (46-116); ASPARTATE AMINO TRANSFERASE 17 U/L (15-37); BILIRUBIN,TOTAL 0.5 MG/DL (0.2-1.0); CREATINE KINASE 89 U/L (26-308); PHOSPHORUS 3.1 MG/DL (2.5-4.9)
[2019-03-07 19:52] VITALS: BP 163/56
--- NOTE | 2019-03-07 19:52 | NUR ---
ED Nurse Note: received report from Nguyen and shanna care, pt vss, resp even and unlabored on RA, pt and the family member advised to notify staff if needed assist. will cont monitor.
[2019-03-07] MEDS ORDERED: NEPHROVITE1 TAB ORAL (20:00)
[2019-03-07] MEDS ORDERED: Nitroglycerin Subl 0.4mg tab SL PRN (20:15)
[2019-03-07] MEDS ORDERED: Morphine Sulfate 2mg/ml Inj(IV/IM USE ONLY) IVP PRN (20:40)
[2019-03-07] MEDS ORDERED: Mylanta II UD 30ml ORAL PRN (20:41)
[2019-03-07] MEDS ORDERED: Ketorolac 30mg Inj IV PRN (20:43)
[2019-03-07] MEDS ORDERED: Miralax 17gm pkt ORAL PRN (21:00)
--- NOTE | 2019-03-07 22:00 | NUR ---
NURSE NOTES: Report received from Karyn MORENO. Patient is transferred from ER to Telemetry unit without any incident. Patient is AOx2, slovenian speaking only and able to make needs known. IV site is asymptomatic, patent, and intact. VS are as follows: BP: 157/85, HR: 85, RR: 20, afebrile, O2: 95% on RA. Skin assessment done, no pressure ulcer noted. Belongings list checked and signed with [employer]. Patient's daughter brought the belongings home including wheelchair. Atrial fibrillation on the monitor; controlled. Bed is in lowest position with side rails up x2 and brakes are engaged. Encouraged pt to use call light when in need of assistance, pt verbalized understanding. Will continue to monitor.
--- NOTE | 2019-03-07 22:00 | NUR ---
ED Nurse Note: 3rd lactic sent.
--- NOTE | 2019-03-07 22:27 | NUR ---
ED Nurse Note: report given to JOSH Ace from Tele.
--- NOTE | 2019-03-07 22:40 | NUR ---
ED Nurse Note: pt transferred to Tele and endorsed care to Malka, all belongings sent w/ pt.
[2019-03-07] MEDS: NovoLOG Insulin Flexpen SUBQ SCH (23:01)
[2019-03-07] MEDS: Heparin 5000 units/ml inj SUBQ SCH (23:14)
--- NOTE | 2019-03-08 05:24 | NUR ---
NURSE NOTES: Patient is asleep but arousable by voice. Denies pain at this time. Will continue to monitor.
[2019-03-08] MEDS: NovoLOG Insulin Flexpen SUBQ SCH ×4 (05:32→20:15)
[2019-03-08 06:49] LABS: BASOPHILS % (AUTO) 1.7 % (0.0-2.0); EOSINOPHILS % (AUTO) 2.4 % (0.0-3.0); HEMATOCRIT 35.4 % (37.0-47.0); HEMOGLOBIN 11.8 G/DL (12.0-16.0); MEAN CORPUSCULAR VOLUME 89 FL (80-99); MONOCYTES % (AUTO) 5.1 % (1.0-10.0); NEUTROPHILS % (AUTO) 51.8 % (45.0-75.0); PLATELET COUNT 190 K/UL (150-450); RED BLOOD COUNT 3.99 M/UL (4.20-5.40); RED CELL DISTRIBUTION WIDTH 12.5 % (11.6-14.8); WHITE BLOOD COUNT 4.2 K/UL (4.8-10.8)
[2019-03-08 07:00] LABS: INR 1.1 (0.9-1.1)
--- NOTE | 2019-03-08 07:38 | NUR ---
HAND-OFF: Report given to Malinda MORENO. Patient is in stable condition. Endorsed plan of care.
[2019-03-08 07:39] LABS: ALANINE AMINOTRANSFERASE 17 U/L (12-78); ALBUMIN 3.4 G/DL (3.4-5.0); ALKALINE PHOSPHATASE 65 U/L (46-116); AMYLASE 67 U/L (25-115); ANION GAP 9 mmol/L (5-15); ASPARTATE AMINO TRANSFERASE 16 U/L (15-37); BILIRUBIN,TOTAL 0.4 MG/DL (0.2-1.0); BLOOD UREA NITROGEN 11 mg/dL (7-18); CALCIUM 8.6 MG/DL (8.5-10.1); CARBON DIOXIDE 32 MMOL/L (21-32); CHLORIDE 101 MMOL/L (98-107); CREATININE 0.8 MG/DL (0.55-1.30); POTASSIUM 3.1 MMOL/L (3.5-5.1); SODIUM 142 MMOL/L (136-145)
--- NOTE | 2019-03-08 07:49 | NUR ---
CASE MANAGEMENT:REVIEW 83 YR OLD FEMALE FROM HOME CC: ABDOMINAL PAIN W/NAUSEA AND VOMITING. NO APPETITE SI: ABDOMINAL PAIN. LACTIC ACIDOSIS 97.8 99 15 141/68 96% ON RA LACTIC ACID + 5.00 and 4.60 IS: 500CC NS BOLUS CXR URINE REFLEX : TO TELEMETRY INTERQUAL CRITERIA MET
[2019-03-08 08:00] VITALS: BP 109/70
--- NOTE | 2019-03-08 08:55 | Diagnostic Imaging Report ---
Indication: Abdominal pain Technique: Loredo-scale and duplex images of the upper abdomen were obtained. Doppler interrogation of the hepatic and pancreatic vessels Comparison: Reference made to abdomen pelvis CT of 02/13/2018 Findings: Gallbladder demonstrates gallstones. No wall thickening nor pericholecystic fluid. Sonographic Jung's sign is negative. Common bile duct measures 3 mm in diameter. No intrahepatic biliary ductal dilatation. Liver demonstrates normal echogenicity, no focal abnormality. Portal vein and hepatic veins are patent. Pancreas is obscured by bowel gas. Spleen demonstrates multiple echogenic foci. It is normal in size Left kidney measures 10.4 cm in length. Right kidney measures 10 cm length. Both kidneys demonstrate normal echogenicity. Right kidney demonstrate mild fullness to the collecting system, which appears similar to prior renal sonogram of 04/08/2017. No focal abnormality . Abdominal aorta is obscured by bowel gas . Impression: Cholelithiasis. Negative for dilated bile ducts Mild right renal collecting system fullness, possibly baseline for this patient as it is evident on a prior 04/08/2017 sonogram Echogenic foci within the spleen, of uncertain significance given absence of calcifications on an CT scan of 02/13/2018 Note nonvisualization of the pancreas and abdominal aorta
--- NOTE | 2019-03-08 09:00 | NUR ---
NURSE NOTES: Recieved report from Malka holliday. Pt laying in bed talking to us. Pt on manager loan no signs of distress. Bed in lowest position and locked. Call light within reach. will continue to follow plan of care
[2019-03-08] MEDS: Allopurinol 100mg Tab ORAL SCH (09:51)
[2019-03-08] MEDS: Heparin 5000 units/ml inj SUBQ SCH ×2 (09:53→20:14)
--- NOTE | 2019-03-08 10:24 | GI Initial Consult Note ---
History of Present Illness General Date patient seen: Mar 08, 2019 Time patient seen: 10:18 Reason for Hospitalization: Abdominal Pain Referring physician: CHASITY HERNANDEZ Reason for Consultation: ABDOMINAL PAIN Present Illness HPI Patient is an 83-year-old female brought in by family member after increased generalized weakness. 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 She was noted to have increased discomfort to her left lower abdomen. Patient had frequent urinary tract infections in the past. Patient was noted to be nonverbal since her CVA. Patient is noted to be able to ambulate with a walker. She reportedly had been vomiting multiple times and had prior history of gallbladder disease. GI consulted for reported abdominal pain. Patient seen, awake alert oriented no apparent distress. No active signs of nausea or vomiting. Patient has complaint of left lower quadrant abdominal pain. Reported previous vomiting. Patient had prior to admission here in [place] last August in which she was diagnosed with emesis secondary to gastroparesis versus hypertensive crisis. Abdominal ultrasound performed noted with cholelithiasis and common bile duct dilation at 3 mm. Labs reviewed hemoglobin 11.8 and potassium 3.1. Unknown history of colonoscopy. Home Meds Reported Medications Vitamin B Cmplx/Vit C/Folic AC (Nephro-Barbara Tablet) 0.8 Mg Tablet, 1 TAB ORAL DAILY, TAB 03/07/19 Apixaban (ELIQUIS) 2.5 Mg Tablet, 2.5 MG PO DAILY, TAB 06/24/18 Folic Acid* (FOLIC ACID*) 1 Mg Tablet, 1 MG ORAL DAILY, TAB 06/24/18 Furosemide* (LASIX*) 20 Mg Tablet, 20 MG ORAL DAILY, TAB 06/24/18 Rivaroxaban (XARELTO) 20 Mg Tablet, 20 MG ORAL DAILY for 30 Days, MG 0 Refills 04/29/17 Metoprolol Tartrate* (METOPROLOL TARTRATE*) 100 Mg Tablet, 100 MG ORAL DAILY, TAB 11/26/16 Metformin Hcl* (METFORMIN HCL*) 1,000 Mg Tablet, 1000 MG ORAL BID, TAB 05/21/15 Lisinopril (LISINOPRIL*) 20 Mg Tablet, 20 MG ORAL DAILY, TAB 02/18/15 Allopurinol* (ALLOPURINOL*) 100 Mg Tablet, 100 MG ORAL DAILY, TAB 02/14/15 Cholecalciferol (Vitamin D3) (VITAMIN D-400*) 400 Unit Tablet, 1000 UNITS ORAL DAILY, TAB 02/14/15 Digoxin* (DIGOXIN*) 250 Mcg Tablet, 250 MCG ORAL DAILY, TAB 02/14/15 Zolpidem Tartrate* (ZOLPIDEM TARTRATE*) 10 Mg Tablet, 10 MG ORAL BEDTIME, TAB 02/14/15 Aspirin* (ASPIR 81*) 81 Mg Tablet.dr, 81 MG ORAL DAILY, TAB 02/14/15 Discontinued Reported Medications Potassium Chloride (POTASSIUM CHLORIDE) 10 Meq Tablet.er, 20 MEQ ORAL DAILY, # 30 TAB 0 Refills 06/24/18 Vitamin D (Vitamin D3) 400 Unit Tablet, 5000 INTLU ORAL DAILY, TAB 06/24/18 Oxybutynin Chloride (OXYBUTYNIN CHLORIDE) 5 Mg Tablet, 5 MG ORAL DAILY, #30 TAB 0 Refills 06/24/18 Rivaroxaban (XARELTO) 15 Mg Tablet, 2.5 MG ORAL DAILY for 30 Days, MG 0 Refills 02/13/18 Temazepam (TEMAZEPAM*) 15 Mg Capsule, 15 MG ORAL, #30 CAP 0 Refills 11/26/16 Magnesium Oxide (MAGNESIUM OXIDE) 400 Mg Tablet, 400 MG ORAL DAILY, #30 TAB 0 Refills 05/21/15 Oxybutynin (GELNIQUE) 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, 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 05/21/15 Discontinued Scripts Ondansetron Odt* (ZOFRAN ODT*) 4 Mg Tab.rapdis, 4 MG BC EVERY 8 HOURS, #6 TAB 0 Refills Prov:Aleksey Cid MD 11/21/18 Ondansetron Odt* (ZOFRAN ODT*) 4 Mg Tab.rapdis, 4 MG BC EVERY 6 HOURS PRN for Nausea & Vomiting, #30 TAB 0 Refills Prov:Jt Luciano MD 06/24/18 Rivaroxaban (XARELTO) 15 Mg Tablet, 15 MG ORAL QPM for 30 Days, TAB Prov:Bryan Bertrand MD 02/17/18 Med list reviewed/reconciled: Yes Allergies: Coded Allergies: No Known Allergies (Unverified , 09/04/18) Patient History Limited by: medical condition History Provided By: Medical Record PMH Narrative Hx Cardiac Problems: Yes - Cardiomegaly, Palpitation Hx Hypertension: Yes Hx Diabetes: Yes Hx Cancer: No Hx Gastrointestinal Problems: No Hx Dialysis: No Hx Neurological Problems: Yes Hx Cerebrovascular Accident: Yes - Right sided weakness dt CVA 1995 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 Speech Problem: Yes - [place] Hx Weakness: Yes Social History: Denies: smoking, alcohol use, drug use, other Review of Systems All Other Systems: negative except mentioned in HPI Physical Exam Vital Signs Date Time Temp Pulse Resp B/P (MAP) Pulse Ox O2 Delivery O2 Flow Rate FiO2 03/07/19 17:55 97.9 99 15 141/68 96 Room Air 03/08/19 03:28 95.0 Sp02 EP Interpretation: reviewed, normal Labs Laboratory Tests Test 03/07/19 18:20 03/07/19 18:35 03/07/19 19:00 03/07/19 21:40 White Blood Count 6.4 K/UL (4.8-10.8) Red Blood Count 4.35 M/UL (4.20-5.40) Hemoglobin 12.9 G/DL (12.0-16.0) Hematocrit 38.2 % (37.0-47.0) Mean Corpuscular Volume 88 FL (80-99) Mean Corpuscular Hemoglobin 29.6 PG (27.0-31.0) Mean Corpuscular Hemoglobin Concent 33.7 G/DL (32.0-36.0) Red Cell Distribution Width 12.5 % (11.6-14.8) Platelet Count 218 K/UL (150-450) Mean Platelet Volume 6.7 FL (6.5-10.1) Neutrophils (%) (Auto) 63.9 % (45.0-75.0) Lymphocytes (%) (Auto) 28.9 % (20.0-45.0) Monocytes (%) (Auto) 5.4 % (1.0-10.0) Eosinophils (%) (Auto) 1.3 % (0.0-3.0) Basophils (%) (Auto) 0.6 % (0.0-2.0) Sodium Level 136 MMOL/L (136-145) Potassium Level 3.8 MMOL/L (3.5-5.1) Chloride Level 93 MMOL/L (98-107) L Carbon Dioxide Level 29 MMOL/L (21-32) Anion Gap 14 mmol/L (5-15) Blood Urea Nitrogen 11 mg/dL (7-18) Creatinine 1.0 MG/DL (0.55-1.30) Estimat Glomerular Filtration Rate mL/min (>60) Glucose Level 108 MG/DL (74-106) H Lactic Acid Level 5.00 mmol/L (0.4-2.0) H 4.60 mmol/L (0.66-2.22) H 2.90 mmol/L (0.4-2.0) H Calcium Level 9.2 MG/DL (8.5-10.1) Phosphorus Level 3.1 MG/DL (2.5-4.9) Magnesium Level 1.1 MG/DL (1.8-2.4) L Total Bilirubin 0.5 MG/DL (0.2-1.0) Aspartate Amino Transf (AST/SGOT) 17 U/L (15-37) Alanine Aminotransferase (ALT/SGPT) 18 U/L (12-78) Alkaline Phosphatase 75 U/L (46-116) Total Creatine Kinase 89 U/L (26-308) Creatine Kinase MB 1.0 NG/ML (0.0-3.6) Creatine Kinase MB Relative Index 1.1 Troponin I 0.009 ng/mL (0.000-0.056) Total Protein 7.9 G/DL (6.4-8.2) Albumin 4.1 G/DL (3.4-5.0) Globulin 3.8 g/dL Albumin/Globulin Ratio 1.1 (1.0-2.7) Urine Color Pale yellow Urine Appearance Clear Urine pH 7 (4.5-8.0) Urine Specific [place] 1.005 (1.005-1.035) Urine Protein Negative (NEGATIVE) Urine Glucose (UA) Negative (NEGATIVE) Urine Ketones Negative (NEGATIVE) Urine Blood Negative (NEGATIVE) Urine Nitrite Negative (NEGATIVE) Urine Bilirubin Negative (NEGATIVE) Urine Urobilinogen Normal MG/DL (0.0-1.0) Urine Leukocyte Esterase Negative (NEGATIVE) Test 03/08/19 00:10 03/08/19 06:14 Lactic Acid Level 2.20 mmol/L (0.66-2.22) Troponin I 0.025 ng/mL (0.000-0.056) 0.019 ng/mL (0.000-0.056) White Blood Count 4.2 K/UL (4.8-10.8) L Red Blood Count 3.99 M/UL (4.20-5.40) L Hemoglobin 11.8 G/DL (12.0-16.0) L Hematocrit 35.4 % (37.0-47.0) L Mean Corpuscular Volume 89 FL (80-99) Mean Corpuscular Hemoglobin 29.7 PG (27.0-31.0) Mean Corpuscular Hemoglobin Concent 33.4 G/DL (32.0-36.0) Red Cell Distribution Width 12.5 % (11.6-14.8) Platelet Count 190 K/UL (150-450) Mean Platelet Volume 6.6 FL (6.5-10.1) Neutrophils (%) (Auto) 51.8 % (45.0-75.0) Lymphocytes (%) (Auto) 39.0 % (20.0-45.0) Monocytes (%) (Auto) 5.1 % (1.0-10.0) Eosinophils (%) (Auto) 2.4 % (0.0-3.0) Basophils (%) (Auto) 1.7 % (0.0-2.0) Prothrombin Time 11.6 SEC (9.30-11.50) H Prothromb Time International Ratio 1.1 (0.9-1.1) Activated Partial Thromboplast Time 22 SEC (23-33) L Sodium Level 142 MMOL/L (136-145) Potassium Level 3.1 MMOL/L (3.5-5.1) L Chloride Level 101 MMOL/L (98-107) Carbon Dioxide Level 32 MMOL/L (21-32) Anion Gap 9 mmol/L (5-15) Blood Urea Nitrogen 11 mg/dL (7-18) Creatinine 0.8 MG/DL (0.55-1.30) Estimat Glomerular Filtration Rate mL/min (>60) Glucose Level 78 MG/DL (74-106) Hemoglobin A1c 5.2 % (4.3-6.0) Calcium Level 8.6 MG/DL (8.5-10.1) Total Bilirubin 0.4 MG/DL (0.2-1.0) Aspartate Amino Transf (AST/SGOT) 16 U/L (15-37) Alanine Aminotransferase (ALT/SGPT) 17 U/L (12-78) Alkaline Phosphatase 65 U/L (46-116) Total Protein 6.8 G/DL (6.4-8.2) Albumin 3.4 G/DL (3.4-5.0) Globulin 3.4 g/dL Albumin/Globulin Ratio 1.0 (1.0-2.7) Amylase Level 67 U/L (25-115) Lipase 215 U/L (73-393) Thyroid Stimulating Hormone (TSH) 1.346 uiU/mL (0.358-3.740) General Appearance: well appearing, no apparent distress, alert Head: normocephalic EENT: PERRL/EOMI, normal ENT inspection Neck: supple Respiratory: normal breath sounds, no respiratory distress Cardiovascular: normal rate Gastrointestinal: normal inspection, non tender, soft, normal bowel sounds, non -distended Rectal: deferred Genitourinary: no CVA tenderness Musculoskeletal: normal inspection, back normal Neurologic: normal inspection, alert, oriented x3, responsive Psychiatric: normal inspection, judgement/insight normal, memory normal Skin: normal inspection, normal color, no rash, warm/dry, palpation normal, well hydrated Lymphatic: normal inspection, no adenopathy Current Medications Current Medications Medications (Trade) Dose Ordered Sig/Yovana Route PRN Reason Start Time Stop Time Status Last Admin Dose Admin Acetaminophen (Tylenol) 650 mg Q4H PRN ORAL fever 03/07/19 20:21 04/06/19 20:20 Al Hydroxide/Mg Hydroxide (Mylanta II) 30 ml Q6H PRN ORAL dyspepsia 03/07/19 20:41 04/06/19 20:40 Allopurinol (Zyloprim) 100 mg DAILY ORAL 03/08/19 09:00 04/07/19 08:59 03/08/19 09:51 Dextrose (Dextrose 50%) 25 ml Q30M PRN IV Hypoglycemia 03/07/19 20:15 04/06/19 20:14 Dextrose (Dextrose 50%) 50 ml Q30M PRN IV Hypoglycemia 03/07/19 20:45 04/06/19 20:44 Digoxin (Lanoxin) 0.25 mg DAILY ORAL 03/08/19 09:00 04/07/19 08:59 03/08/19 09:50 Diphenhydramine HCl (Benadryl) 25 mg Q6H PRN ORAL Itching/Pruritis 03/07/19 20:41 04/06/19 20:40 Heparin Sodium (Porcine) (Heparin 5000 units/ml) 5,000 units EVERY 12 HOURS SUBQ 03/07/19 21:00 04/06/19 20:59 03/08/19 09:53 Insulin Aspart (NovoLOG) BEFORE MEALS AND HS SUBQ 03/07/19 21:30 04/06/19 21:29 Ketorolac Tromethamine (Toradol 30mg) 15 mg Q6H PRN IV moderate pian 4-6 03/07/19 20:43 03/12/19 20:42 Morphine Sulfate (Morphine Sulfate) 2 mg Q4H PRN IVP severe Pain (Pain Scale 7-10) 03/07/19 20:40 03/14/19 20:39 Nitroglycerin (Ntg) 0.4 mg Q5M X 3 DOSES PRN SL Prn Chest Pain 03/07/19 20:15 04/06/19 20:14 03/08/19 05:31 Ondansetron HCl (Zofran) 4 mg Q6H PRN IVP Nausea & Vomiting 03/07/19 20:22 04/06/19 20:21 Polyethylene Glycol (Miralax) 17 gm HSPRN PRN ORAL Constipation 03/07/19 21:00 04/06/19 20:59 Sodium Chloride 1,000 ml @ 50 mls/hr Q20H IV 03/07/19 21:30 04/06/19 21:29 03/07/19 21:30 Temazepam (Restoril) 15 mg HSPRN PRN ORAL Insomnia 03/07/19 21:00 03/14/19 20:59 GI: Plan Problems: (1) Nausea & vomiting (2) Dehydration (3) Symptomatic bradycardia (4) Right hemiparesis Plan History of upper endoscopy in January 2018 noted with gastritis. History of CVA Abdominal ultrasound reviewed noted with cholelithiasis and common bile duct dilation at [address] patient on puree and honey nectar thick diet until seen by [facility] ordered will consider colonoscopy pending work up, noted patient is on Eliquis and rivaroxaban which must be discontinued for approximately 72 hours prior to any procedure. Zofran as needed, Reglan for persistent nausea vomiting anemia work up OB stool r/o GI bleed monitor H&H, prn transfusions bowel regime ppi fu labs Discussed with Dr. Munoz. Thank you for this patient referral, we will follow. The patient was seen and examined at bedside and all new and available data was reviewed in the patients chart. I agree with the above findings, impression and plan. (Patient seen earlier today. Signature stamp does not reflect patient encounter time.). - MD Nerissa NolascoYavapai Regional Medical CenterEdna WIRE HARNESS ASSEMBLER Mar 08, 2019 10:24
--- NOTE | 2019-03-08 11:32 | Diagnostic Imaging Report ---
Indication: Abdominal pain Technique: Supine view of the abdomen Comparison: 09/07/2018 Findings: By gas pattern is unremarkable. No masses or unusual calcifications. There are degenerative changes of the upper lumbar spine. No significant interim change Impression: No acute process
--- NOTE | 2019-03-08 11:34 | Diagnostic Imaging Report ---
Indication: Shortness of breath Technique: One view of the chest Comparison: 11/21/2018 Findings: Lungs and pleural spaces are clear. The heart is upper limits normal in size. The aorta is tortuous and calcified. Impression: No acute process
[2019-03-08 12:00] VITALS: BP 135/66
[2019-03-08] MEDS ORDERED: Gastrograffin 30ml ORAL PRN (12:00)
[2019-03-08] MEDS ORDERED: Isovue-300 100ml vial INJ PRN (12:00)
--- NOTE | 2019-03-08 12:34 | Consultation ---
History of Present Illness General Date patient seen: Mar 08, 2019 Chief Complaint: Abdominal Pain Referring physician: CHASITY HERNANDEZ Reason for Consultation: inpatient management Present Illness HPI 83-year-old female with history of CVA, right-sided hemiparesis, atrial fibrillation, hypertension CHF cholelithiasis and diabetes who presented to ER with CC of abdominal pain Patient had poor oral intake. Her cxr and abdominal xr were negative. She had elevated lactic acid and admitted to telemetry for further management. Allergies: Coded Allergies: No Known Allergies (Unverified , 09/04/18) Medication History Scheduled Allopurinol* (Allopurinol*), 100 MG ORAL DAILY, (Reported) Apixaban (Eliquis), 2.5 MG PO DAILY, (Reported) Aspirin* (Aspir 81*), 81 MG ORAL DAILY, (Reported) Cholecalciferol (Vitamin D3) (Vitamin D-400*), 1,000 UNITS ORAL DAILY, (Reported ) Digoxin* (Digoxin*), 250 MCG ORAL DAILY, (Reported) Folic Acid* (Folic Acid*), 1 MG ORAL DAILY, (Reported) Furosemide* (Lasix*), 20 MG ORAL DAILY, (Reported) Lisinopril (Lisinopril*), 20 MG ORAL DAILY, (Reported) Metformin Hcl* (Metformin Hcl*), 1,000 MG ORAL BID, (Reported) Metoprolol Tartrate* (Metoprolol Tartrate*), 100 MG ORAL DAILY, (Reported) Rivaroxaban (Xarelto), 20 MG ORAL DAILY, (Reported) Vitamin B Cmplx/Vit C/Folic AC (Nephro-Barbara Tablet), 1 TAB ORAL DAILY, (Reported ) Zolpidem Tartrate* (Zolpidem Tartrate*), 10 MG ORAL BEDTIME, (Reported) Discontinued Medications Magnesium Oxide (Magnesium Oxide), 400 MG ORAL DAILY, (Reported) Discontinued Reason: Pt stopped taking med Ondansetron Odt* (Zofran Odt*), 4 MG BC EVERY 6 HOURS PRN for Nausea & Vomiting Discontinued Reason: Pt stopped taking med Ondansetron Odt* (Zofran Odt*), 4 MG BC EVERY 8 HOURS Discontinued Reason: Therapy completed Oxybutynin (Gelnique), 5 MG PO BID, (Reported) Discontinued Reason: Therapy completed Oxybutynin Chloride (Oxybutynin Chloride), 5 MG ORAL DAILY, (Reported) Discontinued Reason: Therapy completed Potassium Chloride (Potassium Chloride), 20 MEQ ORAL DAILY, (Reported) Discontinued Reason: Therapy completed Rivaroxaban (Xarelto), 2.5 MG ORAL DAILY, (Reported) Discontinued Reason: Therapy completed Rivaroxaban (Xarelto), 15 MG ORAL QPM Discontinued Reason: Therapy completed Temazepam (Temazepam*), 15 MG ORAL, (Reported) Discontinued Reason: Therapy completed Vitamin D (Vitamin D3), 5,000 INTLU ORAL DAILY, (Reported) Discontinued Reason: Pt stopped taking med Patient History Healthcare decision maker Resuscitation status Full Code Advanced Directive on File No Past Medical/Surgical History Past Medical/Surgical History: (1) Gout (2) Hypertension (3) Diabetes mellitus (4) Iron deficiency anemia (5) Cerebral vascular disease Review of Systems All Other Systems: negative except mentioned in HPI Physical Exam General Appearance: cachetic Lines, tubes and drains: peripheral HEENT: normocephalic, atraumatic Neck: non-tender, normal alignment Respiratory/Chest: chest wall non-tender, lungs clear Breasts: no masses Cardiovascular/Chest: normal peripheral pulses, normal rate Abdomen: normal bowel sounds, non tender Genitourinary/Rectal: normal genital exam Extremities: normal range of motion 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 Last 24 Hour Vital Signs Date Time Temp Pulse Resp B/P (MAP) Pulse Ox O2 Delivery O2 Flow Rate FiO2 03/08/19 09:50 75 03/08/19 05:31 167/85 03/08/19 04:13 65 03/08/19 03:28 Room Air 95.0 03/07/19 22:45 97.8 78 16 154/68 100 Room Air 03/07/19 19:52 97.9 91 16 163/56 100 Room Air 03/07/19 18:08 97.9 82 15 145/102 96 Room Air 03/07/19 18:08 82 16 Room Air 03/07/19 17:55 97.9 99 15 141/68 96 Room Air Intake and Output 03/07/19 03/08/19 19:00 07:00 Intake Total 0 ml Balance 0 ml Intake Oral 0 ml # Bowel Movements 1 Laboratory Tests Test 03/07/19 18:20 03/07/19 18:35 03/07/19 19:00 03/07/19 21:40 White Blood Count 6.4 K/UL (4.8-10.8) Red Blood Count 4.35 M/UL (4.20-5.40) Hemoglobin 12.9 G/DL (12.0-16.0) Hematocrit 38.2 % (37.0-47.0) Mean Corpuscular Volume 88 FL (80-99) Mean Corpuscular Hemoglobin 29.6 PG (27.0-31.0) Mean Corpuscular Hemoglobin Concent 33.7 G/DL (32.0-36.0) Red Cell Distribution Width 12.5 % (11.6-14.8) Platelet Count 218 K/UL (150-450) Mean Platelet Volume 6.7 FL (6.5-10.1) Neutrophils (%) (Auto) 63.9 % (45.0-75.0) Lymphocytes (%) (Auto) 28.9 % (20.0-45.0) Monocytes (%) (Auto) 5.4 % (1.0-10.0) Eosinophils (%) (Auto) 1.3 % (0.0-3.0) Basophils (%) (Auto) 0.6 % (0.0-2.0) Sodium Level 136 MMOL/L (136-145) Potassium Level 3.8 MMOL/L (3.5-5.1) Chloride Level 93 MMOL/L (98-107) L Carbon Dioxide Level 29 MMOL/L (21-32) Anion Gap 14 mmol/L (5-15) Blood Urea Nitrogen 11 mg/dL (7-18) Creatinine 1.0 MG/DL (0.55-1.30) Estimat Glomerular Filtration Rate mL/min (>60) Glucose Level 108 MG/DL (74-106) H Lactic Acid Level 5.00 mmol/L (0.4-2.0) H 4.60 mmol/L (0.66-2.22) H 2.90 mmol/L (0.4-2.0) H Calcium Level 9.2 MG/DL (8.5-10.1) Phosphorus Level 3.1 MG/DL (2.5-4.9) Magnesium Level 1.1 MG/DL (1.8-2.4) L Total Bilirubin 0.5 MG/DL (0.2-1.0) Aspartate Amino Transf (AST/SGOT) 17 U/L (15-37) Alanine Aminotransferase (ALT/SGPT) 18 U/L (12-78) Alkaline Phosphatase 75 U/L (46-116) Total Creatine Kinase 89 U/L (26-308) Creatine Kinase MB 1.0 NG/ML (0.0-3.6) Creatine Kinase MB Relative Index 1.1 Troponin I 0.009 ng/mL (0.000-0.056) Total Protein 7.9 G/DL (6.4-8.2) Albumin 4.1 G/DL (3.4-5.0) Globulin 3.8 g/dL Albumin/Globulin Ratio 1.1 (1.0-2.7) Urine Color Pale yellow Urine Appearance Clear Urine pH 7 (4.5-8.0) Urine Specific [place] 1.005 (1.005-1.035) Urine Protein Negative (NEGATIVE) Urine Glucose (UA) Negative (NEGATIVE) Urine Ketones Negative (NEGATIVE) Urine Blood Negative (NEGATIVE) Urine Nitrite Negative (NEGATIVE) Urine Bilirubin Negative (NEGATIVE) Urine Urobilinogen Normal MG/DL (0.0-1.0) Urine Leukocyte Esterase Negative (NEGATIVE) Test 03/08/19 00:10 03/08/19 06:14 03/08/19 12:03 Lactic Acid Level 2.20 mmol/L (0.66-2.22) Troponin I 0.025 ng/mL (0.000-0.056) 0.019 ng/mL (0.000-0.056) 0.013 ng/mL (0.000-0.056) White Blood Count 4.2 K/UL (4.8-10.8) L Red Blood Count 3.99 M/UL (4.20-5.40) L Hemoglobin 11.8 G/DL (12.0-16.0) L Hematocrit 35.4 % (37.0-47.0) L Mean Corpuscular Volume 89 FL (80-99) Mean Corpuscular Hemoglobin 29.7 PG (27.0-31.0) Mean Corpuscular Hemoglobin Concent 33.4 G/DL (32.0-36.0) Red Cell Distribution Width 12.5 % (11.6-14.8) Platelet Count 190 K/UL (150-450) Mean Platelet Volume 6.6 FL (6.5-10.1) Neutrophils (%) (Auto) 51.8 % (45.0-75.0) Lymphocytes (%) (Auto) 39.0 % (20.0-45.0) Monocytes (%) (Auto) 5.1 % (1.0-10.0) Eosinophils (%) (Auto) 2.4 % (0.0-3.0) Basophils (%) (Auto) 1.7 % (0.0-2.0) Prothrombin Time 11.6 SEC (9.30-11.50) H Prothromb Time International Ratio 1.1 (0.9-1.1) Activated Partial Thromboplast Time 22 SEC (23-33) L Sodium Level 142 MMOL/L (136-145) Potassium Level 3.1 MMOL/L (3.5-5.1) L Chloride Level 101 MMOL/L (98-107) Carbon Dioxide Level 32 MMOL/L (21-32) Anion Gap 9 mmol/L (5-15) Blood Urea Nitrogen 11 mg/dL (7-18) Creatinine 0.8 MG/DL (0.55-1.30) Estimat Glomerular Filtration Rate mL/min (>60) Glucose Level 78 MG/DL (74-106) Hemoglobin A1c 5.2 % (4.3-6.0) Calcium Level 8.6 MG/DL (8.5-10.1) Total Bilirubin 0.4 MG/DL (0.2-1.0) Aspartate Amino Transf (AST/SGOT) 16 U/L (15-37) Alanine Aminotransferase (ALT/SGPT) 17 U/L (12-78) Alkaline Phosphatase 65 U/L (46-116) Total Protein 6.8 G/DL (6.4-8.2) Albumin 3.4 G/DL (3.4-5.0) Globulin 3.4 g/dL Albumin/Globulin Ratio 1.0 (1.0-2.7) Amylase Level 67 U/L (25-115) Lipase 215 U/L (73-393) Thyroid Stimulating Hormone (TSH) 1.346 uiU/mL (0.358-3.740) Height (Feet): 5 Height (Inches): 2.00 Weight (Pounds): 120 Medications Current Medications Medications (Trade) Dose Ordered Sig/Yovana Route PRN Reason Start Time Stop Time Status Last Admin Dose Admin Acetaminophen (Tylenol) 650 mg Q4H PRN ORAL fever 03/07/19 20:21 04/06/19 20:20 Al Hydroxide/Mg Hydroxide (Mylanta II) 30 ml Q6H PRN ORAL dyspepsia 03/07/19 20:41 04/06/19 20:40 Allopurinol (Zyloprim) 100 mg DAILY ORAL 03/08/19 09:00 04/07/19 08:59 03/08/19 09:51 Dextrose (Dextrose 50%) 25 ml Q30M PRN IV Hypoglycemia 03/07/19 20:15 04/06/19 20:14 Dextrose (Dextrose 50%) 50 ml Q30M PRN IV Hypoglycemia 03/07/19 20:45 04/06/19 20:44 Diatrizoate Meglum/ Diatrizoate Sod (Gastrografin) 30 ml NOW PRN ORAL Radiology Procedure 03/08/19 12:00 03/08/19 23:59 Digoxin (Lanoxin) 0.25 mg DAILY ORAL 03/08/19 09:00 04/07/19 08:59 03/08/19 09:50 Diphenhydramine HCl (Benadryl) 25 mg Q6H PRN ORAL Itching/Pruritis 03/07/19 20:41 04/06/19 20:40 Heparin Sodium (Porcine) (Heparin 5000 units/ml) 5,000 units EVERY 12 HOURS SUBQ 03/07/19 21:00 04/06/19 20:59 03/08/19 09:53 Insulin Aspart (NovoLOG) BEFORE MEALS AND HS SUBQ 03/07/19 21:30 04/06/19 21:29 Iopamidol (Isovue-300 100ml) 100 ml NOW PRN INJ Radiology Procedure 03/08/19 12:00 03/08/19 23:59 Ketorolac Tromethamine (Toradol 30mg) 15 mg Q6H PRN IV moderate pian 4-6 03/07/19 20:43 03/12/19 20:42 Metoclopramide HCl (Reglan) 5 mg Q6H PRN ORAL Nausea & Vomiting 03/08/19 10:30 04/07/19 10:29 Morphine Sulfate (Morphine Sulfate) 2 mg Q4H PRN IVP severe Pain (Pain Scale 7-10) 03/07/19 20:40 03/14/19 20:39 Nitroglycerin (Ntg) 0.4 mg Q5M X 3 DOSES PRN SL Prn Chest Pain 03/07/19 20:15 04/06/19 20:14 03/08/19 05:31 Ondansetron HCl (Zofran) 4 mg Q6H PRN IVP Nausea & Vomiting 03/07/19 20:22 04/06/19 20:21 Polyethylene Glycol (Miralax) 17 gm HSPRN PRN ORAL Constipation 03/07/19 21:00 04/06/19 20:59 Sodium Chloride 1,000 ml @ 50 mls/hr Q20H IV 03/07/19 21:30 04/06/19 21:29 03/07/19 21:30 Temazepam (Restoril) 15 mg HSPRN PRN ORAL Insomnia 03/07/19 21:00 03/14/19 20:59 Assessment/Plan Problem List: (1) Intractable abdominal pain ICD Codes: R10.9 - Unspecified abdominal pain SNOMED: 13396389, 297449289 (2) Generalized weakness ICD Codes: R53.1 - Weakness SNOMED: 66655855 (3) Right hemiparesis ICD Codes: G81.90 - Right hemiparesis SNOMED: 642663855 (4) Diabetes mellitus ICD Codes: E11.9 - Type 2 diabetes mellitus without complications SNOMED: 68498670 (5) Hypertension ICD Codes: I10 - Hypertension SNOMED: 42376443 (6) Gout ICD Codes: M10.9 - Gout, unspecified SNOMED: 39893412 Assessment/Plan NPO iv fluids GI evaluation symptomatic treatment sliding scale diabetic diet monitor BP dvt prophylaxis. Bryan Bertrand MD Mar 08, 2019 12:34
--- NOTE | 2019-03-08 15:14 | NUR ---
Ernestina Cruz Pt's daughter gave over the ph verbal consent so Pt may have CT of the Ab. and pelvis w/ contrast.
--- NOTE | 2019-03-08 15:48 | Diagnostic Imaging Report ---
Clinical Indication: Abdominal pain Technique: No oral contrast utilized, per emergency room physician request IV administration nonionic contrast. Venous phase spiral acquisition obtained through the abdomen and pelvis. Multiplanar reconstructions were generated. Total dose length product 476.72 mGycm. CTDIvol(s) 9.81 mGy. Dose reduction achieved using automated exposure control Comparison: 02/13/2018 Findings: The appendix is normal. Previously reported sigmoid diverticula are less apparent currently. No evidence of diverticulitis. No small bowel distention. Contrast is seen throughout the entirety of small bowel and throughout the dilated colon. There is a small sliding-type hiatal hernia. The distal esophagus, stomach and duodenum are otherwise unremarkable. No free or loculated intraperitoneal gas or fluid is evident. The gallbladder contains gallstones. The liver demonstrates a small cyst in segment 3. This also evident previously. No biliary ductal dilatation. The pancreas contains a few scattered calcifications which are not evident previously but probably in the splenic artery. Previously present splenic artery calcification is also demonstrated. The spleen, adrenals are unremarkable. The kidneys demonstrate mild fullness to the collecting systems bilaterally which is somewhat more striking than on the prior study. No hydroureter or ureteral calculi demonstrated. No retroperitoneal or mesenteric mass or adenopathy. No pelvic mass or adenopathy. The bladder is distended. The uterus and adnexal structures are unremarkable. The included lung bases are clear except for some atelectatic changes.. Reference also made to abdominal sonogram of earlier the same day previously reported pericardial abnormality is not evident currently. The bones demonstrate degenerative changes of the lumbosacral spine. There is an anterior wedge compression fracture deformity of the L1 vertebral body and a superior endplate compression fracture deformity of the L5 vertebral body, both unchanged from the prior exam. Impression: No acute abnormality Cholelithiasis, also previously reported Note that no splenic abnormality is seen that would explain findings reported on recent sonogram Distended urinary bladder Mild bilateral renal collecting system fullness,, likely related to the above L1 and L5 vertebral body compression fracture deformities, unchanged from previous study Other findings as noted, including small sliding-type hiatal hernia, probable left lobe liver cyst, basilar pulmonary atelectatic changes, degenerative spondylosis The CT scanner at [facility] is accredited by the [employer] and the scans are performed using protocols designed to limit radiation exposure to as low as reasonably achievable to attain images of sufficient resolution adequate for diagnostic evaluation.
[2019-03-08 16:00] VITALS: BP 148/95
[2019-03-08] MEDS ORDERED: Magnesium Citrate Liq Btl ORAL SCH (16:00)
[2019-03-08] MEDS ORDERED: Polyethylene Glycol 238gm bottle ORAL SCH (16:00)
[2019-03-08] MEDS ORDERED: Bisacodyl EC 5mg tab ORAL SCH (16:00)
--- NOTE | 2019-03-08 19:23 | Physician Query ---
PHYSICIAN DOCUMENTATION QUERY Diagnosis Clarification Dear Dr: Eunice Choi Elviedarshan : Date: MR #: Patient Name: Admit Date: Account# Documentation clarification is required to meet compliance, accuracy in coding and severity of illness reflection for your patient. Doctor, The patient admitted for CVA. It has been going on for three to four days, presented with focal aphasia, noncompliant with BP medications. HTN is mentioned consult note as a diagnosis. V/S: BP: 165/120 H PA:105 Rx; Clonidine, Amlodipine /PO Please document the appropriate diagnosis on the Discharge Summary or on this form as an addendum. (Sign and date all documentation) Please specify type of HTN: [ ] Hypertensive Emergency [ ] Hypertensive Crisis [ ] Hypertensive Malignancy [ ] Other [ ] unable to determine Note: If you are/were treating a suspected, possible or probable condition, please document it as such. Such conditions are codeable per inpatient coding guidelines. MD Signature: __ Date: If you have any questions, please contact the HIM Department (Medical Records) at # . Thank You! This form is a permanent part of the medical record MTDD
--- NOTE | 2019-03-08 19:25 | History & Physical ---
History and Physical History & Physicial Dictated for Int med-Dr Garrido no. [id number]. Rocky Garibay MD Mar 08, 2019 19:25
--- NOTE | 2019-03-08 19:25 | NUR ---
NURSE NOTES: Received report from Malinda RN, pt. in bed awake, A/O x's 3- able to make needs known, Colombian speaking, no signs or symptoms of acute cardiac or respiratory distress noted, bed in lowest position and call light within easy reach, bed alarm on side rails up x's 3 and safety brakes engaged, bed in lowest position and call light within easy reach, pt. appears to be clean and dry, pt. appears to be sating well on room air- no distress noted, bed ventura at bedside and within easy reach, pt. aware to ask for assistance when using bed ventura, LFA 24G IV intact and patent- running NS at 50cc/hr, safety measures continued, will continue with plan of care.
[2019-03-08 20:00] VITALS: BP 148/64
--- NOTE | 2019-03-08 20:24 | NUR ---
HAND-OFF: Report given to Primo.
--- NOTE | 2019-03-08 21:30 | History and Physical Report ---
DATE OF ADMISSION: 03/07/2019 CHIEF COMPLAINT: The patient is an 83-year-old female who presents with chief complaint of increasing weakness. HISTORY OF PRESENT ILLNESS: The patient was admitted to [facility] in August 2018. Please see history and physical and discharge summary dictated at that time. The patient presented to [place] emergency room. The patient was brought in by family members. The patient has been increasingly weak over the past week. The patient has history of frequent urinary tract infection. The patient was admitted for generalized weakness to rule out urinary tract infection. REVIEW OF SYSTEMS: Unable to assess secondary to the patient's mental status. PAST MEDICAL HISTORY: Significant for: 1. Type 2 diabetes. 2. Hypertension. 3. Paroxysmal atrial fibrillation . 4. History of cerebrovascular accident. 5. Right hemiparesis. 6. History of atrophic gastritis. PAST SURGICAL HISTORY: Significant for section x1. CURRENT MEDICATIONS: 1. Allopurinol 100 mg p.o. daily. 2. Eliquis 2.5 mg p.o. daily. 3. Aspirin 81 mg p.o. daily. 4. Vitamin D3 400 units p.o. daily. 5. Digoxin 0.25 mg p.o. daily. 6. Folic acid 1 mg p.o. daily. 7. Lasix 20 mg p.o. daily. 8. Lisinopril 20 mg p.o. daily. 9. Metformin 1000 mg p.o. twice daily. 10. Metoprolol 100 mg p.o. daily. 11. Xarelto 20 mg p.o. daily. 12. Vitamin B complex p.o. daily. 13. Ambien 10 mg p.o. at bedtime. ALLERGIES: No known drug allergies. SOCIAL HISTORY: The patient is . The patient lives at home with her . The patient denies tobacco or alcohol use. PHYSICAL EXAMINATION: VITAL SIGNS: Temperature 97.9, respirations 15, pulse 99, blood pressure 141/60. GENERAL: The patient is well-developed and well-nourished female, in no apparent distress. HEENT: Eyes, pupils equal and responsive to light and accommodation. Extraocular movements are intact. NECK: Supple without lymphadenopathy. CHEST: Lungs are clear to auscultation bilaterally without wheezes or rales. CARDIOVASCULAR: Regular rate. S1 and S2 are normal without murmurs, rubs, or gallops. ABDOMEN: Soft, nontender, and nondistended. Positive bowel sounds. No evidence of hepatosplenomegaly. Currently, no rebound or guarding noted. EXTREMITIES: Negative for clubbing, cyanosis, or edema. RECTAL/GENITAL: Refused. NEUROLOGIC: Cranial nerves II to XII grossly intact without focal deficits. Motor strength is 3/5 on the right and 4/5 on the left. LABORATORY STUDIES: WBC 6.4, hemoglobin 12.9, hematocrit 38.2 platelets 218,000. Sodium 142, potassium 3.1, chloride 101, CO2 32, BUN 11, creatinine 0.8, glucose 78. Troponin 0.025. Chest x-ray is reported as no acute disease. ASSESSMENT: This is an 83-year-old female. 1. Generalized weakness. 2. Diabetes type 2. 3. Paroxysmal atrial fibrillation. 4. History of cerebrovascular disease. 5. Right hemiparesis. 6. Atrophic gastritis. TREATMENT: 1. Generalized weakness. This may be secondary to urinary tract infection. A urine culture and sensitivity is pending. 2. Diabetes type 2. The patient has been started on NovoLog sliding scale. 3. Paroxysmal atrial fibrillation. Continue digoxin and Eliquis as above. 4. History of cerebrovascular accident. 5. Right hemiparesis. 6. Atrophic gastritis. Rocky Garibay M.D. DR: Tristen JOB#: [id number] CC:
[2019-03-09] VITALS: BP 125/61
[2019-03-09 04:00] VITALS: BP 130/68
[2019-03-09] MEDS: NovoLOG Insulin Flexpen SUBQ SCH ×4 (06:19→22:02)
[2019-03-09 06:35] LABS: BASOPHILS % (AUTO) 1.5 % (0.0-2.0); EOSINOPHILS % (AUTO) 3.1 % (0.0-3.0); HEMATOCRIT 37.3 % (37.0-47.0); HEMOGLOBIN 12.3 G/DL (12.0-16.0); LYMPHOCYTES % (AUTO) 37.2 % (20.0-45.0); MEAN CORPUSCULAR VOLUME 89 FL (80-99); MONOCYTES % (AUTO) 7.6 % (1.0-10.0); NEUTROPHILS % (AUTO) 50.6 % (45.0-75.0); PLATELET COUNT 206 K/UL (150-450); RED BLOOD COUNT 4.19 M/UL (4.20-5.40); RED CELL DISTRIBUTION WIDTH 12.8 % (11.6-14.8); WHITE BLOOD COUNT 4.7 K/UL (4.8-10.8)
[2019-03-09 07:01] LABS: INR 1.1 (0.9-1.1)
--- NOTE | 2019-03-09 07:21 | NUR ---
HAND-OFF: Report given to Loreto RN, pt. remains stable and no signs of distress noted.
[2019-03-09 08:00] VITALS: BP 141/77
--- NOTE | 2019-03-09 08:27 | NUR ---
NURSE NOTES: Recvd pt. Pt is AOx3 and awake and alert eating breakfast in bed. PT is on room air with no sign of sob or resp distress. 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 Bed is in lowest position, call light within reach, will continue with plan of care.
[2019-03-09 08:34] LABS: ALANINE AMINOTRANSFERASE 16 U/L (12-78); ALBUMIN 3.4 G/DL (3.4-5.0); ALKALINE PHOSPHATASE 64 U/L (46-116); ANION GAP 10 mmol/L (5-15); ASPARTATE AMINO TRANSFERASE 16 U/L (15-37); BILIRUBIN,TOTAL 0.5 MG/DL (0.2-1.0); BLOOD UREA NITROGEN 9 mg/dL (7-18); CALCIUM 9.1 MG/DL (8.5-10.1); CARBON DIOXIDE 29 MMOL/L (21-32); CHLORIDE 102 MMOL/L (98-107); CREATININE 0.8 MG/DL (0.55-1.30); FERRITIN 24 NG/ML (8-388); POTASSIUM 3.3 MMOL/L (3.5-5.1); SODIUM 141 MMOL/L (136-145)
[2019-03-09 09:03] LABS: % IRON SATURATION 14 % (15-50); IRON 47 ug/dL (50-175); TOTAL IRON BINDING CAPACITY 328 ug/dL (250-450)
[2019-03-09] MEDS: Allopurinol 100mg Tab ORAL SCH (09:40)
[2019-03-09] MEDS: Heparin 5000 units/ml inj SUBQ SCH ×2 (09:42→22:03)
--- NOTE | 2019-03-09 10:38 | GI Progress Note ---
Assessment/Plan Problems: (1) Generalized weakness ICD Codes: R53.1 - Weakness SNOMED: 74973971 (2) Right hemiparesis ICD Codes: G81.90 - Right hemiparesis SNOMED: 155318877 (3) Diabetes mellitus ICD Codes: E11.9 - Type 2 diabetes mellitus without complications SNOMED: 07305972 (4) Intractable abdominal pain ICD Codes: R10.9 - Unspecified abdominal pain SNOMED: 45370707, 032631065 Status: stable Status Narrative Discussed with Dr. Munoz Assessment/Plan History of upper endoscopy in January 2018 noted with gastritis. History of CVA Abdominal ultrasound reviewed noted with cholelithiasis and common bile duct dilation at 3 mm. Negative abdominal pelvis CT Tentatively place patient on puree and honey nectar thick diet until seen by ST. will consider colonoscopy pending work up, noted patient is on Eliquis and rivaroxaban which must be discontinued for approximately 72 hours prior to any procedure. Zofran as needed, Reglan for persistent nausea vomiting OB stool r/o GI bleed monitor H&H, prn transfusions send for cdiff if patient has persistent diarrhea ppi fu labs Subjective Subjective Has complaint of watery diarrhea Denies any nausea or vomiting Objective Last 24 Hour Vital Signs Date Time Temp Pulse Resp B/P (MAP) Pulse Ox O2 Delivery O2 Flow Rate FiO2 03/09/19 09:39 95 03/09/19 08:00 98.3 95 20 141/77 (98) 99 03/09/19 04:00 71 03/09/19 04:00 98.1 81 18 130/68 (88) 97 03/09/19 00:00 88 03/09/19 00:00 98.6 89 18 125/61 (82) 99 03/08/19 21:00 Room Air 03/08/19 20:00 98.3 92 20 148/64 (92) 97 03/08/19 20:00 112 03/08/19 16:00 97.2 96 21 148/95 (112) 97 03/08/19 16:00 104 03/08/19 12:00 80 03/08/19 12:00 97.3 81 21 135/66 (89) 98 Intake and Output 03/08/19 03/09/19 19:00 07:00 Intake Total 50 ml 566.5 ml Balance 50 ml 566.5 ml IV Total 50 ml 566.5 ml Laboratory Tests Test 03/08/19 12:03 03/08/19 17:55 03/09/19 00:15 03/09/19 06:07 Troponin I 0.013 ng/mL (0.000-0.056) 0.011 ng/mL (0.000-0.056) 0.019 ng/mL (0.000-0.056) 0.024 ng/mL (0.000-0.056) White Blood Count 4.7 K/UL (4.8-10.8) L Red Blood Count 4.19 M/UL (4.20-5.40) L Hemoglobin 12.3 G/DL (12.0-16.0) Hematocrit 37.3 % (37.0-47.0) Mean Corpuscular Volume 89 FL (80-99) Mean Corpuscular Hemoglobin 29.4 PG (27.0-31.0) Mean Corpuscular Hemoglobin Concent 33.0 G/DL (32.0-36.0) Red Cell Distribution Width 12.8 % (11.6-14.8) Platelet Count 206 K/UL (150-450) Mean Platelet Volume 6.8 FL (6.5-10.1) Neutrophils (%) (Auto) 50.6 % (45.0-75.0) Lymphocytes (%) (Auto) 37.2 % (20.0-45.0) Monocytes (%) (Auto) 7.6 % (1.0-10.0) Eosinophils (%) (Auto) 3.1 % (0.0-3.0) H Basophils (%) (Auto) 1.5 % (0.0-2.0) Reticulocyte Count 0.5 % (0.0-2.0) Prothrombin Time 11.2 SEC (9.30-11.50) Prothromb Time International Ratio 1.1 (0.9-1.1) Activated Partial Thromboplast Time 26 SEC (23-33) Sodium Level 141 MMOL/L (136-145) Potassium Level 3.3 MMOL/L (3.5-5.1) L Chloride Level 102 MMOL/L (98-107) Carbon Dioxide Level 29 MMOL/L (21-32) Anion Gap 10 mmol/L (5-15) Blood Urea Nitrogen 9 mg/dL (7-18) Creatinine 0.8 MG/DL (0.55-1.30) Estimat Glomerular Filtration Rate mL/min (>60) Glucose Level 82 MG/DL (74-106) Calcium Level 9.1 MG/DL (8.5-10.1) Iron Level 47 ug/dL (50-175) L Total Iron Binding Capacity 328 ug/dL (250-450) Percent Iron Saturation 14 % (15-50) L Unsaturated Iron Binding 281 ug/dL (112-346) Ferritin 24 NG/ML (8-388) Total Bilirubin 0.5 MG/DL (0.2-1.0) Aspartate Amino Transf (AST/SGOT) 16 U/L (15-37) Alanine Aminotransferase (ALT/SGPT) 16 U/L (12-78) Alkaline Phosphatase 64 U/L (46-116) Total Protein 6.8 G/DL (6.4-8.2) Albumin 3.4 G/DL (3.4-5.0) Globulin 3.4 g/dL Albumin/Globulin Ratio 1.0 (1.0-2.7) Carcinoembryonic Antigen Pending Vitamin B12 Level 99 PG/ML (193-986) L Folate 81.6 NG/ML (8.6-58.9) H Thyroid Stimulating Hormone (TSH) 2.032 uiU/mL (0.358-3.740) Free Thyroxine 1.32 NG/DL (0.76-1.46) Height (Feet): 5 Height (Inches): 2.00 Weight (Pounds): 120 General Appearance: WD/WN, no apparent distress, alert Cardiovascular: normal rate Respiratory/Chest: normal breath sounds, no respiratory distress Abdominal Exam: normal bowel sounds, non tender, soft Extremities: non-tender Martin Multani NP Mar 09, 2019 10:38
[2019-03-09] MEDS ORDERED: Iron Sucrose 100 MG in NS 55 ML IV SCH (11:00)
--- NOTE | 2019-03-09 11:33 | NUR ---
SWALLOW/SPEECH THERAPY NOTE: REFERRED FOR SWALLOW EVAL BY GI MDM SR Hari OSEGUERA, PRIMARY MD DR HERNANDEZ SEE FULL REPORT IN ST [facility] ACTIVITY SECTION DYSPHAGIA RISK FACTORS FOR THIS 83 Y.O. 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 ATROPHIC GASTRITIS,NAUSEA AND VOMITING, LACTIC ACID, CXR NEGATIVE AND LUNGS ARE CLEAR NOW. 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 POLST OR ADVANCE DIRECTIVE NOT AVAILABLE REGARDING TUBE FEEDINGS FROM HOME WITH DAUGHTER, JASON, WHO WANTS PATIENT ON PUREED OR MECH SOFT GROUND IN HOSPITAL BUT SAYS PATIENT EATS EVERYTHING AT HOME INCLUDING ADA REGULAR TEXTURE DIET OF MASTICATED SOLIDS AND THIN LIQUIDS (W/O H/O PNA) PATIENT ONLY HAS UPPER DENTURE NO TEETH/DENTURES ON THE BOTTOM. [place] [facility] [place] SWALLOW EVALUATION AND DEMONSTRATED PERSISTENT AND MILD-MOD OROPHARYGEAL DYSPHAGIA AND ORAL APRAXIA WITH RISK FOR ASPIRATION WITH THIN LIQUIDS AND MASTICATED SOLIDS. PLACED ON A LOW NA MOIST PUREED DIET AND NECTAR THICK LIQUIDS WITH POSTED ASPIRATION PRECAUTIONS WITH HAD GOOD INTAKE UPON D/C. PATIENT ALSO ASSESSED FOR COMMUNICATION-COGNITIVE SKILLS WHICH REVEALED A SEVERE EXPRESSIVE AND MODERATE RECEPTIVE APHASIA (SEE REPORT OF 02/16/18). CURRENTLY ON A CCHO-M PUREED AND HONEY/NECTAR THICK LIQUID DIET WITH GOOD INTAKE ONE MEAL W/O OVERT ASPIRATION PER SANITARY INSPECTOR. REFUSING PUREED AND FUNCTIONAL WITH LARGE PILL (CUT IN HALF) WITH WATER (REFUSED THIN LIQUIDS) W/O OVERT ASPIRATION PER RN. INITIAL IMPRESSIONS S/S OF AT LEAST A PERSISTENT BY MILD-MODERATE ORAL PREP AND OROPHARYNGEAL DYSPHAGIA WITH INCREASED ORAL PREP AND OROPHARYNGEAL TRANSIT TIMES. ORAL APRAXIA FOR LIPS/TONGUE, GROPING MOVEMENTS WITH ORAL COMMANDS EVEN WITH VISUAL CUES MILD RIGHT LABIAL ROM AND WEAKNESS AT REST AND WITH RETRACTION (SPONTANEOUSLY) SLOWER TONGUE MOVEMENTS AND ABLE TO VISUALIZE BILATERAL LATERALIZATION AND PROTRUSION TO COMMAND OR SPONTANEOUSLY (INCONSISTENT DUE TO ORAL APRAXIA). COUGH AND VOICE WEAK (HOARSE/RASPY WITH REDUCED LOUDNESS). GIVEN THIN LIQUIDS SEQUENTIAL SIPS VIA CUP ([place] SWALLOW PROTOCOL), NO OVERT S/S OF ASPIRATION WITH GOOD LIP SEAL AND FAIR HYLARYNGEAL EXCURSION. DISLIKES AND REFUSES THICKENED LIQUIDS. GIVEN TSP PUREED, HAD MILD-MOD INCREASE IN OROPHARYNGEAL TRANSIT TIMES WITH UNNECESSARY CHEWING MOVEMENTS, MIN ORAL RESIDUE ON RIGHT SIDE OF TONGUE, CLEARED WITH SECOND SWALLOW. GIVEN MASTICATED SOLID (1/2 CRACKER), INCREASED ORAL PREP TRANSIT TIMES DUE TO SLOWER CHEWING (APPEARED ROTARY) AND MIN ORAL RESIDUE RIGHT SIDE OF TONGUE CLEARED THIN LIQUID WASH. NO OVERT S/S OF ASPIRATION BUT MAY HAVE SILENT ASPIRATION RISK GIVEN H/O CVA (1995) AND LUNGS ARE CLEAR NO PNA HISTORY PER DTR. RECOMMENDATIONS: MOD BARIUM SWALLOW STUDY IP OR OP IF DC TO FURTHER ASSESS SWALLOW, DETERMINE SILENT ASPIRATION RISK/ETIOLOGY, AND ATTEMPT TRIAL TX IF PO CONTINUES FOR QUALITY OF LIFE, UPGRADE TO [facility] SOFT GROUND DIET AND THIN LIQUIDS WITH POSTED ASPIRATION PRECAUTIONS AND ASSIST WITH MEALS (PT SELF FEEDS AND PT/DTR DISLIKE CURRENT DIET/LIQUIDS AND AWARE OF ASP RISK) EDUCATED/TRAINED STAFF/FAMILY IN POSTED ASPIRATION PRECAUTIONS POSTED CONTINUE WITH DYSPHAGIA MANAGEMENT/TREATMENT AND PATIENT/STAFF EDUCATION/TRAINING REGARDING POSTED ASPIRATION PRECAUTIONS (SEE REPORT) ENT REFERRAL REGARDING HOARSE VOICE QUALITY TO CHECK VOCAL FOLDS AND NEEDS SPEECH/LANGUAGE/COGNITIVE EVAL/TX IP OR OP (ESPECIALLY FOR COMMUNICATION TIPS) D/W RN (ALEXANDREA), SANITARY INSPECTOR (ENDER), DTR, PT (WHO HAS MIXED APHASIA), AND GI MDM SR (FELIPE)
[2019-03-09 12:00] VITALS: BP 170/74
--- NOTE | 2019-03-09 12:14 | Pulmonology Progress Note ---
Assessment/Plan Problems: (1) Intractable abdominal pain (2) Generalized weakness (3) Right hemiparesis (4) Diabetes mellitus (5) Hypertension (6) Gout Assessment/Plan passed swallow study tachy at earlier this morning a-fib, controlled has diarrhea symptomatic treatment. Subjective ROS Limited/Unobtainable: No Constitutional: Reports: no symptoms HEENT: Repors: no symptoms Respiratory: Reports: no symptoms Allergies: Coded Allergies: No Known Allergies (Unverified , 09/04/18) Objective Last 24 Hour Vital Signs Date Time Temp Pulse Resp B/P (MAP) Pulse Ox O2 Delivery O2 Flow Rate FiO2 03/09/19 09:39 95 03/09/19 09:00 Room Air 03/09/19 08:00 98.3 95 20 141/77 (98) 99 03/09/19 04:00 71 03/09/19 04:00 98.1 81 18 130/68 (88) 97 03/09/19 00:00 88 03/09/19 00:00 98.6 89 18 125/61 (82) 99 03/08/19 21:00 Room Air 03/08/19 20:00 98.3 92 20 148/64 (92) 97 03/08/19 20:00 112 03/08/19 16:00 97.2 96 21 148/95 (112) 97 03/08/19 16:00 104 Intake and Output 03/08/19 03/09/19 19:00 07:00 Intake Total 50 ml 566.5 ml Balance 50 ml 566.5 ml IV Total 50 ml 566.5 ml Objective General Appearance: WD/WN, no apparent distress Lines, tubes and drains: peripheral, central line HEENT: normocephalic, atraumatic Neck: non-tender, normal alignment Respiratory/Chest: chest wall non-tender, lungs clear Breasts: no masses Cardiovascular/Chest: normal peripheral pulses Abdomen: normal bowel sounds, non tender Extremities: normal range of motion Skin Exam: normal pigmentation Microbiology Date/Time Source Procedure Growth Status 03/07/19 18:20 Blood Blood Culture - Preliminary NO GROWTH AFTER 24 HOURS Resulted 03/07/19 18:05 Blood Blood Culture - Preliminary NO GROWTH AFTER 24 HOURS Resulted Laboratory Tests 03/08/19 17:55: Troponin I 0.011 03/09/19 00:15: Troponin I 0.019 03/09/19 06:07: Troponin I 0.024, White Blood Count 4.7L, Red Blood Count 4.19L, Hemoglobin 12.3 , Hematocrit 37.3, Mean Corpuscular Volume 89, Mean Corpuscular Hemoglobin 29.4 , Mean Corpuscular Hemoglobin Concent 33.0, Red Cell Distribution Width 12.8, Platelet Count 206, Mean Platelet Volume 6.8, Neutrophils (%) (Auto) 50.6, Lymphocytes (%) (Auto) 37.2, Monocytes (%) (Auto) 7.6, Eosinophils (%) (Auto) 3.1H, Basophils (%) (Auto) 1.5, Reticulocyte Count 0.5, Prothrombin Time 11.2, Prothromb Time International Ratio 1.1, Activated Partial Thromboplast Time 26, Sodium Level 141, Potassium Level 3.3L, Chloride Level 102, Carbon Dioxide Level 29, Anion Gap 10, Blood Urea Nitrogen 9, Creatinine 0.8, Estimat Glomerular Filtration Rate , Glucose Level 82, Calcium Level 9.1, Iron Level 47L , Total Iron Binding Capacity 328, Percent Iron Saturation 14L, Unsaturated Iron Binding 281, Ferritin 24, Total Bilirubin 0.5, Aspartate Amino Transf (AST/ SGOT) 16, Alanine Aminotransferase (ALT/SGPT) 16, Alkaline Phosphatase 64, Total Protein 6.8, Albumin 3.4, Globulin 3.4, Albumin/Globulin Ratio 1.0, Carcinoembryonic Antigen [Pending], Vitamin B12 Level 99L, Folate 81.6H, Thyroid Stimulating Hormone (TSH) 2.032, Free Thyroxine 1.32 Current Medications Medications (Trade) Dose Ordered Sig/Yovana Route PRN Reason Start Time Stop Time Status Last Admin Dose Admin Acetaminophen (Tylenol) 650 mg Q4H PRN ORAL fever 03/07/19 20:21 04/06/19 20:20 Al Hydroxide/Mg Hydroxide (Mylanta II) 30 ml Q6H PRN ORAL dyspepsia 03/07/19 20:41 04/06/19 20:40 Allopurinol (Zyloprim) 100 mg DAILY ORAL 03/08/19 09:00 04/07/19 08:59 03/09/19 09:40 Dextrose (Dextrose 50%) 25 ml Q30M PRN IV Hypoglycemia 03/07/19 20:15 04/06/19 20:14 Dextrose (Dextrose 50%) 50 ml Q30M PRN IV Hypoglycemia 03/07/19 20:45 04/06/19 20:44 Digoxin (Lanoxin) 0.25 mg DAILY ORAL 03/08/19 09:00 04/07/19 08:59 03/09/19 09:39 Diphenhydramine HCl (Benadryl) 25 mg Q6H PRN ORAL Itching/Pruritis 03/07/19 20:41 04/06/19 20:40 Heparin Sodium (Porcine) (Heparin 5000 units/ml) 5,000 units EVERY 12 HOURS SUBQ 03/07/19 21:00 04/06/19 20:59 03/09/19 09:42 Insulin Aspart (NovoLOG) BEFORE MEALS AND HS SUBQ 03/07/19 21:30 04/06/19 21:29 03/08/19 20:15 Iron Sucrose 100 mg/Sodium Chloride 60 ml @ 240 mls/hr ONCE IV 03/09/19 11:00 03/09/19 13:00 Ketorolac Tromethamine (Toradol 30mg) 15 mg Q6H PRN IV moderate pian 4-6 03/07/19 20:43 03/12/19 20:42 Metoclopramide HCl (Reglan) 5 mg Q6H PRN ORAL Nausea & Vomiting 03/08/19 10:30 04/07/19 10:29 Morphine Sulfate (Morphine Sulfate) 2 mg Q4H PRN IVP severe Pain (Pain Scale 7-10) 03/07/19 20:40 03/14/19 20:39 Nitroglycerin (Ntg) 0.4 mg Q5M X 3 DOSES PRN SL Prn Chest Pain 03/07/19 20:15 04/06/19 20:14 03/08/19 05:31 Ondansetron HCl (Zofran) 4 mg Q6H PRN IVP Nausea & Vomiting 03/07/19 20:22 04/06/19 20:21 Polyethylene Glycol (Miralax) 17 gm HSPRN PRN ORAL Constipation 03/07/19 21:00 04/06/19 20:59 Sodium Chloride 1,000 ml @ 50 mls/hr Q20H IV 03/07/19 21:30 04/06/19 21:29 03/08/19 22:42 Temazepam (Restoril) 15 mg HSPRN PRN ORAL Insomnia 03/07/19 21:00 03/14/19 20:59 Bryan Bertrand MD Mar 09, 2019 12:14
--- NOTE | 2019-03-09 13:09 | NUR ---
CASE MANAGEMENT:REVIEW 03/09/19 SI: INTRACTABLE ABDOMINAL PAIN 97.9 107 20 170/74 99% ON RA K-3.3 IS: IVF@50/HR DIGOXIN PO QD HEPARIN SQ Q12 IV TORADOL Q6HRS PRN : TELEMETRY DCP: FROM HOME
[2019-03-09 16:00] VITALS: BP 150/78
--- NOTE | 2019-03-09 18:37 | Internal Med Progress Note ---
Subjective Physician Name Glenn Garrido Attending Physician Glenn Garrido MD Current Medications Medications (Trade) Dose Ordered Sig/Yovana Route PRN Reason Start Time Stop Time Status Last Admin Dose Admin Acetaminophen (Tylenol) 650 mg Q4H PRN ORAL fever 03/07/19 20:21 04/06/19 20:20 Al Hydroxide/Mg Hydroxide (Mylanta II) 30 ml Q6H PRN ORAL dyspepsia 03/07/19 20:41 04/06/19 20:40 Allopurinol (Zyloprim) 100 mg DAILY ORAL 03/08/19 09:00 04/07/19 08:59 03/09/19 09:40 Dextrose (Dextrose 50%) 25 ml Q30M PRN IV Hypoglycemia 03/07/19 20:15 04/06/19 20:14 Dextrose (Dextrose 50%) 50 ml Q30M PRN IV Hypoglycemia 03/07/19 20:45 04/06/19 20:44 Digoxin (Lanoxin) 0.25 mg DAILY ORAL 03/08/19 09:00 04/07/19 08:59 03/09/19 09:39 Diphenhydramine HCl (Benadryl) 25 mg Q6H PRN ORAL Itching/Pruritis 03/07/19 20:41 04/06/19 20:40 Heparin Sodium (Porcine) (Heparin 5000 units/ml) 5,000 units EVERY 12 HOURS SUBQ 03/07/19 21:00 04/06/19 20:59 03/09/19 09:42 Insulin Aspart (NovoLOG) BEFORE MEALS AND HS SUBQ 03/07/19 21:30 04/06/19 21:29 03/09/19 12:25 Ketorolac Tromethamine (Toradol 30mg) 15 mg Q6H PRN IV moderate pian 4-6 03/07/19 20:43 03/12/19 20:42 Metoclopramide HCl (Reglan) 5 mg Q6H PRN ORAL Nausea & Vomiting 03/08/19 10:30 04/07/19 10:29 Morphine Sulfate (Morphine Sulfate) 2 mg Q4H PRN IVP severe Pain (Pain Scale 7-10) 03/07/19 20:40 03/14/19 20:39 Nitroglycerin (Ntg) 0.4 mg Q5M X 3 DOSES PRN SL Prn Chest Pain 03/07/19 20:15 04/06/19 20:14 03/08/19 05:31 Ondansetron HCl (Zofran) 4 mg Q6H PRN IVP Nausea & Vomiting 03/07/19 20:22 04/06/19 20:21 Polyethylene Glycol (Miralax) 17 gm HSPRN PRN ORAL Constipation 03/07/19 21:00 04/06/19 20:59 Sodium Chloride 1,000 ml @ 50 mls/hr Q20H IV 03/07/19 21:30 04/06/19 21:29 03/08/19 22:42 Temazepam (Restoril) 15 mg HSPRN PRN ORAL Insomnia 03/07/19 21:00 03/14/19 20:59 Allergies: Coded Allergies: No Known Allergies (Unverified , 09/04/18) Subjective Awake, alert, responsive, denies any chest pain, denies any shortness of breath , denies any abdominal pain. Objective Last Vital Signs Date Time Temp Pulse Resp B/P (MAP) Pulse Ox O2 Delivery O2 Flow Rate FiO2 03/09/19 16:00 98.1 89 19 150/78 (102) 97 03/09/19 09:00 Room Air 03/08/19 03:28 95.0 Laboratory Tests Test 03/09/19 00:15 03/09/19 06:07 03/09/19 12:05 Troponin I 0.019 ng/mL (0.000-0.056) 0.024 ng/mL (0.000-0.056) 0.000 ng/mL (0.000-0.056) White Blood Count 4.7 K/UL (4.8-10.8) L Red Blood Count 4.19 M/UL (4.20-5.40) L Hemoglobin 12.3 G/DL (12.0-16.0) Hematocrit 37.3 % (37.0-47.0) Mean Corpuscular Volume 89 FL (80-99) Mean Corpuscular Hemoglobin 29.4 PG (27.0-31.0) Mean Corpuscular Hemoglobin Concent 33.0 G/DL (32.0-36.0) Red Cell Distribution Width 12.8 % (11.6-14.8) Platelet Count 206 K/UL (150-450) Mean Platelet Volume 6.8 FL (6.5-10.1) Neutrophils (%) (Auto) 50.6 % (45.0-75.0) Lymphocytes (%) (Auto) 37.2 % (20.0-45.0) Monocytes (%) (Auto) 7.6 % (1.0-10.0) Eosinophils (%) (Auto) 3.1 % (0.0-3.0) H Basophils (%) (Auto) 1.5 % (0.0-2.0) Reticulocyte Count 0.5 % (0.0-2.0) Prothrombin Time 11.2 SEC (9.30-11.50) Prothromb Time International Ratio 1.1 (0.9-1.1) Activated Partial Thromboplast Time 26 SEC (23-33) Sodium Level 141 MMOL/L (136-145) Potassium Level 3.3 MMOL/L (3.5-5.1) L Chloride Level 102 MMOL/L (98-107) Carbon Dioxide Level 29 MMOL/L (21-32) Anion Gap 10 mmol/L (5-15) Blood Urea Nitrogen 9 mg/dL (7-18) Creatinine 0.8 MG/DL (0.55-1.30) Estimat Glomerular Filtration Rate mL/min (>60) Glucose Level 82 MG/DL (74-106) Calcium Level 9.1 MG/DL (8.5-10.1) Iron Level 47 ug/dL (50-175) L Total Iron Binding Capacity 328 ug/dL (250-450) Percent Iron Saturation 14 % (15-50) L Unsaturated Iron Binding 281 ug/dL (112-346) Ferritin 24 NG/ML (8-388) Total Bilirubin 0.5 MG/DL (0.2-1.0) Aspartate Amino Transf (AST/SGOT) 16 U/L (15-37) Alanine Aminotransferase (ALT/SGPT) 16 U/L (12-78) Alkaline Phosphatase 64 U/L (46-116) Total Protein 6.8 G/DL (6.4-8.2) Albumin 3.4 G/DL (3.4-5.0) Globulin 3.4 g/dL Albumin/Globulin Ratio 1.0 (1.0-2.7) Carcinoembryonic Antigen Pending Vitamin B12 Level 99 PG/ML (193-986) L Folate 81.6 NG/ML (8.6-58.9) H Thyroid Stimulating Hormone (TSH) 2.032 uiU/mL (0.358-3.740) Free Thyroxine 1.32 NG/DL (0.76-1.46) Microbiology Date/Time Source Procedure Growth Status 03/07/19 18:20 Blood Blood Culture - Preliminary NO GROWTH AFTER 24 HOURS Resulted 03/07/19 18:05 Blood Blood Culture - Preliminary NO GROWTH AFTER 24 HOURS Resulted Intake and Output 03/08/19 03/09/19 19:00 07:00 Intake Total 50 ml 566.5 ml Balance 50 ml 566.5 ml IV Total 50 ml 566.5 ml Objective General: No acute distress, awake and alert HEENT: NCAT, sclera anicteric, PERRL, EOMI. Neck: Supple, no significant jugular venous distention, Lungs: Good inspiratory effort,, clear to auscultation bilaterally, no Wheeze or Rales. Heart: Regular rate and rhythm, normal S1/S2, no murmur, Abdomen: soft, nontender, nondistended. Normoactive bowel sounds. / Rectal: Refused and deferred. Extremities: No Cyanosis , clubbing or edema. Neuro: A&O x 3, Able to move left side extremities, right side hemiparesis and weakness. Skin: warm, no rashes or lesions Psych: Normal mood and affect Assessment/Plan Assessment/Plan 1. Intractable abdominal pain. 2. Diabetes type 2. 3. Paroxysmal atrial fibrillation. 4. History of cerebrovascular disease with right-sided hemiparesis. 5. Cholelithiasis. 6. Lactic acidosis. PLan: We will advance diet as tolerated. Monitor laboratory as well as cultures. DVT prophylaxis: Heparin subcu. CODE STATUS full code. DC planning home in Glenn Mcclellan MD Mar 09, 2019 18:37
--- NOTE | 2019-03-09 19:30 | NUR ---
NURSE NOTES: received pt from previous nurse. pt in bed relax, no c/o pain discomfort at this moment. safety precautions in place. will continue to monitor.
[2019-03-09 20:00] VITALS: BP 130/74
[2019-03-10] VITALS: BP 146/77
--- NOTE | 2019-03-10 | NUR ---
NURSE NOTES: pt in bed sleeping. no acute distress noted. will continue to monitor.
[2019-03-10 04:00] VITALS: BP 135/85
[2019-03-10] MEDS: NovoLOG Insulin Flexpen SUBQ SCH ×2 (05:38→11:37)
[2019-03-10] MEDS: Heparin 5000 units/ml inj SUBQ SCH ×2 (05:51→13:56)
--- NOTE | 2019-03-10 06:43 | NUR ---
NURSE NOTES: pt reminds in stable condition. no change in condition. all needs met during my shift. will endorse pt to incoming nurse.
--- NOTE | 2019-03-10 07:15 | NUR ---
HAND-OFF: Report given to JOSH Santana.
--- NOTE | 2019-03-10 07:16 | NUR ---
NURSE NOTES: Received report from JOSH Grijalva. Pt is resting in the bed, non verbal. Venous duplex is getting done at bed side. Breathing unlabored in room air. Bed in lowest position with 2 side rails up, breaks are engaged. Call light , and side table are within reach. Bed alarm on. Will continue to monitor. Addendum: 03/10/19 at 0756 by ERNA MOJICA RN RN Charting in wrong patient.
--- NOTE | 2019-03-10 07:17 | NUR ---
NURSE NOTES: Received report from JOSH Grijalva. Pt is resting in the bed, [place]an speaking. Alert and oriented x3. Breathing unlabored in room air. assistant media planner at bed side, cleaning the patient (Pt took off the pure wick). Bed in lowest position with 3 side rails up, breaks are engaged. Call light , and side table are within reach. Will continue to monitor.
[2019-03-10 07:36] LABS: BASOPHILS % (AUTO) 1.4 % (0.0-2.0); EOSINOPHILS % (AUTO) 3.5 % (0.0-3.0); HEMATOCRIT 37.3 % (37.0-47.0); HEMOGLOBIN 12.6 G/DL (12.0-16.0); LYMPHOCYTES % (AUTO) 36.2 % (20.0-45.0); MEAN CORPUSCULAR VOLUME 89 FL (80-99); PLATELET COUNT 188 K/UL (150-450); RED BLOOD COUNT 4.18 M/UL (4.20-5.40); RED CELL DISTRIBUTION WIDTH 12.8 % (11.6-14.8); WHITE BLOOD COUNT 4.3 K/UL (4.8-10.8)
[2019-03-10 08:00] VITALS: BP 179/85
[2019-03-10 08:05] LABS: ANION GAP 11 mmol/L (5-15); BLOOD UREA NITROGEN 5 mg/dL (7-18); CALCIUM 8.6 MG/DL (8.5-10.1); CARBON DIOXIDE 27 MMOL/L (21-32); CHLORIDE 103 MMOL/L (98-107); CREATININE 0.7 MG/DL (0.55-1.30); POTASSIUM 3.2 MMOL/L (3.5-5.1); SODIUM 141 MMOL/L (136-145)
[2019-03-10] MEDS: Allopurinol 100mg Tab ORAL SCH (08:40)
[2019-03-10 09:09] VITALS: BP 160/75
--- NOTE | 2019-03-10 11:07 | General Progress Note ---
Assessment/Plan Problem List: (1) Cholelithiasis ICD Codes: K80.20 - Calculus of gallbladder without cholecystitis without obstruction SNOMED: 882108881 (2) Generalized weakness ICD Codes: R53.1 - Weakness SNOMED: 79770202 (3) Right hemiparesis ICD Codes: G81.90 - Right hemiparesis SNOMED: 649281905 (4) Cerebral vascular disease ICD Codes: I67.9 - Cerebral vascular disease SNOMED: 46516582 (5) Iron deficiency anemia ICD Codes: D50.9 - Iron deficiency anemia, unspecified SNOMED: 61104159 (6) Diabetes mellitus ICD Codes: E11.9 - Type 2 diabetes mellitus without complications SNOMED: 96725278 (7) Hypertension ICD Codes: I10 - Hypertension SNOMED: 92250948 Assessment/Plan CT reviewed us reviewed recent labs and notes reviewed d/w the nurse at the bedside add colace and miralax Subjective ROS Limited/Unobtainable: No Allergies: Coded Allergies: No Known Allergies (Unverified , 09/04/18) Objective Last 24 Hour Vital Signs Date Time Temp Pulse Resp B/P (MAP) Pulse Ox O2 Delivery O2 Flow Rate FiO2 03/10/19 09:09 160/75 (103) 03/10/19 09:00 Room Air 03/10/19 08:40 90 03/10/19 08:00 118 03/10/19 08:00 98.0 90 18 179/85 (116) 98 03/10/19 04:00 98.4 78 18 135/85 (102) 97 03/10/19 04:00 84 03/10/19 00:00 73 03/10/19 00:00 97.8 68 18 146/77 (100) 98 03/09/19 21:00 Room Air 03/09/19 20:00 95 03/09/19 20:00 97.6 96 17 130/74 (92) 97 03/09/19 16:00 98.1 89 19 150/78 (102) 97 03/09/19 16:00 77 03/09/19 12:00 97.9 107 20 170/74 (106) 99 03/09/19 12:00 101 Intake and Output 03/09/19 03/10/19 18:59 06:59 Intake Total 530 ml 500 ml Balance 530 ml 500 ml Intake Oral 480 ml IV Total 50 ml 500 ml # Voids 5 Laboratory Tests 03/09/19 12:05: Troponin I 0.000 03/09/19 18:20: Troponin I 0.014 03/10/19 07:04: White Blood Count 4.3L, Red Blood Count 4.18L, Hemoglobin 12.6, Hematocrit 37.3 , Mean Corpuscular Volume 89, Mean Corpuscular Hemoglobin 30.1, Mean Corpuscular Hemoglobin Concent 33.8, Red Cell Distribution Width 12.8, Platelet Count 188, Mean Platelet Volume 6.9, Neutrophils (%) (Auto) 51.0, Lymphocytes (% ) (Auto) 36.2, Monocytes (%) (Auto) 8.0, Eosinophils (%) (Auto) 3.5H, Basophils (%) (Auto) 1.4, Sodium Level 141, Potassium Level 3.2L, Chloride Level 103, Carbon Dioxide Level 27, Anion Gap 11, Blood Urea Nitrogen 5L, Creatinine 0.7, Estimat Glomerular Filtration Rate , Glucose Level 90, Calcium Level 8.6 Height (Feet): 5 Height (Inches): 2.00 Weight (Pounds): 102 General Appearance: lethargic EENT: normal ENT inspection Neck: normal alignment Cardiovascular: normal rate Respiratory/Chest: lungs clear Abdomen: normal bowel sounds, non tender, soft Extremities: non-tender Miller Munoz MD Mar 10, 2019 11:07
[2019-03-10 12:01] VITALS: BP 144/102
--- NOTE | 2019-03-10 14:02 | Internal Med Progress Note ---
Subjective Physician Name Glenn Garrido Attending Physician Glenn Garrido MD Current Medications Medications (Trade) Dose Ordered Sig/Yovana Route PRN Reason Start Time Stop Time Status Last Admin Dose Admin Acetaminophen (Tylenol) 650 mg Q4H PRN ORAL fever 03/07/19 20:21 04/06/19 20:20 Al Hydroxide/Mg Hydroxide (Mylanta II) 30 ml Q6H PRN ORAL dyspepsia 03/07/19 20:41 04/06/19 20:40 Allopurinol (Zyloprim) 100 mg DAILY ORAL 03/08/19 09:00 04/07/19 08:59 03/10/19 08:40 Dextrose (Dextrose 50%) 25 ml Q30M PRN IV Hypoglycemia 03/07/19 20:15 04/06/19 20:14 Dextrose (Dextrose 50%) 50 ml Q30M PRN IV Hypoglycemia 03/07/19 20:45 04/06/19 20:44 Digoxin (Lanoxin) 0.25 mg DAILY ORAL 03/08/19 09:00 04/07/19 08:59 03/10/19 08:40 Diphenhydramine HCl (Benadryl) 25 mg Q6H PRN ORAL Itching/Pruritis 03/07/19 20:41 04/06/19 20:40 Docusate Sodium (Colace) 100 mg TWICE A DAY ORAL 03/10/19 18:00 04/09/19 17:59 Heparin Sodium (Porcine) (Heparin 5000 units/ml) 5,000 units EVERY 8 HOURS SUBQ 03/09/19 22:00 04/08/19 21:59 03/10/19 05:51 Insulin Aspart (NovoLOG) BEFORE MEALS AND HS SUBQ 03/07/19 21:30 04/06/19 21:29 03/10/19 11:37 Ketorolac Tromethamine (Toradol 30mg) 15 mg Q6H PRN IV moderate pian 4-6 03/07/19 20:43 03/12/19 20:42 Metoclopramide HCl (Reglan) 5 mg Q6H PRN ORAL Nausea & Vomiting 03/08/19 10:30 04/07/19 10:29 Morphine Sulfate (Morphine Sulfate) 2 mg Q4H PRN IVP severe Pain (Pain Scale 7-10) 03/07/19 20:40 03/14/19 20:39 Nitroglycerin (Ntg) 0.4 mg Q5M X 3 DOSES PRN SL Prn Chest Pain 03/07/19 20:15 04/06/19 20:14 03/08/19 05:31 Ondansetron HCl (Zofran) 4 mg Q6H PRN IVP Nausea & Vomiting 03/07/19 20:22 04/06/19 20:21 Polyethylene Glycol (Miralax) 17 gm BEDTIME ORAL 03/10/19 21:00 04/09/19 20:59 Polyethylene Glycol (Miralax) 17 gm HSPRN PRN ORAL Constipation 03/07/19 21:00 04/06/19 20:59 Quetiapine Fumarate (SEROquel) 25 mg Q12HR ORAL 03/10/19 09:30 04/09/19 09:29 03/10/19 09:36 Sodium Chloride 1,000 ml @ 50 mls/hr Q20H IV 03/07/19 21:30 04/06/19 21:29 03/10/19 05:52 Temazepam (Restoril) 15 mg HSPRN PRN ORAL Insomnia 03/07/19 21:00 03/14/19 20:59 Allergies: Coded Allergies: No Known Allergies (Unverified , 09/04/18) Subjective Awake, alert, responsive, denies any chest pain, denies any shortness of breath , denies any abdominal pain, feeling good. Objective Last Vital Signs Date Time Temp Pulse Resp B/P (MAP) Pulse Ox O2 Delivery O2 Flow Rate FiO2 03/10/19 12:01 97.6 97 18 144/102 (116) 98 03/10/19 09:00 Room Air 03/08/19 03:28 95.0 Laboratory Tests Test 03/09/19 18:20 03/10/19 07:04 Troponin I 0.014 ng/mL (0.000-0.056) White Blood Count 4.3 K/UL (4.8-10.8) L Red Blood Count 4.18 M/UL (4.20-5.40) L Hemoglobin 12.6 G/DL (12.0-16.0) Hematocrit 37.3 % (37.0-47.0) Mean Corpuscular Volume 89 FL (80-99) Mean Corpuscular Hemoglobin 30.1 PG (27.0-31.0) Mean Corpuscular Hemoglobin Concent 33.8 G/DL (32.0-36.0) Red Cell Distribution Width 12.8 % (11.6-14.8) Platelet Count 188 K/UL (150-450) Mean Platelet Volume 6.9 FL (6.5-10.1) Neutrophils (%) (Auto) 51.0 % (45.0-75.0) Lymphocytes (%) (Auto) 36.2 % (20.0-45.0) Monocytes (%) (Auto) 8.0 % (1.0-10.0) Eosinophils (%) (Auto) 3.5 % (0.0-3.0) H Basophils (%) (Auto) 1.4 % (0.0-2.0) Sodium Level 141 MMOL/L (136-145) Potassium Level 3.2 MMOL/L (3.5-5.1) L Chloride Level 103 MMOL/L (98-107) Carbon Dioxide Level 27 MMOL/L (21-32) Anion Gap 11 mmol/L (5-15) Blood Urea Nitrogen 5 mg/dL (7-18) L Creatinine 0.7 MG/DL (0.55-1.30) Estimat Glomerular Filtration Rate mL/min (>60) Glucose Level 90 MG/DL (74-106) Calcium Level 8.6 MG/DL (8.5-10.1) Microbiology Date/Time Source Procedure Growth Status 03/07/19 18:20 Blood Blood Culture - Preliminary NO GROWTH AFTER 48 HOURS Resulted 03/07/19 18:05 Blood Blood Culture - Preliminary NO GROWTH AFTER 48 HOURS Resulted Intake and Output 03/09/19 03/10/19 19:00 07:00 Intake Total 480 ml 500 ml Balance 480 ml 500 ml Intake Oral 480 ml IV Total 500 ml # Voids 5 Objective General: No acute distress, awake and alert HEENT: NCAT, sclera anicteric, PERRL, EOMI. Neck: Supple, no significant jugular venous distention, Lungs: Good inspiratory effort,, clear to auscultation bilaterally, no Wheeze or Rales. Heart: Regular rate and rhythm, normal S1/S2, no murmur, Abdomen: soft, nontender, nondistended. Normoactive bowel sounds. / Rectal: Refused and deferred. Extremities: No Cyanosis , clubbing or edema. Neuro: A&O x 3, Able to move left side extremities, right side hemiparesis and weakness. Skin: warm, no rashes or lesions Psych: Normal mood and affect Assessment/Plan Assessment/Plan 1. Intractable abdominal pain. 2. Diabetes type 2. 3. Paroxysmal atrial fibrillation. 4. History of cerebrovascular disease with right-sided hemiparesis. 5. Cholelithiasis. 6. Lactic acidosis. PLan: We will advance diet as tolerated. Monitor laboratory as well as cultures. DVT prophylaxis: Heparin subcu. CODE STATUS full code. DC planning home with home health today Kcl supplement. Glenn Garrido MD Mar 10, 2019 14:02
--- NOTE | 2019-03-10 15:30 | NUR ---
NURSE NOTES: Patient discharged home with home health per Dr. Garrido's order. Heart monitor removed and returned to air moving technician. IV removed. All discharge instructions explained to patient's daughter, verbalized understanding. Patient received all her belongings and went home in stable condition.
--- NOTE | 2019-03-10 15:47 | NUR ---
CASE MANAGEMENT: DCPNOTE PER MD ORDER PATIENT REFERRED TO HOME CLINICALS FAXED TO [facility] [phone] PH / [phone] FAX [facility] F/U
[2019-03-10] MEDS ORDERED: Docusate 100mg cap ORAL SCH (18:00)
[2019-03-10] MEDS ORDERED: Miralax 17gm pkt ORAL SCH (21:00)
--- NOTE | 2019-03-13 09:23 | Discharge Summary ---
Discharge Summary Discharge Summary _ DATE OF ADMISSION: 03/07/2019 DATE OF DISCHARGE: 03/10/2019 DISCHARGED BY: Dr. Garrido REASON FOR ADMISSION: 83 years old female with past medical history of CVA with right-sided hemiparesis, atrial fibrillation, hypertension, congestive heart failure, diabetes mellitus, cholelithiasis, presented to emergency department with chief complaint of abdominal pain. Patient had frequent urinary infections in the past. Patient nonverbal and was unable to provide any information. Upon evaluation vital signs were stable. Laboratory workup revealed no leukocytosis, stable hemoglobin and hematocrit. Stable electrolytes and renal parameters. Lactic acid 5.0. Glucose 108. Stable LFT. Troponin negative. CK stable. EKG revealed normal sinus rhythm no acute ischemic changes. Urinalysis revealed no evidence of UTI. Chest x-ray revealed no acute cardiopulmonary pathology. Abdominal x-ray revealed no acute process. Patient was admitted for further management [facility] pulmonary Dr. Bertrand GI specialist Dr. Munoz [facility] COURSE: Patient admitted to telemetry floor. Patient initially was kept n.p.o. and started on IV hydration. Pain management was addressed. GI consult was requested. Symptomatic treatment provided. Abdominal ultrasound revealed cholelithiasis, but was negative for dilated bile ducts. CT of the abdomen and pelvis revealed no acute abnormality. Cholelithiasis , previously reported , noted. Bowel regimen instituted. GI specialist seen and evaluated patient. Hemoglobin and hematocrit were closely monitored with goal to keep hemoglobin above 7 , and remained stable. Anemia workup revealed evidence of anemia of iron deficiency with ferritin 24. Patient received IV Venofer x1. CEA was mild elevation - 5.8 , recommended outpatient colonoscopy. Second troponin negative. DVT prophylaxis provided. Blood sugar was managed with sliding scale of insulin. Blood pressure was managed with current medication regimen and remained stable. Venous duplex bilateral lower extremity revealed no evidence of acute DVT. Blood culture were negative. Renal parameters and electrolytes were closely monitored, electrolytes/ potassium corrected as needed , and nephrotoxins were avoided. Diet was advanced as tolerated Patient was able to tolerate diet. Abdominal pain resolved. Patient was stable for discharge home with home health services to follow. FINAL DIAGNOSES: Intractable abdominal pain Cholelithiasis Lactic acidosis Diabetes mellitus type 2 Paroxysmal atrial fibrillation History of CVA with right-sided hemiparesis Iron deficiency anemia DISCHARGE MEDICATIONS: See Medication Reconciliation list. DISCHARGE INSTRUCTIONS: Patient was discharged home with home health services. Follow up with primary care provider in one week. I have been assigned to dictate discharge summary for this account. I was not involved in the patient's management. Kayli Giron NP Mar 13, 2019 09:23
--- NOTE | 2019-03-14 23:34 | Diagnostic Imaging Report ---
APPROVED REPORT CPT Code: 74974 Present Symptoms Comments: Pain BILATERAL: Imaging reveals a patent deep venous system bilaterally. There is no evidence of thrombus within the common femoral, superficial femoral, popliteal or tibial segments. The greater saphenous veins are within normal limits. Doppler indicates normal spontaneous flow within these segments.
== END 2019-03-10 15:30 | disposition home health service (06) | DRG 445 ==
LOC: EMR 18:42 → 2E 19:20 → EDBEDREQ 20:16 → 2E 22:21
DX: K80.20 Calculus of gallbladder without cholecystitis without obstruction (principal); E87.2 Acidosis; I69.351 Hemiplegia and hemiparesis following cerebral infarction affecting right dominant side; R10.9 Unspecified abdominal pain; E11.9 Type 2 diabetes mellitus without complications; I48.0 Paroxysmal atrial fibrillation; I10 Essential (primary) hypertension; Z79.01 Long term (current) use of anticoagulants; Z79.84 Long term (current) use of oral hypoglycemic drugs; Z79.82 Long term (current) use of aspirin; D50.9 Iron deficiency anemia, unspecified; R00.1 Bradycardia, unspecified; E86.0 Dehydration; M10.9 Gout, unspecified
CPT/HCPCS: 36415; 71045; 74018; 74177; 76700; 80048; 80053; 81003; 82150; 82378; 82550; 82553; 82607; 82728; 82746; 82962; 83036; 83540; 83550; 83605; 83690; 83735; 84100; 84439; 84443; 84484; 85025; 85044; 85610; 85730; 87040; 92610; 93005; 93970; 99285; J1815; J8499